=== PATIENT | female | born 1950 | race Caucasian/White ===

== ENCOUNTER 2017-11-08 08:17 | Outpatient (RCR) | payer MEDICAID, SELFPAY ==
[2017-10-15 01:39] VITALS: BP 139/76; PULSE 73; RESP 20; TEMP 36.4; BMI 42.5
[2017-11-08 09:02] VITALS: BP 114/71; PULSE 71; RESP 20; TEMP 37; BMI 42.5
[2017-11-08 12:27] LABS: Erythrocyte Sedimentation Rate 63 mm/hr (0-30)
[2017-11-08 12:30] LABS: Absolute Neutrophil Count 3.7 X10^3/uL (2.0-7.7); Basophil# 0.04 X10^3/uL; Basophil% 0.6 % (0-1); Eosinophils% 1.6 % (0-5); Hematocrit 40.9 % (37-47); Lymphocyte % 31.9 % (19-41); Mean Corp Hgb Conc 31.8 g/gl (32-36); Mean Corpuscular Hgb 28.8 pg (27.0-32.0); Mean Corpuscular Volume 90.5 fL (81-99); Mean Platelet Vol. 9.3 fl (6.2-12.0); Monocyte# 0.42 X10^3/uL; Monocyte% 6.7 % (0-10); Neutrophil # 3.67 X10^3/uL (2.7-7.7); Neutrophil % 58.7 % (47-70); POSITIVE COUNT NO; POSITIVE DIFFERENTIAL NO; POSITIVE MORPHOLOGY NO; Platelet Count 306 K/mm3 (150-450); RBC Distribution Width CV 13.2 % (11.6-14.6); RBC Distribution Width SD 43.1 fl (35.1-43.9); Red Blood Count 4.52 M/mm3 (4.2-5.4); White Blood Count 6.3 K/mm3 (4.4-11.0)
[2017-11-08 13:01] LABS: ALB/GLOB Ratio 0.7 RATIO (0.9-2.4); AST(SGOT) 24 U/L (15-37); Alanine Aminotransfer ALT/SGPT 27 U/L (12-78); Albumin, Serum 3.5 g/dL (3.4-5.0); Alkaline Phosphatase 122 U/L (45-117); Anion Gap 6 (5-15); BUN 18 mg/dL (7-18); BUN/Creat Ratio 19.4 RATIO (10-20); Calcium,Total 9.6 mg/dL (8.5-10.1); Chloride 102 mmol/L (98-107); Creatinine, Serum 0.93 mg/dL (0.55-1.02); EST Glomerular Filtration Rate 64 mL/min (>60); Est Glom Filt Rate - Afr Amer 78 mL/min (>60); Estimated Creatinine Clearance 52.77 ml/min; Globulin 4.7 g/dL (2.2-4.2); Glucose 164 mg/dL (70-110); Potassium 4.6 mmol/L (3.5-5.1); Prealbumin 23.5 mg/dL (20.0-40.0); Protein, Total 8.2 g/dL (6.4-8.2); Sodium Level 139 mmol/L (136-145)
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
== END 2017-11-14 23:59 ==
LOC: WC 08:17
PROVIDERS: Visit Provider Internal Medicine
DX: E11.621 Type 2 diabetes mellitus with foot ulcer (principal); E11.622 Type 2 diabetes mellitus with other skin ulcer; L97.522 Non-pressure chronic ulcer of other part of left foot with fat layer exposed; L97.822 Non-pressure chronic ulcer of other part of left lower leg with fat layer exposed; L03.116 Cellulitis of left lower limb; E03.9 Hypothyroidism, unspecified; Z91.81 History of falling; Z79.899 Other long term (current) drug therapy; Z79.4 Long term (current) use of insulin; Z87.891 Personal history of nicotine dependence
CPT/HCPCS: 36415; 80053; 84134; 85025; 85652; 87070; 87075; 87077; 87186; 87205; 97597; 99213; G0463

== ENCOUNTER 2017-11-22 10:00 | Outpatient (RCR) | payer MEDICAID, SELFPAY ==
[2017-11-08 09:02] VITALS: BP 114/71
[2017-11-15 00:55] VITALS: PULSE 71; RESP 20; TEMP 37
--- NOTE | 2017-11-16 12:03 | VDLE_ITS ---
Reason For Study: Non-healing wounds RIGHT LEFT GSV is normal. GSV is normal. CFV is compressible, spontaneous, phasic, CFV is compressible, spontaneous, phasic, competent and demonstrates normal competent, and demonstrates normal augmentation. augmentation. FV is compressible, spontaneous, phasic, FV is compressible, spontaneous, phasic, competent and demonstrates normal competent and demonstrates normal augmentation. augmentation. POP V is compressible, spontaneous, phasic, POP V is compressible, spontaneous, phasic, competent and demonstrates normal competent and demonstrates normal augmentation. augmentation. T/P Trunk is compressible. T/P Trunk is compressible. PTV is compressible. PTV is compressible. RT PerV is compressible. LT PerV is compressible. SFJ is INCOMPETENT SFJ is INCOMPETENT GSV is competent above knee GSV is competent GSV is INCOMPETENT below knee with reflux SSV is INCOMPETENT with reflux greater greater than .5 sec and diameter of .28 than .5 sec and diameter of.33 x .33 cm. x .29 cm SSV is competent. Procedure Exam performed in department. A preliminary report was called and/or faxed to [facility]. Interpretation Summary Deep veins of the lower extremities are bilaterally patent and compressible segmentally. There is no evidence of deep vein thrombosis on either side. Valvular competence appears intact within the proximal deep venous systems bilaterally. The greater saphenous veins appear bilaterally patent and compressible segmentally. Sapheno-femoral junctions are bilaterally incompetent . The right greater saphenous vein appears competent above the knee. The right greater saphenous vein appears incompetent below the knee. The left greater saphenous vein appears segmentally competent. The right small saphenous vein is patent and competent. The left small saphenous vein is patent and incompetent. Ordering Physician: Luis Sebastian Referring Physician: Luis Sebastian Performed By: Elvia Martinez RVT
[2017-11-22 10:16] VITALS: BP 97/59; PULSE 86; RESP 16; TEMP 36.2; BMI 42.5
--- NOTE | 2017-11-22 13:26 | LEAS ---
Arterial Study - Arterial Study Arterial Study: This is a 66-year-old female with a history of diabetes mellitus. The patient presents with chronic nonhealing wounds to the lower extremities. Suspecting the presence of atherosclerotic peripheral arterial occlusive disease, the patient was brought to the noninvasive vascular laboratory at this time for the purpose of bilateral noninvasive lower extremity arterial assessment. Doppler signal assessment was used to evaluate the pulses at ankle level bilaterally. The posterior tibial and dorsalis pedis pulses were triphasic bilaterally. Segmental limb pressures were obtained bilaterally. The right ankle pressure, as determined by posterior tibial pulse, was measured at 127 mmHg. The right ankle pressure, as determined by dorsalis pedis pulse, was measured at 117 mmHg. The right digital pressure was measured at 82 mmHg. The left ankle pressure, as determined by posterior tibial pulse, was measured at 137 mmHg. The left ankle pressure, as determined by dorsalis pedis pulse, was measured at 120 mmHg. The left digital pressure was measured at 93 mmHg Pulse-volume recordings were obtained bilaterally and segmentally. Waveform amplitudes appeared to be satisfactory at all levels bilaterally, including low thigh, calf, ankle, and digital levels. Resting ankle-brachial indices were calculated bilaterally. The resting right ankle-brachial index was calculated to be 1.15. The resting left ankle-brachial index was calculated to be 1.25. Digital-brachial indices were calculated bilaterally. The right digital-brachial index was calculated to be 0.75. The left digital-brachial index was calculated to be 0.85. Impression: Based upon the findings of this resting noninvasive lower extremity arterial study, there is no evidence of significant atherosclerotic peripheral arterial occlusive disease in the lower extremities bilaterally. Triphasic waveforms are noted at ankle level bilaterally. Resting ankle-brachial indices were bilaterally normal. Digital-brachial indices were also normal bilaterally. In summary, this represents a normal resting noninvasive lower extremity arterial study bilaterally.
--- NOTE | 2017-11-22 13:31 | LEAS_ITS ---
Arterial Study - Arterial Study Arterial Study: This is a 66-year-old female with a history of diabetes mellitus. The patient presents with chronic nonhealing wounds to the lower extremities. Suspecting the presence of atherosclerotic peripheral arterial occlusive disease, the patient was brought to the noninvasive vascular laboratory at this time for the purpose of bilateral noninvasive lower extremity arterial assessment. Doppler signal assessment was used to evaluate the pulses at ankle level bilaterally. The posterior tibial and dorsalis pedis pulses were triphasic bilaterally. Segmental limb pressures were obtained bilaterally. The right ankle pressure, as determined by posterior tibial pulse, was measured at 127 mmHg. The right ankle pressure, as determined by dorsalis pedis pulse, was measured at 117 mmHg. The right digital pressure was measured at 82 mmHg. The left ankle pressure, as determined by posterior tibial pulse, was measured at 137 mmHg. The left ankle pressure, as determined by dorsalis pedis pulse, was measured at 120 mmHg. The left digital pressure was measured at 93 mmHg Pulse-volume recordings were obtained bilaterally and segmentally. Waveform amplitudes appeared to be satisfactory at all levels bilaterally, including low thigh, calf, ankle, and digital levels. Resting ankle-brachial indices were calculated bilaterally. The resting right ankle-brachial index was calculated to be 1.15. The resting left ankle- brachial index was calculated to be 1.25. Digital-brachial indices were calculated bilaterally. The right digital- brachial index was calculated to be 0.75. The left digital-brachial index was calculated to be 0.85. Impression: Based upon the findings of this resting noninvasive lower extremity arterial study, there is no evidence of significant atherosclerotic peripheral arterial occlusive disease in the lower extremities bilaterally. Triphasic waveforms are noted at ankle level bilaterally. Resting ankle-brachial indices were bilaterally normal. Digital-brachial indices were also normal bilaterally. In summary, this represents a normal resting noninvasive lower extremity arterial study bilaterally.
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
[2017-12-13 10:35] VITALS: BP 119/62; PULSE 79; RESP 18; TEMP 36.6; BMI 42.5
== END 2017-12-12 23:59 ==
LOC: WC 10:00
PROVIDERS: Visit Provider Internal Medicine
DX: E11.621 Type 2 diabetes mellitus with foot ulcer (principal); L97.522 Non-pressure chronic ulcer of other part of left foot with fat layer exposed; Z91.81 History of falling; M79.89 Other specified soft tissue disorders
CPT/HCPCS: 11042; 93923; 93970

== ENCOUNTER 2017-12-26 10:00 | Outpatient (RCR) | payer MEDICAID, SELFPAY ==
[2017-12-13 00:43] VITALS: BP 97/59; PULSE 86; RESP 16; TEMP 36.2; BMI 42.5
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
[2017-12-26 11:20] VITALS: BP 109/63; PULSE 73; RESP 18; TEMP 36.4; BMI 42.5
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
== END 2018-01-12 23:59 ==
LOC: WC 10:00
PROVIDERS: Visit Provider Internal Medicine
DX: E11.621 Type 2 diabetes mellitus with foot ulcer (principal); M79.89 Other specified soft tissue disorders; E03.9 Hypothyroidism, unspecified; Z79.899 Other long term (current) drug therapy; Z79.4 Long term (current) use of insulin; Z87.891 Personal history of nicotine dependence; L97.811 Non-pressure chronic ulcer of other part of right lower leg limited to breakdown of skin
CPT/HCPCS: 11042; 99213; G0463

== ENCOUNTER → 2018-01-15 14:49 | Outpatient (CLI) | payer MEDICAID, SELFPAY ==
--- NOTE | 2018-01-15 14:55 | MRI_ITS ---
STUDY: MRI LEFT SHOULDER REASON FOR EXAM: Female, 67 years old. Left shoulder pain. Decreased range of motion. TECHNIQUE: Standardized fat and water weighted pulse sequences were obtained in all 3 orthogonal planes. COMPARISON: X-ray September 27, 2017 FINDINGS: There is supraspinatus tendinosis with tendon thickening, but without a demonstrated tendon tear. Normal infraspinatus tendon. There is subscapularis tendinosis with tendon thickening, but without a demonstrated tendon tear. Normal teres minor tendon. Normal supraspinatus muscle. Normal infraspinatus muscle. Normal subscapularis muscle. Normal teres minor muscle. There is severe osteoarthritis of the glenohumeral articulation. There is a small volume joint effusion of the glenohumeral joint. There is spurring with edema of the humeral head and visualized proximal humerus. Cystic regions of the glenoid. Normal biceps labral complex. Normal intracapsular long biceps tendon. Blunting with tearing of the labrum. Normal capsulo- ligamentous complex. Normal rotator interval. There is moderate osteoarthritis of the acromioclavicular articulations. There is a Type II morphology (curved) acromion, with an anterior downsloping orientation. There is no subacromial-subdeltoid bursal fluid. Normal visualized coracohumeral and coracoacromial ligaments. Normal quadrilateral space. Normal axillary space. Normal deltoid muscle. Normal trapezius muscle. MRI/Upper Ext Joint Only(Routine) IMPRESSION: Tendinosis of the supraspinatus and subscapularis. No full-thickness rotator cuff tear. Severe glenohumeral arthrosis. Electronically Signed: Caden Marie MD at 23:43 EDT , Service support ,
== END ==
DX: M25.519 Pain in unspecified shoulder (principal)
CPT/HCPCS: 73221

== ENCOUNTER 2018-02-07 10:00 | Outpatient (RCR) | payer MEDICAID, SELFPAY ==
[2018-01-13 00:38] VITALS: BP 97/59; PULSE 73; RESP 18; TEMP 36.4; BMI 42.5
[2018-01-16 10:29] VITALS: BP 125/68; PULSE 76; RESP 18; TEMP 36.9; BMI 42.5
--- NOTE | 2018-01-16 23:03 | PCM.WC.HP ---
(1) Open wound of left lower extremity Status: Acute Current Visit: Yes Code(s): S81.802A - Unspecified open wound, left lower leg, initial encounter (2) Diabetic ulcer of right foot Status: Acute Current Visit: Yes Code(s): E11.621 - Type 2 diabetes mellitus with foot ulcer; L97.519 - Non-pressure chronic ulcer of other part of right foot with unspecified severity (3) Diabetic leg ulcer Status: Acute Current Visit: Yes Code(s): E11.622 - Type 2 diabetes mellitus with other skin ulcer; L97.909 - Non-pressure chronic ulcer of unspecified part of unspecified lower leg with unspecified severity (4) Diabetes mellitus Status: Chronic Current Visit: Yes Code(s): E11.9 - Type 2 diabetes mellitus without complications History of Present Illness Date of Service: 01/16/18 Chief Complaint: Right lower extremity/Foot Blisters/Ulcers. Left Lower extremity/Leg woud secondary to Dog Scratch. History of Wound: Ms. Molina who is well known to me presents to the wound center today with two new wounds. She has a left lower extremity wound which she states she sustained as a result fro a scratch by her dog. Sh also has blisters to her right toes with the most significant being if the right great toe however, patient is unsure of how she sustained these blister. She reports pain in her left lower extremity but denies any significant pain in her toes. She reports chills, but denies fever, nausea, vomitting or any change in her biwel habit. Past Medical History Past Medical History: Chronic Problems Hypothyroidism (Chronic) Diabetes mellitus (Chronic) Diabetic foot ulcer (Chronic) Allergies/Adverse Reactions: Allergies ciprofloxacin [From Cipro] Allergy (Verified 09/27/17 10:34) Rash codeine Adverse Reaction (Verified 09/27/17 10:34) Rash Home Medications: Ambulatory Orders Medication Instructions Recorded Duloxetine Hcl [Cymbalta] 60 mg PO DAILY 09/27/17 Gabapentin [Neurontin] 400 mg PO 09/27/17 Hydrocodone/Acetaminophen [[place] 09/27/17 5-325 Tablet] Insulin NPH/Reg 70/30 [Novolin 100 09/27/17 70/30] Levothyroxine Sodium [Synthroid] 100 mcg PO 09/27/17 Lisinopril 20 mg PO 09/27/17 Lovastatin [Mevacor] 40 mg PO DAILY 09/27/17 Miconazole Nitrate [Miconazole 3] 200 mg VG 09/27/17 Naproxen Sodium [Naprelan] 1,000 mg PO DAILY 09/27/17 Potassium Chloride [Klor-Con 10] 10 meq PO 09/27/17 Sumatriptan [Imitrex] 6 mg SC .X1 PRN 09/27/17 Trazodone ER [Oleptro Er] 100 mg 09/27/17 Furosemide 60 mg PO DAILY 11/08/17 Insulin Glargine,Hum.rec.anlog 40 unit SQ BID 11/22/17 [Kim Gottlieb] Smoking Status: Former smoker Review of Systems Constitutional: Reports: Chills. Denies: Anorexia, Fever, Malaise, Weakness Eyes: Denies: Blurred vision, Drainage HEENT: Denies: Difficulty Swallowing, Hearing Changes Cardiovascular: Denies: Chest Pain, Chest Tightness, Heaviness Respiratory: Denies: Hemoptysis, Shortness of breath at rest Gastrointestinal: Denies: Abdominal Pain, Hematemesis, Vomiting Skin: Denies: Jaundice Neurological: Denies: Blurred vision, Tremor, Seizures - Physical Exam Vital Signs Temp Pulse Resp BP 98.4 F 76 18 125/68 H 01/16/18 10:29 01/16/18 10:29 01/16/18 10:29 01/16/18 10:29 General: Alert, Oriented x3, Cooperative, No apparent distress HEENT: Atraumatic, Normocephalic Oral: Moist Mucosa Neck: Supple Lungs: Normal air movement Cardiovascular: Regular rate Abdomen: Non Tender, Obese Extremities: No cyanosis, Edema Skin: Ulcer/ Wound Wound Measurements and Assessment WC - Nurse 1 - General Ulcer Measurement Start: 01/16/18 10:29 Freq: Status: Active Protocol: Activity Type Activity Date Activity User E-Sign Co-Sign Detail Recorded Client Recorded Date Recorded By Document 01/16/18 10:29 [facility] [id number] 01/16/18 10:46 [facility] 01/16/18 10:29 Wound Center Nurse 1 [Ulcer Assessment] #4- LT RODGERS CLUSTER -Combined with other wound No -Current Size (cm) - Length 10.9 -Current Size (cm) - Width 5.1 -Current Size (cm) - Depth 0.1 -Total Square Cm 55.59 -Date of Last Picture (Recall this 01/16/18 field) -Photo Taken Yes -Epithelialization None Present -Tunneling No -Undermining/Tunneling No -Circular Undermining No -Exudate Amt Small (1-33%) -Exudate Type Serosanguineous -Wound Margin Distinct, Outline Attached -Granulation Amt Large (67-100%) -Granulation Quality Red -Slough/Fibrin No -Necrosis Amt None Present (0 %) -Structure Exposed None/Limited to Skin Breakdown -Texture (Mel-wound Skin Appearance) Scarring -Moisture (Mel-wound Skin Appearance Maceration ) Dry/Scaly -Color (Mel-wound Skin Appearance) Erythema Hemosiderin Staining -Temperature (Mel-wound Skin No Abnormality Appearance) (Pt Warm) -Tenderness on Palpation (Mel-wound Yes Skin Appearance) -Ulcer Cleansing Wound Cleanser -Foul Odor after Cleansing No -Anesthetic Used 4% Lidocaine Solution #3 Right Rodgers -Combined with other wound No -Current Size (cm) - Length 0 -Current Size (cm) - Width 0 -Current Size (cm) - Depth 0 -Total Square Cm 0 -Date of Last Picture (Recall this 01/16/18 field) -Photo Taken Yes -Epithelialization Large 67-100% [Edema Assessment] -Lower Limb Edema Present Yes -Right Calf (cm) 38.5 -Right Ankle (cm) 22.6 -Left Calf (cm) 42 -Left Ankle (cm) 24.4 WC - Nurse 2 - General Ulcer CM Notes Start: 01/16/18 10:29 Freq: Status: Active Protocol: Activity Type Activity Date Activity User E-Sign Co-Sign Detail Recorded Client Recorded Date Recorded By Document 01/16/18 11:28 DV [id number] 01/16/18 11:37 DV 01/16/18 11:28 Wound Center Nurse 2 [Procedure/Treatment] #5 Right Webspace Met Head Grt Toe -Time 11:34 -Correct Patient Yes -Correct Side, Site, Position Yes -Correct Procedure Yes -Procedure Performed Yes -Type of Procedure Debridement -Clinical Debridement Subcutaneous -Post Debridement Size (cm) - Length 2.1 -Post Debridement Size (cm) - Width 1.4 -Post Debridement Size (cm) - Depth 0.1 -Total Square Cm 2.94 -Wound/Ulcer Outcome Not Healed -Ulcer Cleansing Rinsed/ Irrigated with Saline -Foul Odor after Cleansing No -Bioengineered Tissue No -Bleeding Controlled with Pressure -Treatment Response Procedure Tolerated Well #4- LT RODGERS CLUSTER -Time 11:31 -Correct Patient Yes -Correct Side, Site, Position Yes -Correct Procedure Yes -Procedure Performed Yes -Type of Procedure Debridement -Clinical Debridement Subcutaneous -Post Debridement Size (cm) - Length 11.0 -Post Debridement Size (cm) - Width 6.0 -Post Debridement Size (cm) - Depth 0.1 -Total Square Cm 66.00 -Wound/Ulcer Outcome Not Healed -Ulcer Cleansing Rinsed/ Irrigated with Saline -Foul Odor after Cleansing No -Bioengineered Tissue No -Bleeding Controlled with Pressure -Treatment Response Procedure Tolerated Well #3 Right Rodgers -Time 11:32 -Correct Patient Yes -Procedure Performed No -Post Debridement Size (cm) - Length 0 -Post Debridement Size (cm) - Width 0 -Post Debridement Size (cm) - Depth 0 -Total Square Cm 0 -Wound/Ulcer Outcome Healed- Epithelialized [See Physician Procedure note for Specifics] Pain Scale: 0-10 Numeric [Pain] -Is Patient Pain Free? Yes Musculoskeletal: No Muscle Wasting Neurological: Cranial nerves II-XII grossly intact Psych/Mental Status: Normal Affect Debridement Note Post-Debridement Measurements/Treatment WC - Nurse 2 - General Ulcer CM Notes Start: 01/16/18 10:29 Freq: Status: Active Protocol: Activity Type Activity Date Activity User E-Sign Co-Sign Detail Recorded Client Recorded Date Recorded By Document 01/16/18 11:28 DV [id number] 01/16/18 11:37 DV 01/16/18 11:28 Wound Center Nurse 2 #5 Right Webspace Met Head Grt Toe -Time 11:34 -Correct Patient Yes -Correct Side, Site, Position Yes -Correct Procedure Yes -Procedure Performed Yes -Type of Procedure Debridement -Clinical Debridement Subcutaneous -Post Debridement Size (cm) - Length 2.1 -Post Debridement Size (cm) - Width 1.4 -Post Debridement Size (cm) - Depth 0.1 -Total Square Cm 2.94 -Wound/Ulcer Outcome Not Healed -Ulcer Cleansing Rinsed/ Irrigated with Saline -Foul Odor after Cleansing No -Bioengineered Tissue No -Bleeding Controlled with Pressure -Treatment Response Procedure Tolerated Well #4- LT RODGERS CLUSTER -Time 11:31 -Correct Patient Yes -Correct Side, Site, Position Yes -Correct Procedure Yes -Procedure Performed Yes -Type of Procedure Debridement -Clinical Debridement Subcutaneous -Post Debridement Size (cm) - Length 11.0 -Post Debridement Size (cm) - Width 6.0 -Post Debridement Size (cm) - Depth 0.1 -Total Square Cm 66.00 -Wound/Ulcer Outcome Not Healed -Ulcer Cleansing Rinsed/ Irrigated with Saline -Foul Odor after Cleansing No -Bioengineered Tissue No -Bleeding Controlled with Pressure -Treatment Response Procedure Tolerated Well #3 Right Rodgers -Time 11:32 -Correct Patient Yes -Procedure Performed No -Post Debridement Size (cm) - Length 0 -Post Debridement Size (cm) - Width 0 -Post Debridement Size (cm) - Depth 0 -Total Square Cm 0 -Wound/Ulcer Outcome Healed- Epithelialized Pain Scale: 0-10 Numeric Is Patient Pain Free? Yes Wound debrided: Left Lower Extremity Cluster Ulcer Wound Grade/Stage: V[place] I Type of Debridement: Excisional debridement Anesthesia Used: 4% Lidocaine Solution Depth: Down to and including healthy tissue, in the subcutaneous layer Percentage of wound debrided: 100 Instrument Used: 5mm curette Tissue Removed: Slough and Devitalized tissue Severity: Fat Layer Exposed Amount of bleeding with debridement: Mild Bleeding Controlled with: Pressure Patient tolerated procedure well - Additional Wound Wound debrided: Right Great Toe medial ulcer/web space Wound Grade/Stage: Vieira I Type of Debridement: Excisional debridement Anesthesia Used: 4% Lidocaine Solution Depth: Down to and including healthy tissue, in the subcutaneous layer Percentage of wound debrided: 100 Instrument Used: 5mm curette, Forceps, - - Scissors Tissue Removed: Devitalized tissue, slough Severity: Fat Layer Exposed Amount of bleeding with debridement: Mild Bleeding Controlled with: Pressure Patient tolerated procedure: Patient tolerated procedure well Assessment/Plan Active Problems Open wound of left lower extremity (Acute) Diabetic ulcer of right foot (Acute) Diabetic leg ulcer (Acute) Diabetes mellitus (Chronic) Assessment: Left Lower Extremity cluster wounds secondary to dog scratch. Leg lower extremity/ leg Cellulitis. Right Diabetic Foot Ulcer. Diabetes mellitus type 2. Plan: Ms. Molina presents again with new bilateral lower extremity ulcers. With the significant blistering of her right toes and left lower extremity pain and swelling secondary to dog scratch. Wound debridement done as documented above. Procedure was well tolerated. Apply Aquacel with adaptic to both ulcers daily. Due to nature of left lower extremity wound ( Dog Scratch ) and significant tenderness/Erythema noted, will cover for Pasturella Multocida infection with augmentin 875 -125mg BID x 7 days. Elevate lower extremity when sitted and in bed. Avoid idle standing. High protein diet/supplement. Continue Double layer Tubi automotive glass installer for edema management. Optimal Blood sugar control. Follow up with PCP. Follow up in 2 weeks. This note was generated with [employer]gar dictation software. It may contain incorrect words, spelling, and punctuation that were not noted in checking the note before signing.
--- NOTE | 2018-01-16 23:13 | HP.PCM_ITS ---
(1) Open wound of left lower extremity Status: Acute Current Visit: Yes Code(s): S81.802A - Unspecified open wound , left lower leg, initial encounter (2) Diabetic ulcer of right foot Status: Acute Current Visit: Yes Code(s): E11.621 - Type 2 diabetes mellitus with foot ulcer; L97.519 - Non-pressure chronic ulcer of other part of right foot with unspecified severity (3) Diabetic leg ulcer Status: Acute Current Visit: Yes Code(s): E11.622 - Type 2 diabetes mellitus with other skin ulcer; L97.909 - Non-pressure chronic ulcer of unspecified part of unspecified lower leg with unspecified severity (4) Diabetes mellitus Status: Chronic Current Visit: Yes Code(s): E11.9 - Type 2 diabetes mellitus without complications History of Present Illness Date of Service: 01/16/18 Chief Complaint: Right lower extremity/Foot Blisters/Ulcers. Left Lower extremity/Leg woud secondary to Dog Scratch. History of Wound: Ms. Molina who is well known to me presents to the wound center today with two new wounds. She has a left lower extremity wound which she states she sustained as a result fro a scratch by her dog. Sh also has blisters to her right toes with the most significant being if the right great toe however, patient is unsure of how she sustained these blister. She reports pain in her left lower extremity but denies any significant pain in her toes. She reports chills, but denies fever, nausea, vomitting or any change in her biwel habit. Past Medical History Past Medical History: Chronic Problems Hypothyroidism (Chronic) Diabetes mellitus (Chronic) Diabetic foot ulcer (Chronic) Allergies/Adverse Reactions: Allergies ciprofloxacin [From Cipro] Allergy (Verified 09/27/17 10:34) Rash codeine Adverse Reaction (Verified 09/27/17 10:34) Rash Home Medications: Ambulatory Orders Medication Instructions Recorded Duloxetine Hcl [Cymbalta] 60 mg PO DAILY 09/27/17 Gabapentin [Neurontin] 400 mg PO 09/27/17 Hydrocodone/Acetaminophen [[place] 09/27/17 5-325 Tablet] Insulin NPH/Reg 70/30 [Novolin 100 09/27/17 70/30] Levothyroxine Sodium [Synthroid] 100 mcg PO 09/27/17 Lisinopril 20 mg PO 09/27/17 Lovastatin [Mevacor] 40 mg PO DAILY 09/27/17 Miconazole Nitrate [Miconazole 3] 200 mg VG 09/27/17 Naproxen Sodium [Naprelan] 1,000 mg PO DAILY 09/27/17 Potassium Chloride [Klor-Con 10] 10 meq PO 09/27/17 Sumatriptan [Imitrex] 6 mg SC .X1 PRN 09/27/17 Trazodone ER [Oleptro Er] 100 mg 09/27/17 Furosemide 60 mg PO DAILY 11/08/17 Insulin Glargine,Hum.rec.anlog 40 unit SQ BID 11/22/17 [Kim Gottlieb] Smoking Status: Former smoker Review of Systems Constitutional: Reports: Chills. Denies: Anorexia, Fever, Malaise, Weakness Eyes: Denies: Blurred vision, Drainage HEENT: Denies: Difficulty Swallowing, Hearing Changes Cardiovascular: Denies: Chest Pain, Chest Tightness, Heaviness Respiratory: Denies: Hemoptysis, Shortness of breath at rest Gastrointestinal: Denies: Abdominal Pain, Hematemesis, Vomiting Skin: Denies: Jaundice Neurological: Denies: Blurred vision, Tremor, Seizures - Physical Exam Vital Signs Temp Pulse Resp BP 98.4 F 76 18 125/68 H 01/16/18 10:29 01/16/18 10:29 01/16/18 10:29 01/16/18 10:29 General: Alert, Oriented x3, Cooperative, No apparent distress HEENT: Atraumatic, Normocephalic Oral: Moist Mucosa Neck: Supple Lungs: Normal air movement Cardiovascular: Regular rate Abdomen: Non Tender, Obese Extremities: No cyanosis, Edema Skin: Ulcer/ Wound Wound Measurements and Assessment WC - Nurse 1 - General Ulcer Measurement Start: 01/16/18 10:29 Freq: Status: Active Protocol: Activity Type Activity Date Activity User E-Sign Co-Sign Detail Recorded Client Recorded Date Recorded By Document 01/16/18 10:29 [facility] [id number] 01/16/18 10:46 [facility] 01/16/18 10:29 Wound Center Nurse 1 [Ulcer Assessment] #4- LT RODGERS CLUSTER -Combined with other wound No -Current Size (cm) - Length 10.9 -Current Size (cm) - Width 5.1 -Current Size (cm) - Depth 0.1 -Total Square Cm 55.59 -Date of Last Picture (Recall this 01/16/18 field) -Photo Taken Yes -Epithelialization None Present -Tunneling No -Undermining/Tunneling No -Circular Undermining No -Exudate Amt Small (1-33%) -Exudate Type Serosanguineous -Wound Margin Distinct, Outline Attached -Granulation Amt Large (67-100%) -Granulation Quality Red -Slough/Fibrin No -Necrosis Amt None Present (0 %) -Structure Exposed None/Limited to Skin Breakdown -Texture (Mel-wound Skin Appearance) Scarring -Moisture (Mel-wound Skin Appearance Maceration ) Dry/Scaly -Color (Mel-wound Skin Appearance) Erythema Hemosiderin Staining -Temperature (Mel-wound Skin No Abnormality Appearance) (Pt Warm) -Tenderness on Palpation (Mel-wound Yes Skin Appearance) -Ulcer Cleansing Wound Cleanser -Foul Odor after Cleansing No -Anesthetic Used 4% Lidocaine Solution #3 Right Rodgers -Combined with other wound No -Current Size (cm) - Length 0 -Current Size (cm) - Width 0 -Current Size (cm) - Depth 0 -Total Square Cm 0 -Date of Last Picture (Recall this 01/16/18 field) -Photo Taken Yes -Epithelialization Large 67-100% [Edema Assessment] -Lower Limb Edema Present Yes -Right Calf (cm) 38.5 -Right Ankle (cm) 22.6 -Left Calf (cm) 42 -Left Ankle (cm) 24.4 WC - Nurse 2 - General Ulcer CM Notes Start: 01/16/18 10:29 Freq: Status: Active Protocol: Activity Type Activity Date Activity User E-Sign Co-Sign Detail Recorded Client Recorded Date Recorded By Document 01/16/18 11:28 DV [id number] 01/16/18 11:37 DV 01/16/18 11:28 Wound Center Nurse 2 [Procedure/Treatment] #5 Right Webspace Met Head Grt Toe -Time 11:34 -Correct Patient Yes -Correct Side, Site, Position Yes -Correct Procedure Yes -Procedure Performed Yes -Type of Procedure Debridement -Clinical Debridement Subcutaneous -Post Debridement Size (cm) - Length 2.1 -Post Debridement Size (cm) - Width 1.4 -Post Debridement Size (cm) - Depth 0.1 -Total Square Cm 2.94 -Wound/Ulcer Outcome Not Healed -Ulcer Cleansing Rinsed/ Irrigated with Saline -Foul Odor after Cleansing No -Bioengineered Tissue No -Bleeding Controlled with Pressure -Treatment Response Procedure Tolerated Well #4- LT RODGERS CLUSTER -Time 11:31 -Correct Patient Yes -Correct Side, Site, Position Yes -Correct Procedure Yes -Procedure Performed Yes -Type of Procedure Debridement -Clinical Debridement Subcutaneous -Post Debridement Size (cm) - Length 11.0 -Post Debridement Size (cm) - Width 6.0 -Post Debridement Size (cm) - Depth 0.1 -Total Square Cm 66.00 -Wound/Ulcer Outcome Not Healed -Ulcer Cleansing Rinsed/ Irrigated with Saline -Foul Odor after Cleansing No -Bioengineered Tissue No -Bleeding Controlled with Pressure -Treatment Response Procedure Tolerated Well #3 Right Rodgers -Time 11:32 -Correct Patient Yes -Procedure Performed No -Post Debridement Size (cm) - Length 0 -Post Debridement Size (cm) - Width 0 -Post Debridement Size (cm) - Depth 0 -Total Square Cm 0 -Wound/Ulcer Outcome Healed- Epithelialized [See Physician Procedure note for Specifics] Pain Scale: 0-10 Numeric [Pain] -Is Patient Pain Free? Yes Musculoskeletal: No Muscle Wasting Neurological: Cranial nerves II-XII grossly intact Psych/Mental Status: Normal Affect Debridement Note Post-Debridement Measurements/Treatment WC - Nurse 2 - General Ulcer CM Notes Start: 01/16/18 10:29 Freq: Status: Active Protocol: Activity Type Activity Date Activity User E-Sign Co-Sign Detail Recorded Client Recorded Date Recorded By Document 01/16/18 11:28 DV [id number] 01/16/18 11:37 DV 01/16/18 11:28 Wound Center Nurse 2 #5 Right Webspace Met Head Grt Toe -Time 11:34 -Correct Patient Yes -Correct Side, Site, Position Yes -Correct Procedure Yes -Procedure Performed Yes -Type of Procedure Debridement -Clinical Debridement Subcutaneous -Post Debridement Size (cm) - Length 2.1 -Post Debridement Size (cm) - Width 1.4 -Post Debridement Size (cm) - Depth 0.1 -Total Square Cm 2.94 -Wound/Ulcer Outcome Not Healed -Ulcer Cleansing Rinsed/ Irrigated with Saline -Foul Odor after Cleansing No -Bioengineered Tissue No -Bleeding Controlled with Pressure -Treatment Response Procedure Tolerated Well #4- LT RODGERS CLUSTER -Time 11:31 -Correct Patient Yes -Correct Side, Site, Position Yes -Correct Procedure Yes -Procedure Performed Yes -Type of Procedure Debridement -Clinical Debridement Subcutaneous -Post Debridement Size (cm) - Length 11.0 -Post Debridement Size (cm) - Width 6.0 -Post Debridement Size (cm) - Depth 0.1 -Total Square Cm 66.00 -Wound/Ulcer Outcome Not Healed -Ulcer Cleansing Rinsed/ Irrigated with Saline -Foul Odor after Cleansing No -Bioengineered Tissue No -Bleeding Controlled with Pressure -Treatment Response Procedure Tolerated Well #3 Right Rodgers -Time 11:32 -Correct Patient Yes -Procedure Performed No -Post Debridement Size (cm) - Length 0 -Post Debridement Size (cm) - Width 0 -Post Debridement Size (cm) - Depth 0 -Total Square Cm 0 -Wound/Ulcer Outcome Healed- Epithelialized Pain Scale: 0-10 Numeric Is Patient Pain Free? Yes Wound debrided: Left Lower Extremity Cluster Ulcer Wound Grade/Stage: V[place] I Type of Debridement: Excisional debridement Anesthesia Used: 4% Lidocaine Solution Depth: Down to and including healthy tissue, in the subcutaneous layer Percentage of wound debrided: 100 Instrument Used: 5mm curette Tissue Removed: Slough and Devitalized tissue Severity: Fat Layer Exposed Amount of bleeding with debridement: Mild Bleeding Controlled with: Pressure Patient tolerated procedure well - Additional Wound Wound debrided: Right Great Toe medial ulcer/web space Wound Grade/Stage: Vieira I Type of Debridement: Excisional debridement Anesthesia Used: 4% Lidocaine Solution Depth: Down to and including healthy tissue, in the subcutaneous layer Percentage of wound debrided: 100 Instrument Used: 5mm curette, Forceps, - - Scissors Tissue Removed: Devitalized tissue, slough Severity: Fat Layer Exposed Amount of bleeding with debridement: Mild Bleeding Controlled with: Pressure Patient tolerated procedure: Patient tolerated procedure well Assessment/Plan Active Problems Open wound of left lower extremity (Acute) Diabetic ulcer of right foot (Acute) Diabetic leg ulcer (Acute) Diabetes mellitus (Chronic) Assessment: Left Lower Extremity cluster wounds secondary to dog scratch. Leg lower extremity/ leg Cellulitis. Right Diabetic Foot Ulcer. Diabetes mellitus type 2. Plan: Ms. Molina presents again with new bilateral lower extremity ulcers. With the significant blistering of her right toes and left lower extremity pain and swelling secondary to dog scratch. Wound debridement done as documented above. Procedure was well tolerated. Apply Aquacel with adaptic to both ulcers daily. Due to nature of left lower extremity wound ( Dog Scratch ) and significant tenderness/Erythema noted, will cover for Pasturella Multocida infection with augmentin 875 -125mg BID x 7 days. Elevate lower extremity when sitted and in bed. Avoid idle standing. High protein diet/supplement. Continue Double layer Tubi iron handler for edema management. Optimal Blood sugar control. Follow up with PCP. Follow up in 2 weeks. This note was generated with [employer] dictation software. It may contain incorrect words, spelling, and punctuation that were not noted in checking the note before signing.
[2018-02-07 09:53] VITALS: BP 114/70; PULSE 67; RESP 16; TEMP 35.7; BMI 42.5
--- NOTE | 2018-02-07 10:58 | PCM.WC.PN ---
(1) Open wound of left lower extremity Status: Acute Current Visit: Yes Code(s): S81.802A - Unspecified open wound, left lower leg, initial encounter (2) Diabetic ulcer of right foot Status: Acute Current Visit: Yes Qualifiers: Diabetic foot ulcer location: toe Code(s): E11.621 - Type 2 diabetes mellitus with foot ulcer; L97.519 - Non-pressure chronic ulcer of other part of right foot with unspecified severity (3) Diabetic leg ulcer Status: Acute Current Visit: Yes Code(s): E11.622 - Type 2 diabetes mellitus with other skin ulcer; L97.909 - Non-pressure chronic ulcer of unspecified part of unspecified lower leg with unspecified severity (4) Diabetes mellitus Status: Chronic Current Visit: Yes Code(s): E11.9 - Type 2 diabetes mellitus without complications Type of Wound Date of Service: 02/07/18 Chief Complaint: Right lower extremity/Foot Blisters/Ulcers. Left Lower extremity/Leg woud secondary to Dog Scratch. History of Wound: Ms. Molina who is well known to me presents to the wound center today with two new wounds. She has a left lower extremity wound which she states she sustained as a result fro a scratch by her dog. Sh also has blisters to her right toes with the most significant being if the right great toe however, patient is unsure of how she sustained these blister. She reports pain in her left lower extremity but denies any significant pain in her toes. She reports chills, but denies fever, nausea, vomitting or any change in her biwel habit. Progress of Wound: She presents with a new right foot ulcer on the lateral aspect of her fifth toe. she denies any know precipitating fatocr but states that it initially presente as a blister. she reports significnat pain but denies any discharge. - Physical Exam Vital Signs Temp Pulse Resp BP 96.2 F L 67 16 114/70 02/07/18 09:53 02/07/18 09:53 02/07/18 09:53 02/07/18 09:53 General: Alert, Oriented x3, Cooperative, No apparent distress HEENT: Atraumatic, Normocephalic Oral: Moist Mucosa Neck: Supple Lungs: Normal air movement Cardiovascular: Regular rate Extremities: No cyanosis, Edema Skin: Ulcer/ Wound Wound Measurements and Assessment WC - Nurse 1 - General Ulcer Measurement Start: 01/16/18 10:29 Freq: Status: Active Protocol: Activity Type Activity Date Activity User E-Sign Co-Sign Detail Recorded Client Recorded Date Recorded By Document 02/07/18 09:53 TN [id number] 02/07/18 10:11 TN 02/07/18 09:53 Wound Center Nurse 1 [Ulcer Assessment] #7 L-GREAT TOE DORSUM -Combined with other wound No -Current Size (cm) - Length 1.0 -Current Size (cm) - Width 0.1 -Current Size (cm) - Depth 0.1 -Total Square Cm 0.10 -Date of Last Picture (Recall this 02/07/18 field) -Photo Taken Yes -Epithelialization None Present -Tunneling No -Undermining/Tunneling No -Circular Undermining No -Exudate Amt None Present (0 %) -Wound Margin Indistinct, Non -Visible -Granulation Amt None Present (0 %) -Granulation Quality N/A -Slough/Fibrin Yes -Necrosis Amt None Present (0 %) -Necrotic Tissue Type Adherent Slough -Structure Exposed N/A -Texture (Mel-wound Skin Appearance) No Abnormality -Moisture (Mel-wound Skin Appearance No Abnormality ) -Color (Mel-wound Skin Appearance) No Abnormality -Temperature (Mel-wound Skin No Abnormality Appearance) (Pt Warm) -Tenderness on Palpation (Mel-wound No Skin Appearance) -Ulcer Cleansing Rinsed/ Irrigated with Saline -Foul Odor after Cleansing No -Anesthetic Used 4% Lidocaine Solution #6 R-5TH TOE MPJ -Combined with other wound No -Current Size (cm) - Length 2.4 -Current Size (cm) - Width 2.4 -Current Size (cm) - Depth 0.2 -Total Square Cm 5.76 -Date of Last Picture (Recall this 02/07/18 field) -Photo Taken Yes -Epithelialization None Present -Tunneling No -Undermining/Tunneling No -Circular Undermining No -Classification - Thickness Full Thickness without Exposed Support Structure -Classification - Vieira Grading ( Grade 1 Diabetic Ulcer) -Exudate Amt None Present (0 %) -Wound Margin Distinct, Outline Attached -Granulation Amt None Present (0 %) -Granulation Quality N/A -Slough/Fibrin Yes -Necrosis Amt Small (1-33%) -Structure Exposed None/Limited to Skin Breakdown -Texture (Mel-wound Skin Appearance) Assessed -Moisture (Mel-wound Skin Appearance Maceration ) -Color (Mel-wound Skin Appearance) Erythema -Temperature (Mel-wound Skin No Abnormality Appearance) (Pt Warm) -Tenderness on Palpation (Mel-wound No Skin Appearance) -Ulcer Cleansing Rinsed/ Irrigated with Saline -Foul Odor after Cleansing No -Anesthetic Used 4% Lidocaine Solution #5 Right Met Head Grt Toe -Combined with other wound No -Current Size (cm) - Length 1.6 -Current Size (cm) - Width 0.9 -Current Size (cm) - Depth 0.1 -Total Square Cm 1.44 -Date of Last Picture (Recall this 02/07/18 field) -Photo Taken Yes -Epithelialization None Present -Tunneling No -Undermining/Tunneling No -Circular Undermining No -Classification - Thickness Full Thickness without Exposed Support Structure -Change in Wound Grade/Stage No Query Text:If change please identify the Stage/Grade in the comment (ie. S2 G3) -Exudate Amt Small (1-33%) -Exudate Type Serosanguineous -Wound Margin Distinct, Outline Attached -Granulation Amt None Present (0 %) -Slough/Fibrin Yes -Necrosis Amt Medium (34-66%) -Necrotic Tissue Type Adherent Slough -Structure Exposed None/Limited to Skin Breakdown -Texture (Mel-wound Skin Appearance) Assessed Callus -Moisture (Mel-wound Skin Appearance Assessed ) Dry/Scaly -Color (Mel-wound Skin Appearance) Assessed Erythema -Temperature (Mel-wound Skin No Abnormality Appearance) (Pt Warm) -Tenderness on Palpation (Mel-wound No Skin Appearance) -Ulcer Cleansing Wound Cleanser -Foul Odor after Cleansing No -Anesthetic Used 5% Lidocaine Gel #4- LT RODGERS CLUSTER -Combined with other wound No -Current Size (cm) - Length 0.1 -Current Size (cm) - Width 0.1 -Current Size (cm) - Depth 0.1 -Total Square Cm 0.01 -Date of Last Picture (Recall this 02/07/18 field) -Photo Taken Yes -Epithelialization None Present -Tunneling No -Undermining/Tunneling No -Circular Undermining No -Change in Wound Grade/Stage No Query Text:If change please identify the Stage/Grade in the comment (ie. S2 G3) -Exudate Amt None Present (0 %) -Wound Margin Flat & Intact -Granulation Amt None Present (0 %) -Slough/Fibrin No -Necrosis Amt None Present (0 %) -Structure Exposed None/Limited to Skin Breakdown -Texture (Mel-wound Skin Appearance) No Abnormality Assessed -Moisture (Mel-wound Skin Appearance No Abnormality ) Assessed -Color (Mel-wound Skin Appearance) No Abnormality Assessed -Temperature (Mel-wound Skin No Abnormality Appearance) (Pt Warm) -Tenderness on Palpation (Mel-wound No Skin Appearance) -Ulcer Cleansing Wound Cleanser -Foul Odor after Cleansing No -Anesthetic Used 5% Lidocaine Gel [Edema Assessment] -Lower Limb Edema Present No WC - Nurse 2 - General Ulcer CM Notes Start: 01/16/18 10:29 Freq: Status: Active Protocol: Activity Type Activity Date Activity User E-Sign Co-Sign Detail Recorded Client Recorded Date Recorded By Document 02/07/18 10:45 DV [id number] 02/07/18 10:56 DV 02/07/18 10:45 Wound Center Nurse 2 [Procedure/Treatment] #7 L-GREAT TOE DORSUM -Time 10:55 -Correct Patient Yes -Procedure Performed No -Post Debridement Size (cm) - Length 0 -Post Debridement Size (cm) - Width 0 -Post Debridement Size (cm) - Depth 0 -Total Square Cm 0 -Wound/Ulcer Outcome Healed- Epithelialized -Ulcer Cleansing Rinsed/ Irrigated with Saline #6 R-5TH TOE MPJ -Time 10:51 -Correct Patient Yes -Correct Side, Site, Position Yes -Correct Procedure Yes -Procedure Performed Yes -Type of Procedure Debridement -Clinical Debridement Subcutaneous -Post Debridement Size (cm) - Length 2.4 -Post Debridement Size (cm) - Width 2.2 -Post Debridement Size (cm) - Depth 0.2 -Total Square Cm 5.28 -Wound/Ulcer Outcome Not Healed -Ulcer Cleansing Rinsed/ Irrigated with Saline -Foul Odor after Cleansing No -Bioengineered Tissue No -Bleeding Controlled with Pressure -Treatment Response Procedure Tolerated Well #5 Right Met Head Grt Toe -Time 10:50 -Correct Patient Yes -Correct Side, Site, Position Yes -Correct Procedure Yes -Procedure Performed Yes -Type of Procedure Debridement -Clinical Debridement Subcutaneous -Post Debridement Size (cm) - Length 1.5 -Post Debridement Size (cm) - Width 0.7 -Post Debridement Size (cm) - Depth 0.1 -Total Square Cm 1.05 -Wound/Ulcer Outcome Not Healed -Ulcer Cleansing Rinsed/ Irrigated with Saline -Foul Odor after Cleansing No -Bioengineered Tissue No -Bleeding Controlled with Pressure -Treatment Response Procedure Tolerated Well #4- LT RODGERS CLUSTER -Time 10:46 -Procedure Performed No -Post Debridement Size (cm) - Length 0 -Post Debridement Size (cm) - Width 0 -Post Debridement Size (cm) - Depth 0 -Total Square Cm 0 -Wound/Ulcer Outcome Healed- Epithelialized [See Physician Procedure note for Specifics] Musculoskeletal: No Muscle Wasting Neurological: Cranial nerves II-XII grossly intact Psych/Mental Status: Normal Affect Debridement Note Post-Debridement Measurements/Treatment WC - Nurse 2 - General Ulcer CM Notes Start: 01/16/18 10:29 Freq: Status: Active Protocol: Activity Type Activity Date Activity User E-Sign Co-Sign Detail Recorded Client Recorded Date Recorded By Document 01/16/18 11:28 DV [id number] 01/16/18 11:37 DV Document 02/07/18 10:45 DV [id number] 02/07/18 10:56 DV 01/16/18 02/07/18 11:28 10:45 Wound Center Nurse 2 #7 L-GREAT TOE DORSUM -Time 10:55 -Correct Patient Yes -Procedure Performed No -Post Debridement Size (cm) - Length 0 -Post Debridement Size (cm) - Width 0 -Post Debridement Size (cm) - Depth 0 -Total Square Cm 0 -Wound/Ulcer Outcome Healed- Epithelialized -Ulcer Cleansing Rinsed/ Irrigated with Saline #6 R-5TH TOE MPJ -Time 10:51 -Correct Patient Yes -Correct Side, Site, Position Yes -Correct Procedure Yes -Procedure Performed Yes -Type of Procedure Debridement -Clinical Debridement Subcutaneous -Post Debridement Size (cm) - Length 2.4 -Post Debridement Size (cm) - Width 2.2 -Post Debridement Size (cm) - Depth 0.2 -Total Square Cm 5.28 -Wound/Ulcer Outcome Not Healed -Ulcer Cleansing Rinsed/ Irrigated with Saline -Foul Odor after Cleansing No -Bioengineered Tissue No -Bleeding Controlled with Pressure -Treatment Response Procedure Tolerated Well #5 Right Met Head Grt Toe -Time 11:34 10:50 -Correct Patient Yes Yes -Correct Side, Site, Position Yes Yes -Correct Procedure Yes Yes -Procedure Performed Yes Yes -Type of Procedure Debridement Debridement -Clinical Debridement Subcutaneous Subcutaneous -Post Debridement Size (cm) - Length 2.1 1.5 -Post Debridement Size (cm) - Width 1.4 0.7 -Post Debridement Size (cm) - Depth 0.1 0.1 -Total Square Cm 2.94 1.05 -Wound/Ulcer Outcome Not Healed Not Healed -Ulcer Cleansing Rinsed/ Rinsed/ Irrigated with Irrigated with Saline Saline -Foul Odor after Cleansing No No -Bioengineered Tissue No No -Bleeding Controlled with Pressure Pressure -Treatment Response Procedure Procedure Tolerated Well Tolerated Well #4- LT RODGERS CLUSTER -Time 11:31 10:46 -Correct Patient Yes -Correct Side, Site, Position Yes -Correct Procedure Yes -Procedure Performed Yes No -Type of Procedure Debridement -Clinical Debridement Subcutaneous -Post Debridement Size (cm) - Length 11.0 0 -Post Debridement Size (cm) - Width 6.0 0 -Post Debridement Size (cm) - Depth 0.1 0 -Total Square Cm 66.00 0 -Wound/Ulcer Outcome Not Healed Healed- Epithelialized -Ulcer Cleansing Rinsed/ Irrigated with Saline -Foul Odor after Cleansing No -Bioengineered Tissue No -Bleeding Controlled with Pressure -Treatment Response Procedure Tolerated Well #3 Right Rodgers -Time 11:32 -Correct Patient Yes -Procedure Performed No -Post Debridement Size (cm) - Length 0 -Post Debridement Size (cm) - Width 0 -Post Debridement Size (cm) - Depth 0 -Total Square Cm 0 -Wound/Ulcer Outcome Healed- Epithelialized Pain Scale: 0-10 Numeric Is Patient Pain Free? Yes Wound debrided: Right great toe ( web space ) Wound Grade/Stage: Vieira II Type of Debridement: Excisional debridement Anesthesia Used: 4% Lidocaine Solution Depth: Down to and including healthy tissue, in the subcutaneous layer Percentage of wound debrided: 100 Instrument Used: 5mm curette Tissue Removed: Slough and devitalized tisue Severity: Fat Layer Exposed Amount of bleeding with debridement: Mild Bleeding Controlled with: Pressure Patient tolerated procedure well - Additional Wound Wound debrided: Right 5th Toe ( lateral ) Wound Grade/Stage: vieira II Type of Debridement: Excisional debridement Anesthesia Used: 4% Lidocaine Solution Depth: Down to and including healthy tissue, in the subcutaneous layer Percentage of wound debrided: 100 Instrument Used: 5mm curette Tissue Removed: Slough and devitalized tissue Severity: Fat Layer Exposed Amount of bleeding with debridement: Mild Bleeding Controlled with: Pressure Patient tolerated procedure: Patient tolerated procedure well Assessment/Plan Active Problems Open wound of left lower extremity (Acute) Diabetic ulcer of right foot (Acute) Diabetic leg ulcer (Acute) Diabetes mellitus (Chronic) Assessment: Left Lower Extremity cluster wounds secondary to dog scratch. Leg lower extremity/ leg Cellulitis. Right Diabetic Foot Ulcers ( Great toe web space and 5th toe lateral ). Diabetes mellitus type 2. Plan: Ms. Molina missed her last appointment and preents now with a new right 5th toe ( lateral ) ulcer. Siad to be significantly tender but denies any discharge or drainage. No known precipitating factor. Left Rodgers ulcers have now healed. Wound debridement done as documented above. Procedure was well tolerated. Apply Anaid to both ulcers with adaptic over top. Elevate lower extremity when sitted and in bed. Avoid idle standing. High protein diet/supplement. 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 Optimal Blood sugar control. Follow up with PCP. Follow up in 1 week. This note was generated with [employer] dictation software. It may contain incorrect words, spelling, and punctuation that were not noted in checking the note before signing.
--- NOTE | 2018-02-07 11:08 | PN.PCM_ITS ---
(1) Open wound of left lower extremity Status: Acute Current Visit: Yes Code(s): S81.802A - Unspecified open wound , left lower leg, initial encounter (2) Diabetic ulcer of right foot Status: Acute Current Visit: Yes Qualifiers: Diabetic foot ulcer location: toe Code(s): E11.621 - Type 2 diabetes mellitus with foot ulcer; L97.519 - Non- pressure chronic ulcer of other part of right foot with unspecified severity (3) Diabetic leg ulcer Status: Acute Current Visit: Yes Code(s): E11.622 - Type 2 diabetes mellitus with other skin ulcer; L97.909 - Non-pressure chronic ulcer of unspecified part of unspecified lower leg with unspecified severity (4) Diabetes mellitus Status: Chronic Current Visit: Yes Code(s): E11.9 - Type 2 diabetes mellitus without complications Type of Wound Date of Service: 02/07/18 Chief Complaint: Right lower extremity/Foot Blisters/Ulcers. Left Lower extremity/Leg woud secondary to Dog Scratch. History of Wound: Ms. Molina who is well known to me presents to the wound center today with two new wounds. She has a left lower extremity wound which she states she sustained as a result fro a scratch by her dog. Sh also has blisters to her right toes with the most significant being if the right great toe however, patient is unsure of how she sustained these blister. She reports pain in her left lower extremity but denies any significant pain in her toes. She reports chills, but denies fever, nausea, vomitting or any change in her biwel habit. Progress of Wound: She presents with a new right foot ulcer on the lateral aspect of her fifth toe. she denies any know precipitating fatocr but states that it initially presente as a blister. she reports significnat pain but denies any discharge. - Physical Exam Vital Signs Temp Pulse Resp BP 96.2 F L 67 16 114/70 02/07/18 09:53 02/07/18 09:53 02/07/18 09:53 02/07/18 09:53 General: Alert, Oriented x3, Cooperative, No apparent distress HEENT: Atraumatic, Normocephalic Oral: Moist Mucosa Neck: Supple Lungs: Normal air movement Cardiovascular: Regular rate Extremities: No cyanosis, Edema Skin: Ulcer/ Wound Wound Measurements and Assessment WC - Nurse 1 - General Ulcer Measurement Start: 01/16/18 10:29 Freq: Status: Active Protocol: Activity Type Activity Date Activity User E-Sign Co-Sign Detail Recorded Client Recorded Date Recorded By Document 02/07/18 09:53 TN [id number] 02/07/18 10:11 TN 02/07/18 09:53 Wound Center Nurse 1 [Ulcer Assessment] #7 L-GREAT TOE DORSUM -Combined with other wound No -Current Size (cm) - Length 1.0 -Current Size (cm) - Width 0.1 -Current Size (cm) - Depth 0.1 -Total Square Cm 0.10 -Date of Last Picture (Recall this 02/07/18 field) -Photo Taken Yes -Epithelialization None Present -Tunneling No -Undermining/Tunneling No -Circular Undermining No -Exudate Amt None Present (0 %) -Wound Margin Indistinct, Non -Visible -Granulation Amt None Present (0 %) -Granulation Quality N/A -Slough/Fibrin Yes -Necrosis Amt None Present (0 %) -Necrotic Tissue Type Adherent Slough -Structure Exposed N/A -Texture (Mel-wound Skin Appearance) No Abnormality -Moisture (Mel-wound Skin Appearance No Abnormality ) -Color (Mel-wound Skin Appearance) No Abnormality -Temperature (Mel-wound Skin No Abnormality Appearance) (Pt Warm) -Tenderness on Palpation (Mel-wound No Skin Appearance) -Ulcer Cleansing Rinsed/ Irrigated with Saline -Foul Odor after Cleansing No -Anesthetic Used 4% Lidocaine Solution #6 R-5TH TOE MPJ -Combined with other wound No -Current Size (cm) - Length 2.4 -Current Size (cm) - Width 2.4 -Current Size (cm) - Depth 0.2 -Total Square Cm 5.76 -Date of Last Picture (Recall this 02/07/18 field) -Photo Taken Yes -Epithelialization None Present -Tunneling No -Undermining/Tunneling No -Circular Undermining No -Classification - Thickness Full Thickness without Exposed Support Structure -Classification - Vieira Grading ( Grade 1 Diabetic Ulcer) -Exudate Amt None Present (0 %) -Wound Margin Distinct, Outline Attached -Granulation Amt None Present (0 %) -Granulation Quality N/A -Slough/Fibrin Yes -Necrosis Amt Small (1-33%) -Structure Exposed None/Limited to Skin Breakdown -Texture (Mel-wound Skin Appearance) Assessed -Moisture (Mel-wound Skin Appearance Maceration ) -Color (Mel-wound Skin Appearance) Erythema -Temperature (Mel-wound Skin No Abnormality Appearance) (Pt Warm) -Tenderness on Palpation (Mel-wound No Skin Appearance) -Ulcer Cleansing Rinsed/ Irrigated with Saline -Foul Odor after Cleansing No -Anesthetic Used 4% Lidocaine Solution #5 Right Met Head Grt Toe -Combined with other wound No -Current Size (cm) - Length 1.6 -Current Size (cm) - Width 0.9 -Current Size (cm) - Depth 0.1 -Total Square Cm 1.44 -Date of Last Picture (Recall this 02/07/18 field) -Photo Taken Yes -Epithelialization None Present -Tunneling No -Undermining/Tunneling No -Circular Undermining No -Classification - Thickness Full Thickness without Exposed Support Structure -Change in Wound Grade/Stage No Query Text:If change please identify the Stage/Grade in the comment (ie. S2 G3) -Exudate Amt Small (1-33%) -Exudate Type Serosanguineous -Wound Margin Distinct, Outline Attached -Granulation Amt None Present (0 %) -Slough/Fibrin Yes -Necrosis Amt Medium (34-66%) -Necrotic Tissue Type Adherent Slough -Structure Exposed None/Limited to Skin Breakdown -Texture (Mel-wound Skin Appearance) Assessed Callus -Moisture (Mel-wound Skin Appearance Assessed ) Dry/Scaly -Color (Mel-wound Skin Appearance) Assessed Erythema -Temperature (Mel-wound Skin No Abnormality Appearance) (Pt Warm) -Tenderness on Palpation (Mel-wound No Skin Appearance) -Ulcer Cleansing Wound Cleanser -Foul Odor after Cleansing No -Anesthetic Used 5% Lidocaine Gel #4- LT RODGERS CLUSTER -Combined with other wound No -Current Size (cm) - Length 0.1 -Current Size (cm) - Width 0.1 -Current Size (cm) - Depth 0.1 -Total Square Cm 0.01 -Date of Last Picture (Recall this 02/07/18 field) -Photo Taken Yes -Epithelialization None Present -Tunneling No -Undermining/Tunneling No -Circular Undermining No -Change in Wound Grade/Stage No Query Text:If change please identify the Stage/Grade in the comment (ie. S2 G3) -Exudate Amt None Present (0 %) -Wound Margin Flat & Intact -Granulation Amt None Present (0 %) -Slough/Fibrin No -Necrosis Amt None Present (0 %) -Structure Exposed None/Limited to Skin Breakdown -Texture (Mel-wound Skin Appearance) No Abnormality Assessed -Moisture (Mel-wound Skin Appearance No Abnormality ) Assessed -Color (Mel-wound Skin Appearance) No Abnormality Assessed -Temperature (Mel-wound Skin No Abnormality Appearance) (Pt Warm) -Tenderness on Palpation (Mel-wound No Skin Appearance) -Ulcer Cleansing Wound Cleanser -Foul Odor after Cleansing No -Anesthetic Used 5% Lidocaine Gel [Edema Assessment] -Lower Limb Edema Present No WC - Nurse 2 - General Ulcer CM Notes Start: 01/16/18 10:29 Freq: Status: Active Protocol: Activity Type Activity Date Activity User E-Sign Co-Sign Detail Recorded Client Recorded Date Recorded By Document 02/07/18 10:45 DV [id number] 02/07/18 10:56 DV 02/07/18 10:45 Wound Center Nurse 2 [Procedure/Treatment] #7 L-GREAT TOE DORSUM -Time 10:55 -Correct Patient Yes -Procedure Performed No -Post Debridement Size (cm) - Length 0 -Post Debridement Size (cm) - Width 0 -Post Debridement Size (cm) - Depth 0 -Total Square Cm 0 -Wound/Ulcer Outcome Healed- Epithelialized -Ulcer Cleansing Rinsed/ Irrigated with Saline #6 R-5TH TOE MPJ -Time 10:51 -Correct Patient Yes -Correct Side, Site, Position Yes -Correct Procedure Yes -Procedure Performed Yes -Type of Procedure Debridement -Clinical Debridement Subcutaneous -Post Debridement Size (cm) - Length 2.4 -Post Debridement Size (cm) - Width 2.2 -Post Debridement Size (cm) - Depth 0.2 -Total Square Cm 5.28 -Wound/Ulcer Outcome Not Healed -Ulcer Cleansing Rinsed/ Irrigated with Saline -Foul Odor after Cleansing No -Bioengineered Tissue No -Bleeding Controlled with Pressure -Treatment Response Procedure Tolerated Well #5 Right Met Head Grt Toe -Time 10:50 -Correct Patient Yes -Correct Side, Site, Position Yes -Correct Procedure Yes -Procedure Performed Yes -Type of Procedure Debridement -Clinical Debridement Subcutaneous -Post Debridement Size (cm) - Length 1.5 -Post Debridement Size (cm) - Width 0.7 -Post Debridement Size (cm) - Depth 0.1 -Total Square Cm 1.05 -Wound/Ulcer Outcome Not Healed -Ulcer Cleansing Rinsed/ Irrigated with Saline -Foul Odor after Cleansing No -Bioengineered Tissue No -Bleeding Controlled with Pressure -Treatment Response Procedure Tolerated Well #4- LT RODGERS CLUSTER -Time 10:46 -Procedure Performed No -Post Debridement Size (cm) - Length 0 -Post Debridement Size (cm) - Width 0 -Post Debridement Size (cm) - Depth 0 -Total Square Cm 0 -Wound/Ulcer Outcome Healed- Epithelialized [See Physician Procedure note for Specifics] Musculoskeletal: No Muscle Wasting Neurological: Cranial nerves II-XII grossly intact Psych/Mental Status: Normal Affect Debridement Note Post-Debridement Measurements/Treatment WC - Nurse 2 - General Ulcer CM Notes Start: 01/16/18 10:29 Freq: Status: Active Protocol: Activity Type Activity Date Activity User E-Sign Co-Sign Detail Recorded Client Recorded Date Recorded By Document 01/16/18 11:28 DV [id number] 01/16/18 11:37 DV Document 02/07/18 10:45 DV [id number] 02/07/18 10:56 DV 01/16/18 02/07/18 11:28 10:45 Wound Center Nurse 2 #7 L-GREAT TOE DORSUM -Time 10:55 -Correct Patient Yes -Procedure Performed No -Post Debridement Size (cm) - Length 0 -Post Debridement Size (cm) - Width 0 -Post Debridement Size (cm) - Depth 0 -Total Square Cm 0 -Wound/Ulcer Outcome Healed- Epithelialized -Ulcer Cleansing Rinsed/ Irrigated with Saline #6 R-5TH TOE MPJ -Time 10:51 -Correct Patient Yes -Correct Side, Site, Position Yes -Correct Procedure Yes -Procedure Performed Yes -Type of Procedure Debridement -Clinical Debridement Subcutaneous -Post Debridement Size (cm) - Length 2.4 -Post Debridement Size (cm) - Width 2.2 -Post Debridement Size (cm) - Depth 0.2 -Total Square Cm 5.28 -Wound/Ulcer Outcome Not Healed -Ulcer Cleansing Rinsed/ Irrigated with Saline -Foul Odor after Cleansing No -Bioengineered Tissue No -Bleeding Controlled with Pressure -Treatment Response Procedure Tolerated Well #5 Right Met Head Grt Toe -Time 11:34 10:50 -Correct Patient Yes Yes -Correct Side, Site, Position Yes Yes -Correct Procedure Yes Yes -Procedure Performed Yes Yes -Type of Procedure Debridement Debridement -Clinical Debridement Subcutaneous Subcutaneous -Post Debridement Size (cm) - Length 2.1 1.5 -Post Debridement Size (cm) - Width 1.4 0.7 -Post Debridement Size (cm) - Depth 0.1 0.1 -Total Square Cm 2.94 1.05 -Wound/Ulcer Outcome Not Healed Not Healed -Ulcer Cleansing Rinsed/ Rinsed/ Irrigated with Irrigated with Saline Saline -Foul Odor after Cleansing No No -Bioengineered Tissue No No -Bleeding Controlled with Pressure Pressure -Treatment Response Procedure Procedure Tolerated Well Tolerated Well #4- LT RODGERS CLUSTER -Time 11:31 10:46 -Correct Patient Yes -Correct Side, Site, Position Yes -Correct Procedure Yes -Procedure Performed Yes No -Type of Procedure Debridement -Clinical Debridement Subcutaneous -Post Debridement Size (cm) - Length 11.0 0 -Post Debridement Size (cm) - Width 6.0 0 -Post Debridement Size (cm) - Depth 0.1 0 -Total Square Cm 66.00 0 -Wound/Ulcer Outcome Not Healed Healed- Epithelialized -Ulcer Cleansing Rinsed/ Irrigated with Saline -Foul Odor after Cleansing No -Bioengineered Tissue No -Bleeding Controlled with Pressure -Treatment Response Procedure Tolerated Well #3 Right Rodgers -Time 11:32 -Correct Patient Yes -Procedure Performed No -Post Debridement Size (cm) - Length 0 -Post Debridement Size (cm) - Width 0 -Post Debridement Size (cm) - Depth 0 -Total Square Cm 0 -Wound/Ulcer Outcome Healed- Epithelialized Pain Scale: 0-10 Numeric Is Patient Pain Free? Yes Wound debrided: Right great toe ( web space ) Wound Grade/Stage: Vieira II Type of Debridement: Excisional debridement Anesthesia Used: 4% Lidocaine Solution Depth: Down to and including healthy tissue, in the subcutaneous layer Percentage of wound debrided: 100 Instrument Used: 5mm curette Tissue Removed: Slough and devitalized tisue Severity: Fat Layer Exposed Amount of bleeding with debridement: Mild Bleeding Controlled with: Pressure Patient tolerated procedure well - Additional Wound Wound debrided: Right 5th Toe ( lateral ) Wound Grade/Stage: vieira II Type of Debridement: Excisional debridement Anesthesia Used: 4% Lidocaine Solution Depth: Down to and including healthy tissue, in the subcutaneous layer Percentage of wound debrided: 100 Instrument Used: 5mm curette Tissue Removed: Slough and devitalized tissue Severity: Fat Layer Exposed Amount of bleeding with debridement: Mild Bleeding Controlled with: Pressure Patient tolerated procedure: Patient tolerated procedure well Assessment/Plan Active Problems Open wound of left lower extremity (Acute) Diabetic ulcer of right foot (Acute) Diabetic leg ulcer (Acute) Diabetes mellitus (Chronic) Assessment: Left Lower Extremity cluster wounds secondary to dog scratch. Leg lower extremity/ leg Cellulitis. Right Diabetic Foot Ulcers ( Great toe web space and 5th toe lateral ). Diabetes mellitus type 2. Plan: Ms. Molina missed her last appointment and preents now with a new right 5th toe ( lateral ) ulcer. Siad to be significantly tender but denies any discharge or drainage. No known precipitating factor. Left Rodgers ulcers have now healed. Wound debridement done as documented above. Procedure was well tolerated. Apply Anaid to both ulcers with adaptic over top. Elevate lower extremity when sitted and in bed. Avoid idle standing. High protein diet/ supplement. 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 Optimal Blood sugar control. Follow up with PCP. Follow up in 1 week. This note was generated with [employer] dictation software. It may contain incorrect words, spelling, and punctuation that were not noted in checking the note before signing.
== END 2018-02-11 23:59 ==
LOC: WC 10:00
PROVIDERS: Visit Provider Internal Medicine
DX: E11.621 Type 2 diabetes mellitus with foot ulcer (principal); E03.9 Hypothyroidism, unspecified; Z79.4 Long term (current) use of insulin; Z79.899 Other long term (current) drug therapy; Z87.891 Personal history of nicotine dependence; E11.622 Type 2 diabetes mellitus with other skin ulcer; L97.512 Non-pressure chronic ulcer of other part of right foot with fat layer exposed; L97.822 Non-pressure chronic ulcer of other part of left lower leg with fat layer exposed
CPT/HCPCS: 11042; 11045; 87070; 87075; 87077; 87186; 87205

== ENCOUNTER 2018-03-07 10:45 | Outpatient (RCR) | payer MEDICAID, SELFPAY ==
[2018-02-12 00:34] VITALS: BP 97/59; PULSE 67; RESP 16; TEMP 35.7; BMI 42.5
[2018-02-14 09:51] VITALS: BP 130/69; PULSE 76; RESP 18; TEMP 36.6; BMI 42.5
--- NOTE | 2018-02-14 18:27 | PCM.WC.PN ---
(1) Diabetic ulcer of right foot Status: Acute Current Visit: Yes Code(s): E11.621 - Type 2 diabetes mellitus with foot ulcer; L97.519 - Non-pressure chronic ulcer of other part of right foot with unspecified severity (2) Open wound of left lower extremity Status: Acute Current Visit: Yes Code(s): S81.802A - Unspecified open wound, left lower leg, initial encounter (3) Diabetic foot ulcer Status: Chronic Current Visit: Yes Code(s): E11.621 - Type 2 diabetes mellitus with foot ulcer; L97.509 - Non-pressure chronic ulcer of other part of unspecified foot with unspecified severity Type of Wound Date of Service: 02/14/18 Chief Complaint: Right lower extremity/Foot Blisters/Ulcers. Left Lower extremity/Leg woud secondary to Dog Scratch. History of Wound: Ms. Molina who is well known to me presents to the wound center today with two new wounds. She has a left lower extremity wound which she states she sustained as a result fro a scratch by her dog. Sh also has blisters to her right toes with the most significant being if the right great toe however, patient is unsure of how she sustained these blister. She reports pain in her left lower extremity but denies any significant pain in her toes. She reports chills, but denies fever, nausea, vomitting or any change in her biwel habit. Progress of Wound: Ms. Molina presents again with a left lower extremity ulcer from a dog scratch. She denies any significant tenderness at discharge. - Physical Exam Vital Signs Temp Pulse Resp BP 97.8 F 76 18 130/69 H 02/14/18 09:51 02/14/18 09:51 02/14/18 09:51 02/14/18 09:51 General: Alert, Oriented x3, Cooperative, No apparent distress HEENT: Atraumatic, Normocephalic Oral: Moist Mucosa Neck: Supple Lungs: Normal air movement Cardiovascular: Regular rate Abdomen: Non Tender, Obese Skin: Ulcer/ Wound Wound Measurements and Assessment WC - Nurse 1 - General Ulcer Measurement Start: 02/14/18 09:50 Freq: Status: Active Protocol: Activity Type Activity Date Activity User E-Sign Co-Sign Detail Recorded Client Recorded Date Recorded By Document 02/14/18 09:51 RB [id number] 02/14/18 10:15 RB 02/14/18 09:51 Wound Center Nurse 1 [Ulcer Assessment] #6 R-5TH TOE MPJ -Combined with other wound No -Current Size (cm) - Length 2.5 -Current Size (cm) - Width 2.3 -Current Size (cm) - Depth 0.1 -Total Square Cm 5.75 -Photo Taken No -Tunneling No -Undermining/Tunneling No -Circular Undermining No -Classification - Thickness Unclassifiable (Eschar Covered ) -Exudate Amt None Present (0 %) -Wound Margin Distinct, Outline Attached -Granulation Amt None Present (0 %) -Necrosis Amt Large (67-100%) -Necrotic Tissue Type Eschar -Structure Exposed N/A -Texture (Mel-wound Skin Appearance) Assessed -Moisture (Mel-wound Skin Appearance Maceration ) -Color (Mel-wound Skin Appearance) Erythema -Temperature (Mel-wound Skin No Abnormality Appearance) (Pt Warm) -Tenderness on Palpation (Mel-wound No Skin Appearance) -Ulcer Cleansing Wound Cleanser -Foul Odor after Cleansing No -Anesthetic Used 5% Lidocaine Gel #5 Right Met Head Grt Toe -Combined with other wound No -Current Size (cm) - Length 1.4 -Current Size (cm) - Width 0.5 -Current Size (cm) - Depth 0.1 -Total Square Cm 0.70 -Tunneling No -Undermining/Tunneling No -Circular Undermining No -Classification - Thickness Full Thickness without Exposed Support Structure -Exudate Amt Small (1-33%) -Exudate Type Serosanguineous -Wound Margin Distinct, Outline Attached -Granulation Amt Medium (34-66%) -Granulation Quality [place] -Necrosis Amt Medium (34-66%) -Necrotic Tissue Type Adherent Slough -Structure Exposed N/A -Texture (Mel-wound Skin Appearance) Assessed -Moisture (Mel-wound Skin Appearance Maceration ) Dry/Scaly -Color (Mel-wound Skin Appearance) Assessed -Temperature (Mel-wound Skin No Abnormality Appearance) (Pt Warm) -Tenderness on Palpation (Mel-wound No Skin Appearance) -Ulcer Cleansing Wound Cleanser -Foul Odor after Cleansing No -Anesthetic Used 5% Lidocaine Gel #4- LT RODGERS CLUSTER -Combined with other wound No -Current Size (cm) - Length 2.3 -Current Size (cm) - Width 2 -Current Size (cm) - Depth 0.1 -Total Square Cm 4.6 -Photo Taken No -Tunneling No -Undermining/Tunneling No -Circular Undermining No -Classification - Thickness Full Thickness without Exposed Support Structure -Exudate Amt Small (1-33%) -Exudate Type Serosanguineous -Wound Margin Distinct, Outline Attached -Granulation Amt Large (67-100%) -Granulation Quality [place] Red -Slough/Fibrin Yes -Necrosis Amt Small (1-33%) -Necrotic Tissue Type Adherent Slough -Structure Exposed N/A -Texture (Mel-wound Skin Appearance) Friable -Moisture (Mel-wound Skin Appearance Assessed ) -Color (Mel-wound Skin Appearance) Hemosiderin Staining -Temperature (Mel-wound Skin No Abnormality Appearance) (Pt Warm) -Tenderness on Palpation (Mel-wound No Skin Appearance) -Ulcer Cleansing Wound Cleanser -Foul Odor after Cleansing No -Anesthetic Used 5% Lidocaine Gel [Edema Assessment] -Lower Limb Edema Present Yes -Right Calf (cm) 40.5 -Right Ankle (cm) 24.2 -Left Calf (cm) 44 -Left Ankle (cm) 24.5 WC - Nurse 2 - General Ulcer CM Notes Start: 02/14/18 09:50 Freq: Status: Active Protocol: Activity Type Activity Date Activity User E-Sign Co-Sign Detail Recorded Client Recorded Date Recorded By Document 02/14/18 11:14 DV [id number] 02/14/18 11:24 DV 02/14/18 11:14 Wound Center Nurse 2 [Procedure/Treatment] #6 R-5TH TOE MPJ -Time 11:15 -Post Debridement Size (cm) - Length 2.0 -Post Debridement Size (cm) - Width 2.5 -Post Debridement Size (cm) - Depth 0.3 -Total Square Cm 5.00 -Wound/Ulcer Outcome Not Healed -Ulcer Cleansing Rinsed/ Irrigated with Saline -Foul Odor after Cleansing No -Bioengineered Tissue No -Bleeding Controlled with Pressure -Treatment Response Procedure Tolerated Well #5 Right Met Head Grt Toe -Time 11:21 -Correct Patient Yes -Correct Side, Site, Position Yes -Correct Procedure Yes -Procedure Performed Yes -Type of Procedure Debridement -Clinical Debridement Subcutaneous -Post Debridement Size (cm) - Length 1.1 -Post Debridement Size (cm) - Width 0.7 -Post Debridement Size (cm) - Depth 0.1 -Total Square Cm 0.77 -Wound/Ulcer Outcome Not Healed -Ulcer Cleansing Rinsed/ Irrigated with Saline -Foul Odor after Cleansing No -Bioengineered Tissue No -Bleeding Controlled with Pressure -Treatment Response Procedure Tolerated Well #4- LT RODGERS CLUSTER -Time 11:16 -Correct Patient Yes -Correct Side, Site, Position Yes -Correct Procedure Yes -Procedure Performed Yes -Type of Procedure Debridement -Clinical Debridement Subcutaneous -Post Debridement Size (cm) - Length 1.1 -Post Debridement Size (cm) - Width 2.1 -Post Debridement Size (cm) - Depth 0.1 -Total Square Cm 2.31 -Wound/Ulcer Outcome Not Healed -Ulcer Cleansing Rinsed/ Irrigated with Saline -Foul Odor after Cleansing No -Bioengineered Tissue No -Bleeding Controlled with Pressure -Treatment Response Procedure Tolerated Well [See Physician Procedure note for Specifics] Pain Scale: 0-10 Numeric [Pain] -Is Patient Pain Free? Yes Musculoskeletal: No Muscle Wasting Neurological: Cranial nerves II-XII grossly intact Psych/Mental Status: Normal Affect Debridement Note Post-Debridement Measurements/Treatment WC - Nurse 2 - General Ulcer CM Notes Start: 02/14/18 09:50 Freq: Status: Active Protocol: Activity Type Activity Date Activity User E-Sign Co-Sign Detail Recorded Client Recorded Date Recorded By Document 02/14/18 11:14 DV [id number] 02/14/18 11:24 DV 02/14/18 11:14 Wound Center Nurse 2 #6 R-5TH TOE MPJ -Time 11:15 -Post Debridement Size (cm) - Length 2.0 -Post Debridement Size (cm) - Width 2.5 -Post Debridement Size (cm) - Depth 0.3 -Total Square Cm 5.00 -Wound/Ulcer Outcome Not Healed -Ulcer Cleansing Rinsed/ Irrigated with Saline -Foul Odor after Cleansing No -Bioengineered Tissue No -Bleeding Controlled with Pressure -Treatment Response Procedure Tolerated Well #5 Right Met Head Grt Toe -Time 11:21 -Correct Patient Yes -Correct Side, Site, Position Yes -Correct Procedure Yes -Procedure Performed Yes -Type of Procedure Debridement -Clinical Debridement Subcutaneous -Post Debridement Size (cm) - Length 1.1 -Post Debridement Size (cm) - Width 0.7 -Post Debridement Size (cm) - Depth 0.1 -Total Square Cm 0.77 -Wound/Ulcer Outcome Not Healed -Ulcer Cleansing Rinsed/ Irrigated with Saline -Foul Odor after Cleansing No -Bioengineered Tissue No -Bleeding Controlled with Pressure -Treatment Response Procedure Tolerated Well #4- LT RODGERS CLUSTER -Time 11:16 -Correct Patient Yes -Correct Side, Site, Position Yes -Correct Procedure Yes -Procedure Performed Yes -Type of Procedure Debridement -Clinical Debridement Subcutaneous -Post Debridement Size (cm) - Length 1.1 -Post Debridement Size (cm) - Width 2.1 -Post Debridement Size (cm) - Depth 0.1 -Total Square Cm 2.31 -Wound/Ulcer Outcome Not Healed -Ulcer Cleansing Rinsed/ Irrigated with Saline -Foul Odor after Cleansing No -Bioengineered Tissue No -Bleeding Controlled with Pressure -Treatment Response Procedure Tolerated Well Pain Scale: 0-10 Numeric Is Patient Pain Free? Yes Wound debrided: Right 5th toe ( Lateral ) Wound Grade/Stage: Vieira II Type of Debridement: Excisional debridement Anesthesia Used: 4% Lidocaine Solution Depth: Down to and including healthy tissue, in the subcutaneous layer Percentage of wound debrided: 100 Instrument Used: 5mm curette Tissue Removed: Slough and devitalized tissue Severity: Fat Layer Exposed Amount of bleeding with debridement: Mild Bleeding Controlled with: Pressure Patient tolerated procedure well - Additional Wound Wound debrided: Right great toe ( web space ) Wound Grade/Stage: Vieira I Type of Debridement: Excisional debridement Anesthesia Used: 4% Lidocaine Solution Depth: Down to and including healthy tissue, in the subcutaneous layer Percentage of wound debrided: 100 Instrument Used: 5mm curette Tissue Removed: Slough and devitalized tissue Severity: Fat Layer Exposed Amount of bleeding with debridement: Mild Bleeding Controlled with: Pressure Patient tolerated procedure: Patient tolerated procedure well - Additional Wound Wound debrided: Left Rodgers Wound Grade/Stage: Vieira I Type of Debridement: Excisional debridement Anesthesia Used: 4% Lidocaine Solution Depth: Down to and including healthy tissue Percentage of wound debrided: 100 Instrument Used: 5mm curette Tissue Removed: Devitalized tissue Severity: Limited To Skin Breakdown Amount of bleeding with debridement: Mild Bleeding Controlled with: Pressure Patient tolerated procedure: Patient tolerated procedure well Assessment/Plan Active Problems Open wound of left lower extremity (Acute) Diabetic ulcer of right foot (Acute) Diabetic foot ulcer (Chronic) Assessment: Left Lower superficial ulcer. Right Diabetic Foot Ulcers ( Great toe web space and 5th toe lateral ). Diabetes mellitus type 2. Plan: Left rodgers ulcer said to be from a dog scratch/contact. Patient does have stasis dermatitis and does not wear appropriate compression. Wound debridement done as documented above. Procedure was well tolerated. Apply Anaid to rodgers and right great toe ulcers with adaptic over top. Santyl to right fifth toe lateral ulcer with gauze over top. Elevate lower extremity when sitted and in bed. Avoid idle standing. High protein diet/supplement. Continue Double layer Tubi software licensing analyst for edema management. Optimal Blood sugar control. Follow up with PCP. Follow up in 1 week. This note was generated with [employer] dictation software. It may contain incorrect words, spelling, and punctuation that were not noted in checking the note before signing.
--- NOTE | 2018-02-14 18:34 | PN.PCM_ITS ---
(1) Diabetic ulcer of right foot Status: Acute Current Visit: Yes Code(s): E11.621 - Type 2 diabetes mellitus with foot ulcer; L97.519 - Non-pressure chronic ulcer of other part of right foot with unspecified severity (2) Open wound of left lower extremity Status: Acute Current Visit: Yes Code(s): S81.802A - Unspecified open wound , left lower leg, initial encounter (3) Diabetic foot ulcer Status: Chronic Current Visit: Yes Code(s): E11.621 - Type 2 diabetes mellitus with foot ulcer; L97.509 - Non-pressure chronic ulcer of other part of unspecified foot with unspecified severity Type of Wound Date of Service: 02/14/18 Chief Complaint: Right lower extremity/Foot Blisters/Ulcers. Left Lower extremity/Leg woud secondary to Dog Scratch. History of Wound: Ms. Molina who is well known to me presents to the wound center today with two new wounds. She has a left lower extremity wound which she states she sustained as a result fro a scratch by her dog. Sh also has blisters to her right toes with the most significant being if the right great toe however, patient is unsure of how she sustained these blister. She reports pain in her left lower extremity but denies any significant pain in her toes. She reports chills, but denies fever, nausea, vomitting or any change in her biwel habit. Progress of Wound: Ms. Molina presents again with a left lower extremity ulcer from a dog scratch. She denies any significant tenderness at discharge. - Physical Exam Vital Signs Temp Pulse Resp BP 97.8 F 76 18 130/69 H 02/14/18 09:51 02/14/18 09:51 02/14/18 09:51 02/14/18 09:51 General: Alert, Oriented x3, Cooperative, No apparent distress HEENT: Atraumatic, Normocephalic Oral: Moist Mucosa Neck: Supple Lungs: Normal air movement Cardiovascular: Regular rate Abdomen: Non Tender, Obese Skin: Ulcer/ Wound Wound Measurements and Assessment WC - Nurse 1 - General Ulcer Measurement Start: 02/14/18 09:50 Freq: Status: Active Protocol: Activity Type Activity Date Activity User E-Sign Co-Sign Detail Recorded Client Recorded Date Recorded By Document 02/14/18 09:51 RB [id number] 02/14/18 10:15 RB 02/14/18 09:51 Wound Center Nurse 1 [Ulcer Assessment] #6 R-5TH TOE MPJ -Combined with other wound No -Current Size (cm) - Length 2.5 -Current Size (cm) - Width 2.3 -Current Size (cm) - Depth 0.1 -Total Square Cm 5.75 -Photo Taken No -Tunneling No -Undermining/Tunneling No -Circular Undermining No -Classification - Thickness Unclassifiable (Eschar Covered ) -Exudate Amt None Present (0 %) -Wound Margin Distinct, Outline Attached -Granulation Amt None Present (0 %) -Necrosis Amt Large (67-100%) -Necrotic Tissue Type Eschar -Structure Exposed N/A -Texture (Mel-wound Skin Appearance) Assessed -Moisture (Mel-wound Skin Appearance Maceration ) -Color (Mel-wound Skin Appearance) Erythema -Temperature (Mel-wound Skin No Abnormality Appearance) (Pt Warm) -Tenderness on Palpation (Mel-wound No Skin Appearance) -Ulcer Cleansing Wound Cleanser -Foul Odor after Cleansing No -Anesthetic Used 5% Lidocaine Gel #5 Right Met Head Grt Toe -Combined with other wound No -Current Size (cm) - Length 1.4 -Current Size (cm) - Width 0.5 -Current Size (cm) - Depth 0.1 -Total Square Cm 0.70 -Tunneling No -Undermining/Tunneling No -Circular Undermining No -Classification - Thickness Full Thickness without Exposed Support Structure -Exudate Amt Small (1-33%) -Exudate Type Serosanguineous -Wound Margin Distinct, Outline Attached -Granulation Amt Medium (34-66%) -Granulation Quality [place] -Necrosis Amt Medium (34-66%) -Necrotic Tissue Type Adherent Slough -Structure Exposed N/A -Texture (Mel-wound Skin Appearance) Assessed -Moisture (Mel-wound Skin Appearance Maceration ) Dry/Scaly -Color (Mel-wound Skin Appearance) Assessed -Temperature (Mel-wound Skin No Abnormality Appearance) (Pt Warm) -Tenderness on Palpation (Mel-wound No Skin Appearance) -Ulcer Cleansing Wound Cleanser -Foul Odor after Cleansing No -Anesthetic Used 5% Lidocaine Gel #4- LT RODGERS CLUSTER -Combined with other wound No -Current Size (cm) - Length 2.3 -Current Size (cm) - Width 2 -Current Size (cm) - Depth 0.1 -Total Square Cm 4.6 -Photo Taken No -Tunneling No -Undermining/Tunneling No -Circular Undermining No -Classification - Thickness Full Thickness without Exposed Support Structure -Exudate Amt Small (1-33%) -Exudate Type Serosanguineous -Wound Margin Distinct, Outline Attached -Granulation Amt Large (67-100%) -Granulation Quality [place] Red -Slough/Fibrin Yes -Necrosis Amt Small (1-33%) -Necrotic Tissue Type Adherent Slough -Structure Exposed N/A -Texture (Mel-wound Skin Appearance) Friable -Moisture (Mel-wound Skin Appearance Assessed ) -Color (Mel-wound Skin Appearance) Hemosiderin Staining -Temperature (Mel-wound Skin No Abnormality Appearance) (Pt Warm) -Tenderness on Palpation (Mel-wound No Skin Appearance) -Ulcer Cleansing Wound Cleanser -Foul Odor after Cleansing No -Anesthetic Used 5% Lidocaine Gel [Edema Assessment] -Lower Limb Edema Present Yes -Right Calf (cm) 40.5 -Right Ankle (cm) 24.2 -Left Calf (cm) 44 -Left Ankle (cm) 24.5 WC - Nurse 2 - General Ulcer CM Notes Start: 02/14/18 09:50 Freq: Status: Active Protocol: Activity Type Activity Date Activity User E-Sign Co-Sign Detail Recorded Client Recorded Date Recorded By Document 02/14/18 11:14 DV [id number] 02/14/18 11:24 DV 02/14/18 11:14 Wound Center Nurse 2 [Procedure/Treatment] #6 R-5TH TOE MPJ -Time 11:15 -Post Debridement Size (cm) - Length 2.0 -Post Debridement Size (cm) - Width 2.5 -Post Debridement Size (cm) - Depth 0.3 -Total Square Cm 5.00 -Wound/Ulcer Outcome Not Healed -Ulcer Cleansing Rinsed/ Irrigated with Saline -Foul Odor after Cleansing No -Bioengineered Tissue No -Bleeding Controlled with Pressure -Treatment Response Procedure Tolerated Well #5 Right Met Head Grt Toe -Time 11:21 -Correct Patient Yes -Correct Side, Site, Position Yes -Correct Procedure Yes -Procedure Performed Yes -Type of Procedure Debridement -Clinical Debridement Subcutaneous -Post Debridement Size (cm) - Length 1.1 -Post Debridement Size (cm) - Width 0.7 -Post Debridement Size (cm) - Depth 0.1 -Total Square Cm 0.77 -Wound/Ulcer Outcome Not Healed -Ulcer Cleansing Rinsed/ Irrigated with Saline -Foul Odor after Cleansing No -Bioengineered Tissue No -Bleeding Controlled with Pressure -Treatment Response Procedure Tolerated Well #4- LT RODGERS CLUSTER -Time 11:16 -Correct Patient Yes -Correct Side, Site, Position Yes -Correct Procedure Yes -Procedure Performed Yes -Type of Procedure Debridement -Clinical Debridement Subcutaneous -Post Debridement Size (cm) - Length 1.1 -Post Debridement Size (cm) - Width 2.1 -Post Debridement Size (cm) - Depth 0.1 -Total Square Cm 2.31 -Wound/Ulcer Outcome Not Healed -Ulcer Cleansing Rinsed/ Irrigated with Saline -Foul Odor after Cleansing No -Bioengineered Tissue No -Bleeding Controlled with Pressure -Treatment Response Procedure Tolerated Well [See Physician Procedure note for Specifics] Pain Scale: 0-10 Numeric [Pain] -Is Patient Pain Free? Yes Musculoskeletal: No Muscle Wasting Neurological: Cranial nerves II-XII grossly intact Psych/Mental Status: Normal Affect Debridement Note Post-Debridement Measurements/Treatment WC - Nurse 2 - General Ulcer CM Notes Start: 02/14/18 09:50 Freq: Status: Active Protocol: Activity Type Activity Date Activity User E-Sign Co-Sign Detail Recorded Client Recorded Date Recorded By Document 02/14/18 11:14 DV [id number] 02/14/18 11:24 DV 02/14/18 11:14 Wound Center Nurse 2 #6 R-5TH TOE MPJ -Time 11:15 -Post Debridement Size (cm) - Length 2.0 -Post Debridement Size (cm) - Width 2.5 -Post Debridement Size (cm) - Depth 0.3 -Total Square Cm 5.00 -Wound/Ulcer Outcome Not Healed -Ulcer Cleansing Rinsed/ Irrigated with Saline -Foul Odor after Cleansing No -Bioengineered Tissue No -Bleeding Controlled with Pressure -Treatment Response Procedure Tolerated Well #5 Right Met Head Grt Toe -Time 11:21 -Correct Patient Yes -Correct Side, Site, Position Yes -Correct Procedure Yes -Procedure Performed Yes -Type of Procedure Debridement -Clinical Debridement Subcutaneous -Post Debridement Size (cm) - Length 1.1 -Post Debridement Size (cm) - Width 0.7 -Post Debridement Size (cm) - Depth 0.1 -Total Square Cm 0.77 -Wound/Ulcer Outcome Not Healed -Ulcer Cleansing Rinsed/ Irrigated with Saline -Foul Odor after Cleansing No -Bioengineered Tissue No -Bleeding Controlled with Pressure -Treatment Response Procedure Tolerated Well #4- LT RODGERS CLUSTER -Time 11:16 -Correct Patient Yes -Correct Side, Site, Position Yes -Correct Procedure Yes -Procedure Performed Yes -Type of Procedure Debridement -Clinical Debridement Subcutaneous -Post Debridement Size (cm) - Length 1.1 -Post Debridement Size (cm) - Width 2.1 -Post Debridement Size (cm) - Depth 0.1 -Total Square Cm 2.31 -Wound/Ulcer Outcome Not Healed -Ulcer Cleansing Rinsed/ Irrigated with Saline -Foul Odor after Cleansing No -Bioengineered Tissue No -Bleeding Controlled with Pressure -Treatment Response Procedure Tolerated Well Pain Scale: 0-10 Numeric Is Patient Pain Free? Yes Wound debrided: Right 5th toe ( Lateral ) Wound Grade/Stage: Vieira II Type of Debridement: Excisional debridement Anesthesia Used: 4% Lidocaine Solution Depth: Down to and including healthy tissue, in the subcutaneous layer Percentage of wound debrided: 100 Instrument Used: 5mm curette Tissue Removed: Slough and devitalized tissue Severity: Fat Layer Exposed Amount of bleeding with debridement: Mild Bleeding Controlled with: Pressure Patient tolerated procedure well - Additional Wound Wound debrided: Right great toe ( web space ) Wound Grade/Stage: Vieira I Type of Debridement: Excisional debridement Anesthesia Used: 4% Lidocaine Solution Depth: Down to and including healthy tissue, in the subcutaneous layer Percentage of wound debrided: 100 Instrument Used: 5mm curette Tissue Removed: Slough and devitalized tissue Severity: Fat Layer Exposed Amount of bleeding with debridement: Mild Bleeding Controlled with: Pressure Patient tolerated procedure: Patient tolerated procedure well - Additional Wound Wound debrided: Left Rodgers Wound Grade/Stage: Vieira I Type of Debridement: Excisional debridement Anesthesia Used: 4% Lidocaine Solution Depth: Down to and including healthy tissue Percentage of wound debrided: 100 Instrument Used: 5mm curette Tissue Removed: Devitalized tissue Severity: Limited To Skin Breakdown Amount of bleeding with debridement: Mild Bleeding Controlled with: Pressure Patient tolerated procedure: Patient tolerated procedure well Assessment/Plan Active Problems Open wound of left lower extremity (Acute) Diabetic ulcer of right foot (Acute) Diabetic foot ulcer (Chronic) Assessment: Left Lower superficial ulcer. Right Diabetic Foot Ulcers ( Great toe web space and 5th toe lateral ). Diabetes mellitus type 2. Plan: Left rodgers ulcer said to be from a dog scratch/contact. Patient does have stasis dermatitis and does not wear appropriate compression. Wound debridement done as documented above. Procedure was well tolerated. Apply Anaid to rodgers and right great toe ulcers with adaptic over top. Santyl to right fifth toe lateral ulcer with gauze over top. Elevate lower extremity when sitted and in bed. Avoid idle standing. High protein diet/supplement. Continue Double layer Tubi tableau developer for edema management. Optimal Blood sugar control. Follow up with PCP. Follow up in 1 week. This note was generated with [employer] dictation software. It may contain incorrect words, spelling, and punctuation that were not noted in checking the note before signing.
[2018-02-28 12:02] VITALS: BP 122/57; PULSE 69; RESP 18; TEMP 36.3; BMI 42.5
--- NOTE | 2018-02-28 14:34 | PCM.WC.PN ---
(1) Diabetic ulcer of right foot Status: Acute Current Visit: Yes Code(s): E11.621 - Type 2 diabetes mellitus with foot ulcer; L97.519 - Non-pressure chronic ulcer of other part of right foot with unspecified severity (2) Open wound of left lower extremity Status: Acute Current Visit: Yes Code(s): S81.802A - Unspecified open wound, left lower leg, initial encounter (3) Diabetic foot ulcer Status: Chronic Current Visit: Yes Code(s): E11.621 - Type 2 diabetes mellitus with foot ulcer; L97.509 - Non-pressure chronic ulcer of other part of unspecified foot with unspecified severity Type of Wound Date of Service: 02/28/18 Chief Complaint: Right lower extremity/Foot Blisters/Ulcers. Left Lower extremity/Leg woud secondary to Dog Scratch. History of Wound: Ms. Molina who is well known to me presents to the wound center today with two new wounds. She has a left lower extremity wound which she states she sustained as a result fro a scratch by her dog. Sh also has blisters to her right toes with the most significant being if the right great toe however, patient is unsure of how she sustained these blister. She reports pain in her left lower extremity but denies any significant pain in her toes. She reports chills, but denies fever, nausea, vomitting or any change in her biwel habit. Progress of Wound: No new complaints at this time. Missed her last visit and she also admits to poor dressing changes. Only has HH 3x weekly. - Physical Exam Vital Signs Temp Pulse Resp BP 97.3 F L 69 18 122/57 H 02/28/18 12:02 02/28/18 12:02 02/28/18 12:02 02/28/18 12:02 General: Alert, Oriented x3, Cooperative, No apparent distress HEENT: Atraumatic, Normocephalic Oral: Moist Mucosa Neck: Supple Lungs: Normal air movement Abdomen: Soft, Non Tender, Obese Extremities: No cyanosis, Edema Skin: Ulcer/ Wound Wound Measurements and Assessment WC - Nurse 1 - General Ulcer Measurement Start: 02/14/18 09:50 Freq: Status: Active Protocol: Activity Type Activity Date Activity User E-Sign Co-Sign Detail Recorded Client Recorded Date Recorded By Document 02/28/18 12:02 RB [id number] 02/28/18 12:18 RB 02/28/18 12:02 Wound Center Nurse 1 [Ulcer Assessment] #6 RIGHT LATERAL FOOT -Combined with other wound No -Current Size (cm) - Length 2.1 -Current Size (cm) - Width 2 -Current Size (cm) - Depth 0.3 -Total Square Cm 4.2 -Tunneling No -Undermining/Tunneling No -Circular Undermining No -Classification - Pressure Ulcer Unstageable -Exudate Amt Small (1-33%) -Exudate Type Serosanguineous -Wound Margin Distinct, Outline Attached -Granulation Amt Small (1-33%) -Granulation Quality [place] -Necrosis Amt Large (67-100%) -Necrotic Tissue Type Eschar -Structure Exposed N/A -Texture (Mel-wound Skin Appearance) Assessed -Moisture (Mel-wound Skin Appearance Maceration ) -Color (Mel-wound Skin Appearance) Assessed -Temperature (Mel-wound Skin No Abnormality Appearance) (Pt Warm) -Tenderness on Palpation (Mel-wound No Skin Appearance) -Ulcer Cleansing Wound Cleanser -Foul Odor after Cleansing No -Anesthetic Used 5% Lidocaine Gel #5 Right Met Head Grt Toe -Combined with other wound No -Current Size (cm) - Length 0.1 -Current Size (cm) - Width 0.1 -Current Size (cm) - Depth 0.1 -Total Square Cm 0.01 -Epithelialization Medium 34-66% -Tunneling No -Undermining/Tunneling No -Circular Undermining No -Classification - Thickness Full Thickness without Exposed Support Structure -Exudate Amt None Present (0 %) -Wound Margin Distinct, Outline Attached -Granulation Amt Large (67-100%) -Granulation Quality [place] -Slough/Fibrin Yes -Necrosis Amt Small (1-33%) -Necrotic Tissue Type Adherent Slough -Structure Exposed N/A -Texture (Mel-wound Skin Appearance) Assessed -Moisture (Mel-wound Skin Appearance Assessed ) -Color (Mel-wound Skin Appearance) Assessed -Temperature (Mel-wound Skin No Abnormality Appearance) (Pt Warm) -Tenderness on Palpation (Mel-wound No Skin Appearance) -Ulcer Cleansing Wound Cleanser -Foul Odor after Cleansing No -Anesthetic Used 5% Lidocaine Gel #4- LT WARNER CLUSTER -Combined with other wound No -Current Size (cm) - Length 0.1 -Current Size (cm) - Width 0.1 -Current Size (cm) - Depth 0.1 -Total Square Cm 0.01 -Epithelialization Large 67-100% -Tunneling No -Undermining/Tunneling No -Circular Undermining No -Classification - Thickness Full Thickness without Exposed Support Structure -Exudate Amt None Present (0 %) -Wound Margin Distinct, Outline Attached -Granulation Amt Large (67-100%) -Granulation Quality [place] -Slough/Fibrin Yes -Necrosis Amt Small (1-33%) -Necrotic Tissue Type Adherent Slough -Structure Exposed N/A -Texture (Mel-wound Skin Appearance) Assessed -Moisture (Mel-wound Skin Appearance Assessed ) Dry/Scaly -Color (Mel-wound Skin Appearance) Assessed -Temperature (Mel-wound Skin No Abnormality Appearance) (Pt Warm) -Tenderness on Palpation (Mel-wound No Skin Appearance) -Ulcer Cleansing Rinsed/ Irrigated with Saline -Foul Odor after Cleansing No -Anesthetic Used 5% Lidocaine Gel [Edema Assessment] -Lower Limb Edema Present Yes -Right Calf (cm) 38.5 -Right Ankle (cm) 22.3 -Left Calf (cm) 40.3 -Left Ankle (cm) 21.5 WC - Nurse 2 - General Ulcer CM Notes Start: 02/14/18 09:50 Freq: Status: Active Protocol: Activity Type Activity Date Activity User E-Sign Co-Sign Detail Recorded Client Recorded Date Recorded By Document 02/28/18 12:31 DV [id number] 02/28/18 12:34 DV 02/28/18 12:31 Wound Center Nurse 2 [Procedure/Treatment] #6 RIGHT LATERAL FOOT -Time 12:32 -Correct Patient Yes -Correct Side, Site, Position Yes -Correct Procedure Yes -Procedure Performed Yes -Type of Procedure Debridement -Clinical Debridement Subcutaneous -Post Debridement Size (cm) - Length 1.7 -Post Debridement Size (cm) - Width 2.0 -Post Debridement Size (cm) - Depth 0.3 -Total Square Cm 3.40 -Wound/Ulcer Outcome Not Healed -Ulcer Cleansing Rinsed/ Irrigated with Saline -Foul Odor after Cleansing No -Bioengineered Tissue No -Bleeding Controlled with NA -Treatment Response Procedure Tolerated Well #5 Right Met Head Grt Toe -Time 12:33 -Correct Patient Yes -Procedure Performed No -Post Debridement Size (cm) - Length 0.1 -Post Debridement Size (cm) - Width 0.1 -Post Debridement Size (cm) - Depth 0.1 -Total Square Cm 0.01 -Wound/Ulcer Outcome Healed- Epithelialized -Bleeding Controlled with NA #4- LT WARNER CLUSTER -Time 12:33 -Correct Patient Yes -Procedure Performed No -Post Debridement Size (cm) - Length 0 -Post Debridement Size (cm) - Width 0 -Post Debridement Size (cm) - Depth 0 -Total Square Cm 0 -Wound/Ulcer Outcome Healed- Epithelialized [See Physician Procedure note for Specifics] Pain Scale: 0-10 Numeric [Pain] -Is Patient Pain Free? Yes Musculoskeletal: No Muscle Wasting Neurological: Cranial nerves II-XII grossly intact Psych/Mental Status: Normal Affect Debridement Note Post-Debridement Measurements/Treatment WC - Nurse 2 - General Ulcer CM Notes Start: 02/14/18 09:50 Freq: Status: Active Protocol: Activity Type Activity Date Activity User E-Sign Co-Sign Detail Recorded Client Recorded Date Recorded By Document 02/14/18 11:14 DV [id number] 02/14/18 11:24 DV Document 02/28/18 12:31 DV [id number] 02/28/18 12:34 DV 02/14/18 02/28/18 11:14 12:31 Wound Center Nurse 2 #6 RIGHT LATERAL FOOT -Time 11:15 12:32 -Correct Patient Yes -Correct Side, Site, Position Yes -Correct Procedure Yes -Procedure Performed Yes -Type of Procedure Debridement -Clinical Debridement Subcutaneous -Post Debridement Size (cm) - Length 2.0 1.7 -Post Debridement Size (cm) - Width 2.5 2.0 -Post Debridement Size (cm) - Depth 0.3 0.3 -Total Square Cm 5.00 3.40 -Wound/Ulcer Outcome Not Healed Not Healed -Ulcer Cleansing Rinsed/ Rinsed/ Irrigated with Irrigated with Saline Saline -Foul Odor after Cleansing No No -Bioengineered Tissue No No -Bleeding Controlled with Pressure NA -Treatment Response Procedure Procedure Tolerated Well Tolerated Well #5 Right Met Head Grt Toe -Time 11:21 12:33 -Correct Patient Yes Yes -Correct Side, Site, Position Yes -Correct Procedure Yes -Procedure Performed Yes No -Type of Procedure Debridement -Clinical Debridement Subcutaneous -Post Debridement Size (cm) - Length 1.1 0.1 -Post Debridement Size (cm) - Width 0.7 0.1 -Post Debridement Size (cm) - Depth 0.1 0.1 -Total Square Cm 0.77 0.01 -Wound/Ulcer Outcome Not Healed Healed- Epithelialized -Ulcer Cleansing Rinsed/ Irrigated with Saline -Foul Odor after Cleansing No -Bioengineered Tissue No -Bleeding Controlled with Pressure NA -Treatment Response Procedure Tolerated Well #4- LT WARNER CLUSTER -Time 11:16 12:33 -Correct Patient Yes Yes -Correct Side, Site, Position Yes -Correct Procedure Yes -Procedure Performed Yes No -Type of Procedure Debridement -Clinical Debridement Subcutaneous -Post Debridement Size (cm) - Length 1.1 0 -Post Debridement Size (cm) - Width 2.1 0 -Post Debridement Size (cm) - Depth 0.1 0 -Total Square Cm 2.31 0 -Wound/Ulcer Outcome Not Healed Healed- Epithelialized -Ulcer Cleansing Rinsed/ Irrigated with Saline -Foul Odor after Cleansing No -Bioengineered Tissue No -Bleeding Controlled with Pressure -Treatment Response Procedure Tolerated Well Pain Scale: 0-10 Numeric Is Patient Pain Free? Yes Yes Wound debrided: Right 5th digit ( Lateral ) Wound Grade/Stage: Vieira II Type of Debridement: Excisional debridement Anesthesia Used: 4% Lidocaine Solution Depth: Down to and including healthy tissue, in the subcutaneous layer Percentage of wound debrided: 100 Instrument Used: 3mm curette, #15 blade, Forceps Tissue Removed: Eschar, Slough and devitalized tissue Severity: Fat Layer Exposed Amount of bleeding with debridement: Mild Bleeding Controlled with: Pressure Patient tolerated procedure well Assessment/Plan Active Problems Open wound of left lower extremity (Acute) Diabetic ulcer of right foot (Acute) Diabetic foot ulcer (Chronic) Assessment: Left Lower superficial ulcer. Right Diabetic Foot Ulcers ( Great toe web space and 5th toe lateral ). Diabetes mellitus type 2. Plan: Left warner and right great toe ulcers have healed. Minimal scabbing. Right lateral fifth toe ulcer with significant slough burden however, circumference appears to be improving. Patient does admit to not dressing the wound is recommended due to limited help. She has completed her course of antibiotics. Debridement done as documented above. Procedure was well-tolerated. Continue Santyl to right fifth toe lateral ulcer with gauze over top. Elevate lower extremity when sitted and in bed. Avoid idle standing. High protein diet/supplement. Continue Double layer [employer] medical lead for edema management. Optimal Blood sugar control. Follow up with PCP. Follow up in 1 week. This note was generated with [employer] dictation software. It may contain incorrect words, spelling, and punctuation that were not noted in checking the note before signing.
--- NOTE | 2018-02-28 14:40 | PN.PCM_ITS ---
(1) Diabetic ulcer of right foot Status: Acute Current Visit: Yes Code(s): E11.621 - Type 2 diabetes mellitus with foot ulcer; L97.519 - Non-pressure chronic ulcer of other part of right foot with unspecified severity (2) Open wound of left lower extremity Status: Acute Current Visit: Yes Code(s): S81.802A - Unspecified open wound , left lower leg, initial encounter (3) Diabetic foot ulcer Status: Chronic Current Visit: Yes Code(s): E11.621 - Type 2 diabetes mellitus with foot ulcer; L97.509 - Non-pressure chronic ulcer of other part of unspecified foot with unspecified severity Type of Wound Date of Service: 02/28/18 Chief Complaint: Right lower extremity/Foot Blisters/Ulcers. Left Lower extremity/Leg woud secondary to Dog Scratch. History of Wound: Ms. Molina who is well known to me presents to the wound center today with two new wounds. She has a left lower extremity wound which she states she sustained as a result fro a scratch by her dog. Sh also has blisters to her right toes with the most significant being if the right great toe however, patient is unsure of how she sustained these blister. She reports pain in her left lower extremity but denies any significant pain in her toes. She reports chills, but denies fever, nausea, vomitting or any change in her biwel habit. Progress of Wound: No new complaints at this time. Missed her last visit and she also admits to poor dressing changes. Only has HH 3x weekly. - Physical Exam Vital Signs Temp Pulse Resp BP 97.3 F L 69 18 122/57 H 02/28/18 12:02 02/28/18 12:02 02/28/18 12:02 02/28/18 12:02 General: Alert, Oriented x3, Cooperative, No apparent distress HEENT: Atraumatic, Normocephalic Oral: Moist Mucosa Neck: Supple Lungs: Normal air movement Abdomen: Soft, Non Tender, Obese Extremities: No cyanosis, Edema Skin: Ulcer/ Wound Wound Measurements and Assessment WC - Nurse 1 - General Ulcer Measurement Start: 02/14/18 09:50 Freq: Status: Active Protocol: Activity Type Activity Date Activity User E-Sign Co-Sign Detail Recorded Client Recorded Date Recorded By Document 02/28/18 12:02 RB [id number] 02/28/18 12:18 RB 02/28/18 12:02 Wound Center Nurse 1 [Ulcer Assessment] #6 RIGHT LATERAL FOOT -Combined with other wound No -Current Size (cm) - Length 2.1 -Current Size (cm) - Width 2 -Current Size (cm) - Depth 0.3 -Total Square Cm 4.2 -Tunneling No -Undermining/Tunneling No -Circular Undermining No -Classification - Pressure Ulcer Unstageable -Exudate Amt Small (1-33%) -Exudate Type Serosanguineous -Wound Margin Distinct, Outline Attached -Granulation Amt Small (1-33%) -Granulation Quality [place] -Necrosis Amt Large (67-100%) -Necrotic Tissue Type Eschar -Structure Exposed N/A -Texture (Mel-wound Skin Appearance) Assessed -Moisture (Mel-wound Skin Appearance Maceration ) -Color (Mel-wound Skin Appearance) Assessed -Temperature (Mel-wound Skin No Abnormality Appearance) (Pt Warm) -Tenderness on Palpation (Mel-wound No Skin Appearance) -Ulcer Cleansing Wound Cleanser -Foul Odor after Cleansing No -Anesthetic Used 5% Lidocaine Gel #5 Right Met Head Grt Toe -Combined with other wound No -Current Size (cm) - Length 0.1 -Current Size (cm) - Width 0.1 -Current Size (cm) - Depth 0.1 -Total Square Cm 0.01 -Epithelialization Medium 34-66% -Tunneling No -Undermining/Tunneling No -Circular Undermining No -Classification - Thickness Full Thickness without Exposed Support Structure -Exudate Amt None Present (0 %) -Wound Margin Distinct, Outline Attached -Granulation Amt Large (67-100%) -Granulation Quality [place] -Slough/Fibrin Yes -Necrosis Amt Small (1-33%) -Necrotic Tissue Type Adherent Slough -Structure Exposed N/A -Texture (Mel-wound Skin Appearance) Assessed -Moisture (Mel-wound Skin Appearance Assessed ) -Color (Mel-wound Skin Appearance) Assessed -Temperature (Mel-wound Skin No Abnormality Appearance) (Pt Warm) -Tenderness on Palpation (Mel-wound No Skin Appearance) -Ulcer Cleansing Wound Cleanser -Foul Odor after Cleansing No -Anesthetic Used 5% Lidocaine Gel #4- LT WARNER CLUSTER -Combined with other wound No -Current Size (cm) - Length 0.1 -Current Size (cm) - Width 0.1 -Current Size (cm) - Depth 0.1 -Total Square Cm 0.01 -Epithelialization Large 67-100% -Tunneling No -Undermining/Tunneling No -Circular Undermining No -Classification - Thickness Full Thickness without Exposed Support Structure -Exudate Amt None Present (0 %) -Wound Margin Distinct, Outline Attached -Granulation Amt Large (67-100%) -Granulation Quality [place] -Slough/Fibrin Yes -Necrosis Amt Small (1-33%) -Necrotic Tissue Type Adherent Slough -Structure Exposed N/A -Texture (Mel-wound Skin Appearance) Assessed -Moisture (Mel-wound Skin Appearance Assessed ) Dry/Scaly -Color (Mel-wound Skin Appearance) Assessed -Temperature (Mel-wound Skin No Abnormality Appearance) (Pt Warm) -Tenderness on Palpation (Mel-wound No Skin Appearance) -Ulcer Cleansing Rinsed/ Irrigated with Saline -Foul Odor after Cleansing No -Anesthetic Used 5% Lidocaine Gel [Edema Assessment] -Lower Limb Edema Present Yes -Right Calf (cm) 38.5 -Right Ankle (cm) 22.3 -Left Calf (cm) 40.3 -Left Ankle (cm) 21.5 WC - Nurse 2 - General Ulcer CM Notes Start: 02/14/18 09:50 Freq: Status: Active Protocol: Activity Type Activity Date Activity User E-Sign Co-Sign Detail Recorded Client Recorded Date Recorded By Document 02/28/18 12:31 DV [id number] 02/28/18 12:34 DV 02/28/18 12:31 Wound Center Nurse 2 [Procedure/Treatment] #6 RIGHT LATERAL FOOT -Time 12:32 -Correct Patient Yes -Correct Side, Site, Position Yes -Correct Procedure Yes -Procedure Performed Yes -Type of Procedure Debridement -Clinical Debridement Subcutaneous -Post Debridement Size (cm) - Length 1.7 -Post Debridement Size (cm) - Width 2.0 -Post Debridement Size (cm) - Depth 0.3 -Total Square Cm 3.40 -Wound/Ulcer Outcome Not Healed -Ulcer Cleansing Rinsed/ Irrigated with Saline -Foul Odor after Cleansing No -Bioengineered Tissue No -Bleeding Controlled with NA -Treatment Response Procedure Tolerated Well #5 Right Met Head Grt Toe -Time 12:33 -Correct Patient Yes -Procedure Performed No -Post Debridement Size (cm) - Length 0.1 -Post Debridement Size (cm) - Width 0.1 -Post Debridement Size (cm) - Depth 0.1 -Total Square Cm 0.01 -Wound/Ulcer Outcome Healed- Epithelialized -Bleeding Controlled with NA #4- LT WARNER CLUSTER -Time 12:33 -Correct Patient Yes -Procedure Performed No -Post Debridement Size (cm) - Length 0 -Post Debridement Size (cm) - Width 0 -Post Debridement Size (cm) - Depth 0 -Total Square Cm 0 -Wound/Ulcer Outcome Healed- Epithelialized [See Physician Procedure note for Specifics] Pain Scale: 0-10 Numeric [Pain] -Is Patient Pain Free? Yes Musculoskeletal: No Muscle Wasting Neurological: Cranial nerves II-XII grossly intact Psych/Mental Status: Normal Affect Debridement Note Post-Debridement Measurements/Treatment WC - Nurse 2 - General Ulcer CM Notes Start: 02/14/18 09:50 Freq: Status: Active Protocol: Activity Type Activity Date Activity User E-Sign Co-Sign Detail Recorded Client Recorded Date Recorded By Document 02/14/18 11:14 DV [id number] 02/14/18 11:24 DV Document 02/28/18 12:31 DV [id number] 02/28/18 12:34 DV 02/14/18 02/28/18 11:14 12:31 Wound Center Nurse 2 #6 RIGHT LATERAL FOOT -Time 11:15 12:32 -Correct Patient Yes -Correct Side, Site, Position Yes -Correct Procedure Yes -Procedure Performed Yes -Type of Procedure Debridement -Clinical Debridement Subcutaneous -Post Debridement Size (cm) - Length 2.0 1.7 -Post Debridement Size (cm) - Width 2.5 2.0 -Post Debridement Size (cm) - Depth 0.3 0.3 -Total Square Cm 5.00 3.40 -Wound/Ulcer Outcome Not Healed Not Healed -Ulcer Cleansing Rinsed/ Rinsed/ Irrigated with Irrigated with Saline Saline -Foul Odor after Cleansing No No -Bioengineered Tissue No No -Bleeding Controlled with Pressure NA -Treatment Response Procedure Procedure Tolerated Well Tolerated Well #5 Right Met Head Grt Toe -Time 11:21 12:33 -Correct Patient Yes Yes -Correct Side, Site, Position Yes -Correct Procedure Yes -Procedure Performed Yes No -Type of Procedure Debridement -Clinical Debridement Subcutaneous -Post Debridement Size (cm) - Length 1.1 0.1 -Post Debridement Size (cm) - Width 0.7 0.1 -Post Debridement Size (cm) - Depth 0.1 0.1 -Total Square Cm 0.77 0.01 -Wound/Ulcer Outcome Not Healed Healed- Epithelialized -Ulcer Cleansing Rinsed/ Irrigated with Saline -Foul Odor after Cleansing No -Bioengineered Tissue No -Bleeding Controlled with Pressure NA -Treatment Response Procedure Tolerated Well #4- LT WARNER CLUSTER -Time 11:16 12:33 -Correct Patient Yes Yes -Correct Side, Site, Position Yes -Correct Procedure Yes -Procedure Performed Yes No -Type of Procedure Debridement -Clinical Debridement Subcutaneous -Post Debridement Size (cm) - Length 1.1 0 -Post Debridement Size (cm) - Width 2.1 0 -Post Debridement Size (cm) - Depth 0.1 0 -Total Square Cm 2.31 0 -Wound/Ulcer Outcome Not Healed Healed- Epithelialized -Ulcer Cleansing Rinsed/ Irrigated with Saline -Foul Odor after Cleansing No -Bioengineered Tissue No -Bleeding Controlled with Pressure -Treatment Response Procedure Tolerated Well Pain Scale: 0-10 Numeric Is Patient Pain Free? Yes Yes Wound debrided: Right 5th digit ( Lateral ) Wound Grade/Stage: Vieira II Type of Debridement: Excisional debridement Anesthesia Used: 4% Lidocaine Solution Depth: Down to and including healthy tissue, in the subcutaneous layer Percentage of wound debrided: 100 Instrument Used: 3mm curette, #15 blade, Forceps Tissue Removed: Eschar, Slough and devitalized tissue Severity: Fat Layer Exposed Amount of bleeding with debridement: Mild Bleeding Controlled with: Pressure Patient tolerated procedure well Assessment/Plan Active Problems Open wound of left lower extremity (Acute) Diabetic ulcer of right foot (Acute) Diabetic foot ulcer (Chronic) Assessment: Left Lower superficial ulcer. Right Diabetic Foot Ulcers ( Great toe web space and 5th toe lateral ). Diabetes mellitus type 2. Plan: Left warner and right great toe ulcers have healed. Minimal scabbing. Right lateral fifth toe ulcer with significant slough burden however, circumference appears to be improving. Patient does admit to not dressing the wound is recommended due to limited help. She has completed her course of antibiotics. Debridement done as documented above. Procedure was well- tolerated. Continue Santyl to right fifth toe lateral ulcer with gauze over top. Elevate lower extremity when sitted and in bed. Avoid idle standing. High protein diet/supplement. 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 Optimal Blood sugar control. Follow up with PCP. Follow up in 1 week. This note was generated with [employer] dictation software. It may contain incorrect words, spelling, and punctuation that were not noted in checking the note before signing.
[2018-03-07 11:34] VITALS: BP 148/84; PULSE 69; RESP 18; TEMP 36.1; BMI 42.5
--- NOTE | 2018-03-07 17:07 | PCM.WC.PN ---
(1) Diabetic ulcer of right foot Status: Acute Current Visit: Yes Code(s): E11.621 - Type 2 diabetes mellitus with foot ulcer; L97.519 - Non-pressure chronic ulcer of other part of right foot with unspecified severity (2) Open wound of left lower extremity Status: Acute Current Visit: Yes Code(s): S81.802A - Unspecified open wound, left lower leg, initial encounter (3) Diabetic foot ulcer Status: Chronic Current Visit: Yes Code(s): E11.621 - Type 2 diabetes mellitus with foot ulcer; L97.509 - Non-pressure chronic ulcer of other part of unspecified foot with unspecified severity Type of Wound Date of Service: 03/07/18 Chief Complaint: Right lower extremity/Foot Blisters/Ulcers. Left Lower extremity/Leg woud secondary to Dog Scratch. History of Wound: Ms. Molina who is well known to me presents to the wound center today with two new wounds. She has a left lower extremity wound which she states she sustained as a result fro a scratch by her dog. Sh also has blisters to her right toes with the most significant being if the right great toe however, patient is unsure of how she sustained these blister. She reports pain in her left lower extremity but denies any significant pain in her toes. She reports chills, but denies fever, nausea, vomitting or any change in her biwel habit. Progress of Wound: Stable. - Physical Exam Vital Signs Temp Pulse Resp BP 97 F L 69 18 148/84 H 03/07/18 11:34 03/07/18 11:34 03/07/18 11:34 03/07/18 11:34 General: Alert, Oriented x3, Cooperative, No apparent distress HEENT: Atraumatic, Normocephalic Oral: Moist Mucosa Neck: Supple Lungs: Normal air movement Cardiovascular: Regular rate Abdomen: Non Tender, Obese Extremities: No cyanosis, Edema Skin: Ulcer/ Wound Wound Measurements and Assessment WC - Nurse 1 - General Ulcer Measurement Start: 02/14/18 09:50 Freq: Status: Active Protocol: Activity Type Activity Date Activity User E-Sign Co-Sign Detail Recorded Client Recorded Date Recorded By Document 03/07/18 11:34 RB [id number] 03/07/18 11:46 RB 03/07/18 11:34 Wound Center Nurse 1 [Ulcer Assessment] #6 RIGHT LATERAL FOOT -Combined with other wound No -Current Size (cm) - Length 1.9 -Current Size (cm) - Width 2 -Current Size (cm) - Depth 0.3 -Total Square Cm 3.8 -Photo Taken No -Tunneling No -Undermining/Tunneling No -Circular Undermining No -Classification - Pressure Ulcer Unstageable -Exudate Amt Medium (34-66%) -Exudate Type Serosanguineous -Wound Margin Thickened & Rolled Under -Granulation Amt Small (1-33%) -Granulation Quality [place] -Slough/Fibrin Yes -Necrosis Amt Large (67-100%) -Necrotic Tissue Type Adherent Slough -Texture (Mel-wound Skin Appearance) Callus -Moisture (Mel-wound Skin Appearance Assessed ) -Color (Mel-wound Skin Appearance) Assessed -Temperature (Mel-wound Skin No Abnormality Appearance) (Pt Warm) -Tenderness on Palpation (Mel-wound No Skin Appearance) -Ulcer Cleansing Wound Cleanser -Foul Odor after Cleansing No -Anesthetic Used 5% Lidocaine Gel [Edema Assessment] -Lower Limb Edema Present Yes -Right Calf (cm) 41.2 -Right Ankle (cm) 23 Musculoskeletal: No Muscle Wasting Neurological: Cranial nerves II-XII grossly intact Psych/Mental Status: Normal Affect Debridement Note Post-Debridement Measurements/Treatment WC - Nurse 2 - General Ulcer CM Notes Start: 02/14/18 09:50 Freq: Status: Active Protocol: Activity Type Activity Date Activity User E-Sign Co-Sign Detail Recorded Client Recorded Date Recorded By Document 02/14/18 11:14 DV [id number] 02/14/18 11:24 DV Document 02/28/18 12:31 DV [id number] 02/28/18 12:34 DV 02/14/18 02/28/18 11:14 12:31 Wound Center Nurse 2 #6 RIGHT LATERAL FOOT -Time 11:15 12:32 -Correct Patient Yes -Correct Side, Site, Position Yes -Correct Procedure Yes -Procedure Performed Yes -Type of Procedure Debridement -Clinical Debridement Subcutaneous -Post Debridement Size (cm) - Length 2.0 1.7 -Post Debridement Size (cm) - Width 2.5 2.0 -Post Debridement Size (cm) - Depth 0.3 0.3 -Total Square Cm 5.00 3.40 -Wound/Ulcer Outcome Not Healed Not Healed -Ulcer Cleansing Rinsed/ Rinsed/ Irrigated with Irrigated with Saline Saline -Foul Odor after Cleansing No No -Bioengineered Tissue No No -Bleeding Controlled with Pressure NA -Treatment Response Procedure Procedure Tolerated Well Tolerated Well #5 Right Met Head Grt Toe -Time 11:21 12:33 -Correct Patient Yes Yes -Correct Side, Site, Position Yes -Correct Procedure Yes -Procedure Performed Yes No -Type of Procedure Debridement -Clinical Debridement Subcutaneous -Post Debridement Size (cm) - Length 1.1 0.1 -Post Debridement Size (cm) - Width 0.7 0.1 -Post Debridement Size (cm) - Depth 0.1 0.1 -Total Square Cm 0.77 0.01 -Wound/Ulcer Outcome Not Healed Healed- Epithelialized -Ulcer Cleansing Rinsed/ Irrigated with Saline -Foul Odor after Cleansing No -Bioengineered Tissue No -Bleeding Controlled with Pressure NA -Treatment Response Procedure Tolerated Well #4- LT MANZANO CLUSTER -Time 11:16 12:33 -Correct Patient Yes Yes -Correct Side, Site, Position Yes -Correct Procedure Yes -Procedure Performed Yes No -Type of Procedure Debridement -Clinical Debridement Subcutaneous -Post Debridement Size (cm) - Length 1.1 0 -Post Debridement Size (cm) - Width 2.1 0 -Post Debridement Size (cm) - Depth 0.1 0 -Total Square Cm 2.31 0 -Wound/Ulcer Outcome Not Healed Healed- Epithelialized -Ulcer Cleansing Rinsed/ Irrigated with Saline -Foul Odor after Cleansing No -Bioengineered Tissue No -Bleeding Controlled with Pressure -Treatment Response Procedure Tolerated Well Pain Scale: 0-10 Numeric Is Patient Pain Free? Yes Yes Wound debrided: Right fifth digit ( lateral ) Wound Grade/Stage: Vieira II Type of Debridement: Excisional debridement Anesthesia Used: 4% Lidocaine Solution Depth: Down to and including healthy tissue, in the subcutaneous layer Percentage of wound debrided: 100 Instrument Used: 5mm curette Tissue Removed: Slough and devitalized tissue Severity: Fat Layer Exposed Amount of bleeding with debridement: Mild Bleeding Controlled with: Pressure Patient tolerated procedure well Assessment/Plan Active Problems Open wound of left lower extremity (Acute) Diabetic ulcer of right foot (Acute) Diabetic foot ulcer (Chronic) Assessment: Left Lower superficial ulcer. Right Diabetic Foot Ulcers ( Great toe web space and 5th toe lateral ). Diabetes mellitus type 2. Plan: Better granulation tissue on the left fifth digit (lateral) ulcer. However still substantial slough burden. Debridement done as documented above. Procedure was well-tolerated. Continue Santyl to right fifth toe lateral ulcer with gauze over top. Patient will however benefit from a skin substitute. Elevate lower extremity when sitted and in bed. Avoid idle standing. High protein diet/supplement. Continue Double layer Tubi small boat engineer for edema management. Optimal Blood sugar control. Follow up with PCP. Follow up in 1 week. This note was generated with [employer] dictation software. It may contain incorrect words, spelling, and punctuation that were not noted in checking the note before signing.
--- NOTE | 2018-03-07 17:11 | PN.PCM_ITS ---
(1) Diabetic ulcer of right foot Status: Acute Current Visit: Yes Code(s): E11.621 - Type 2 diabetes mellitus with foot ulcer; L97.519 - Non-pressure chronic ulcer of other part of right foot with unspecified severity (2) Open wound of left lower extremity Status: Acute Current Visit: Yes Code(s): S81.802A - Unspecified open wound , left lower leg, initial encounter (3) Diabetic foot ulcer Status: Chronic Current Visit: Yes Code(s): E11.621 - Type 2 diabetes mellitus with foot ulcer; L97.509 - Non-pressure chronic ulcer of other part of unspecified foot with unspecified severity Type of Wound Date of Service: 03/07/18 Chief Complaint: Right lower extremity/Foot Blisters/Ulcers. Left Lower extremity/Leg woud secondary to Dog Scratch. History of Wound: Ms. Molina who is well known to me presents to the wound center today with two new wounds. She has a left lower extremity wound which she states she sustained as a result fro a scratch by her dog. Sh also has blisters to her right toes with the most significant being if the right great toe however, patient is unsure of how she sustained these blister. She reports pain in her left lower extremity but denies any significant pain in her toes. She reports chills, but denies fever, nausea, vomitting or any change in her biwel habit. Progress of Wound: Stable. - Physical Exam Vital Signs Temp Pulse Resp BP 97 F L 69 18 148/84 H 03/07/18 11:34 03/07/18 11:34 03/07/18 11:34 03/07/18 11:34 General: Alert, Oriented x3, Cooperative, No apparent distress HEENT: Atraumatic, Normocephalic Oral: Moist Mucosa Neck: Supple Lungs: Normal air movement Cardiovascular: Regular rate Abdomen: Non Tender, Obese Extremities: No cyanosis, Edema Skin: Ulcer/ Wound Wound Measurements and Assessment WC - Nurse 1 - General Ulcer Measurement Start: 02/14/18 09:50 Freq: Status: Active Protocol: Activity Type Activity Date Activity User E-Sign Co-Sign Detail Recorded Client Recorded Date Recorded By Document 03/07/18 11:34 RB [id number] 03/07/18 11:46 RB 03/07/18 11:34 Wound Center Nurse 1 [Ulcer Assessment] #6 RIGHT LATERAL FOOT -Combined with other wound No -Current Size (cm) - Length 1.9 -Current Size (cm) - Width 2 -Current Size (cm) - Depth 0.3 -Total Square Cm 3.8 -Photo Taken No -Tunneling No -Undermining/Tunneling No -Circular Undermining No -Classification - Pressure Ulcer Unstageable -Exudate Amt Medium (34-66%) -Exudate Type Serosanguineous -Wound Margin Thickened & Rolled Under -Granulation Amt Small (1-33%) -Granulation Quality [place] -Slough/Fibrin Yes -Necrosis Amt Large (67-100%) -Necrotic Tissue Type Adherent Slough -Texture (Mel-wound Skin Appearance) Callus -Moisture (Mel-wound Skin Appearance Assessed ) -Color (Mel-wound Skin Appearance) Assessed -Temperature (Mel-wound Skin No Abnormality Appearance) (Pt Warm) -Tenderness on Palpation (Mel-wound No Skin Appearance) -Ulcer Cleansing Wound Cleanser -Foul Odor after Cleansing No -Anesthetic Used 5% Lidocaine Gel [Edema Assessment] -Lower Limb Edema Present Yes -Right Calf (cm) 41.2 -Right Ankle (cm) 23 Musculoskeletal: No Muscle Wasting Neurological: Cranial nerves II-XII grossly intact Psych/Mental Status: Normal Affect Debridement Note Post-Debridement Measurements/Treatment WC - Nurse 2 - General Ulcer CM Notes Start: 02/14/18 09:50 Freq: Status: Active Protocol: Activity Type Activity Date Activity User E-Sign Co-Sign Detail Recorded Client Recorded Date Recorded By Document 02/14/18 11:14 DV [id number] 02/14/18 11:24 DV Document 02/28/18 12:31 DV [id number] 02/28/18 12:34 DV 02/14/18 02/28/18 11:14 12:31 Wound Center Nurse 2 #6 RIGHT LATERAL FOOT -Time 11:15 12:32 -Correct Patient Yes -Correct Side, Site, Position Yes -Correct Procedure Yes -Procedure Performed Yes -Type of Procedure Debridement -Clinical Debridement Subcutaneous -Post Debridement Size (cm) - Length 2.0 1.7 -Post Debridement Size (cm) - Width 2.5 2.0 -Post Debridement Size (cm) - Depth 0.3 0.3 -Total Square Cm 5.00 3.40 -Wound/Ulcer Outcome Not Healed Not Healed -Ulcer Cleansing Rinsed/ Rinsed/ Irrigated with Irrigated with Saline Saline -Foul Odor after Cleansing No No -Bioengineered Tissue No No -Bleeding Controlled with Pressure NA -Treatment Response Procedure Procedure Tolerated Well Tolerated Well #5 Right Met Head Grt Toe -Time 11:21 12:33 -Correct Patient Yes Yes -Correct Side, Site, Position Yes -Correct Procedure Yes -Procedure Performed Yes No -Type of Procedure Debridement -Clinical Debridement Subcutaneous -Post Debridement Size (cm) - Length 1.1 0.1 -Post Debridement Size (cm) - Width 0.7 0.1 -Post Debridement Size (cm) - Depth 0.1 0.1 -Total Square Cm 0.77 0.01 -Wound/Ulcer Outcome Not Healed Healed- Epithelialized -Ulcer Cleansing Rinsed/ Irrigated with Saline -Foul Odor after Cleansing No -Bioengineered Tissue No -Bleeding Controlled with Pressure NA -Treatment Response Procedure Tolerated Well #4- LT MANZANO CLUSTER -Time 11:16 12:33 -Correct Patient Yes Yes -Correct Side, Site, Position Yes -Correct Procedure Yes -Procedure Performed Yes No -Type of Procedure Debridement -Clinical Debridement Subcutaneous -Post Debridement Size (cm) - Length 1.1 0 -Post Debridement Size (cm) - Width 2.1 0 -Post Debridement Size (cm) - Depth 0.1 0 -Total Square Cm 2.31 0 -Wound/Ulcer Outcome Not Healed Healed- Epithelialized -Ulcer Cleansing Rinsed/ Irrigated with Saline -Foul Odor after Cleansing No -Bioengineered Tissue No -Bleeding Controlled with Pressure -Treatment Response Procedure Tolerated Well Pain Scale: 0-10 Numeric Is Patient Pain Free? Yes Yes Wound debrided: Right fifth digit ( lateral ) Wound Grade/Stage: Vieira II Type of Debridement: Excisional debridement Anesthesia Used: 4% Lidocaine Solution Depth: Down to and including healthy tissue, in the subcutaneous layer Percentage of wound debrided: 100 Instrument Used: 5mm curette Tissue Removed: Slough and devitalized tissue Severity: Fat Layer Exposed Amount of bleeding with debridement: Mild Bleeding Controlled with: Pressure Patient tolerated procedure well Assessment/Plan Active Problems Open wound of left lower extremity (Acute) Diabetic ulcer of right foot (Acute) Diabetic foot ulcer (Chronic) Assessment: Left Lower superficial ulcer. Right Diabetic Foot Ulcers ( Great toe web space and 5th toe lateral ). Diabetes mellitus type 2. Plan: Better granulation tissue on the left fifth digit (lateral) ulcer. However still substantial slough burden. Debridement done as documented above. Procedure was well-tolerated. Continue Santyl to right fifth toe lateral ulcer with gauze over top. Patient will however benefit from a skin substitute. Elevate lower extremity when sitted and in bed. Avoid idle standing. High protein diet/supplement. Continue Double layer Tubi whitewasher for edema management. Optimal Blood sugar control. Follow up with PCP. Follow up in 1 week. This note was generated with [employer] dictation software. It may contain incorrect words, spelling, and punctuation that were not noted in checking the note before signing.
== END 2018-03-14 23:59 ==
LOC: WC 10:45
PROVIDERS: Visit Provider Internal Medicine
DX: E11.621 Type 2 diabetes mellitus with foot ulcer (principal); L97.512 Non-pressure chronic ulcer of other part of right foot with fat layer exposed; S80.812A Abrasion, left lower leg, initial encounter; W45.8XXA Other foreign body or object entering through skin, initial encounter
CPT/HCPCS: 11042

== ENCOUNTER 2018-04-11 09:00 | Outpatient (RCR) | payer MEDICAID, SELFPAY ==
[2018-03-15 00:33] VITALS: BP 148/84; PULSE 69; RESP 18; TEMP 36.1; BMI 42.5
[2018-03-28 11:20] VITALS: BP 125/71; PULSE 86; RESP 16; TEMP 36.1; BMI 42.5
--- NOTE | 2018-03-28 12:22 | PCM.WC.PN ---
(1) Diabetic ulcer of right foot Status: Acute Current Visit: No Code(s): E11.621 - Type 2 diabetes mellitus with foot ulcer; L97.519 - Non-pressure chronic ulcer of other part of right foot with unspecified severity (2) Open wound of right lower extremity Status: Acute Current Visit: No Code(s): S81.801A - Unspecified open wound, right lower leg, initial encounter (3) Diabetes mellitus Status: Chronic Current Visit: No Code(s): E11.9 - Type 2 diabetes mellitus without complications (4) Diabetic foot ulcer Status: Chronic Current Visit: No Code(s): E11.621 - Type 2 diabetes mellitus with foot ulcer; L97.509 - Non-pressure chronic ulcer of other part of unspecified foot with unspecified severity Type of Wound Date of Service: 03/28/18 Chief Complaint: Right lower extremity/Foot Blisters/Ulcers. Left Lower extremity/Leg woud secondary to Dog Scratch. History of Wound: Ms. Molina who is well known to me presents to the wound center today with two new wounds. She has a left lower extremity wound which she states she sustained as a result fro a scratch by her dog. Sh also has blisters to her right toes with the most significant being if the right great toe however, patient is unsure of how she sustained these blister. She reports pain in her left lower extremity but denies any significant pain in her toes. She reports chills, but denies fever, nausea, vomitting or any change in her biwel habit. Progress of Wound: Stable. No new complaints at this time. Not here in the past week. - Physical Exam Vital Signs Temp Pulse Resp BP 96.9 F L 86 16 125/71 H 03/28/18 11:20 03/28/18 11:20 03/28/18 11:20 03/28/18 11:20 General: Alert, Oriented x3, Cooperative, No apparent distress HEENT: Atraumatic Oral: Moist Mucosa Neck: Supple Lungs: Normal air movement Cardiovascular: Regular rate Abdomen: Non Tender, Obese Extremities: No cyanosis Skin: Ulcer/ Wound Wound Measurements and Assessment WC - Nurse 1 - General Ulcer Measurement Start: 03/28/18 11:18 Freq: Status: Active Protocol: Activity Type Activity Date Activity User E-Sign Co-Sign Detail Recorded Client Recorded Date Recorded By Document 03/28/18 11:20 DL [id number] 03/28/18 11:28 DL 03/28/18 11:20 Wound Center Nurse 1 [Ulcer Assessment] #6 RIGHT LATERAL FOOT -Current Size (cm) - Length 1.7 -Current Size (cm) - Width 1.1 -Current Size (cm) - Depth 0.1 -Total Square Cm 1.87 -Photo Taken No -Exudate Amt Small (1-33%) -Exudate Type Serosanguineous -Wound Margin Thickened -Granulation Amt Medium (34-66%) -Granulation Quality Red -Necrosis Amt Medium (34-66%) -Necrotic Tissue Type Adherent Slough -Structure Exposed N/A -Texture (Mel-wound Skin Appearance) No Abnormality -Moisture (Mel-wound Skin Appearance Maceration ) -Color (Mel-wound Skin Appearance) No Abnormality -Temperature (Mel-wound Skin No Abnormality Appearance) (Pt Warm) -Tenderness on Palpation (Mel-wound No Skin Appearance) -Ulcer Cleansing Wound Cleanser -Foul Odor after Cleansing No -Anesthetic Used 4% Lidocaine Solution [Edema Assessment] -Right Calf (cm) 39.6 -Right Ankle (cm) 25.1 -Left Calf (cm) 40.5 -Left Ankle (cm) 22.8 WC - Nurse 2 - General Ulcer CM Notes Start: 03/28/18 11:18 Freq: Status: Active Protocol: Activity Type Activity Date Activity User E-Sign Co-Sign Detail Recorded Client Recorded Date Recorded By Document 03/28/18 12:16 DV [id number] 03/28/18 12:21 DV 03/28/18 12:16 Wound Center Nurse 2 [Procedure/Treatment] #6 RIGHT LATERAL FOOT -Time 12:17 -Correct Patient Yes -Correct Side, Site, Position Yes -Correct Procedure Yes -Procedure Performed Yes -Type of Procedure Debridement -Clinical Debridement Subcutaneous -Post Debridement Size (cm) - Length 1.9 -Post Debridement Size (cm) - Width 1.9 -Post Debridement Size (cm) - Depth 0.3 -Total Square Cm 3.61 -Wound/Ulcer Outcome Not Healed -Ulcer Cleansing Rinsed/ Irrigated with Saline -Foul Odor after Cleansing No -Bioengineered Tissue No -Bleeding Controlled with Pressure -Treatment Response Procedure Tolerated Well [See Physician Procedure note for Specifics] Pain Scale: 0-10 Numeric [Pain] -Is Patient Pain Free? Yes Musculoskeletal: No Muscle Wasting Neurological: Cranial nerves II-XII grossly intact Psych/Mental Status: Normal Affect Debridement Note Post-Debridement Measurements/Treatment WC - Nurse 2 - General Ulcer CM Notes Start: 03/28/18 11:18 Freq: Status: Active Protocol: Activity Type Activity Date Activity User E-Sign Co-Sign Detail Recorded Client Recorded Date Recorded By Document 03/28/18 12:16 DV [id number] 03/28/18 12:21 DV 03/28/18 12:16 Wound Center Nurse 2 #6 RIGHT LATERAL FOOT -Time 12:17 -Correct Patient Yes -Correct Side, Site, Position Yes -Correct Procedure Yes -Procedure Performed Yes -Type of Procedure Debridement -Clinical Debridement Subcutaneous -Post Debridement Size (cm) - Length 1.9 -Post Debridement Size (cm) - Width 1.9 -Post Debridement Size (cm) - Depth 0.3 -Total Square Cm 3.61 -Wound/Ulcer Outcome Not Healed -Ulcer Cleansing Rinsed/ Irrigated with Saline -Foul Odor after Cleansing No -Bioengineered Tissue No -Bleeding Controlled with Pressure -Treatment Response Procedure Tolerated Well Pain Scale: 0-10 Numeric Is Patient Pain Free? Yes Wound debrided: Right foot (5th digit Lateral ) Wound Grade/Stage: Vieira II Type of Debridement: Excisional debridement Anesthesia Used: 4% Lidocaine Solution Depth: Down to and including healthy tissue, in the subcutaneous layer Percentage of wound debrided: 100 Instrument Used: 5mm curette Tissue Removed: Slough and devitalized tissue Severity: Fat Layer Exposed Amount of bleeding with debridement: Mild Bleeding Controlled with: Pressure Patient tolerated procedure well Assessment/Plan Assessment: Left Lower superficial ulcer. Right Diabetic Foot Ulcers ( Great toe web space and 5th toe lateral ). Diabetes mellitus type 2. Plan: Significant improvement in granulation tissue formation. Debridement done as documented above. Procedure was well-tolerated. Switch to Pomogran/Anaid. Apply daily. Elevate lower extremity when sitted and in bed. Avoid idle standing. High protein diet/supplement. Continue Double layer Tubi technical data analyst for edema management. Optimal Blood sugar control. Follow up with PCP. Follow up in 1 week. This note was generated with [employer] software. It may contain incorrect words, spelling, and punctuation that were not noted in checking the note before signing.
--- NOTE | 2018-03-28 12:26 | PN.PCM_ITS ---
(1) Diabetic ulcer of right foot Status: Acute Current Visit: No Code(s): E11.621 - Type 2 diabetes mellitus with foot ulcer; L97.519 - Non-pressure chronic ulcer of other part of right foot with unspecified severity (2) Open wound of right lower extremity Status: Acute Current Visit: No Code(s): S81.801A - Unspecified open wound, right lower leg, initial encounter (3) Diabetes mellitus Status: Chronic Current Visit: No Code(s): E11.9 - Type 2 diabetes mellitus without complications (4) Diabetic foot ulcer Status: Chronic Current Visit: No Code(s): E11.621 - Type 2 diabetes mellitus with foot ulcer; L97.509 - Non-pressure chronic ulcer of other part of unspecified foot with unspecified severity Type of Wound Date of Service: 03/28/18 Chief Complaint: Right lower extremity/Foot Blisters/Ulcers. Left Lower extremity/Leg woud secondary to Dog Scratch. History of Wound: Ms. Molina who is well known to me presents to the wound center today with two new wounds. She has a left lower extremity wound which she states she sustained as a result fro a scratch by her dog. Sh also has blisters to her right toes with the most significant being if the right great toe however, patient is unsure of how she sustained these blister. She reports pain in her left lower extremity but denies any significant pain in her toes. She reports chills, but denies fever, nausea, vomitting or any change in her biwel habit. Progress of Wound: Stable. No new complaints at this time. Not here in the past week. - Physical Exam Vital Signs Temp Pulse Resp BP 96.9 F L 86 16 125/71 H 03/28/18 11:20 03/28/18 11:20 03/28/18 11:20 03/28/18 11:20 General: Alert, Oriented x3, Cooperative, No apparent distress HEENT: Atraumatic Oral: Moist Mucosa Neck: Supple Lungs: Normal air movement Cardiovascular: Regular rate Abdomen: Non Tender, Obese Extremities: No cyanosis Skin: Ulcer/ Wound Wound Measurements and Assessment WC - Nurse 1 - General Ulcer Measurement Start: 03/28/18 11:18 Freq: Status: Active Protocol: Activity Type Activity Date Activity User E-Sign Co-Sign Detail Recorded Client Recorded Date Recorded By Document 03/28/18 11:20 DL [id number] 03/28/18 11:28 DL 03/28/18 11:20 Wound Center Nurse 1 [Ulcer Assessment] #6 RIGHT LATERAL FOOT -Current Size (cm) - Length 1.7 -Current Size (cm) - Width 1.1 -Current Size (cm) - Depth 0.1 -Total Square Cm 1.87 -Photo Taken No -Exudate Amt Small (1-33%) -Exudate Type Serosanguineous -Wound Margin Thickened -Granulation Amt Medium (34-66%) -Granulation Quality Red -Necrosis Amt Medium (34-66%) -Necrotic Tissue Type Adherent Slough -Structure Exposed N/A -Texture (Mel-wound Skin Appearance) No Abnormality -Moisture (Mel-wound Skin Appearance Maceration ) -Color (Mel-wound Skin Appearance) No Abnormality -Temperature (Mel-wound Skin No Abnormality Appearance) (Pt Warm) -Tenderness on Palpation (Mel-wound No Skin Appearance) -Ulcer Cleansing Wound Cleanser -Foul Odor after Cleansing No -Anesthetic Used 4% Lidocaine Solution [Edema Assessment] -Right Calf (cm) 39.6 -Right Ankle (cm) 25.1 -Left Calf (cm) 40.5 -Left Ankle (cm) 22.8 WC - Nurse 2 - General Ulcer CM Notes Start: 03/28/18 11:18 Freq: Status: Active Protocol: Activity Type Activity Date Activity User E-Sign Co-Sign Detail Recorded Client Recorded Date Recorded By Document 03/28/18 12:16 DV [id number] 03/28/18 12:21 DV 03/28/18 12:16 Wound Center Nurse 2 [Procedure/Treatment] #6 RIGHT LATERAL FOOT -Time 12:17 -Correct Patient Yes -Correct Side, Site, Position Yes -Correct Procedure Yes -Procedure Performed Yes -Type of Procedure Debridement -Clinical Debridement Subcutaneous -Post Debridement Size (cm) - Length 1.9 -Post Debridement Size (cm) - Width 1.9 -Post Debridement Size (cm) - Depth 0.3 -Total Square Cm 3.61 -Wound/Ulcer Outcome Not Healed -Ulcer Cleansing Rinsed/ Irrigated with Saline -Foul Odor after Cleansing No -Bioengineered Tissue No -Bleeding Controlled with Pressure -Treatment Response Procedure Tolerated Well [See Physician Procedure note for Specifics] Pain Scale: 0-10 Numeric [Pain] -Is Patient Pain Free? Yes Musculoskeletal: No Muscle Wasting Neurological: Cranial nerves II-XII grossly intact Psych/Mental Status: Normal Affect Debridement Note Post-Debridement Measurements/Treatment WC - Nurse 2 - General Ulcer CM Notes Start: 03/28/18 11:18 Freq: Status: Active Protocol: Activity Type Activity Date Activity User E-Sign Co-Sign Detail Recorded Client Recorded Date Recorded By Document 03/28/18 12:16 DV [id number] 03/28/18 12:21 DV 03/28/18 12:16 Wound Center Nurse 2 #6 RIGHT LATERAL FOOT -Time 12:17 -Correct Patient Yes -Correct Side, Site, Position Yes -Correct Procedure Yes -Procedure Performed Yes -Type of Procedure Debridement -Clinical Debridement Subcutaneous -Post Debridement Size (cm) - Length 1.9 -Post Debridement Size (cm) - Width 1.9 -Post Debridement Size (cm) - Depth 0.3 -Total Square Cm 3.61 -Wound/Ulcer Outcome Not Healed -Ulcer Cleansing Rinsed/ Irrigated with Saline -Foul Odor after Cleansing No -Bioengineered Tissue No -Bleeding Controlled with Pressure -Treatment Response Procedure Tolerated Well Pain Scale: 0-10 Numeric Is Patient Pain Free? Yes Wound debrided: Right foot (5th digit Lateral ) Wound Grade/Stage: [place] II Type of Debridement: Excisional debridement Anesthesia Used: 4% Lidocaine Solution Depth: Down to and including healthy tissue, in the subcutaneous layer Percentage of wound debrided: 100 Instrument Used: 5mm curette Tissue Removed: Slough and devitalized tissue Severity: Fat Layer Exposed Amount of bleeding with debridement: Mild Bleeding Controlled with: Pressure Patient tolerated procedure well Assessment/Plan Assessment: Left Lower superficial ulcer. Right Diabetic Foot Ulcers ( Great toe web space and 5th toe lateral ). Diabetes mellitus type 2. Plan: Significant improvement in granulation tissue formation. Debridement done as documented above. Procedure was well-tolerated. Switch to Pomogran/ Anaid. Apply daily. Elevate lower extremity when sitted and in bed. Avoid idle standing. High protein diet/supplement. Continue Double layer Tubi power marketer for edema management. Optimal Blood sugar control. Follow up with PCP. Follow up in 1 week. This note was generated with [employer] software. It may contain incorrect words, spelling, and punctuation that were not noted in checking the note before signing.
[2018-04-11 08:27] VITALS: BP 111/74; PULSE 79; RESP 20; TEMP 36.5; BMI 42.5
--- NOTE | 2018-04-11 09:31 | PCM.WC.PN ---
(1) Open wound of right lower extremity Status: Acute Current Visit: No Code(s): S81.801A - Unspecified open wound, right lower leg, initial encounter (2) Diabetic ulcer of right foot Status: Acute Current Visit: No Code(s): E11.621 - Type 2 diabetes mellitus with foot ulcer; L97.519 - Non-pressure chronic ulcer of other part of right foot with unspecified severity (3) Diabetes mellitus Status: Chronic Current Visit: No Code(s): E11.9 - Type 2 diabetes mellitus without complications Type of Wound Date of Service: 04/11/18 Chief Complaint: Right lower extremity/Foot Blisters/Ulcers. Left Lower extremity/Leg woud secondary to Dog Scratch. History of Wound: Ms. Molina who is well known to me presents to the wound center today with two new wounds. She has a left lower extremity wound which she states she sustained as a result fro a scratch by her dog. Sh also has blisters to her right toes with the most significant being if the right great toe however, patient is unsure of how she sustained these blister. She reports pain in her left lower extremity but denies any significant pain in her toes. She reports chills, but denies fever, nausea, vomitting or any change in her biwel habit. Progress of Wound: Patient seen as courtesy visit for Dr. Sebastian. Stable. No new complaints at this time. - Physical Exam Vital Signs Temp Pulse Resp BP 97.7 F L 79 20 H 111/74 04/11/18 08:27 04/11/18 08:27 04/11/18 08:27 04/11/18 08:27 General: Alert, Oriented x3, Cooperative, No apparent distress Extremities: Capillary Refill Less than 3 Seconds, No Calf Tenderness - Negative Gregor and Braga sign, Diminished Peripheral Pulses, Edema - Lower extremity Skin: Ulcer/ Wound Wound Measurements and Assessment WC - Nurse 1 - General Ulcer Measurement Start: 03/28/18 11:18 Freq: Status: Active Protocol: Activity Type Activity Date Activity User E-Sign Co-Sign Detail Recorded Client Recorded Date Recorded By Document 04/11/18 08:27 DL [id number] 04/11/18 08:31 DL 04/11/18 08:27 Wound Center Nurse 1 [Ulcer Assessment] #6 RIGHT LATERAL FOOT -Current Size (cm) - Length 1.4 -Current Size (cm) - Width 0.8 -Current Size (cm) - Depth 0.2 -Total Square Cm 1.12 -Photo Taken No -Exudate Amt Small (1-33%) -Exudate Type Serosanguineous -Wound Margin Thickened -Granulation Amt Medium (34-66%) -Granulation Quality Red -Necrosis Amt Medium (34-66%) -Necrotic Tissue Type Adherent Slough -Structure Exposed N/A -Texture (Mel-wound Skin Appearance) Callus -Moisture (Mel-wound Skin Appearance Maceration ) -Color (Mel-wound Skin Appearance) Hemosiderin Staining -Temperature (Mel-wound Skin No Abnormality Appearance) (Pt Warm) -Ulcer Cleansing Rinsed/ Irrigated with Saline -Foul Odor after Cleansing No -Anesthetic Used 4% Lidocaine Solution [Edema Assessment] -Right Calf (cm) 38.4 -Right Ankle (cm) 21.8 WC - Nurse 2 - General Ulcer CM Notes Start: 03/28/18 11:18 Freq: Status: Active Protocol: Activity Type Activity Date Activity User E-Sign Co-Sign Detail Recorded Client Recorded Date Recorded By Document 04/11/18 08:58 [id number] 04/11/18 09:04 04/11/18 08:58 Wound Center Nurse 2 [Procedure/Treatment] #6 RIGHT LATERAL FOOT -Time 08:58 -Correct Patient Yes -Correct Side, Site, Position Yes -Correct Procedure Yes -Procedure Performed Yes -Type of Procedure Debridement -Clinical Debridement Subcutaneous -Post Debridement Size (cm) - Length 1.6 -Post Debridement Size (cm) - Width 1.5 -Post Debridement Size (cm) - Depth 0.3 -Total Square Cm 2.40 -Wound/Ulcer Outcome Not Healed -Ulcer Cleansing Not Cleansed -Foul Odor after Cleansing No -Bioengineered Tissue No -Bleeding Controlled with Pressure -Treatment Response Procedure Tolerated Well [See Physician Procedure note for Specifics] Pain Scale: 0-10 Numeric [Pain] -Is Patient Pain Free? Yes Musculoskeletal: No Muscle Wasting Neurological: Cranial nerves II-XII grossly intact Psych/Mental Status: Normal Affect, Appropriate Debridement Note Post-Debridement Measurements/Treatment WC - Nurse 2 - General Ulcer CM Notes Start: 03/28/18 11:18 Freq: Status: Active Protocol: Activity Type Activity Date Activity User E-Sign Co-Sign Detail Recorded Client Recorded Date Recorded By Document 03/28/18 12:16 DV [id number] 03/28/18 12:21 DV Document 04/11/18 08:58 [id number] 04/11/18 09:04 03/28/18 04/11/18 12:16 08:58 Wound Center Nurse 2 #6 RIGHT LATERAL FOOT -Time 12:17 08:58 -Correct Patient Yes Yes -Correct Side, Site, Position Yes Yes -Correct Procedure Yes Yes -Procedure Performed Yes Yes -Type of Procedure Debridement Debridement -Clinical Debridement Subcutaneous Subcutaneous -Post Debridement Size (cm) - Length 1.9 1.6 -Post Debridement Size (cm) - Width 1.9 1.5 -Post Debridement Size (cm) - Depth 0.3 0.3 -Total Square Cm 3.61 2.40 -Wound/Ulcer Outcome Not Healed Not Healed -Ulcer Cleansing Rinsed/ Not Cleansed Irrigated with Saline -Foul Odor after Cleansing No No -Bioengineered Tissue No No -Bleeding Controlled with Pressure Pressure -Treatment Response Procedure Procedure Tolerated Well Tolerated Well Pain Scale: 0-10 Numeric Is Patient Pain Free? Yes Yes Wound debrided: Right foot (fifth digit lateral) Laterality: Right Wound Grade/Stage: [place] II Type of Debridement: Excisional debridement Anesthesia Used: 4% Lidocaine Solution Depth: in the subcutaneous layer Percentage of wound debrided: 100 Instrument Used: #15 blade Tissue Removed: Adherent slough, hyperkeratotic tissue, fibrin Severity: Fat Layer Exposed Amount of bleeding with debridement: Mild Bleeding Controlled with: Pressure Patient tolerated procedure well Assessment/Plan Assessment: Left Lower superficial ulcer. Right Diabetic Foot Ulcers ( Great toe web space and 5th toe lateral ). Diabetes mellitus type 2. Plan: Patient was seen today as courtesy visit for Dr. Sebasitan. Improvement of ulcer site appreciated today. Debridement done as documented above. Procedure was well-tolerated. Will continue with Pomogran/Anaid. Apply daily with help of home health. Elevate lower extremity when sitted and in bed. Avoid idle standing. High protein diet/supplement. Continue Double layer Tubi research laboratory specialist for edema management. Optimal Blood sugar control. Follow up with PCP. Follow up in 1 week. This note was generated with [employer] software. It may contain incorrect words, spelling, and punctuation that were not noted in checking the note before signing.
--- NOTE | 2018-04-11 09:37 | PN.PCM_ITS ---
(1) Open wound of right lower extremity Status: Acute Current Visit: No Code(s): S81.801A - Unspecified open wound, right lower leg, initial encounter (2) Diabetic ulcer of right foot Status: Acute Current Visit: No Code(s): E11.621 - Type 2 diabetes mellitus with foot ulcer; L97.519 - Non-pressure chronic ulcer of other part of right foot with unspecified severity (3) Diabetes mellitus Status: Chronic Current Visit: No Code(s): E11.9 - Type 2 diabetes mellitus without complications Type of Wound Date of Service: 04/11/18 Chief Complaint: Right lower extremity/Foot Blisters/Ulcers. Left Lower extremity/Leg woud secondary to Dog Scratch. History of Wound: Ms. Molina who is well known to me presents to the wound center today with two new wounds. She has a left lower extremity wound which she states she sustained as a result fro a scratch by her dog. Sh also has blisters to her right toes with the most significant being if the right great toe however, patient is unsure of how she sustained these blister. She reports pain in her left lower extremity but denies any significant pain in her toes. She reports chills, but denies fever, nausea, vomitting or any change in her biwel habit. Progress of Wound: Patient seen as courtesy visit for Dr. Sebastian. Stable. No new complaints at this time. - Physical Exam Vital Signs Temp Pulse Resp BP 97.7 F L 79 20 H 111/74 04/11/18 08:27 04/11/18 08:27 04/11/18 08:27 04/11/18 08:27 General: Alert, Oriented x3, Cooperative, No apparent distress Extremities: Capillary Refill Less than 3 Seconds, No Calf Tenderness - Negative Gregor and Braga sign, Diminished Peripheral Pulses, Edema - Lower extremity Skin: Ulcer/ Wound Wound Measurements and Assessment WC - Nurse 1 - General Ulcer Measurement Start: 03/28/18 11:18 Freq: Status: Active Protocol: Activity Type Activity Date Activity User E-Sign Co-Sign Detail Recorded Client Recorded Date Recorded By Document 04/11/18 08:27 DL [id number] 04/11/18 08:31 DL 04/11/18 08:27 Wound Center Nurse 1 [Ulcer Assessment] #6 RIGHT LATERAL FOOT -Current Size (cm) - Length 1.4 -Current Size (cm) - Width 0.8 -Current Size (cm) - Depth 0.2 -Total Square Cm 1.12 -Photo Taken No -Exudate Amt Small (1-33%) -Exudate Type Serosanguineous -Wound Margin Thickened -Granulation Amt Medium (34-66%) -Granulation Quality Red -Necrosis Amt Medium (34-66%) -Necrotic Tissue Type Adherent Slough -Structure Exposed N/A -Texture (Mel-wound Skin Appearance) Callus -Moisture (Mel-wound Skin Appearance Maceration ) -Color (Mel-wound Skin Appearance) Hemosiderin Staining -Temperature (Mel-wound Skin No Abnormality Appearance) (Pt Warm) -Ulcer Cleansing Rinsed/ Irrigated with Saline -Foul Odor after Cleansing No -Anesthetic Used 4% Lidocaine Solution [Edema Assessment] -Right Calf (cm) 38.4 -Right Ankle (cm) 21.8 WC - Nurse 2 - General Ulcer CM Notes Start: 03/28/18 11:18 Freq: Status: Active Protocol: Activity Type Activity Date Activity User E-Sign Co-Sign Detail Recorded Client Recorded Date Recorded By Document 04/11/18 08:58 [id number] 04/11/18 09:04 04/11/18 08:58 Wound Center Nurse 2 [Procedure/Treatment] #6 RIGHT LATERAL FOOT -Time 08:58 -Correct Patient Yes -Correct Side, Site, Position Yes -Correct Procedure Yes -Procedure Performed Yes -Type of Procedure Debridement -Clinical Debridement Subcutaneous -Post Debridement Size (cm) - Length 1.6 -Post Debridement Size (cm) - Width 1.5 -Post Debridement Size (cm) - Depth 0.3 -Total Square Cm 2.40 -Wound/Ulcer Outcome Not Healed -Ulcer Cleansing Not Cleansed -Foul Odor after Cleansing No -Bioengineered Tissue No -Bleeding Controlled with Pressure -Treatment Response Procedure Tolerated Well [See Physician Procedure note for Specifics] Pain Scale: 0-10 Numeric [Pain] -Is Patient Pain Free? Yes Musculoskeletal: No Muscle Wasting Neurological: Cranial nerves II-XII grossly intact Psych/Mental Status: Normal Affect, Appropriate Debridement Note Post-Debridement Measurements/Treatment WC - Nurse 2 - General Ulcer CM Notes Start: 03/28/18 11:18 Freq: Status: Active Protocol: Activity Type Activity Date Activity User E-Sign Co-Sign Detail Recorded Client Recorded Date Recorded By Document 03/28/18 12:16 DV [id number] 03/28/18 12:21 DV Document 04/11/18 08:58 [id number] 04/11/18 09:04 03/28/18 04/11/18 12:16 08:58 Wound Center Nurse 2 #6 RIGHT LATERAL FOOT -Time 12:17 08:58 -Correct Patient Yes Yes -Correct Side, Site, Position Yes Yes -Correct Procedure Yes Yes -Procedure Performed Yes Yes -Type of Procedure Debridement Debridement -Clinical Debridement Subcutaneous Subcutaneous -Post Debridement Size (cm) - Length 1.9 1.6 -Post Debridement Size (cm) - Width 1.9 1.5 -Post Debridement Size (cm) - Depth 0.3 0.3 -Total Square Cm 3.61 2.40 -Wound/Ulcer Outcome Not Healed Not Healed -Ulcer Cleansing Rinsed/ Not Cleansed Irrigated with Saline -Foul Odor after Cleansing No No -Bioengineered Tissue No No -Bleeding Controlled with Pressure Pressure -Treatment Response Procedure Procedure Tolerated Well Tolerated Well Pain Scale: 0-10 Numeric Is Patient Pain Free? Yes Yes Wound debrided: Right foot (fifth digit lateral) Laterality: Right Wound Grade/Stage: [place] II Type of Debridement: Excisional debridement Anesthesia Used: 4% Lidocaine Solution Depth: in the subcutaneous layer Percentage of wound debrided: 100 Instrument Used: #15 blade Tissue Removed: Adherent slough, hyperkeratotic tissue, fibrin Severity: Fat Layer Exposed Amount of bleeding with debridement: Mild Bleeding Controlled with: Pressure Patient tolerated procedure well Assessment/Plan Assessment: Left Lower superficial ulcer. Right Diabetic Foot Ulcers ( Great toe web space and 5th toe lateral ). Diabetes mellitus type 2. Plan: Patient was seen today as courtesy visit for Dr. Sebastian. Improvement of ulcer site appreciated today. Debridement done as documented above. Procedure was well-tolerated. Will continue with Pomogran/Anaid. Apply daily with help of home health. Elevate lower extremity when sitted and in bed. Avoid idle standing. High protein diet/supplement. Continue Double layer Tubi supervisor offset plate preparation for edema management. Optimal Blood sugar control. Follow up with PCP. Follow up in 1 week. This note was generated with [employer] software. It may contain incorrect words, spelling, and punctuation that were not noted in checking the note before signing.
== END 2018-04-13 23:59 ==
LOC: WC 09:00
PROVIDERS: Visit Provider Internal Medicine
DX: E11.621 Type 2 diabetes mellitus with foot ulcer (principal); L97.412 Non-pressure chronic ulcer of right heel and midfoot with fat layer exposed
CPT/HCPCS: 11042

== ENCOUNTER 2018-05-02 10:45 | Outpatient (RCR) | payer MEDICAID, SELFPAY ==
[2018-04-14 00:33] VITALS: BP 111/74; PULSE 79; RESP 20; TEMP 36.5; BMI 42.5
[2018-04-25 11:14] VITALS: BP 120/79; PULSE 73; RESP 22; TEMP 37; BMI 42.5
--- NOTE | 2018-04-25 12:30 | PCM.WC.PN ---
(1) Diabetic ulcer of right foot Status: Acute Current Visit: Yes Code(s): E11.621 - Type 2 diabetes mellitus with foot ulcer; L97.519 - Non-pressure chronic ulcer of other part of right foot with unspecified severity (2) Open wound of right lower extremity Status: Acute Current Visit: Yes Code(s): S81.801A - Unspecified open wound, right lower leg, initial encounter (3) Diabetes mellitus Status: Chronic Current Visit: Yes Code(s): E11.9 - Type 2 diabetes mellitus without complications Type of Wound Date of Service: 04/25/18 Chief Complaint: Right lower extremity/Foot Blisters/Ulcers. Left Lower extremity/Leg woud secondary to Dog Scratch. History of Wound: Ms. Molina who is well known to me presents to the wound center today with two new wounds. She has a left lower extremity wound which she states she sustained as a result fro a scratch by her dog. Sh also has blisters to her right toes with the most significant being if the right great toe however, patient is unsure of how she sustained these blister. She reports pain in her left lower extremity but denies any significant pain in her toes. She reports chills, but denies fever, nausea, vomitting or any change in her biwel habit. Progress of Wound: Stable. No new complaints at this time. - Physical Exam Vital Signs Temp Pulse Resp BP 98.6 F 73 22 H 120/79 04/25/18 11:14 04/25/18 11:14 04/25/18 11:14 04/25/18 11:14 General: Alert, Oriented x3, Cooperative, No apparent distress HEENT: Atraumatic Oral: Moist Mucosa Neck: Supple Lungs: Normal air movement Abdomen: Non Tender, Obese Extremities: No cyanosis Skin: Ulcer/ Wound Wound Measurements and Assessment WC - Nurse 1 - General Ulcer Measurement Start: 04/25/18 11:04 Freq: Status: Active Protocol: Activity Type Activity Date Activity User E-Sign Co-Sign Detail Recorded Client Recorded Date Recorded By Document 04/25/18 11:14 DL [id number] 04/25/18 11:22 DL 04/25/18 11:14 Wound Center Nurse 1 [Ulcer Assessment] #6 RIGHT LATERAL FOOT -Current Size (cm) - Length 1 -Current Size (cm) - Width 0.6 -Current Size (cm) - Depth 0.2 -Total Square Cm 0.6 -Photo Taken No -Exudate Amt Small (1-33%) -Exudate Type Serosanguineous -Wound Margin Thickened -Granulation Amt Small (1-33%) -Granulation Quality [place] -Necrosis Amt Medium (34-66%) -Necrotic Tissue Type Adherent Slough -Structure Exposed N/A -Texture (Mel-wound Skin Appearance) Scarring -Moisture (Mel-wound Skin Appearance Maceration ) -Color (Mel-wound Skin Appearance) Erythema -Temperature (Mel-wound Skin No Abnormality Appearance) (Pt Warm) -Ulcer Cleansing Wound Cleanser -Foul Odor after Cleansing No -Anesthetic Used 4% Lidocaine Solution [Edema Assessment] -Right Calf (cm) 40 -Right Ankle (cm) 21.5 WC - Nurse 2 - General Ulcer CM Notes Start: 04/25/18 11:04 Freq: Status: Active Protocol: Activity Type Activity Date Activity User E-Sign Co-Sign Detail Recorded Client Recorded Date Recorded By Document 04/25/18 12:24 [id number] 04/25/18 12:27 04/25/18 12:24 Wound Center Nurse 2 [Procedure/Treatment] #6 RIGHT LATERAL FOOT -Time 12:24 -Correct Patient Yes -Correct Side, Site, Position Yes -Correct Procedure Yes -Procedure Performed Yes -Type of Procedure Debridement -Clinical Debridement Subcutaneous -Post Debridement Size (cm) - Length 0.8 -Post Debridement Size (cm) - Width 1.2 -Post Debridement Size (cm) - Depth 0.2 -Total Square Cm 0.96 -Wound/Ulcer Outcome Not Healed -Ulcer Cleansing Rinsed/ Irrigated with Saline -Foul Odor after Cleansing No -Bioengineered Tissue No -Topical Lidocaine (%) 4 -Lidocaine (ml) 5 -Bleeding Controlled with SURGIFOAM -Treatment Response Procedure Tolerated Well [See Physician Procedure note for Specifics] Pain Scale: 0-10 Numeric [Pain] -Is Patient Pain Free? Yes Neurological: Cranial nerves II-XII grossly intact Psych/Mental Status: Normal Affect Debridement Note Post-Debridement Measurements/Treatment WC - Nurse 2 - General Ulcer CM Notes Start: 04/25/18 11:04 Freq: Status: Active Protocol: Activity Type Activity Date Activity User E-Sign Co-Sign Detail Recorded Client Recorded Date Recorded By Document 04/25/18 12:24 [email or web address] [id number] 04/25/18 12:27 ISAIAH 04/25/18 12:24 Wound Center Nurse 2 #6 RIGHT LATERAL FOOT -Time 12:24 -Correct Patient Yes -Correct Side, Site, Position Yes -Correct Procedure Yes -Procedure Performed Yes -Type of Procedure Debridement -Clinical Debridement Subcutaneous -Post Debridement Size (cm) - Length 0.8 -Post Debridement Size (cm) - Width 1.2 -Post Debridement Size (cm) - Depth 0.2 -Total Square Cm 0.96 -Wound/Ulcer Outcome Not Healed -Ulcer Cleansing Rinsed/ Irrigated with Saline -Foul Odor after Cleansing No -Bioengineered Tissue No -Topical Lidocaine (%) 4 -Lidocaine (ml) 5 -Bleeding Controlled with SURGIFOAM -Treatment Response Procedure Tolerated Well Pain Scale: 0-10 Numeric Is Patient Pain Free? Yes Wound debrided: Right foot Lateral Wound Grade/Stage: pacheco II Type of Debridement: Excisional debridement Anesthesia Used: 4% Lidocaine Solution Depth: Down to and including healthy tissue, in the subcutaneous layer Percentage of wound debrided: 100 Instrument Used: 5mm curette Tissue Removed: Slough and devitalized tissue Severity: Fat Layer Exposed Amount of bleeding with debridement: Mild Bleeding Controlled with: Pressure, Gel Foam Patient tolerated procedure well Assessment/Plan Active Problems Open wound of right lower extremity (Acute) Diabetic ulcer of right foot (Acute) Diabetes mellitus (Chronic) Assessment: Left Lower superficial ulcer. Right Diabetic Foot Ulcers ( Great toe web space and 5th toe lateral ). Diabetes mellitus type 2. Plan: Wound with some improvement in the past week. Debridement done as documented above. Procedure was well-tolerated. Continue with moistened Prisa with adaptic over top. Elevate lower extremity when sitted and in bed. Avoid idle standing. High protein diet/supplement. Continue Tubi art therapy specialist for edema management. Optimal Blood sugar control. Follow up with PCP. Follow up in 1 week. This note was generated with [employer] software. It may contain incorrect words, spelling, and punctuation that were not noted in checking the note before signing.
--- NOTE | 2018-04-25 12:33 | PN.PCM_ITS ---
(1) Diabetic ulcer of right foot Status: Acute Current Visit: Yes Code(s): E11.621 - Type 2 diabetes mellitus with foot ulcer; L97.519 - Non-pressure chronic ulcer of other part of right foot with unspecified severity (2) Open wound of right lower extremity Status: Acute Current Visit: Yes Code(s): S81.801A - Unspecified open wound , right lower leg, initial encounter (3) Diabetes mellitus Status: Chronic Current Visit: Yes Code(s): E11.9 - Type 2 diabetes mellitus without complications Type of Wound Date of Service: 04/25/18 Chief Complaint: Right lower extremity/Foot Blisters/Ulcers. Left Lower extremity/Leg woud secondary to Dog Scratch. History of Wound: Ms. Molina who is well known to me presents to the wound center today with two new wounds. She has a left lower extremity wound which she states she sustained as a result fro a scratch by her dog. Sh also has blisters to her right toes with the most significant being if the right great toe however, patient is unsure of how she sustained these blister. She reports pain in her left lower extremity but denies any significant pain in her toes. She reports chills, but denies fever, nausea, vomitting or any change in her biwel habit. Progress of Wound: Stable. No new complaints at this time. - Physical Exam Vital Signs Temp Pulse Resp BP 98.6 F 73 22 H 120/79 04/25/18 11:14 04/25/18 11:14 04/25/18 11:14 04/25/18 11:14 General: Alert, Oriented x3, Cooperative, No apparent distress HEENT: Atraumatic Oral: Moist Mucosa Neck: Supple Lungs: Normal air movement Abdomen: Non Tender, Obese Extremities: No cyanosis Skin: Ulcer/ Wound Wound Measurements and Assessment WC - Nurse 1 - General Ulcer Measurement Start: 04/25/18 11:04 Freq: Status: Active Protocol: Activity Type Activity Date Activity User E-Sign Co-Sign Detail Recorded Client Recorded Date Recorded By Document 04/25/18 11:14 DL [id number] 04/25/18 11:22 DL 04/25/18 11:14 Wound Center Nurse 1 [Ulcer Assessment] #6 RIGHT LATERAL FOOT -Current Size (cm) - Length 1 -Current Size (cm) - Width 0.6 -Current Size (cm) - Depth 0.2 -Total Square Cm 0.6 -Photo Taken No -Exudate Amt Small (1-33%) -Exudate Type Serosanguineous -Wound Margin Thickened -Granulation Amt Small (1-33%) -Granulation Quality [place] -Necrosis Amt Medium (34-66%) -Necrotic Tissue Type Adherent Slough -Structure Exposed N/A -Texture (Mel-wound Skin Appearance) Scarring -Moisture (Mel-wound Skin Appearance Maceration ) -Color (Mel-wound Skin Appearance) Erythema -Temperature (Mel-wound Skin No Abnormality Appearance) (Pt Warm) -Ulcer Cleansing Wound Cleanser -Foul Odor after Cleansing No -Anesthetic Used 4% Lidocaine Solution [Edema Assessment] -Right Calf (cm) 40 -Right Ankle (cm) 21.5 WC - Nurse 2 - General Ulcer CM Notes Start: 04/25/18 11:04 Freq: Status: Active Protocol: Activity Type Activity Date Activity User E-Sign Co-Sign Detail Recorded Client Recorded Date Recorded By Document 04/25/18 12:24 [id number] 04/25/18 12:27 04/25/18 12:24 Wound Center Nurse 2 [Procedure/Treatment] #6 RIGHT LATERAL FOOT -Time 12:24 -Correct Patient Yes -Correct Side, Site, Position Yes -Correct Procedure Yes -Procedure Performed Yes -Type of Procedure Debridement -Clinical Debridement Subcutaneous -Post Debridement Size (cm) - Length 0.8 -Post Debridement Size (cm) - Width 1.2 -Post Debridement Size (cm) - Depth 0.2 -Total Square Cm 0.96 -Wound/Ulcer Outcome Not Healed -Ulcer Cleansing Rinsed/ Irrigated with Saline -Foul Odor after Cleansing No -Bioengineered Tissue No -Topical Lidocaine (%) 4 -Lidocaine (ml) 5 -Bleeding Controlled with SURGIFOAM -Treatment Response Procedure Tolerated Well [See Physician Procedure note for Specifics] Pain Scale: 0-10 Numeric [Pain] -Is Patient Pain Free? Yes Neurological: Cranial nerves II-XII grossly intact Psych/Mental Status: Normal Affect Debridement Note Post-Debridement Measurements/Treatment WC - Nurse 2 - General Ulcer CM Notes Start: 04/25/18 11:04 Freq: Status: Active Protocol: Activity Type Activity Date Activity User E-Sign Co-Sign Detail Recorded Client Recorded Date Recorded By Document 04/25/18 12:24 [email or web address] [id number] 04/25/18 12:27 ISAIAH 04/25/18 12:24 Wound Center Nurse 2 #6 RIGHT LATERAL FOOT -Time 12:24 -Correct Patient Yes -Correct Side, Site, Position Yes -Correct Procedure Yes -Procedure Performed Yes -Type of Procedure Debridement -Clinical Debridement Subcutaneous -Post Debridement Size (cm) - Length 0.8 -Post Debridement Size (cm) - Width 1.2 -Post Debridement Size (cm) - Depth 0.2 -Total Square Cm 0.96 -Wound/Ulcer Outcome Not Healed -Ulcer Cleansing Rinsed/ Irrigated with Saline -Foul Odor after Cleansing No -Bioengineered Tissue No -Topical Lidocaine (%) 4 -Lidocaine (ml) 5 -Bleeding Controlled with SURGIFOAM -Treatment Response Procedure Tolerated Well Pain Scale: 0-10 Numeric Is Patient Pain Free? Yes Wound debrided: Right foot Lateral Wound Grade/Stage: pacheco II Type of Debridement: Excisional debridement Anesthesia Used: 4% Lidocaine Solution Depth: Down to and including healthy tissue, in the subcutaneous layer Percentage of wound debrided: 100 Instrument Used: 5mm curette Tissue Removed: Slough and devitalized tissue Severity: Fat Layer Exposed Amount of bleeding with debridement: Mild Bleeding Controlled with: Pressure, Gel Foam Patient tolerated procedure well Assessment/Plan Active Problems Open wound of right lower extremity (Acute) Diabetic ulcer of right foot (Acute) Diabetes mellitus (Chronic) Assessment: Left Lower superficial ulcer. Right Diabetic Foot Ulcers ( Great toe web space and 5th toe lateral ). Diabetes mellitus type 2. Plan: Wound with some improvement in the past week. Debridement done as documented above. Procedure was well-tolerated. Continue with moistened Prisa with adaptic over top. Elevate lower extremity when sitted and in bed. Avoid idle standing. High protein diet/supplement. Continue Tubi 911 emergency dispatcher for edema management. Optimal Blood sugar control. Follow up with PCP. Follow up in 1 week. This note was generated with [employer] software. It may contain incorrect words, spelling, and punctuation that were not noted in checking the note before signing.
[2018-05-02 12:02] VITALS: BP 138/61; PULSE 90; RESP 16; TEMP 36.4; BMI 42.5
--- NOTE | 2018-05-02 12:19 | PCM.WC.PN ---
(1) Diabetic ulcer of right foot Status: Acute Current Visit: Yes Code(s): E11.621 - Type 2 diabetes mellitus with foot ulcer; L97.519 - Non-pressure chronic ulcer of other part of right foot with unspecified severity (2) Open wound of right lower extremity Status: Acute Current Visit: Yes Code(s): S81.801A - Unspecified open wound, right lower leg, initial encounter (3) Diabetes mellitus Status: Chronic Current Visit: Yes Code(s): E11.9 - Type 2 diabetes mellitus without complications Type of Wound Date of Service: 05/02/18 Chief Complaint: Right lower extremity/Foot Blisters/Ulcers. Left Lower extremity/Leg woud secondary to Dog Scratch. History of Wound: Ms. Molina who is well known to me presents to the wound center today with two new wounds. She has a left lower extremity wound which she states she sustained as a result fro a scratch by her dog. Sh also has blisters to her right toes with the most significant being if the right great toe however, patient is unsure of how she sustained these blister. She reports pain in her left lower extremity but denies any significant pain in her toes. She reports chills, but denies fever, nausea, vomitting or any change in her biwel habit. Progress of Wound: Improving. - Physical Exam Vital Signs Temp Pulse Resp BP 97.5 F L 90 16 138/61 H 05/02/18 12:02 05/02/18 12:02 05/02/18 12:02 05/02/18 12:02 General: Alert, Oriented x3, Cooperative, No apparent distress HEENT: Atraumatic Oral: Moist Mucosa Neck: Supple Lungs: Normal air movement Abdomen: Soft, Non Tender, Obese Extremities: No cyanosis, Edema Skin: Ulcer/ Wound Wound Measurements and Assessment WC - Nurse 1 - General Ulcer Measurement Start: 04/25/18 11:04 Freq: Status: Active Protocol: Activity Type Activity Date Activity User E-Sign Co-Sign Detail Recorded Client Recorded Date Recorded By Document 05/02/18 12:02 [facility] [id number] 05/02/18 12:09 [facility] 05/02/18 12:02 Wound Center Nurse 1 [Ulcer Assessment] #6 RIGHT LATERAL FOOT -Combined with other wound No -Current Size (cm) - Length 0.8 -Current Size (cm) - Width 0.5 -Current Size (cm) - Depth 0.2 -Total Square Cm 0.40 -Photo Taken No -Epithelialization Medium 34-66% -Tunneling No -Undermining/Tunneling No -Circular Undermining No -Exudate Amt Small (1-33%) -Exudate Type Serosanguineous -Wound Margin Distinct, Outline Attached -Granulation Amt Large (67-100%) -Granulation Quality Pale [place] -Slough/Fibrin Yes -Necrosis Amt Small (1-33%) -Necrotic Tissue Type Adherent Slough -Structure Exposed None/Limited to Skin Breakdown -Texture (Mel-wound Skin Appearance) Callus Scarring -Moisture (Mel-wound Skin Appearance Dry/Scaly ) -Color (Mel-wound Skin Appearance) Assessed Erythema -Temperature (Mel-wound Skin No Abnormality Appearance) (Pt Warm) -Tenderness on Palpation (Mel-wound Yes Skin Appearance) -Ulcer Cleansing Rinsed/ Irrigated with Saline -Foul Odor after Cleansing No -Anesthetic Used 5% Lidocaine Gel [Edema Assessment] -Lower Limb Edema Present Yes -Right Calf (cm) 40.7 -Right Ankle (cm) 22.2 Musculoskeletal: No Muscle Wasting Neurological: Cranial nerves II-XII grossly intact Psych/Mental Status: Normal Affect Debridement Note Post-Debridement Measurements/Treatment WC - Nurse 2 - General Ulcer CM Notes Start: 04/25/18 11:04 Freq: Status: Active Protocol: Activity Type Activity Date Activity User E-Sign Co-Sign Detail Recorded Client Recorded Date Recorded By Document 04/25/18 12:24 [email or web address] [id number] 04/25/18 12:27 ISAIAH 04/25/18 12:24 Wound Center Nurse 2 #6 RIGHT LATERAL FOOT -Time 12:24 -Correct Patient Yes -Correct Side, Site, Position Yes -Correct Procedure Yes -Procedure Performed Yes -Type of Procedure Debridement -Clinical Debridement Subcutaneous -Post Debridement Size (cm) - Length 0.8 -Post Debridement Size (cm) - Width 1.2 -Post Debridement Size (cm) - Depth 0.2 -Total Square Cm 0.96 -Wound/Ulcer Outcome Not Healed -Ulcer Cleansing Rinsed/ Irrigated with Saline -Foul Odor after Cleansing No -Bioengineered Tissue No -Topical Lidocaine (%) 4 -Lidocaine (ml) 5 -Bleeding Controlled with SURGIFOAM -Treatment Response Procedure Tolerated Well Pain Scale: 0-10 Numeric Is Patient Pain Free? Yes Wound debrided: Right foot lateral Wound Grade/Stage: Grade II Type of Debridement: Excisional debridement Anesthesia Used: 5% Lidocaine Gel Depth: Down to and including healthy tissue, in the subcutaneous layer Percentage of wound debrided: 100 Instrument Used: 3mm curette Tissue Removed: Slough and devitalized tissue Severity: Fat Layer Exposed Amount of bleeding with debridement: Mild Bleeding Controlled with: Pressure Patient tolerated procedure well Assessment/Plan Active Problems Open wound of right lower extremity (Acute) Diabetic ulcer of right foot (Acute) Diabetes mellitus (Chronic) Assessment: Left Lower superficial ulcer. Right Diabetic Foot Ulcers ( Great toe web space and 5th toe lateral ). Diabetes mellitus type 2. Plan: Wound continues to show good improvement. Debridement done as documented above. Procedure was well-tolerated. Continue with moistened Prisa with adaptic over top. Elevate lower extremity when sitted and in bed. Avoid idle standing. High protein diet/supplement. Continue Tubi groundman for edema management. Optimal Blood sugar control. Follow up with PCP. Follow up in 1 week. This note was generated with [employer] software. It may contain incorrect words, spelling, and punctuation that were not noted in checking the note before signing.
== END 2018-05-14 23:59 ==
LOC: WC 10:45
PROVIDERS: Visit Provider Internal Medicine
DX: E11.621 Type 2 diabetes mellitus with foot ulcer (principal); L97.512 Non-pressure chronic ulcer of other part of right foot with fat layer exposed
CPT/HCPCS: 11042

== ENCOUNTER → 2018-05-16 13:35 | Outpatient (CLI) | payer MEDICAID, SELFPAY ==
[2018-05-16 15:57] LABS: Anion Gap 8 (5-15); BUN 17 mg/dL (7-18); BUN/Creat Ratio 17.2 RATIO (10-20); Calcium,Total 8.7 mg/dL (8.5-10.1); Chloride 101 mmol/L (98-107); Creatinine, Serum 0.99 mg/dL (0.55-1.02); EST Glomerular Filtration Rate 60 mL/min (>60); Est Glom Filt Rate - Afr Amer 72 mL/min (>60); Glucose 251 mg/dL (74-106); Potassium 4.8 mmol/L (3.5-5.1); Sodium Level 138 mmol/L (136-145); Thyroid Stim Hormone (TSH) 2.98 uIU/mL (0.358-3.74)
== END ==
DX: I10 Essential (primary) hypertension (principal); E11.42 Type 2 diabetes mellitus with diabetic polyneuropathy; Z79.4 Long term (current) use of insulin; E11.621 Type 2 diabetes mellitus with foot ulcer; L97.522 Non-pressure chronic ulcer of other part of left foot with fat layer exposed; E03.9 Hypothyroidism, unspecified; Z79.899 Other long term (current) drug therapy; T25.032A Burn of unspecified degree of left toe(s) (nail), initial encounter; T25.031A Burn of unspecified degree of right toe(s) (nail), initial encounter; X08.8XXA Exposure to other specified smoke, fire and flames, initial encounter; Z87.891 Personal history of nicotine dependence
CPT/HCPCS: 11042; 11045; 36415; 80048; 83036; 84443

== ENCOUNTER 2018-05-23 12:00 | Outpatient (RCR) | payer MEDICAID, SELFPAY ==
[2018-05-15 00:36] VITALS: BP 138/61; PULSE 90; RESP 16; TEMP 36.4; BMI 42.5
[2018-05-16 11:59] VITALS: BP 118/61; PULSE 75; RESP 22; TEMP 36.6; BMI 42.5
--- NOTE | 2018-05-16 16:10 | PCM.WC.PN ---
(1) Diabetic foot ulcer Status: Chronic Code(s): E11.621 - Type 2 diabetes mellitus with foot ulcer; L97.509 - Non-pressure chronic ulcer of other part of unspecified foot with unspecified severity (2) Open wound of left lower extremity Status: Acute Code(s): S81.802A - Unspecified open wound, left lower leg, initial encounter (3) Open wound of right lower extremity Status: Acute Code(s): S81.801A - Unspecified open wound, right lower leg, initial encounter (4) Diabetes mellitus Status: Chronic Code(s): E11.9 - Type 2 diabetes mellitus without complications Type of Wound Date of Service: 05/16/18 Chief Complaint: Right lower extremity/Foot Blisters/Ulcers. Left Lower extremity/Leg woud secondary to Dog Scratch. History of Wound: Ms. Molina who is well known to me presents to the wound center today with two new wounds. She has a left lower extremity wound which she states she sustained as a result fro a scratch by her dog. Sh also has blisters to her right toes with the most significant being if the right great toe however, patient is unsure of how she sustained these blister. She reports pain in her left lower extremity but denies any significant pain in her toes. She reports chills, but denies fever, nausea, vomitting or any change in her biwel habit. Progress of Wound: Old wound significantly crusted and patient presents with new bilateral lower extremity wounds which she states she sustained from scratching her lower extremities. - Physical Exam Vital Signs Temp Pulse Resp BP 97.9 F 75 22 H 118/61 05/16/18 11:59 05/16/18 11:59 05/16/18 11:59 05/16/18 11:59 General: Alert, Oriented x3, Cooperative, No apparent distress HEENT: Atraumatic Oral: Moist Mucosa Neck: Supple Lungs: Normal air movement Abdomen: Non Tender, Obese Extremities: No cyanosis, Edema Skin: Ulcer/ Wound Wound Measurements and Assessment WC - Nurse 1 - General Ulcer Measurement Start: 05/16/18 11:58 Freq: Status: Active Protocol: Activity Type Activity Date Activity User E-Sign Co-Sign Detail Recorded Client Recorded Date Recorded By Document 05/16/18 11:59 DL [id number] 05/16/18 12:10 DL 05/16/18 11:59 Wound Center Nurse 1 [Ulcer Assessment] #9 R Rodgers -Current Size (cm) - Length 2.3 -Current Size (cm) - Width 2 -Current Size (cm) - Depth 0.1 -Total Square Cm 4.6 -Photo Taken Yes -Exudate Amt Small (1-33%) -Exudate Type Serosanguineous -Wound Margin Distinct, Outline Attached -Granulation Amt Large (67-100%) -Granulation Quality Red -Necrosis Amt None Present (0 %) -Structure Exposed N/A -Texture (Mel-wound Skin Appearance) Localized Edema -Moisture (Mel-wound Skin Appearance No Abnormality ) -Color (Mel-wound Skin Appearance) Erythema Hemosiderin Staining -Temperature (Mel-wound Skin No Abnormality Appearance) (Pt Warm) -Tenderness on Palpation (Mel-wound No Skin Appearance) -Ulcer Cleansing Wound Cleanser -Foul Odor after Cleansing No -Anesthetic Used 4% Lidocaine Solution #8 L Rodgers -Current Size (cm) - Length 7.5 -Current Size (cm) - Width 2.8 -Current Size (cm) - Depth 0.1 -Total Square Cm 21.00 -Photo Taken Yes -Classification - Thickness Full Thickness without Exposed Support Structure -Exudate Amt Medium (34-66%) -Exudate Type Serosanguineous -Wound Margin Distinct, Outline Attached -Granulation Amt Large (67-100%) -Granulation Quality [place] Red -Necrosis Amt Small (1-33%) -Necrotic Tissue Type Adherent Slough -Structure Exposed N/A -Texture (Mel-wound Skin Appearance) Localized Edema -Moisture (Mel-wound Skin Appearance Maceration ) -Color (Mel-wound Skin Appearance) Hemosiderin Staining Rubor -Temperature (Mel-wound Skin No Abnormality Appearance) (Pt Warm) -Ulcer Cleansing Wound Cleanser -Foul Odor after Cleansing No -Anesthetic Used 4% Lidocaine Solution #6 RIGHT LATERAL FOOT -Current Size (cm) - Length 1.3 -Current Size (cm) - Width 0.8 -Current Size (cm) - Depth 0.1 -Total Square Cm 1.04 -Photo Taken No -Exudate Amt None Present (0 %) -Wound Margin Distinct, Outline Attached -Granulation Amt None Present (0 %) -Necrosis Amt Large (67-100%) -Necrotic Tissue Type Eschar -Structure Exposed N/A -Texture (Mel-wound Skin Appearance) Localized Edema -Moisture (Mel-wound Skin Appearance Dry/Scaly ) -Color (Mel-wound Skin Appearance) Erythema Rubor -Temperature (Mel-wound Skin No Abnormality Appearance) (Pt Warm) -Tenderness on Palpation (Mel-wound Yes Skin Appearance) -Ulcer Cleansing Wound Cleanser -Foul Odor after Cleansing Yes -Anesthetic Used 4% Lidocaine Solution [Edema Assessment] -Right Calf (cm) 38.2 -Right Ankle (cm) 21.5 -Left Calf (cm) 37.5 -Left Ankle (cm) 22 WC - Nurse 2 - General Ulcer CM Notes Start: 05/16/18 11:58 Freq: Status: Active Protocol: Activity Type Activity Date Activity User E-Sign Co-Sign Detail Recorded Client Recorded Date Recorded By Document 05/16/18 12:56 MW [id number] 05/16/18 13:03 MW 05/16/18 12:56 Wound Center Nurse 2 [Procedure/Treatment] #9 R Rodgers -Time 12:56 -Correct Patient Yes -Correct Side, Site, Position Yes -Correct Procedure Yes -Procedure Performed Yes -Type of Procedure Debridement -Clinical Debridement Subcutaneous -Post Debridement Size (cm) - Length 3.0 -Post Debridement Size (cm) - Width 2.0 -Post Debridement Size (cm) - Depth 0.1 -Total Square Cm 6.00 -Wound/Ulcer Outcome Not Healed -Ulcer Cleansing Rinsed/ Irrigated with Saline -Foul Odor after Cleansing No -Bioengineered Tissue No -Bleeding Controlled with Pressure -Treatment Response Procedure Tolerated Well #8 L Rodgers -Time 12:56 -Correct Patient Yes -Correct Side, Site, Position Yes -Correct Procedure Yes -Procedure Performed Yes -Type of Procedure Debridement -Clinical Debridement Subcutaneous -Post Debridement Size (cm) - Length 8.0 -Post Debridement Size (cm) - Width 4.0 -Post Debridement Size (cm) - Depth 0.1 -Total Square Cm 32.00 -Wound/Ulcer Outcome Not Healed -Ulcer Cleansing Rinsed/ Irrigated with Saline -Foul Odor after Cleansing No -Bioengineered Tissue No -Bleeding Controlled with Pressure -Treatment Response Procedure Tolerated Well #6 RIGHT LATERAL FOOT -Time 12:56 -Correct Patient Yes -Correct Side, Site, Position Yes -Correct Procedure Yes -Procedure Performed Yes -Type of Procedure Debridement -Clinical Debridement Subcutaneous -Post Debridement Size (cm) - Length 1.0 -Post Debridement Size (cm) - Width 0.8 -Post Debridement Size (cm) - Depth 0.1 -Total Square Cm 0.80 -Wound/Ulcer Outcome Not Healed -Ulcer Cleansing Rinsed/ Irrigated with Saline -Foul Odor after Cleansing No -Bioengineered Tissue No -Bleeding Controlled with Pressure -Treatment Response Procedure Tolerated Well [See Physician Procedure note for Specifics] Pain Scale: 0-10 Numeric [Pain] -Is Patient Pain Free? Yes Musculoskeletal: No Muscle Wasting Neurological: Cranial nerves II-XII grossly intact Psych/Mental Status: Normal Affect Debridement Note Post-Debridement Measurements/Treatment WC - Nurse 2 - General Ulcer CM Notes Start: 05/16/18 11:58 Freq: Status: Active Protocol: Activity Type Activity Date Activity User E-Sign Co-Sign Detail Recorded Client Recorded Date Recorded By Document 05/16/18 12:56 MW [id number] 05/16/18 13:03 MW 05/16/18 12:56 Wound Center Nurse 2 #9 R Rodgers -Time 12:56 -Correct Patient Yes -Correct Side, Site, Position Yes -Correct Procedure Yes -Procedure Performed Yes -Type of Procedure Debridement -Clinical Debridement Subcutaneous -Post Debridement Size (cm) - Length 3.0 -Post Debridement Size (cm) - Width 2.0 -Post Debridement Size (cm) - Depth 0.1 -Total Square Cm 6.00 -Wound/Ulcer Outcome Not Healed -Ulcer Cleansing Rinsed/ Irrigated with Saline -Foul Odor after Cleansing No -Bioengineered Tissue No -Bleeding Controlled with Pressure -Treatment Response Procedure Tolerated Well #8 L Rodgers -Time 12:56 -Correct Patient Yes -Correct Side, Site, Position Yes -Correct Procedure Yes -Procedure Performed Yes -Type of Procedure Debridement -Clinical Debridement Subcutaneous -Post Debridement Size (cm) - Length 8.0 -Post Debridement Size (cm) - Width 4.0 -Post Debridement Size (cm) - Depth 0.1 -Total Square Cm 32.00 -Wound/Ulcer Outcome Not Healed -Ulcer Cleansing Rinsed/ Irrigated with Saline -Foul Odor after Cleansing No -Bioengineered Tissue No -Bleeding Controlled with Pressure -Treatment Response Procedure Tolerated Well #6 RIGHT LATERAL FOOT -Time 12:56 -Correct Patient Yes -Correct Side, Site, Position Yes -Correct Procedure Yes -Procedure Performed Yes -Type of Procedure Debridement -Clinical Debridement Subcutaneous -Post Debridement Size (cm) - Length 1.0 -Post Debridement Size (cm) - Width 0.8 -Post Debridement Size (cm) - Depth 0.1 -Total Square Cm 0.80 -Wound/Ulcer Outcome Not Healed -Ulcer Cleansing Rinsed/ Irrigated with Saline -Foul Odor after Cleansing No -Bioengineered Tissue No -Bleeding Controlled with Pressure -Treatment Response Procedure Tolerated Well Pain Scale: 0-10 Numeric Is Patient Pain Free? Yes Wound debrided: Right lateral foot Wound Grade/Stage: Vieira II Type of Debridement: Excisional debridement Anesthesia Used: 4% Lidocaine Solution Depth: Down to and including healthy tissue, in the subcutaneous layer Percentage of wound debrided: 100 Instrument Used: 5mm curette Tissue Removed: Slough and devitalized tissue Severity: Fat Layer Exposed Amount of bleeding with debridement: Mild Bleeding Controlled with: Pressure Patient tolerated procedure well - Additional Wound Wound debrided: Right lower extremity Wound Grade/Stage: Stage II Type of Debridement: Excisional debridement Anesthesia Used: 4% Lidocaine Solution Depth: Down to and including healthy tissue, in the subcutaneous layer Percentage of wound debrided: 100 Instrument Used: 5mm curette Tissue Removed: Slough and devitalized tissue Severity: Fat Layer Exposed Amount of bleeding with debridement: Mild Bleeding Controlled with: Pressure Patient tolerated procedure: Patient tolerated procedure well - Additional Wound Wound debrided: Left lower extremity Wound Grade/Stage: Stage II Type of Debridement: Excisional debridement Anesthesia Used: 4% Lidocaine Solution Depth: Down to and including healthy tissue, in the subcutaneous layer Percentage of wound debrided: 100 Instrument Used: 5mm curette Tissue Removed: Slough and devitalized tissue Severity: Fat Layer Exposed Amount of bleeding with debridement: Mild Bleeding Controlled with: Pressure Patient tolerated procedure: Patient tolerated procedure well Assessment/Plan Assessment: Left Lower superficial ulcer. Right Diabetic Foot Ulcers ( Great toe web space and 5th toe lateral ). Diabetes mellitus type 2. Plan: Debridement done as documented above. Procedure was well-tolerated. Continue with moistened Anaid with adaptic over top to right foot ulcer and Fibrochol with adpatic over top to bilateal lower extremity ulcers. Elevate lower extremity when sitted and in bed. Avoid idle standing. High protein diet/supplement. 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 Optimal Blood sugar control. Follow up with PCP. Follow up in 1 week. This note was generated with [employer] dictation software. It may contain incorrect words, spelling, and punctuation that were not noted in checking the note before signing.
--- NOTE | 2018-05-16 16:14 | PN.PCM_ITS ---
(1) Diabetic foot ulcer Status: Chronic Code(s): E11.621 - Type 2 diabetes mellitus with foot ulcer; L97.509 - Non-pressure chronic ulcer of other part of unspecified foot with unspecified severity (2) Open wound of left lower extremity Status: Acute Code(s): S81.802A - Unspecified open wound, left lower leg, initial encounter (3) Open wound of right lower extremity Status: Acute Code(s): S81.801A - Unspecified open wound, right lower leg, initial encounter (4) Diabetes mellitus Status: Chronic Code(s): E11.9 - Type 2 diabetes mellitus without complications Type of Wound Date of Service: 05/16/18 Chief Complaint: Right lower extremity/Foot Blisters/Ulcers. Left Lower extremity/Leg woud secondary to Dog Scratch. History of Wound: Ms. Molina who is well known to me presents to the wound center today with two new wounds. She has a left lower extremity wound which she states she sustained as a result fro a scratch by her dog. Sh also has blisters to her right toes with the most significant being if the right great toe however, patient is unsure of how she sustained these blister. She reports pain in her left lower extremity but denies any significant pain in her toes. She reports chills, but denies fever, nausea, vomitting or any change in her biwel habit. Progress of Wound: Old wound significantly crusted and patient presents with new bilateral lower extremity wounds which she states she sustained from scratching her lower extremities. - Physical Exam Vital Signs Temp Pulse Resp BP 97.9 F 75 22 H 118/61 05/16/18 11:59 05/16/18 11:59 05/16/18 11:59 05/16/18 11:59 General: Alert, Oriented x3, Cooperative, No apparent distress HEENT: Atraumatic Oral: Moist Mucosa Neck: Supple Lungs: Normal air movement Abdomen: Non Tender, Obese Extremities: No cyanosis, Edema Skin: Ulcer/ Wound Wound Measurements and Assessment WC - Nurse 1 - General Ulcer Measurement Start: 05/16/18 11:58 Freq: Status: Active Protocol: Activity Type Activity Date Activity User E-Sign Co-Sign Detail Recorded Client Recorded Date Recorded By Document 05/16/18 11:59 DL [id number] 05/16/18 12:10 DL 05/16/18 11:59 Wound Center Nurse 1 [Ulcer Assessment] #9 R Rodgers -Current Size (cm) - Length 2.3 -Current Size (cm) - Width 2 -Current Size (cm) - Depth 0.1 -Total Square Cm 4.6 -Photo Taken Yes -Exudate Amt Small (1-33%) -Exudate Type Serosanguineous -Wound Margin Distinct, Outline Attached -Granulation Amt Large (67-100%) -Granulation Quality Red -Necrosis Amt None Present (0 %) -Structure Exposed N/A -Texture (Mel-wound Skin Appearance) Localized Edema -Moisture (Mel-wound Skin Appearance No Abnormality ) -Color (Mel-wound Skin Appearance) Erythema Hemosiderin Staining -Temperature (Mel-wound Skin No Abnormality Appearance) (Pt Warm) -Tenderness on Palpation (Mel-wound No Skin Appearance) -Ulcer Cleansing Wound Cleanser -Foul Odor after Cleansing No -Anesthetic Used 4% Lidocaine Solution #8 L Rodgers -Current Size (cm) - Length 7.5 -Current Size (cm) - Width 2.8 -Current Size (cm) - Depth 0.1 -Total Square Cm 21.00 -Photo Taken Yes -Classification - Thickness Full Thickness without Exposed Support Structure -Exudate Amt Medium (34-66%) -Exudate Type Serosanguineous -Wound Margin Distinct, Outline Attached -Granulation Amt Large (67-100%) -Granulation Quality [place] Red -Necrosis Amt Small (1-33%) -Necrotic Tissue Type Adherent Slough -Structure Exposed N/A -Texture (Mel-wound Skin Appearance) Localized Edema -Moisture (Mel-wound Skin Appearance Maceration ) -Color (Mel-wound Skin Appearance) Hemosiderin Staining Rubor -Temperature (Mel-wound Skin No Abnormality Appearance) (Pt Warm) -Ulcer Cleansing Wound Cleanser -Foul Odor after Cleansing No -Anesthetic Used 4% Lidocaine Solution #6 RIGHT LATERAL FOOT -Current Size (cm) - Length 1.3 -Current Size (cm) - Width 0.8 -Current Size (cm) - Depth 0.1 -Total Square Cm 1.04 -Photo Taken No -Exudate Amt None Present (0 %) -Wound Margin Distinct, Outline Attached -Granulation Amt None Present (0 %) -Necrosis Amt Large (67-100%) -Necrotic Tissue Type Eschar -Structure Exposed N/A -Texture (Mel-wound Skin Appearance) Localized Edema -Moisture (Mel-wound Skin Appearance Dry/Scaly ) -Color (Mel-wound Skin Appearance) Erythema Rubor -Temperature (Mel-wound Skin No Abnormality Appearance) (Pt Warm) -Tenderness on Palpation (Mel-wound Yes Skin Appearance) -Ulcer Cleansing Wound Cleanser -Foul Odor after Cleansing Yes -Anesthetic Used 4% Lidocaine Solution [Edema Assessment] -Right Calf (cm) 38.2 -Right Ankle (cm) 21.5 -Left Calf (cm) 37.5 -Left Ankle (cm) 22 WC - Nurse 2 - General Ulcer CM Notes Start: 05/16/18 11:58 Freq: Status: Active Protocol: Activity Type Activity Date Activity User E-Sign Co-Sign Detail Recorded Client Recorded Date Recorded By Document 05/16/18 12:56 MW [id number] 05/16/18 13:03 MW 05/16/18 12:56 Wound Center Nurse 2 [Procedure/Treatment] #9 R Rodgers -Time 12:56 -Correct Patient Yes -Correct Side, Site, Position Yes -Correct Procedure Yes -Procedure Performed Yes -Type of Procedure Debridement -Clinical Debridement Subcutaneous -Post Debridement Size (cm) - Length 3.0 -Post Debridement Size (cm) - Width 2.0 -Post Debridement Size (cm) - Depth 0.1 -Total Square Cm 6.00 -Wound/Ulcer Outcome Not Healed -Ulcer Cleansing Rinsed/ Irrigated with Saline -Foul Odor after Cleansing No -Bioengineered Tissue No -Bleeding Controlled with Pressure -Treatment Response Procedure Tolerated Well #8 L Rodgers -Time 12:56 -Correct Patient Yes -Correct Side, Site, Position Yes -Correct Procedure Yes -Procedure Performed Yes -Type of Procedure Debridement -Clinical Debridement Subcutaneous -Post Debridement Size (cm) - Length 8.0 -Post Debridement Size (cm) - Width 4.0 -Post Debridement Size (cm) - Depth 0.1 -Total Square Cm 32.00 -Wound/Ulcer Outcome Not Healed -Ulcer Cleansing Rinsed/ Irrigated with Saline -Foul Odor after Cleansing No -Bioengineered Tissue No -Bleeding Controlled with Pressure -Treatment Response Procedure Tolerated Well #6 RIGHT LATERAL FOOT -Time 12:56 -Correct Patient Yes -Correct Side, Site, Position Yes -Correct Procedure Yes -Procedure Performed Yes -Type of Procedure Debridement -Clinical Debridement Subcutaneous -Post Debridement Size (cm) - Length 1.0 -Post Debridement Size (cm) - Width 0.8 -Post Debridement Size (cm) - Depth 0.1 -Total Square Cm 0.80 -Wound/Ulcer Outcome Not Healed -Ulcer Cleansing Rinsed/ Irrigated with Saline -Foul Odor after Cleansing No -Bioengineered Tissue No -Bleeding Controlled with Pressure -Treatment Response Procedure Tolerated Well [See Physician Procedure note for Specifics] Pain Scale: 0-10 Numeric [Pain] -Is Patient Pain Free? Yes Musculoskeletal: No Muscle Wasting Neurological: Cranial nerves II-XII grossly intact Psych/Mental Status: Normal Affect Debridement Note Post-Debridement Measurements/Treatment WC - Nurse 2 - General Ulcer CM Notes Start: 05/16/18 11:58 Freq: Status: Active Protocol: Activity Type Activity Date Activity User E-Sign Co-Sign Detail Recorded Client Recorded Date Recorded By Document 05/16/18 12:56 MW [id number] 05/16/18 13:03 MW 05/16/18 12:56 Wound Center Nurse 2 #9 R Rodgers -Time 12:56 -Correct Patient Yes -Correct Side, Site, Position Yes -Correct Procedure Yes -Procedure Performed Yes -Type of Procedure Debridement -Clinical Debridement Subcutaneous -Post Debridement Size (cm) - Length 3.0 -Post Debridement Size (cm) - Width 2.0 -Post Debridement Size (cm) - Depth 0.1 -Total Square Cm 6.00 -Wound/Ulcer Outcome Not Healed -Ulcer Cleansing Rinsed/ Irrigated with Saline -Foul Odor after Cleansing No -Bioengineered Tissue No -Bleeding Controlled with Pressure -Treatment Response Procedure Tolerated Well #8 L Rodgers -Time 12:56 -Correct Patient Yes -Correct Side, Site, Position Yes -Correct Procedure Yes -Procedure Performed Yes -Type of Procedure Debridement -Clinical Debridement Subcutaneous -Post Debridement Size (cm) - Length 8.0 -Post Debridement Size (cm) - Width 4.0 -Post Debridement Size (cm) - Depth 0.1 -Total Square Cm 32.00 -Wound/Ulcer Outcome Not Healed -Ulcer Cleansing Rinsed/ Irrigated with Saline -Foul Odor after Cleansing No -Bioengineered Tissue No -Bleeding Controlled with Pressure -Treatment Response Procedure Tolerated Well #6 RIGHT LATERAL FOOT -Time 12:56 -Correct Patient Yes -Correct Side, Site, Position Yes -Correct Procedure Yes -Procedure Performed Yes -Type of Procedure Debridement -Clinical Debridement Subcutaneous -Post Debridement Size (cm) - Length 1.0 -Post Debridement Size (cm) - Width 0.8 -Post Debridement Size (cm) - Depth 0.1 -Total Square Cm 0.80 -Wound/Ulcer Outcome Not Healed -Ulcer Cleansing Rinsed/ Irrigated with Saline -Foul Odor after Cleansing No -Bioengineered Tissue No -Bleeding Controlled with Pressure -Treatment Response Procedure Tolerated Well Pain Scale: 0-10 Numeric Is Patient Pain Free? Yes Wound debrided: Right lateral foot Wound Grade/Stage: Vieira II Type of Debridement: Excisional debridement Anesthesia Used: 4% Lidocaine Solution Depth: Down to and including healthy tissue, in the subcutaneous layer Percentage of wound debrided: 100 Instrument Used: 5mm curette Tissue Removed: Slough and devitalized tissue Severity: Fat Layer Exposed Amount of bleeding with debridement: Mild Bleeding Controlled with: Pressure Patient tolerated procedure well - Additional Wound Wound debrided: Right lower extremity Wound Grade/Stage: Stage II Type of Debridement: Excisional debridement Anesthesia Used: 4% Lidocaine Solution Depth: Down to and including healthy tissue, in the subcutaneous layer Percentage of wound debrided: 100 Instrument Used: 5mm curette Tissue Removed: Slough and devitalized tissue Severity: Fat Layer Exposed Amount of bleeding with debridement: Mild Bleeding Controlled with: Pressure Patient tolerated procedure: Patient tolerated procedure well - Additional Wound Wound debrided: Left lower extremity Wound Grade/Stage: Stage II Type of Debridement: Excisional debridement Anesthesia Used: 4% Lidocaine Solution Depth: Down to and including healthy tissue, in the subcutaneous layer Percentage of wound debrided: 100 Instrument Used: 5mm curette Tissue Removed: Slough and devitalized tissue Severity: Fat Layer Exposed Amount of bleeding with debridement: Mild Bleeding Controlled with: Pressure Patient tolerated procedure: Patient tolerated procedure well Assessment/Plan Assessment: Left Lower superficial ulcer. Right Diabetic Foot Ulcers ( Great toe web space and 5th toe lateral ). Diabetes mellitus type 2. Plan: Debridement done as documented above. Procedure was well-tolerated. Continue with moistened Anaid with adaptic over top to right foot ulcer and Fibrochol with adpatic over top to bilateal lower extremity ulcers. Elevate lower extremity when sitted and in bed. Avoid idle standing. High protein diet /supplement. 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 Optimal Blood sugar control. Follow up with PCP. Follow up in 1 week. This note was generated with [employer] dictation software. It may contain incorrect words, spelling, and punctuation that were not noted in checking the note before signing.
[2018-05-23 12:00] VITALS: BP 124/63; PULSE 86; RESP 18; TEMP 36.7; BMI 42.5
--- NOTE | 2018-05-23 12:59 | PCM.WC.PN ---
(1) Diabetic foot ulcer Status: Chronic Current Visit: Yes Code(s): E11.621 - Type 2 diabetes mellitus with foot ulcer; L97.509 - Non-pressure chronic ulcer of other part of unspecified foot with unspecified severity (2) Open wound of left lower extremity Status: Acute Current Visit: Yes Code(s): S81.802A - Unspecified open wound, left lower leg, initial encounter (3) Open wound of right lower extremity Status: Acute Current Visit: Yes Code(s): S81.801A - Unspecified open wound, right lower leg, initial encounter (4) Diabetes mellitus Status: Chronic Current Visit: Yes Code(s): E11.9 - Type 2 diabetes mellitus without complications Type of Wound Date of Service: 05/23/18 Chief Complaint: Right lower extremity/Foot Blisters/Ulcers. Left Lower extremity/Leg woud secondary to Dog Scratch. History of Wound: Ms. Molina who is well known to me presents to the wound center today with two new wounds. She has a left lower extremity wound which she states she sustained as a result fro a scratch by her dog. Sh also has blisters to her right toes with the most significant being if the right great toe however, patient is unsure of how she sustained these blister. She reports pain in her left lower extremity but denies any significant pain in her toes. She reports chills, but denies fever, nausea, vomitting or any change in her biwel habit. Progress of Wound: Improving. - Physical Exam Vital Signs Temp Pulse Resp BP 98.1 F 86 18 124/63 H 05/23/18 12:00 05/23/18 12:00 05/23/18 12:00 05/23/18 12:00 General: Alert, Oriented x3, Cooperative, No apparent distress HEENT: Atraumatic Oral: Moist Mucosa Neck: Supple Lungs: Normal air movement Abdomen: Non Tender Extremities: No cyanosis, Edema Skin: Ulcer/ Wound Wound Measurements and Assessment WC - Nurse 1 - General Ulcer Measurement Start: 05/16/18 11:58 Freq: Status: Active Protocol: Activity Type Activity Date Activity User E-Sign Co-Sign Detail Recorded Client Recorded Date Recorded By Document 05/23/18 12:00 DL [id number] 05/23/18 12:10 DL 05/23/18 12:00 Wound Center Nurse 1 [Ulcer Assessment] #9 R Warner -Current Size (cm) - Length 1.4 -Current Size (cm) - Width 1.8 -Current Size (cm) - Depth 0.1 -Total Square Cm 2.52 -Photo Taken No -Exudate Amt Small (1-33%) -Exudate Type Serosanguineous -Wound Margin Indistinct, Non -Visible -Granulation Amt Large (67-100%) -Granulation Quality [place] -Necrosis Amt Small (1-33%) -Necrotic Tissue Type Adherent Slough -Structure Exposed N/A -Texture (Mel-wound Skin Appearance) Scarring -Moisture (Mel-wound Skin Appearance No Abnormality ) -Color (Mel-wound Skin Appearance) Hemosiderin Staining -Temperature (Mel-wound Skin No Abnormality Appearance) (Pt Warm) -Ulcer Cleansing Wound Cleanser -Foul Odor after Cleansing No -Anesthetic Used 4% Lidocaine Solution #8 L Warner -Current Size (cm) - Length 0.4 -Current Size (cm) - Width 0.2 -Current Size (cm) - Depth 0.1 -Total Square Cm 0.08 -Photo Taken No -Exudate Amt None Present (0 %) -Wound Margin Flat & Intact -Granulation Amt Large (67-100%) -Granulation Quality [place] -Necrosis Amt None Present (0 %) -Structure Exposed N/A -Texture (Mel-wound Skin Appearance) Scarring -Moisture (Mel-wound Skin Appearance No Abnormality ) -Color (Mel-wound Skin Appearance) Hemosiderin Staining -Temperature (Mel-wound Skin No Abnormality Appearance) (Pt Warm) -Tenderness on Palpation (Mel-wound No Skin Appearance) -Ulcer Cleansing Wound Cleanser -Foul Odor after Cleansing No -Anesthetic Used 4% Lidocaine Solution #6 RIGHT LATERAL FOOT -Current Size (cm) - Length 0.1 -Current Size (cm) - Width 0.1 -Current Size (cm) - Depth 0.1 -Total Square Cm 0.01 -Photo Taken No -Exudate Amt Small (1-33%) -Exudate Type Serosanguineous -Wound Margin Thickened -Granulation Amt None Present (0 %) -Necrosis Amt Large (67-100%) -Necrotic Tissue Type Adherent Slough -Structure Exposed N/A -Texture (Mel-wound Skin Appearance) No Abnormality -Moisture (Mel-wound Skin Appearance Dry/Scaly ) -Color (Mel-wound Skin Appearance) Hemosiderin Staining -Temperature (Mel-wound Skin No Abnormality Appearance) (Pt Warm) -Ulcer Cleansing Wound Cleanser -Foul Odor after Cleansing No -Anesthetic Used 4% Lidocaine Solution [Edema Assessment] -Right Calf (cm) 37.3 -Right Ankle (cm) 22 -Left Calf (cm) 37.3 -Point of measurement (cm from the 21.3 medial instep) WC - Nurse 2 - General Ulcer CM Notes Start: 05/16/18 11:58 Freq: Status: Active Protocol: Activity Type Activity Date Activity User E-Sign Co-Sign Detail Recorded Client Recorded Date Recorded By Document 05/23/18 12:50 ISAIAH [id number] 05/23/18 12:55 ISAIAH 05/23/18 12:50 Wound Center Nurse 2 [Procedure/Treatment] #9 R Warner -Time 12:50 -Correct Patient Yes -Correct Side, Site, Position Yes -Correct Procedure Yes -Procedure Performed Yes -Type of Procedure Debridement -Clinical Debridement Subcutaneous -Post Debridement Size (cm) - Length 1.5 -Post Debridement Size (cm) - Width 2.0 -Post Debridement Size (cm) - Depth 0.1 -Total Square Cm 3.00 -Wound/Ulcer Outcome Not Healed -Ulcer Cleansing Rinsed/ Irrigated with Saline -Foul Odor after Cleansing No -Bioengineered Tissue No -Topical Lidocaine (%) 4 -Bleeding Controlled with NA -Treatment Response Procedure Tolerated Well #8 L Warner -Time 12:51 -Correct Patient Yes -Correct Side, Site, Position Yes -Correct Procedure Yes -Procedure Performed Yes -Type of Procedure Debridement -Clinical Debridement Subcutaneous -Post Debridement Size (cm) - Length 3.8 -Post Debridement Size (cm) - Width 9.0 -Post Debridement Size (cm) - Depth 0.1 -Total Square Cm 34.20 -Wound/Ulcer Outcome Not Healed -Ulcer Cleansing Rinsed/ Irrigated with Saline -Foul Odor after Cleansing No -Bioengineered Tissue No -Topical Lidocaine (%) 4 -Bleeding Controlled with NA -Treatment Response Procedure Tolerated Well #6 RIGHT LATERAL FOOT -Time 12:51 -Correct Patient Yes -Correct Side, Site, Position Yes -Correct Procedure Yes -Procedure Performed Yes -Type of Procedure Debridement -Clinical Debridement Subcutaneous -Post Debridement Size (cm) - Length 0.1 -Post Debridement Size (cm) - Width 0.1 -Post Debridement Size (cm) - Depth 0.1 -Total Square Cm 0.01 -Wound/Ulcer Outcome Not Healed -Ulcer Cleansing Rinsed/ Irrigated with Saline -Foul Odor after Cleansing No -Bioengineered Tissue No -Topical Lidocaine (%) 4 -Bleeding Controlled with NA -Treatment Response Procedure Tolerated Well [See Physician Procedure note for Specifics] Pain Scale: 0-10 Numeric [Pain] -Is Patient Pain Free? Yes Musculoskeletal: No Muscle Wasting Neurological: Cranial nerves II-XII grossly intact Psych/Mental Status: Normal Affect Debridement Note Post-Debridement Measurements/Treatment WC - Nurse 2 - General Ulcer CM Notes Start: 05/16/18 11:58 Freq: Status: Active Protocol: Activity Type Activity Date Activity User E-Sign Co-Sign Detail Recorded Client Recorded Date Recorded By Document 05/16/18 12:56 MW [id number] 05/16/18 13:03 MW Document 05/23/18 12:50 JS [id number] 05/23/18 12:55 JS 05/16/18 05/23/18 12:56 12:50 Wound Center Nurse 2 #9 R Warner -Time 12:56 12:50 -Correct Patient Yes Yes -Correct Side, Site, Position Yes Yes -Correct Procedure Yes Yes -Procedure Performed Yes Yes -Type of Procedure Debridement Debridement -Clinical Debridement Subcutaneous Subcutaneous -Post Debridement Size (cm) - Length 3.0 1.5 -Post Debridement Size (cm) - Width 2.0 2.0 -Post Debridement Size (cm) - Depth 0.1 0.1 -Total Square Cm 6.00 3.00 -Wound/Ulcer Outcome Not Healed Not Healed -Ulcer Cleansing Rinsed/ Rinsed/ Irrigated with Irrigated with Saline Saline -Foul Odor after Cleansing No No -Bioengineered Tissue No No -Topical Lidocaine (%) 4 -Bleeding Controlled with Pressure NA -Treatment Response Procedure Procedure Tolerated Well Tolerated Well #8 L Warner -Time 12:56 12:51 -Correct Patient Yes Yes -Correct Side, Site, Position Yes Yes -Correct Procedure Yes Yes -Procedure Performed Yes Yes -Type of Procedure Debridement Debridement -Clinical Debridement Subcutaneous Subcutaneous -Post Debridement Size (cm) - Length 8.0 3.8 -Post Debridement Size (cm) - Width 4.0 9.0 -Post Debridement Size (cm) - Depth 0.1 0.1 -Total Square Cm 32.00 34.20 -Wound/Ulcer Outcome Not Healed Not Healed -Ulcer Cleansing Rinsed/ Rinsed/ Irrigated with Irrigated with Saline Saline -Foul Odor after Cleansing No No -Bioengineered Tissue No No -Topical Lidocaine (%) 4 -Bleeding Controlled with Pressure NA -Treatment Response Procedure Procedure Tolerated Well Tolerated Well #6 RIGHT LATERAL FOOT -Time 12:56 12:51 -Correct Patient Yes Yes -Correct Side, Site, Position Yes Yes -Correct Procedure Yes Yes -Procedure Performed Yes Yes -Type of Procedure Debridement Debridement -Clinical Debridement Subcutaneous Subcutaneous -Post Debridement Size (cm) - Length 1.0 0.1 -Post Debridement Size (cm) - Width 0.8 0.1 -Post Debridement Size (cm) - Depth 0.1 0.1 -Total Square Cm 0.80 0.01 -Wound/Ulcer Outcome Not Healed Not Healed -Ulcer Cleansing Rinsed/ Rinsed/ Irrigated with Irrigated with Saline Saline -Foul Odor after Cleansing No No -Bioengineered Tissue No No -Topical Lidocaine (%) 4 -Bleeding Controlled with Pressure NA -Treatment Response Procedure Procedure Tolerated Well Tolerated Well Pain Scale: 0-10 Numeric Is Patient Pain Free? Yes Yes Wound debrided: Right Foot ( lateral ) Wound Grade/Stage: Vieira II Type of Debridement: Excisional debridement Anesthesia Used: 4% Lidocaine Solution Depth: Down to and including healthy tissue, in the subcutaneous layer Percentage of wound debrided: 100 Instrument Used: 5mm curette, #15 blade, Forceps Tissue Removed: Devitalized tissue Severity: Fat Layer Exposed Amount of bleeding with debridement: Mild Bleeding Controlled with: Pressure Patient tolerated procedure well - Additional Wound Wound debrided: Right warner Wound Grade/Stage: Stage II Type of Debridement: Excisional debridement Anesthesia Used: 4% Lidocaine Solution Depth: Down to and including healthy tissue, in the subcutaneous layer Percentage of wound debrided: 100 Instrument Used: 5mm curette Tissue Removed: Slough and devitalized tissue Severity: Fat Layer Exposed Amount of bleeding with debridement: Mild Bleeding Controlled with: Pressure Patient tolerated procedure: Patient tolerated procedure well - Additional Wound Wound debrided: Left warner Wound Grade/Stage: Stage II Type of Debridement: Excisional debridement Anesthesia Used: 4% Lidocaine Solution Depth: Down to and including healthy tissue, in the subcutaneous layer Percentage of wound debrided: 100 Instrument Used: 5mm curette Tissue Removed: Slough and devitalized tissue Severity: Fat Layer Exposed Amount of bleeding with debridement: Mild Bleeding Controlled with: Pressure Patient tolerated procedure: Patient tolerated procedure well Assessment/Plan Active Problems Open wound of right lower extremity (Acute) Open wound of left lower extremity (Acute) Diabetes mellitus (Chronic) Diabetic foot ulcer (Chronic) Assessment: Left Lower superficial ulcer. Right Diabetic Foot Ulcers ( Great toe web space and 5th toe lateral ). Diabetes mellitus type 2. Plan: Improving ulcers. Debridement done as documented above. Procedure was well-tolerated. Continue with moistened Anaid with adaptic over top to right foot ulcer and Fibrocol with adaptic over top to bilateral lower extremity ulcers. Elevate lower extremity when seated and in bed. Avoid idle standing. High protein diet/supplement. 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 Optimal Blood sugar control. Follow up with PCP. Follow up in 1 week. This note was generated with [employer] dictation software. It may contain incorrect words, spelling, and punctuation that were not noted in checking the note before signing.
--- NOTE | 2018-05-23 13:04 | PN.PCM_ITS ---
(1) Diabetic foot ulcer Status: Chronic Current Visit: Yes Code(s): E11.621 - Type 2 diabetes mellitus with foot ulcer; L97.509 - Non-pressure chronic ulcer of other part of unspecified foot with unspecified severity (2) Open wound of left lower extremity Status: Acute Current Visit: Yes Code(s): S81.802A - Unspecified open wound , left lower leg, initial encounter (3) Open wound of right lower extremity Status: Acute Current Visit: Yes Code(s): S81.801A - Unspecified open wound , right lower leg, initial encounter (4) Diabetes mellitus Status: Chronic Current Visit: Yes Code(s): E11.9 - Type 2 diabetes mellitus without complications Type of Wound Date of Service: 05/23/18 Chief Complaint: Right lower extremity/Foot Blisters/Ulcers. Left Lower extremity/Leg woud secondary to Dog Scratch. History of Wound: Ms. Molina who is well known to me presents to the wound center today with two new wounds. She has a left lower extremity wound which she states she sustained as a result fro a scratch by her dog. Sh also has blisters to her right toes with the most significant being if the right great toe however, patient is unsure of how she sustained these blister. She reports pain in her left lower extremity but denies any significant pain in her toes. She reports chills, but denies fever, nausea, vomitting or any change in her biwel habit. Progress of Wound: Improving. - Physical Exam Vital Signs Temp Pulse Resp BP 98.1 F 86 18 124/63 H 05/23/18 12:00 05/23/18 12:00 05/23/18 12:00 05/23/18 12:00 General: Alert, Oriented x3, Cooperative, No apparent distress HEENT: Atraumatic Oral: Moist Mucosa Neck: Supple Lungs: Normal air movement Abdomen: Non Tender Extremities: No cyanosis, Edema Skin: Ulcer/ Wound Wound Measurements and Assessment WC - Nurse 1 - General Ulcer Measurement Start: 05/16/18 11:58 Freq: Status: Active Protocol: Activity Type Activity Date Activity User E-Sign Co-Sign Detail Recorded Client Recorded Date Recorded By Document 05/23/18 12:00 DL [id number] 05/23/18 12:10 DL 05/23/18 12:00 Wound Center Nurse 1 [Ulcer Assessment] #9 R Warner -Current Size (cm) - Length 1.4 -Current Size (cm) - Width 1.8 -Current Size (cm) - Depth 0.1 -Total Square Cm 2.52 -Photo Taken No -Exudate Amt Small (1-33%) -Exudate Type Serosanguineous -Wound Margin Indistinct, Non -Visible -Granulation Amt Large (67-100%) -Granulation Quality [place] -Necrosis Amt Small (1-33%) -Necrotic Tissue Type Adherent Slough -Structure Exposed N/A -Texture (Mel-wound Skin Appearance) Scarring -Moisture (Mel-wound Skin Appearance No Abnormality ) -Color (Mel-wound Skin Appearance) Hemosiderin Staining -Temperature (Mel-wound Skin No Abnormality Appearance) (Pt Warm) -Ulcer Cleansing Wound Cleanser -Foul Odor after Cleansing No -Anesthetic Used 4% Lidocaine Solution #8 L Warner -Current Size (cm) - Length 0.4 -Current Size (cm) - Width 0.2 -Current Size (cm) - Depth 0.1 -Total Square Cm 0.08 -Photo Taken No -Exudate Amt None Present (0 %) -Wound Margin Flat & Intact -Granulation Amt Large (67-100%) -Granulation Quality [place] -Necrosis Amt None Present (0 %) -Structure Exposed N/A -Texture (Mel-wound Skin Appearance) Scarring -Moisture (Mel-wound Skin Appearance No Abnormality ) -Color (Mel-wound Skin Appearance) Hemosiderin Staining -Temperature (Mel-wound Skin No Abnormality Appearance) (Pt Warm) -Tenderness on Palpation (Mel-wound No Skin Appearance) -Ulcer Cleansing Wound Cleanser -Foul Odor after Cleansing No -Anesthetic Used 4% Lidocaine Solution #6 RIGHT LATERAL FOOT -Current Size (cm) - Length 0.1 -Current Size (cm) - Width 0.1 -Current Size (cm) - Depth 0.1 -Total Square Cm 0.01 -Photo Taken No -Exudate Amt Small (1-33%) -Exudate Type Serosanguineous -Wound Margin Thickened -Granulation Amt None Present (0 %) -Necrosis Amt Large (67-100%) -Necrotic Tissue Type Adherent Slough -Structure Exposed N/A -Texture (Mel-wound Skin Appearance) No Abnormality -Moisture (Mel-wound Skin Appearance Dry/Scaly ) -Color (Mel-wound Skin Appearance) Hemosiderin Staining -Temperature (Mel-wound Skin No Abnormality Appearance) (Pt Warm) -Ulcer Cleansing Wound Cleanser -Foul Odor after Cleansing No -Anesthetic Used 4% Lidocaine Solution [Edema Assessment] -Right Calf (cm) 37.3 -Right Ankle (cm) 22 -Left Calf (cm) 37.3 -Point of measurement (cm from the 21.3 medial instep) WC - Nurse 2 - General Ulcer CM Notes Start: 05/16/18 11:58 Freq: Status: Active Protocol: Activity Type Activity Date Activity User E-Sign Co-Sign Detail Recorded Client Recorded Date Recorded By Document 05/23/18 12:50 [email or web address] [id number] 05/23/18 12:55 ISAIAH 05/23/18 12:50 Wound Center Nurse 2 [Procedure/Treatment] #9 R Warner -Time 12:50 -Correct Patient Yes -Correct Side, Site, Position Yes -Correct Procedure Yes -Procedure Performed Yes -Type of Procedure Debridement -Clinical Debridement Subcutaneous -Post Debridement Size (cm) - Length 1.5 -Post Debridement Size (cm) - Width 2.0 -Post Debridement Size (cm) - Depth 0.1 -Total Square Cm 3.00 -Wound/Ulcer Outcome Not Healed -Ulcer Cleansing Rinsed/ Irrigated with Saline -Foul Odor after Cleansing No -Bioengineered Tissue No -Topical Lidocaine (%) 4 -Bleeding Controlled with NA -Treatment Response Procedure Tolerated Well #8 L Warner -Time 12:51 -Correct Patient Yes -Correct Side, Site, Position Yes -Correct Procedure Yes -Procedure Performed Yes -Type of Procedure Debridement -Clinical Debridement Subcutaneous -Post Debridement Size (cm) - Length 3.8 -Post Debridement Size (cm) - Width 9.0 -Post Debridement Size (cm) - Depth 0.1 -Total Square Cm 34.20 -Wound/Ulcer Outcome Not Healed -Ulcer Cleansing Rinsed/ Irrigated with Saline -Foul Odor after Cleansing No -Bioengineered Tissue No -Topical Lidocaine (%) 4 -Bleeding Controlled with NA -Treatment Response Procedure Tolerated Well #6 RIGHT LATERAL FOOT -Time 12:51 -Correct Patient Yes -Correct Side, Site, Position Yes -Correct Procedure Yes -Procedure Performed Yes -Type of Procedure Debridement -Clinical Debridement Subcutaneous -Post Debridement Size (cm) - Length 0.1 -Post Debridement Size (cm) - Width 0.1 -Post Debridement Size (cm) - Depth 0.1 -Total Square Cm 0.01 -Wound/Ulcer Outcome Not Healed -Ulcer Cleansing Rinsed/ Irrigated with Saline -Foul Odor after Cleansing No -Bioengineered Tissue No -Topical Lidocaine (%) 4 -Bleeding Controlled with NA -Treatment Response Procedure Tolerated Well [See Physician Procedure note for Specifics] Pain Scale: 0-10 Numeric [Pain] -Is Patient Pain Free? Yes Musculoskeletal: No Muscle Wasting Neurological: Cranial nerves II-XII grossly intact Psych/Mental Status: Normal Affect Debridement Note Post-Debridement Measurements/Treatment WC - Nurse 2 - General Ulcer CM Notes Start: 05/16/18 11:58 Freq: Status: Active Protocol: Activity Type Activity Date Activity User E-Sign Co-Sign Detail Recorded Client Recorded Date Recorded By Document 05/16/18 12:56 MW [id number] 05/16/18 13:03 MW Document 05/23/18 12:50 JS [id number] 05/23/18 12:55 JS 05/16/18 05/23/18 12:56 12:50 Wound Center Nurse 2 #9 R Warner -Time 12:56 12:50 -Correct Patient Yes Yes -Correct Side, Site, Position Yes Yes -Correct Procedure Yes Yes -Procedure Performed Yes Yes -Type of Procedure Debridement Debridement -Clinical Debridement Subcutaneous Subcutaneous -Post Debridement Size (cm) - Length 3.0 1.5 -Post Debridement Size (cm) - Width 2.0 2.0 -Post Debridement Size (cm) - Depth 0.1 0.1 -Total Square Cm 6.00 3.00 -Wound/Ulcer Outcome Not Healed Not Healed -Ulcer Cleansing Rinsed/ Rinsed/ Irrigated with Irrigated with Saline Saline -Foul Odor after Cleansing No No -Bioengineered Tissue No No -Topical Lidocaine (%) 4 -Bleeding Controlled with Pressure NA -Treatment Response Procedure Procedure Tolerated Well Tolerated Well #8 L Warner -Time 12:56 12:51 -Correct Patient Yes Yes -Correct Side, Site, Position Yes Yes -Correct Procedure Yes Yes -Procedure Performed Yes Yes -Type of Procedure Debridement Debridement -Clinical Debridement Subcutaneous Subcutaneous -Post Debridement Size (cm) - Length 8.0 3.8 -Post Debridement Size (cm) - Width 4.0 9.0 -Post Debridement Size (cm) - Depth 0.1 0.1 -Total Square Cm 32.00 34.20 -Wound/Ulcer Outcome Not Healed Not Healed -Ulcer Cleansing Rinsed/ Rinsed/ Irrigated with Irrigated with Saline Saline -Foul Odor after Cleansing No No -Bioengineered Tissue No No -Topical Lidocaine (%) 4 -Bleeding Controlled with Pressure NA -Treatment Response Procedure Procedure Tolerated Well Tolerated Well #6 RIGHT LATERAL FOOT -Time 12:56 12:51 -Correct Patient Yes Yes -Correct Side, Site, Position Yes Yes -Correct Procedure Yes Yes -Procedure Performed Yes Yes -Type of Procedure Debridement Debridement -Clinical Debridement Subcutaneous Subcutaneous -Post Debridement Size (cm) - Length 1.0 0.1 -Post Debridement Size (cm) - Width 0.8 0.1 -Post Debridement Size (cm) - Depth 0.1 0.1 -Total Square Cm 0.80 0.01 -Wound/Ulcer Outcome Not Healed Not Healed -Ulcer Cleansing Rinsed/ Rinsed/ Irrigated with Irrigated with Saline Saline -Foul Odor after Cleansing No No -Bioengineered Tissue No No -Topical Lidocaine (%) 4 -Bleeding Controlled with Pressure NA -Treatment Response Procedure Procedure Tolerated Well Tolerated Well Pain Scale: 0-10 Numeric Is Patient Pain Free? Yes Yes Wound debrided: Right Foot ( lateral ) Wound Grade/Stage: Vieira II Type of Debridement: Excisional debridement Anesthesia Used: 4% Lidocaine Solution Depth: Down to and including healthy tissue, in the subcutaneous layer Percentage of wound debrided: 100 Instrument Used: 5mm curette, #15 blade, Forceps Tissue Removed: Devitalized tissue Severity: Fat Layer Exposed Amount of bleeding with debridement: Mild Bleeding Controlled with: Pressure Patient tolerated procedure well - Additional Wound Wound debrided: Right warner Wound Grade/Stage: Stage II Type of Debridement: Excisional debridement Anesthesia Used: 4% Lidocaine Solution Depth: Down to and including healthy tissue, in the subcutaneous layer Percentage of wound debrided: 100 Instrument Used: 5mm curette Tissue Removed: Slough and devitalized tissue Severity: Fat Layer Exposed Amount of bleeding with debridement: Mild Bleeding Controlled with: Pressure Patient tolerated procedure: Patient tolerated procedure well - Additional Wound Wound debrided: Left warner Wound Grade/Stage: Stage II Type of Debridement: Excisional debridement Anesthesia Used: 4% Lidocaine Solution Depth: Down to and including healthy tissue, in the subcutaneous layer Percentage of wound debrided: 100 Instrument Used: 5mm curette Tissue Removed: Slough and devitalized tissue Severity: Fat Layer Exposed Amount of bleeding with debridement: Mild Bleeding Controlled with: Pressure Patient tolerated procedure: Patient tolerated procedure well Assessment/Plan Active Problems Open wound of right lower extremity (Acute) Open wound of left lower extremity (Acute) Diabetes mellitus (Chronic) Diabetic foot ulcer (Chronic) Assessment: Left Lower superficial ulcer. Right Diabetic Foot Ulcers ( Great toe web space and 5th toe lateral ). Diabetes mellitus type 2. Plan: Improving ulcers. Debridement done as documented above. Procedure was well-tolerated. Continue with moistened Anaid with adaptic over top to right foot ulcer and Fibrocol with adaptic over top to bilateral lower extremity ulcers. Elevate lower extremity when seated and in bed. Avoid idle standing. High protein diet/supplement. 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 Optimal Blood sugar control. Follow up with PCP. Follow up in 1 week. This note was generated with [employer] dictation software. It may contain incorrect words, spelling, and punctuation that were not noted in checking the note before signing.
== END 2018-06-14 23:59 ==
LOC: WC 12:00
PROVIDERS: Visit Provider Internal Medicine
DX: E11.621 Type 2 diabetes mellitus with foot ulcer (principal); L97.522 Non-pressure chronic ulcer of other part of left foot with fat layer exposed; L97.512 Non-pressure chronic ulcer of other part of right foot with fat layer exposed
CPT/HCPCS: 11042; 11045

== ENCOUNTER 2018-08-31 23:54 | Observation (INO) | payer MEDICAID, SELFPAY ==
[2018-08-31 23:56] VITALS: BP 135/97; PULSE 115; RESP 20; TEMP 36.9; O2SAT 94; BMI 40.5
[2018-09-01] VITALS (28 sets, daily range): BP systolic 118–158; BP diastolic 60–117; PULSE 70–102; RESP 8–24; TEMP 36.3–37.1; O2SAT 94–100; BMI 40.1
--- NOTE | 2018-09-01 00:10 | EKG12_ITS ---
Test Reason : Blood Pressure : / mmHG Vent. Rate : 093 BPM Atrial Rate : 093 BPM P-R Int : 148 ms QRS Dur : 082 ms QT Int : 362 ms P-R-T Axes : 048 005 032 degrees QTc Int : 450 ms Normal sinus rhythm Normal ECG Confirmed by LUIS AMADO MD ([id number]), food editor AAMIR MAURICIO ([id number] on 09/04/2018 12:52:55 PM Referred By: DAGOBERTO Confirmed By:LUIS AMADO MD
--- NOTE | 2018-09-01 00:11 | CT_ITS ---
HISTORY: SUICIDAL IDEATION,ELEVATED BP,PT INJECTED HERSELF WITH HIGH DOSE OF NOVALOGHX:DIABETES,HTN TECHNIQUE: Multiple axial images were obtained of the brain without intravenous contrast. A radiation dose optimization technique was used for this scan. IV Contrast dosage and agent: None. COMPARISON: None FINDINGS: Normal ventricles. Age appropriate cerebral cortical atrophy. Normal valdez-white matter differentiation. No intracranial mass, hemorrhage, or acute disease. Posterior fossa structures show no abnormality. No suspicious extra-axial fluid collection. Carotid and vertebrobasilar atherosclerotic calcifications. Small retention cyst at the posterior wall of the right maxillary sinus. CT/Brain/Head without Contrast IMPRESSION: 1. Negative CT brain without contrast. No hemorrhage or acute disease. 2. Small retention cyst, right maxillary sinus. Individualized dose optimization techniques were used for this CT. at 0106 Reported and signed by: Nito Reardon MD Electronically Signed: Nito Reardon, at 1:03 EST Tel , Service support ,
--- NOTE | 2018-09-01 00:15 | ED.DCSUM_ITS ---
- ER Visit Summary Date of Service: 09/01/18 Chief Complaint: Suicidal ideation History of Present Illness: The patient is a [address] Irizarry. She reports that she attempted suicide tonight by injecting an unknown amount of her extra NovoLog by FlexPen. She did this approximately 11 PM. She states that she has attempted suicide previously. Review of systems: General: No fever, chills, cold sweats. Cardiovascular: No chest pain, palpitations. Respiratory: No cough, shortness of breath, dyspnea on exertion. Gastrointestinal: No abdominal pain, nausea, vomiting, diarrhea, melena, or hematochezia. Genitourinary: No dysuria, frequency, hematuria. Skin: No rash. Neuro: A little bit of headache. Generalized weakness. Physical Examination: Vitals: 98.4, 135/97, 115, 20, 94% on room air which is not hypoxic. General: Well-nourished and well-developed. Head: Normocephalic atraumatic. Neck: Supple, no lymphadenopathy. No JVD. Nontender. Cardiovascular: Regular rate and rhythm. No murmurs. Respiratory: No respiratory distress. Clear to auscultation bilaterally. Abdominal: Soft, nontender, nondistended, normal bowel sounds. No guarding, rebound, or peritoneal signs. Back: Nontender. Extremities: Nontender, no edema. Skin: Chronic venous stasis changes to her lower extremities bilaterally. There is excoriation present. There is no erythema or warmth to suggest infection.. Neurologic: Alert and oriented ?3. Cranial nerves II through XII are intact. Normal strength and sensation. Mental status exam: Patient appears their stated age. Good posture and grooming. Good eye contact. Normal rate, volume, and latency of speech. No homicidal ideation. No auditory or visual hallucinations. Flow of thought is logical. Insight and judgment is fair. Test Results: EKG is sinus at [address] changes and artifact. There is no old EKG for comparison. CBC is more for an H&H of 15.4 and 47.8. Chem-7 is more for BUN of 20 and creatinine 1.15. LFTs marked total protein 8.[address] brain shows no acute disease. Emergency Department Course and Treatment: Patient's blood sugar on arrival was 103. 30 minutes later was 77. This is despite drinking edmond randee. 30 minutes later it is 54. This is despite a second edmond randee and cookies. She was given an amp of D50 IV and started on D10 IV at 40 cc/h. 30 minutes later repeat blood sugar is 147. D10 was decreased to 20 cc/h. 30 minutes later repeat blood sugar was 99. D10 was turned back up to 40 cc/h. Treatment Plan: Patient was discussed with Dr. Metz. She will be admitted for further evaluation and treatment. She will be seen by the [facility] as an inpatient. Disposition: Admitted in serious condition. Impression: 1. Suicidal ideation. 2. Insulin overdose. 3. Hypoglycemia. 4. Critical care time 30 minutes. This note was generated with [employer] dictation software. It may contain incorrect words, spelling, and punctuation that were not noted in review of the chart prior to signing ED Disposition - Plan for ED Patient: Chief Complaint: Suicidal Referrals: [facility] Doctor,Out of [Primary Care Provider] -
[2018-09-01 00:26] LABS: Absolute Lymphocyte Count 2.55 X10^3/ul (0.83-4.51); Absolute Neutrophil Count 5.7 X10^3/uL (2.0-7.7); Basophil# 0.02 X10^3/uL; Basophil% 0.2 % (0-1); Eosinophil# 0.07 X10^3/uL; Eosinophils% 0.8 % (0-5); Hematocrit 47.8 % (37-47); Hemoglobin 15.4 g/dl (12.0-15.0); Lymphocyte # 2.55 X10^3/ul (4.0); Lymphocyte % 29.6 % (19-41); Mean Corp Hgb Conc 32.2 g/gl (32-36); Mean Corpuscular Hgb 29.1 pg (27.0-32.0); Mean Corpuscular Volume 90.2 fL (81-99); Mean Platelet Vol. 8.9 fl (6.2-12.0); Monocyte# 0.25 X10^3/uL; Monocyte% 2.9 % (0-10); Neutrophil # 5.71 X10^3/uL (2.7-7.7); Neutrophil % 66.3 % (47-70); POSITIVE COUNT NO; POSITIVE DIFFERENTIAL NO; POSITIVE MORPHOLOGY NO; Platelet Count 313 K/mm3 (150-450); RBC Distribution Width CV 13.4 % (11.6-14.6); RBC Distribution Width SD 44.6 fl (35.1-43.9); White Blood Count 8.6 K/mm3 (4.4-11.0)
[2018-09-01 00:55] LABS: ALB/GLOB Ratio 0.8 RATIO (0.9-2.4); AST(SGOT) 32 U/L (15-37); Alanine Aminotransfer ALT/SGPT 25 U/L (13-56); Albumin, Serum 3.7 g/dL (3.2-5.0); Alkaline Phosphatase 115 U/L (45-117); Anion Gap 6 (5-15); BUN 20 mg/dL (7-18); BUN/Creat Ratio 17.4 RATIO (10-20); Calcium,Total 9.1 mg/dL (8.5-10.1); Chloride 106 mmol/L (98-107); Creatinine, Serum 1.15 mg/dL (0.55-1.02); EST Glomerular Filtration Rate 50 mL/min (>60); Est Glom Filt Rate - Afr Amer 61 mL/min (>60); Estimated Creatinine Clearance 42.12 ml/min; Globulin 4.8 g/dL (2.2-4.2); Glucose 81 mg/dL (74-106); Potassium 4.6 mmol/L (3.5-5.1); Protein, Total 8.5 g/dL (6.4-8.2); Sodium Level 140 mmol/L (136-145)
[2018-09-01] MEDS: Dextrose 50%-Water 25 GM/50 ML DISP.SYRIN IV ×2 (01:05→02:41)
[2018-09-01] MEDS: Dextrose 10%-Water 250 ML 40 ML IV (01:11)
[2018-09-01] MEDS: 0.9% Normal Saline 1,000 ML 150 ML IV (01:16)
[2018-09-01 01:22] LABS: Acetaminophen (Tylenol) Level < 10.0 ug/mL (10.0-30.0); Alcohol, Blood (Medical)-Serum < 3.0 mg/dL; Salicylate < 1.7 mg/dL (2.8-20.0)
--- NOTE | 2018-09-01 01:40 | ED.RN ---
PER DR GARCIA, PT DEXTROSE DECREASED TO 20 ML/HR DUE TO BLOOD SUGAR BEING 149.
[2018-09-01 02:06] LABS: Bedside Glucose 149 mg/dL (70-110)
[2018-09-01 02:06] LABS: Bedside Glucose 77 mg/dL (70-110)
[2018-09-01 02:06] LABS: Bedside Glucose 54 mg/dL (70-110)
[2018-09-01 02:06] LABS: Bedside Glucose 103 mg/dL (70-110)
--- NOTE | 2018-09-01 02:19 | HP.PCM_ITS ---
Problem List (1) Suicide attempt by drug ingestion Status: Acute (2) Diabetes mellitus Status: Chronic (3) HTN (hypertension) Status: Chronic (4) Hypothyroidism Status: Chronic History of Present Illness Date of Admission: 09/01/18 Chief Complaint: suicidal attempted The patient is a 67 year old F with a significant history of hypothyroidism, depression, hypertension, diabetes, previous attempts I will presented with an attempted suicide by overdosing on insulin. Patient reported that she takes NovoLog per correction scale; and Toujeo 56 units twice daily. He reported that he self injected herself with NovoLog pain in the dark without looking at how many does she injected herself. After that she sent a [employer] message to her daughter and her friend. Also she sent a message to her that she will be . Her daughter notified authorities who came to her house and brought her to the emergency department. ED doc reported that patient's has been cheating and this prompted patient to commit suicide. Patient reported that in the past she has had some attempts at community's suicide by using pills. At the emergency department patient was worried about her dog that she has at home and she did not want to be admitted. At emergency department patient was placed on dextrose infusion but because her blood glucose kept falling she received intermittent D50 IV push injections. A decision was made to admit the patient to intensive care unit for more frequent blood glucose and for a one to one sitter. Past Medical History Past Medical History (Chronic Problems): Chronic Problems HTN (hypertension) (Chronic) Hypothyroidism (Chronic) Diabetes mellitus (Chronic) Diabetic foot ulcer (Chronic) Allergies ciprofloxacin [From Cipro] Allergy (Verified 09/01/18 00:05) Rash codeine Adverse Reaction (Verified 09/01/18 00:05) Rash Home Medications: Ambulatory Orders Medication Instructions Recorded Duloxetine Hcl [Cymbalta] 60 mg PO DAILY 09/27/17 Gabapentin [Neurontin] 400 mg PO 09/27/17 Hydrocodone/Acetaminophen [[place] 09/27/17 5-325 Tablet] Insulin NPH/Reg 70/30 [Novolin 100 09/27/17 70/30] Levothyroxine Sodium [Synthroid] 100 mcg PO 09/27/17 Lisinopril 20 mg PO 09/27/17 Lovastatin [Mevacor] 40 mg PO DAILY 09/27/17 Miconazole Nitrate [Miconazole 3] 200 mg VG 09/27/17 Naproxen Sodium [Naprelan] 1,000 mg PO DAILY 09/27/17 Potassium Chloride [Klor-Con 10] 10 meq PO 09/27/17 Sumatriptan [Imitrex] 6 mg SC .X1 PRN 09/27/17 Trazodone ER [Oleptro Er] 100 mg 09/27/17 Furosemide 60 mg PO DAILY 11/08/17 Insulin Glargine,Hum.rec.anlog 40 unit SQ BID 11/22/17 [Kim Gottlieb] Surgical History: - - Plastic surgery of the right forearm and right arm when patient was a child. Smoking Status: Former smoker Alcohol: Occasional - *Family History Maternal History Items: Heart Disease - two brothers and mother, - - Depression - Mother Review of Systems Constitutional: Denies: Chills, Fever, Weight Change HEENT: Denies: Head Aches, Sinus Congestion, Sinus Drainage Cardiovascular: Denies: Chest Pain, Palpitations Respiratory: Denies: Cough, Shortness of breath at rest, Sputum production Gastrointestinal: Denies: Abdominal Pain, Nausea, Vomiting Genitourinary: Denies: Dysuria Musculoskeletal: Denies: Joint Pain, Joint Tenderness Skin: Denies: Rash, Wounds Neurological: Denies: Numbness, Tingling, Focal weakness Psychiatric: Denies: Anxiety, Depression, Homicidal Ideations, Suicidal Ideations Hematologic/ Lymphatic: Denies: Easy Bruising, Easy Bleeding VTE Information - Inpt Only VTE Present on Admission: No VTE Mechan Device Prophylaxis: None VTE Pharm Prophylaxis ordered?: Yes Patient Problems: Active and Suspected Problems Suicide attempt by drug ingestion (Acute) - Physical Exam General: Alert, Oriented x3, Cooperative HEENT: Atraumatic, PERRLA, EOMI, Normocephalic Neck: Supple, No JVD, Negative Carotid Bruits Lungs: Clear to auscultation, Normal air movement Cardiovascular: Regular rate, No murmurs Abdomen: Bowel Sounds Present, Soft, Non Tender Extremities: No edema, Capillary Refill Less than 3 Seconds Skin: - - Bilateral legs erythema and dry scales. Musculoskeletal: No Tenderness to Palpation of Joints or Extremities Neurological: Neuro grossly intact Psych/Mental Status: Suicidal, - - Axillary during most part of the conversation. Vital Signs Temp Pulse Resp BP Pulse Ox 98.4 F 84 16 126/69 H 97 08/31/18 23:56 09/01/18 02:09 09/01/18 02:09 09/01/18 02:09 09/01/18 02:09 Oxygen Delivery Method Room Air Weight: 107.1 kg Body Mass Index (BMI) 40.5 Finger Stick Blood Glucose 99 Laboratory Tests Past 24 Hrs 09/01/18 09/01/18 09/01/18 00:17 00:17 00:17 WBC 8.6 RBC 5.30 Hgb 15.4 H Hct 47.8 H MCV 90.2 MCH 29.1 MCHC 32.2 RDW 13.4 RDW Differential 44.6 H Plt Count 313 MPV 8.9 Immature Gran % (Auto) 0.200 Neut % (Auto) 66.3 Lymph % (Auto) 29.6 [place] % (Auto) 2.9 Eos % (Auto) 0.8 Baso % (Auto) 0.2 Absolute Neuts (auto) 5.7 Absolute Lymphs (auto) 2.55 Total Counted Not Reportable Sodium 140 Potassium 4.6 Chloride 106 Carbon Dioxide 28.0 Anion Gap 6 BUN 20 H Creatinine 1.15 H Estim Creat Clear Calc 42.12 Est GFR (MDRD) Af Amer 61 Est GFR (MDRD) Non-Af 50 L BUN/Creatinine Ratio 17.4 Glucose 81 Calcium 9.1 Total Bilirubin 0.40 AST 32 ALT 25 Alkaline Phosphatase 115 Total Protein 8.5 H Albumin 3.7 Globulin 4.8 H Albumin/Globulin Ratio 0.8 L Salicylates < 1.7 L Acetaminophen < 10.0 L Ethyl Alcohol < 3.0 POC Glucose 09/01/18 09/01/18 09/01/18 01:35 00:59 00:28 POC Glucose 149 H 54 L 77 08/31/18 23:58 POC Glucose 103 Assessment/Plan All Active Problems Open wound of right lower extremity (Acute) Open wound of left lower extremity (Acute) Diabetic ulcer of right foot (Acute) Suicide attempt by drug ingestion (Acute) Diabetic leg ulcer (Acute) Cellulitis of left leg (Acute) The patient is a 67 year old F with a significant history of hypothyroidism, depression, hypertension, diabetes, previous attempts who presented with an attempted suicide by overdosing on insulin. Hypoglycemia Dextrose 10% infusion was started at the ED with rate adjustments. Also patient had edmond randee and cookies while in emergency department. Rate of D10 increase d to a 60 mL's per hour with every 30 minutes blood glucose check. Current blood glucose checks to be changed if patient has 4 consistent blood glucose of more than 120. No insulin at this time. Liberalize diet at this time. Hypoglycemia protocol with glucagon. Placed at the intensive care unit. Fire Alarm Technician consult. Major depression Cymbalta continued. Suicidal ideation Salicylate level acetaminophen level and ethanol level unremarkable. Counselled ED doctor called crisis center who will see patient One-to-one sitter. Hypertension Her blood pressure at admission was fairly stable. Home medications does not be reconsult at this time. Hydralazine as needed ordered. Hypothyroidism Continue thyroid medication Bilateral leg Dermatitis Eucerin cream ordered DVT prophylaxis Subcutaneous Lovenox. Code Visit OBSV E&M: 32026 Initial observation care L3
[2018-09-01 02:41] LABS: Bedside Glucose 99 mg/dL (70-110)
[2018-09-01 02:45] LABS: Bedside Glucose 79 mg/dL (70-110)
[2018-09-01 03:05] LABS: Bedside Glucose 169 mg/dL (70-110)
[2018-09-01] MEDS: Dextrose 10%-Water 250 ML 60 ML IV ×2 (03:49→06:34)
[2018-09-01 05:11] LABS: Bedside Glucose 88 mg/dL (70-110)
[2018-09-01 05:11] LABS: Bedside Glucose 110 mg/dL (70-110)
[2018-09-01 05:11] LABS: Bedside Glucose 118 mg/dL (70-110)
[2018-09-01] MEDS: Levothyroxine 100 MCG Tablet PO (05:57)
--- NOTE | 2018-09-01 06:02 | NURSING ---
Pt has clothing in the locked closet and also a photo album at the bedside.
[2018-09-01 07:06] LABS: Bedside Glucose 123 mg/dL (70-110)
[2018-09-01 07:06] LABS: Bedside Glucose 113 mg/dL (70-110)
[2018-09-01 07:06] LABS: Bedside Glucose 136 mg/dL (70-110)
--- NOTE | 2018-09-01 07:43 | PCM.CON.CC ---
Problem List (1) Suicide attempt by drug ingestion Status: Acute Qualifiers: Encounter type: initial encounter Qualified Code(s): T50.902A - Poisoning by unspecified drugs, medicaments and biological substances, intentional self-harm, initial encounter (2) HTN (hypertension) Status: Chronic Qualifiers: Hypertension type: essential hypertension Qualified Code(s): I10 - Essential (primary) hypertension (3) Diabetic leg ulcer Status: Acute (4) Hypothyroidism Status: Chronic (5) Diabetes mellitus Status: Chronic (6) Diabetic foot ulcer Status: Chronic Reason for Consult Date of Consultation: 09/01/18 Reason for Consultation: Overdose History of Present Illness: The patient is a 67 year old F, with past medical history listed below, who presented to [facility] on 09/01/2018 after intentionally taking insulin in a suicide attempt at approximately 11 PM. Patient had reportedly told people that she had taken extra NovoLog by FlexPen in the dark. However, in discussing with me, patient does have Toujeo at home and she states there was not much left, but I emptied it. Patient is not able to report how much insulin she took and states that it was in the dark. Patient reportedly had called her daughter to say goodbye and the daughter called EMS. Patient with significant hypoglycemia reported by EMS. Patient was given amps of D50 and blood sugar on arrival was 103. Patient continued to have dropping of insulin to as low as 54. Patient has been on D10 W IV at varying doses overnight. No seizures, syncope, nausea or vomiting has been reported during patient's ICU stay. Patient does have a follow-up home from her wedding that she refuses to part with. No other attempts to help hurt herself overnight. Patient denies taking any other medications. Patient continues to be tearful and remorseful of the event, but states that she has been depressed for over a month. Patient reports her marital issues as her #1 stressor. Patient denies any previous attempts at suicide and has not had issues with depression per her report. Patient denies any other signs of acute infection such as fever, chills, nausea, vomiting, diarrhea, lower extremity edema or increased shortness of breath. Patient has had difficulty with complications of diabetes in the past and reports she is been on insulin for quite some time. Review of systems otherwise negative x10 systems. Past Medical History Past Medical History (Chronic Problems): Chronic Problems HTN (hypertension) (Chronic) Hypothyroidism (Chronic) Diabetes mellitus (Chronic) Diabetic foot ulcer (Chronic) Allergies ciprofloxacin [From Cipro] Allergy (Verified 09/01/18 00:05) Rash codeine Adverse Reaction (Verified 09/01/18 00:05) Rash Home Medications: Ambulatory Orders Medication Instructions Recorded Duloxetine Hcl [Cymbalta] 60 mg PO DAILY 09/27/17 Gabapentin [Neurontin] 400 mg PO 09/27/17 Hydrocodone/Acetaminophen [[place] 09/27/17 5-325 Tablet] Insulin NPH/Reg 70/30 [Novolin 100 09/27/17 70/30] Levothyroxine Sodium [Synthroid] 100 mcg PO 09/27/17 Lisinopril 20 mg PO 09/27/17 Lovastatin [Mevacor] 40 mg PO DAILY 09/27/17 Miconazole Nitrate [Miconazole 3] 200 mg VG 09/27/17 Naproxen Sodium [Naprelan] 1,000 mg PO DAILY 09/27/17 Potassium Chloride [Klor-Con 10] 10 meq PO 09/27/17 Sumatriptan [Imitrex] 6 mg SC .X1 PRN 09/27/17 Trazodone ER [Oleptro Er] 100 mg 09/27/17 Furosemide 60 mg PO DAILY 11/08/17 Insulin Glargine,Hum.rec.anlog 40 unit SQ BID 11/22/17 [Kim Gottlieb] Surgical History: - - Plastic surgery of the right forearm and right arm when patient was a child. Smoking Status: Former smoker Tobacco Use: Cigarettes Alcohol: Occasional - *Family History Maternal History Items: Heart Disease - two brothers and mother, - - Depression - Mother Review of Systems Comment: See HPI, otherwise negative x10 systems Patient Problems: Active and Suspected Problems Suicide attempt by drug ingestion (Acute) Objective: CT of the head was unremarkable. - Physical Exam General: Alert, Oriented x3, Cooperative, No apparent distress, - - Morbidly obese. Speaking in full sentences. Tearful. HEENT: Atraumatic, PERRLA, EOMI, Normocephalic, - - No scleral icterus or injection noted. Oral: Moist Mucosa, No Gingival or Mucosal Lesions/ Ulcerations Neck: Supple, No JVD, No Nodes, Trachea Midline Lungs: Clear to auscultation, Normal air movement, No rhonchi, No wheeze, No rales, - - Symmetric expansion. No dullness to percussion. Cardiovascular: Regular rate, Regular Rhythm, Normal S1, Normal S2, No murmurs, No rub noted, No Gallop Abdomen: Bowel Sounds Present, Soft, Non Tender, Non-Distended, Obese Extremities: No clubbing, No cyanosis, Edema - Trace Skin: - - Chronic venous stasis of the lower extremities. Some excoriations present. No signs or symptoms of infection appreciated. Musculoskeletal: No Tenderness to Palpation of Joints or Extremities Lymphatic: No Cervical, Supraclavicular, or Inguinal Adenopathy Neurological: Cranial nerves II-XII grossly intact, Neuro grossly intact, Motor Exam 5/5 strength throughout Psych/Mental Status: Anxious, Impulsive, Restless Vital Signs Temp Pulse Resp BP Pulse Ox 36.3 C L 83 10 L 138/63 H 99 09/01/18 06:00 09/01/18 07:00 09/01/18 07:00 09/01/18 07:00 09/01/18 07:00 Oxygen Delivery Method Room Air Weight: 106 kg Body Mass Index (BMI) 40.1 Finger Stick Blood Glucose 169 Intake and Output for Last 24 Hours 08/30/18 08/31/18 09/01/18 23:59 23:59 23:59 Intake Total 694 / 694 Balance 694 / 694 Laboratory Tests Past 24 Hrs 09/01/18 09/01/18 09/01/18 00:17 00:17 00:17 WBC 8.6 RBC 5.30 Hgb 15.4 H Hct 47.8 H MCV 90.2 MCH 29.1 MCHC 32.2 RDW 13.4 RDW Differential 44.6 H Plt Count 313 MPV 8.9 Immature Gran % (Auto) 0.200 Neut % (Auto) 66.3 Lymph % (Auto) 29.6 [place] % (Auto) 2.9 Eos % (Auto) 0.8 Baso % (Auto) 0.2 Absolute Neuts (auto) 5.7 Absolute Lymphs (auto) 2.55 Total Counted Not Reportable Sodium 140 Potassium 4.6 Chloride 106 Carbon Dioxide 28.0 Anion Gap 6 BUN 20 H Creatinine 1.15 H Estim Creat Clear Calc 42.12 Est GFR (MDRD) Af Amer 61 Est GFR (MDRD) Non-Af 50 L BUN/Creatinine Ratio 17.4 Glucose 81 Calcium 9.1 Total Bilirubin 0.40 AST 32 ALT 25 Alkaline Phosphatase 115 Total Protein 8.5 H Albumin 3.7 Globulin 4.8 H Albumin/Globulin Ratio 0.8 L Salicylates < 1.7 L Acetaminophen < 10.0 L Ethyl Alcohol < 3.0 POC Glucose 09/01/18 09/01/18 09/01/18 06:23 05:46 05:07 POC Glucose 136 H 123 H 113 H 09/01/18 09/01/18 09/01/18 04:21 03:53 03:20 POC Glucose 110 88 118 H 09/01/18 09/01/18 09/01/18 03:02 02:39 02:07 POC Glucose 169 H 79 99 09/01/18 09/01/18 09/01/18 01:35 00:59 00:28 POC Glucose 149 H 54 L 77 08/31/18 23:58 POC Glucose 103 Clinical Impression(s) from Imaging Studies Brain CT 09/01/18 00:11 IMPRESSION: 1. Negative CT brain without contrast. No hemorrhage or acute disease. 2. Small retention cyst, right maxillary sinus. Individualized dose optimization techniques were used for this CT. at 0106 Reported and signed by: Nito Reardon MD Electronically Signed: Nito Reardon, at 1:03 EST Tel , Service support , Assessment/Plan Active and Suspected Problems Suicide attempt by drug ingestion (Acute) RECOMMENDATIONS: 1. Obtain fingerstick blood sugars q. one hour 2. BMP every 4 hours to monitor sodium and chloride 3. Continue suicide precautions 4. Okay to have p.o. diet from my perspective 5. Wean D10 as tolerated IMPRESSIONS: 1. Suicide attempt using insulin therapy She was significant hypoglycemia multiple times throughout hospitalization. Patient had originally reported using only short-acting insulin, but has admitted to me for long-acting insulin. This can last for over 24 hours. Continue to monitor, but patient may need to be made a full admit. We will continue with D10 for now, but obtain chemistries to be sure patient does not develop significant hyponatremia. Wean D10 drip as tolerated. May need to be changed to D10 normal saline pending lab results. Anticipate patient will not be able to be evaluated by crisis until tomorrow. 2. Diabetes mellitus Patient with history of diabetic complications in the past. Patient overdosed on various insulins prior to presentation. We will continue with blood sugar checks, but decrease dextrose infusion to control blood sugars. 3. Major depression/suicidal ideation Patient reporting to me that she does not have a history of depression, but is on Cymbalta at baseline. Patient also reported she did not have a history of suicidal ideation, but patient reportedly has attempted overdoses in the past. Patient will need crisis evaluation. 4. Morbid obesity/hypertension/hypothyroidism/chronic venous stasis Complicates care, management, recovery and prognosis. Likely okay to continue with baseline medications. Code Visit Inpatient E&M: 08634 Init Hosp L3
--- NOTE | 2018-09-01 07:48 | CON.PCM_ITS ---
Problem List (1) Suicide attempt by drug ingestion Status: Acute Qualifiers: Encounter type: initial encounter Qualified Code(s): T50.902A - Poisoning by unspecified drugs, medicaments and biological substances, intentional self- harm, initial encounter (2) HTN (hypertension) Status: Chronic Qualifiers: Hypertension type: essential hypertension Qualified Code(s): I10 - Ess ential (primary) hypertension (3) Diabetic leg ulcer Status: Acute (4) Hypothyroidism Status: Chronic (5) Diabetes mellitus Status: Chronic (6) Diabetic foot ulcer Status: Chronic Reason for Consult Date of Consultation: 09/01/18 Reason for Consultation: Overdose History of Present Illness: The patient is a 67 year old F, with past medical history listed below, who presented to on 09/01/2018 after intentionally taking insulin in a suicide attempt at approximately 11 PM. Patient had reportedly t old people that she had taken extra NovoLog by FlexPen in the dark. However, in discussing with me, patient does have Toujeo at home and she states there was not much left, but I emptied it. Patient is not able to report how much insulin she took and states that it was in the dark. Patient reportedly had called her daughter to say goodbye and the daughter called EMS. Patient with significant hypoglycemia reported by EMS. Patient was given amps of D50 and blood sugar on arrival was 103. Patient continued to have dropping of insulin to as low as 54. Patient has been on D10 W IV at varying doses overnight. No seizures, syncope, nausea or vomiting has been reported during patient's ICU stay. Patient does have a follow-up home from her wedding that she refuses to part with. No other attempts to help hurt herself overnight. Patient denies taking any other medications. Patient continues to be tearful and remorseful of the event, but states that she has been depressed for over a month. Patient reports her marital issues as her #1 stressor. Patient denies any previous attempts at suicide and has not had issues with depression per her report. Patient denies any other signs of acute infection such as fever, chills, nausea, vomiting, diarrhea, lower extremity edema or increased shortness of breath. Patient has had difficulty with complications of diabetes in the past and reports she is been on insulin for quite some time. Review of systems otherwise negative x10 systems. Past Medical History Past Medical History (Chronic Problems): Chronic Problems HTN (hypertension) (Chronic) Hypothyroidism (Chronic) Diabetes mellitus (Chronic) Diabetic foot ulcer (Chronic) Allergies ciprofloxacin [From Cipro] Allergy (Verified 09/01/18 00:05) Rash codeine Adverse Reaction (Verified 09/01/18 00:05) Rash Home Medications: Ambulatory Orders Medication Instructions Recorded Duloxetine Hcl [Cymbalta] 60 mg PO DAILY 09/27/17 Gabapentin [Neurontin] 400 mg PO 09/27/17 Hydrocodone/Acetaminophen [Osgood 09/27/17 5-325 Tablet] Insulin NPH/Reg 70/30 [Novolin 100 09/27/17 70/30] Levothyroxine Sodium [Synthroid] 100 mcg PO 09/27/17 Lisinopril 20 mg PO 09/27/17 Lovastatin [Mevacor] 40 mg PO DAILY 09/27/17 Miconazole Nitrate [Miconazole 3] 200 mg VG 09/27/17 Naproxen Sodium [Naprelan] 1,000 mg PO DAILY 09/27/17 Potassium Chloride [Klor-Con 10] 10 meq PO 09/27/17 Sumatriptan [Imitrex] 6 mg SC .X1 PRN 09/27/17 Trazodone ER [Oleptro Er] 100 mg 09/27/17 Furosemide 60 mg PO DAILY 11/08/17 Insulin Glargine,Hum.rec.anlog 40 unit SQ BID 11/22/17 [Kim Gottlieb] Surgical History: - - Plastic surgery of the right forearm and right arm when patient was a child. Smoking Status: Former smoker Tobacco Use: Cigarettes Alcohol: Occasional - *Family History Maternal History Items: Heart Disease - two brothers and mother, - - Depression - Mother Review of Systems Comment: See HPI, otherwise negative x10 systems Patient Problems: Active and Suspected Problems Suicide attempt by drug ingestion (Acute) Objective: CT of the head was unremarkable. - Physical Exam General: Alert, Oriented x3, Cooperative, No apparent distress, - - Morbidly obese. Speaking in full sentences. Tearful. HEENT: Atraumatic, PERRLA, EOMI, Normocephalic, - - No scleral icterus or injection noted. Oral: Moist Mucosa, No Gingival or Mucosal Lesions/ Ulcerations Neck: Supple, No JVD, No Nodes, Trachea Midline Lungs: Clear to auscultation, Normal air movement, No rhonchi, No wheeze, No rales, - - Symmetric expansion. No dullness to percussion. Cardiovascular: Regular rate, Regular Rhythm, Normal S1, Normal S2, No murmurs, No rub noted, No Gallop Abdomen: Bowel Sounds Present, Soft, Non Tender, Non-Distended, Obese Extremities: No clubbing, No cyanosis, Edema - Trace Skin: - - Chronic venous stasis of the lower extremities. Some excoriations present. No signs or symptoms of infection appreciated. Musculoskeletal: No Tenderness to Palpation of Joints or Extremities Lymphatic: No Cervical, Supraclavicular, or Inguinal Adenopathy Neurological: Cranial nerves II-XII grossly intact, Neuro grossly intact, Motor Exam 5/5 strength throughout Psych/Mental Status: Anxious, Impulsive, Restless Vital Signs Temp Pulse Resp BP Pulse Ox 36.3 C L 83 10 L 138/63 H 99 09/01/18 06:00 09/01/18 07:00 09/01/18 07:00 09/01/18 07:00 09/01/18 07:00 Oxygen Delivery Method Room Air Weight: 106 kg Body Mass Index (BMI) 40.1 Finger Stick Blood Glucose 169 Intake and Output for Last 24 Hours 08/30/18 08/31/18 09/01/18 23:59 23:59 23:59 Intake Total 694 / 694 Balance 694 / 694 Laboratory Tests Past 24 Hrs 09/01/18 09/01/18 09/01/18 00:17 00:17 00:17 WBC 8.6 RBC 5.30 Hgb 15.4 H Hct 47.8 H MCV 90.2 MCH 29.1 MCHC 32.2 RDW 13.4 RDW Differential 44.6 H Plt Count 313 MPV 8.9 Immature Gran % (Auto) 0.200 Neut % (Auto) 66.3 Lymph % (Auto) 29.6 [place] % (Auto) 2.9 Eos % (Auto) 0.8 Baso % (Auto) 0.2 Absolute Neuts (auto) 5.7 Absolute Lymphs (auto) 2.55 Total Counted Not Reportable Sodium 140 Potassium 4.6 Chloride 106 Carbon Dioxide 28.0 Anion Gap 6 BUN 20 H Creatinine 1.15 H Estim Creat Clear Calc 42.12 Est GFR (MDRD) Af Amer 61 Est GFR (MDRD) Non-Af 50 L BUN/Creatinine Ratio 17.4 Glucose 81 Calcium 9.1 Total Bilirubin 0.40 AST 32 ALT 25 Alkaline Phosphatase 115 Total Protein 8.5 H Albumin 3.7 Globulin 4.8 H Albumin/Globulin Ratio 0.8 L Salicylates < 1.7 L Acetaminophen < 10.0 L Ethyl Alcohol < 3.0 POC Glucose 09/01/18 09/01/18 09/01/18 06:23 05:46 05:07 POC Glucose 136 H 123 H 113 H 09/01/18 09/01/18 09/01/18 04:21 03:53 03:20 POC Glucose 110 88 118 H 09/01/18 09/01/18 09/01/18 03:02 02:39 02:07 POC Glucose 169 H 79 99 09/01/18 09/01/18 09/01/18 01:35 00:59 00:28 POC Glucose 149 H 54 L 77 08/31/18 23:58 POC Glucose 103 Clinical Impression(s) from Imaging Studies Brain CT 09/01/18 00:11 IMPRESSION: 1. Negative CT brain without contrast. No hemorrhage or acute disease. 2. Small retention cyst, right maxillary sinus. Individualized dose optimization techniques were used for this CT. at 0106 Reported and signed by: Nito Reardon MD Electronically Signed: Nito Reardon, at 1:03 EST Tel , Service support , Assessment/Plan Active and Suspected Problems Suicide attempt by drug ingestion (Acute) RECOMMENDATIONS: 1. Obtain fingerstick blood sugars q. one hour 2. BMP every 4 hours to monitor sodium and chloride 3. Continue suicide precautions 4. Okay to have p.o. diet from my perspective 5. Wean D10 as tolerated IMPRESSIONS: 1. Suicide attempt using insulin therapy She was significant hypoglycemia multiple times throughout hospitalization. Patient had originally reported using only short-acting insulin, but has admitted to me for long-acting insulin. This can last for over 24 hours. Continue to monitor, but patient may need to be made a full admit. We will continue with D10 for now, but obtain chemistries to be sure patient does not develop significant hyponatremia. Wean D10 drip as tolerated. May need to be changed to D10 normal saline pending lab results. Anticipate patient will not be able to be evaluated by crisis until tomorrow. 2. Diabetes mellitus Patient with history of diabetic complications in the past. Patient overdosed on various insulins prior to presentation. We will continue with blood sugar checks, but decrease dextrose infusion to control blood sugars. 3. Major depression/suicidal ideation Patient reporting to me that she does not have a history of depression, but is on Cymbalta at baseline. Patient also reported she did not have a history of suicidal ideation, but patient reportedly has attempted overdoses in the past. Patient will need crisis evaluation. 4. Morbid obesity/hypertension/hypothyroidism/chronic venous stasis Complicates care, management, recovery and prognosis. Likely okay to continue with baseline medications. Code Visit Inpatient E&M: 46916 Init Hosp L3
--- NOTE | 2018-09-01 08:40 | PCM.PN.HOSP ---
Patient Problems: Active and Suspected Problems Suicide attempt by drug ingestion (Acute) Subjective: States that she has to leave today so that she can take care of her got dogs. When asked if she did not let anyone know that she had ingested all this and: What would happen, patient stated that she would . When asked further who take care of her dogs, patient said her would. Vitals/I&O's: Vital Signs Temp Pulse Resp BP Pulse Ox 36.3 C L 83 10 L 138/63 H 99 09/01/18 06:00 09/01/18 07:00 09/01/18 07:00 09/01/18 07:00 09/01/18 07:00 Oxygen Delivery Method Room Air Weight: 106 kg Body Mass Index (BMI) 40.1 Finger Stick Blood Glucose 169 Intake and Output for Last 24 Hours 08/30/18 08/31/18 09/01/18 23:59 23:59 23:59 Intake Total 694 / 694 Balance 694 / 694 General: Alert, - - Uncooperative. Refused physical exam. HEENT: Atraumatic, Normocephalic Psych/Mental Status: Agitated, Flat Affect Laboratory Results 08/31/18 23:58: POC Glucose 103 09/01/18 00:17: WBC 8.6, RBC 5.30, Hgb 15.4 H, Hct 47.8 H, MCV 90.2, MCH 29.1, MCHC 32.2, RDW 13.4, RDW Differential 44.6 H, Plt Count 313, MPV 8.9, Immature Gran % (Auto) 0.200, Neut % (Auto) 66.3, Lymph % (Auto) 29.6, [place] % (Auto) 2.9, Eos % (Auto) 0.8, Baso % (Auto) 0.2, Absolute Neuts (auto) 5.7, Absolute Lymphs (auto) 2.55, Total Counted Not Reportable 09/01/18 00:17: Sodium 140, Potassium 4.6, Chloride 106, Carbon Dioxide 28.0, Anion Gap 6, BUN 20 H, Creatinine 1.15 H, Estim Creat Clear Calc 42.12, Est GFR (MDRD) Af Amer 61, Est GFR (MDRD) Non-Af 50 L, BUN/Creatinine Ratio 17.4, Glucose 81, Calcium 9.1, Total Bilirubin 0.40, AST 32, ALT 25, Alkaline Phosphatase 115, Total Protein 8.5 H, Albumin 3.7, Globulin 4.8 H, Albumin/Globulin Ratio 0.8 L 09/01/18 00:17: Salicylates < 1.7 L, Acetaminophen < 10.0 L, Ethyl Alcohol < 3.0 09/01/18 00:28: POC Glucose 77 09/01/18 00:59: POC Glucose 54 L 09/01/18 01:35: POC Glucose 149 H 09/01/18 02:07: POC Glucose 99 09/01/18 02:39: POC Glucose 79 09/01/18 03:02: POC Glucose 169 H 09/01/18 03:20: POC Glucose 118 H 09/01/18 03:53: POC Glucose 88 09/01/18 04:21: POC Glucose 110 09/01/18 05:07: POC Glucose 113 H 09/01/18 05:46: POC Glucose 123 H 09/01/18 06:23: POC Glucose 136 H Current Medications Dextrose (D50w Syringe) 0 gm IV X1 PRN; Protocol PRN Reason: Hypoglycemia Duloxetine HCl (Cymbalta) 60 mg PO DAILY [facility] Enoxaparin Sodium (Lovenox) 40 mg SC DAILY@1000 [facility] Glucagon () 1 mg IM .X1 PRN PRN Reason: Hypoglycemia Hydralazine HCl (Apresoline Iv) 5 mg IV Q4H PRN PRN PRN Reason: SBP > 160 Dextrose (Dextrose 10%-Water) 250 mls @ 60 mls/hr IV .Q4H10M [facility] Last Admin: 09/01/18 06:34 Dose: 60 mls/hr Levothyroxine Sodium (Synthroid) 100 mcg PO DAILY@0600 [facility] Last Admin: 09/01/18 05:57 Dose: 100 mcg Magnesium Hydroxide (Milk Of Magnesia) 30 ml PO DAILY PRN PRN PRN Reason: Constipation Multi-Ingredient Cream (Eucerin) 1 applic TOPICAL BID [facility]; Protocol Medical Necessity - Tobacco Use Smoking Status: Former smoker Tobacco Use: Cigarettes Assessment/Plan All Active Problems Suicide attempt by drug ingestion (Acute) 1. Suicide attempt With Tuojeo and Novolog injection with intent to commit suicide. On DW10 Currently blood sugars are stable wean D10W as able follow up electrolytes, pt may refuse lab draws, but currently, patient is not competent justify a refusal Crisis to evaluate for inpatient facility once medically stable, which may not be until 09/02 2. DM2 insulins on hold due to suicide attempt reintroduce at later point when concern for hypoglycemia is over 3. DVT proph: LMWH Code Visit Procedures: Other Procedure - See Report - Non billable rounding.
--- NOTE | 2018-09-01 08:48 | PN_ITS ---
Patient Problems: Active and Suspected Problems Suicide attempt by drug ingestion (Acute) Subjective: States that she has to leave today so that she can take care of her got dogs. When asked if she did not let anyone know that she had ingested all this and: What would happen, patient stated that she would . When asked further who take care of her dogs, patient said her would. Vitals/I&O's: Vital Signs Temp Pulse Resp BP Pulse Ox 36.3 C L 83 10 L 138/63 H 99 09/01/18 06:00 09/01/18 07:00 09/01/18 07:00 09/01/18 07:00 09/01/18 07:00 Oxygen Delivery Method Room Air Weight: 106 kg Body Mass Index (BMI) 40.1 Finger Stick Blood Glucose 169 Intake and Output for Last 24 Hours 08/30/18 08/31/18 09/01/18 23:59 23:59 23:59 Intake Total 694 / 694 Balance 694 / 694 General: Alert, - - Uncooperative. Refused physical exam. HEENT: Atraumatic, Normocephalic Psych/Mental Status: Agitated, Flat Affect Laboratory Results 08/31/18 23:58: POC Glucose 103 09/01/18 00:17: WBC 8.6, RBC 5.30, Hgb 15.4 H, Hct 47.8 H, MCV 90.2, MCH 29.1, MCHC 32.2, RDW 13.4, RDW Differential 44.6 H, Plt Count 313, MPV 8.9, Immature Gran % (Auto) 0.200, Neut % (Auto) 66.3, Lymph % (Auto) 29.6, [place] % (Auto) 2.9, Eos % (Auto) 0.8, Baso % (Auto) 0.2, Absolute Neuts (auto) 5.7, Absolute Lymphs (auto) 2.55, Total Counted Not Reportable 09/01/18 00:17: Sodium 140, Potassium 4.6, Chloride 106, Carbon Dioxide 28.0, Anion Gap 6, BUN 20 H, Creatinine 1.15 H, Estim Creat Clear Calc 42.12, Est GFR (MDRD) Af Amer 61, Est GFR (MDRD) Non-Af 50 L, BUN/Creatinine Ratio 17.4, Glucose 81, Calcium 9.1, Total Bilirubin 0.40, AST 32, ALT 25, Alkaline Phosphatase 115, Total Protein 8.5 H, Albumin 3.7, Globulin 4.8 H, Albumin/Globulin Ratio 0.8 L 09/01/18 00:17: Salicylates < 1.7 L, Acetaminophen < 10.0 L, Ethyl Alcohol < 3.0 09/01/18 00:28: POC Glucose 77 09/01/18 00:59: POC Glucose 54 L 09/01/18 01:35: POC Glucose 149 H 09/01/18 02:07: POC Glucose 99 09/01/18 02:39: POC Glucose 79 09/01/18 03:02: POC Glucose 169 H 09/01/18 03:20: POC Glucose 118 H 09/01/18 03:53: POC Glucose 88 09/01/18 04:21: POC Glucose 110 09/01/18 05:07: POC Glucose 113 H 09/01/18 05:46: POC Glucose 123 H 09/01/18 06:23: POC Glucose 136 H Current Medications Dextrose (D50w Syringe) 0 gm IV X1 PRN; Protocol PRN Reason: Hypoglycemia Duloxetine HCl (Cymbalta) 60 mg PO DAILY [facility] Enoxaparin Sodium (Lovenox) 40 mg SC DAILY@1000 [facility] Glucagon () 1 mg IM .X1 PRN PRN Reason: Hypoglycemia Hydralazine HCl (Apresoline Iv) 5 mg IV Q4H PRN PRN PRN Reason: SBP > 160 Dextrose (Dextrose 10%-Water) 250 mls @ 60 mls/hr IV .Q4H10M [facility] Last Admin: 09/01/18 06:34 Dose: 60 mls/hr Levothyroxine Sodium (Synthroid) 100 mcg PO DAILY@0600 [facility] Last Admin: 09/01/18 05:57 Dose: 100 mcg Magnesium Hydroxide (Milk Of Magnesia) 30 ml PO DAILY PRN PRN PRN Reason: Constipation Multi-Ingredient Cream (Eucerin) 1 applic TOPICAL BID [facility]; Protocol Medical Necessity - Tobacco Use Smoking Status: Former smoker Tobacco Use: Cigarettes Assessment/Plan All Active Problems Suicide attempt by drug ingestion (Acute) 1. Suicide attempt * With Tuojeo and Novolog injection with intent to commit suicide. * On DW10 * Currently blood sugars are stable * wean D10W as able * follow up electrolytes, pt may refuse lab draws, but currently, patient is not competent justify a refusal * Crisis to evaluate for inpatient facility once medically stable, which may not be until 09/02 2. DM2 * insulins on hold due to suicide attempt * reintroduce at later point when concern for hypoglycemia is over 3. DVT proph: LMWH Code Visit Procedures: Other Procedure - See Report - Non billable rounding.
[2018-09-01 09:13] LABS: Anion Gap 7 (5-15); BUN 16 mg/dL (7-18); BUN/Creat Ratio 15.7 RATIO (10-20); Calcium,Total 8.7 mg/dL (8.5-10.1); Chloride 102 mmol/L (98-107); Creatinine, Serum 1.02 mg/dL (0.55-1.02); EST Glomerular Filtration Rate 58 mL/min (>60); Est Glom Filt Rate - Afr Amer 70 mL/min (>60); Estimated Creatinine Clearance 47.48 ml/min; Glucose 160 mg/dL (74-106); Magnesium 1.3 mg/dL (1.6-2.6); Phosphorus 2.7 mg/dL (2.5-4.9); Potassium 4.2 mmol/L (3.5-5.1); Sodium Level 137 mmol/L (136-145)
[2018-09-01 09:36] LABS: Bedside Glucose 159 mg/dL (70-110)
[2018-09-01 09:36] LABS: Bedside Glucose 161 mg/dL (70-110)
[2018-09-01] MEDS: Enoxaparin 40 MG/0.4 ML Syringe SC (10:18)
[2018-09-01] MEDS: DULoxetine Hcl 60 MG Capsule PO (10:22)
[2018-09-01] MEDS: Dextrose 10%-Water 250 ML 50 ML IV (11:40)
[2018-09-01 12:30] LABS: Bedside Glucose 255 mg/dL (70-110)
[2018-09-01 12:30] LABS: Bedside Glucose 241 mg/dL (70-110)
[2018-09-01 12:30] LABS: Bedside Glucose 207 mg/dL (70-110)
[2018-09-01 14:31] LABS: Bedside Glucose 287 mg/dL (70-110)
[2018-09-01 14:31] LABS: Bedside Glucose 250 mg/dL (70-110)
[2018-09-01 14:31] LABS: Bedside Glucose 255 mg/dL (70-110)
[2018-09-01 15:54] LABS: Amphetamine Urine VISTA NEGATIVE (<1000 ng/mL); Barbiturate Urine VISTA NEGATIVE (< 200 ng/mL); Benzodiazepine Urine VISTA NEGATIVE (< 200 ng/mL); Cocaine Urine VISTA NEGATIVE (< 300 ng/mL); Ecstacy Urine VISTA NEGATIVE (< 500 ng/mL); Methadone Urine VISTA NEGATIVE (< 300 ng/mL); PCP Urine VISTA NEGATIVE (< 25 ng/mL); THC Urine VISTA NEGATIVE (< 50 ng/mL); Vista UDS pH Range 6
[2018-09-01] MEDS: Insulin Lispro 100 UNIT/ML INSULN.PEN SC ×2 (17:57→21:58)
[2018-09-01 18:20] LABS: Bedside Glucose 270 mg/dL (70-110)
[2018-09-01 18:20] LABS: Bedside Glucose 250 mg/dL (70-110)
[2018-09-01 22:05] LABS: Bedside Glucose 291 mg/dL (70-110)
[2018-09-01] MEDS: MELATONIN 10 MG TABLET 5 MG PO (23:29)
[2018-09-02] VITALS (14 sets, daily range): BP systolic 95–133; BP diastolic 56–74; PULSE 66–80; RESP 8–16; TEMP 36.2–36.6; O2SAT 94–99
[2018-09-02 04:22] LABS: Absolute Lymphocyte Count 1.93 X10^3/ul (0.83-4.51); Absolute Neutrophil Count 3.9 X10^3/uL (2.0-7.7); Basophil# 0.02 X10^3/uL; Basophil% 0.3 % (0-1); Eosinophil# 0.03 X10^3/uL; Eosinophils% 0.5 % (0-5); Hematocrit 43.2 % (37-47); Hemoglobin 13.7 g/dl (12.0-15.0); Lymphocyte # 1.93 X10^3/ul (4.0); Lymphocyte % 30.1 % (19-41); Mean Corp Hgb Conc 31.7 g/gl (32-36); Mean Corpuscular Hgb 28.8 pg (27.0-32.0); Mean Corpuscular Volume 90.9 fL (81-99); Mean Platelet Vol. 9.3 fl (6.2-12.0); Monocyte# 0.51 X10^3/uL; Monocyte% 7.9 % (0-10); Neutrophil # 3.92 X10^3/uL (2.7-7.7); Platelet Count 218 K/mm3 (150-450); RBC Distribution Width CV 13.3 % (11.6-14.6); RBC Distribution Width SD 44.1 fl (35.1-43.9); Red Blood Count 4.75 M/mm3 (4.2-5.4); White Blood Count 6.4 K/mm3 (4.4-11.0)
[2018-09-02 04:31] LABS: POSITIVE COUNT NO; POSITIVE DIFFERENTIAL NO; POSITIVE MORPHOLOGY NO
[2018-09-02 05:34] LABS: Anion Gap 8 (5-15); BUN 16 mg/dL (7-18); Calcium,Total 8.3 mg/dL (8.5-10.1); Chloride 103 mmol/L (98-107); Creatinine, Serum 1.07 mg/dL (0.55-1.02); EST Glomerular Filtration Rate 55 mL/min (>60); Est Glom Filt Rate - Afr Amer 66 mL/min (>60); Estimated Creatinine Clearance 45.26 ml/min; Glucose 282 mg/dL (74-106); Magnesium 4.1 mg/dL (1.6-2.6); Phosphorus 2.9 mg/dL (2.5-4.9); Potassium 4.7 mmol/L (3.5-5.1); Sodium Level 137 mmol/L (136-145)
[2018-09-02] MEDS: Levothyroxine 100 MCG Tablet PO (05:40)
[2018-09-02 06:46] LABS: Bedside Glucose 281 mg/dL (70-110)
--- NOTE | 2018-09-02 06:59 | PN_ITS ---
Subjective: The patient was seen and examined at the bedside this morning. Events from the last 24 hours have been reviewed. The patient is currently afebrile, hemodynamically stable and maintaining appropriate oxygen saturations on room air. The patient's dextrose drip was discontinued yesterday at approximately 1430 hrs. The patient is now a bit hyperglycemic with blood sugars in the mid to upper 200s. Objective: The patient's most recent lab work, culture data and imaging studies have all been personally reviewed. General: Alert, Cooperative, No apparent distress HEENT: Atraumatic, PERRLA, Normocephalic Oral: No Gingival or Mucosal Lesions/ Ulcerations Neck: Supple, No Nodes, Trachea Midline Lungs: Normal air movement, No rhonchi, No wheeze, No rales Cardiovascular: Regular rate, Regular Rhythm, Normal S1, Normal S2, No murmurs Abdomen: Bowel Sounds Present, Soft, Non Tender, Obese Extremities: No clubbing, No cyanosis, No edema Skin: - - Chronic venous stasis dermatitis Musculoskeletal: No Tenderness to Palpation of Joints or Extremities Lymphatic: No Cervical, Supraclavicular, or Inguinal Adenopathy Neurological: Neuro grossly intact Psych/Mental Status: Normal Affect, Appropriate, Depressed Vital Signs Temp Pulse Resp BP Pulse Ox 36.6 C 66 16 95/56 L 94 09/02/18 04:00 09/02/18 06:00 09/02/18 06:00 09/02/18 06:00 09/02/18 06:00 Oxygen Delivery Method Room Air Weight: 234 lb 5.622 oz Body Mass Index (BMI) 40.1 Finger Stick Blood Glucose 270 Intake and Output for Last 24 Hours 08/31/18 09/01/18 09/02/18 23:59 23:59 23:59 Intake Total 1413 / 1413 175 / 175 Output Total 450 / 450 1200 / 1200 Balance 963 / 963 -1025 / -1025 Labs (Last 48 Hours) 08/31/18 09/01/18 09/01/18 23:58 00:17 00:17 WBC 8.6 RBC 5.30 Hgb 15.4 H Hct 47.8 H MCV 90.2 MCH 29.1 MCHC 32.2 RDW 13.4 RDW Differential 44.6 H Plt Count 313 MPV 8.9 Immature Gran % (Auto) 0.200 Neut % (Auto) 66.3 Lymph % (Auto) 29.6 [place] % (Auto) 2.9 Eos % (Auto) 0.8 Baso % (Auto) 0.2 Absolute Neuts (auto) 5.7 Absolute Lymphs (auto) 2.55 Total Counted Not Reportable Sodium 140 Potassium 4.6 Chloride 106 Carbon Dioxide 28.0 Anion Gap 6 BUN 20 H Creatinine 1.15 H Estim Creat Clear Calc 42.12 Est GFR (MDRD) Af Amer 61 Est GFR (MDRD) Non-Af 50 L BUN/Creatinine Ratio 17.4 Glucose 81 Calcium 9.1 Phosphorus Magnesium Total Bilirubin 0.40 AST 32 ALT 25 Alkaline Phosphatase 115 Total Protein 8.5 H Albumin 3.7 Globulin 4.8 H Albumin/Globulin Ratio 0.8 L Salicylates Urine Opiates Screen Urine Methadone Screen Acetaminophen Ur Barbiturates Screen Ur Phencyclidine Scrn Ur Amphetamines Screen U Methamphetamin-MDMA U Benzodiazepines Scrn Urine Cocaine Screen U Cannabinoids Screen Ur Drug Screen Comment Ethyl Alcohol POC Glucose 103 09/01/18 09/01/18 09/01/18 00:17 00:28 00:59 WBC RBC Hgb Hct MCV MCH MCHC RDW RDW Differential Plt Count MPV Immature Gran % (Auto) Neut % (Auto) Lymph % (Auto) [place] % (Auto) Eos % (Auto) Baso % (Auto) Absolute Neuts (auto) Absolute Lymphs (auto) Total Counted Sodium Potassium Chloride Carbon Dioxide Anion Gap BUN Creatinine Estim Creat Clear Calc Est GFR (MDRD) Af Amer Est GFR (MDRD) Non-Af BUN/Creatinine Ratio Glucose Calcium Phosphorus Magnesium Total Bilirubin AST ALT Alkaline Phosphatase Total Protein Albumin Globulin Albumin/Globulin Ratio Salicylates < 1.7 L Urine Opiates Screen Urine Methadone Screen Acetaminophen < 10.0 L Ur Barbiturates Screen Ur Phencyclidine Scrn Ur Amphetamines Screen U Methamphetamin-MDMA U Benzodiazepines Scrn Urine Cocaine Screen U Cannabinoids Screen Ur Drug Screen Comment Ethyl Alcohol < 3.0 POC Glucose 77 54 L 09/01/18 09/01/18 09/01/18 01:35 02:07 02:39 WBC RBC Hgb Hct MCV MCH MCHC RDW RDW Differential Plt Count MPV Immature Gran % (Auto) Neut % (Auto) Lymph % (Auto) [place] % (Auto) Eos % (Auto) Baso % (Auto) Absolute Neuts (auto) Absolute Lymphs (auto) Total Counted Sodium Potassium Chloride Carbon Dioxide Anion Gap BUN Creatinine Estim Creat Clear Calc Est GFR (MDRD) Af Amer Est GFR (MDRD) Non-Af BUN/Creatinine Ratio Glucose Calcium Phosphorus Magnesium Total Bilirubin AST ALT Alkaline Phosphatase Total Protein Albumin Globulin Albumin/Globulin Ratio Salicylates Urine Opiates Screen Urine Methadone Screen Acetaminophen Ur Barbiturates Screen Ur Phencyclidine Scrn Ur Amphetamines Screen U Methamphetamin-MDMA U Benzodiazepines Scrn Urine Cocaine Screen U Cannabinoids Screen Ur Drug Screen Comment Ethyl Alcohol POC Glucose 149 H 99 79 09/01/18 09/01/18 09/01/18 03:02 03:20 03:53 WBC RBC Hgb Hct MCV MCH MCHC RDW RDW Differential Plt Count MPV Immature Gran % (Auto) Neut % (Auto) Lymph % (Auto) [place] % (Auto) Eos % (Auto) Baso % (Auto) Absolute Neuts (auto) Absolute Lymphs (auto) Total Counted Sodium Potassium Chloride Carbon Dioxide Anion Gap BUN Creatinine Estim Creat Clear Calc Est GFR (MDRD) Af Amer Est GFR (MDRD) Non-Af BUN/Creatinine Ratio Glucose Calcium Phosphorus Magnesium Total Bilirubin AST ALT Alkaline Phosphatase Total Protein Albumin Globulin Albumin/Globulin Ratio Salicylates Urine Opiates Screen Urine Methadone Screen Acetaminophen Ur Barbiturates Screen Ur Phencyclidine Scrn Ur Amphetamines Screen U Methamphetamin-MDMA U Benzodiazepines Scrn Urine Cocaine Screen U Cannabinoids Screen Ur Drug Screen Comment Ethyl Alcohol POC Glucose 169 H 118 H 88 09/01/18 09/01/18 09/01/18 04:21 05:07 05:46 WBC RBC Hgb Hct MCV MCH MCHC RDW RDW Differential Plt Count MPV Immature Gran % (Auto) Neut % (Auto) Lymph % (Auto) [place] % (Auto) Eos % (Auto) Baso % (Auto) Absolute Neuts (auto) Absolute Lymphs (auto) Total Counted Sodium Potassium Chloride Carbon Dioxide Anion Gap BUN Creatinine Estim Creat Clear Calc Est GFR (MDRD) Af Amer Est GFR (MDRD) Non-Af BUN/Creatinine Ratio Glucose Calcium Phosphorus Magnesium Total Bilirubin AST ALT Alkaline Phosphatase Total Protein Albumin Globulin Albumin/Globulin Ratio Salicylates Urine Opiates Screen Urine Methadone Screen Acetaminophen Ur Barbiturates Screen Ur Phencyclidine Scrn Ur Amphetamines Screen U Methamphetamin-MDMA U Benzodiazepines Scrn Urine Cocaine Screen U Cannabinoids Screen Ur Drug Screen Comment Ethyl Alcohol POC Glucose 110 113 H 123 H 09/01/18 09/01/18 09/01/18 06:23 07:37 08:31 WBC RBC Hgb Hct MCV MCH MCHC RDW RDW Differential Plt Count MPV Immature Gran % (Auto) Neut % (Auto) Lymph % (Auto) [place] % (Auto) Eos % (Auto) Baso % (Auto) Absolute Neuts (auto) Absolute Lymphs (auto) Total Counted Sodium Potassium Chloride Carbon Dioxide Anion Gap BUN Creatinine Estim Creat Clear Calc Est GFR (MDRD) Af Amer Est GFR (MDRD) Non-Af BUN/Creatinine Ratio Glucose Calcium Phosphorus Magnesium Total Bilirubin AST ALT Alkaline Phosphatase Total Protein Albumin Globulin Albumin/Globulin Ratio Salicylates Urine Opiates Screen Urine Methadone Screen Acetaminophen Ur Barbiturates Screen Ur Phencyclidine Scrn Ur Amphetamines Screen U Methamphetamin-MDMA U Benzodiazepines Scrn Urine Cocaine Screen U Cannabinoids Screen Ur Drug Screen Comment Ethyl Alcohol POC Glucose 136 H 161 H 159 H 09/01/18 09/01/18 09/01/18 08:50 09:34 10:25 WBC RBC Hgb Hct MCV MCH MCHC RDW RDW Differential Plt Count MPV Immature Gran % (Auto) Neut % (Auto) Lymph % (Auto) [place] % (Auto) Eos % (Auto) Baso % (Auto) Absolute Neuts (auto) Absolute Lymphs (auto) Total Counted Sodium 137 Potassium 4.2 Chloride 102 Carbon Dioxide 28.0 Anion Gap 7 BUN 16 Creatinine 1.02 Estim Creat Clear Calc 47.48 Est GFR (MDRD) Af Amer 70 Est GFR (MDRD) Non-Af 58 L BUN/Creatinine Ratio 15.7 Glucose 160 H Calcium 8.7 Phosphorus 2.7 Magnesium 1.3 L Total Bilirubin AST ALT Alkaline Phosphatase Total Protein Albumin Globulin Albumin/Globulin Ratio Salicylates Urine Opiates Screen Urine Methadone Screen Acetaminophen Ur Barbiturates Screen Ur Phencyclidine Scrn Ur Amphetamines Screen U Methamphetamin-MDMA U Benzodiazepines Scrn Urine Cocaine Screen U Cannabinoids Screen Ur Drug Screen Comment Ethyl Alcohol POC Glucose 207 H 255 H 09/01/18 09/01/18 09/01/18 11:27 12:27 13:35 WBC RBC Hgb Hct MCV MCH MCHC RDW RDW Differential Plt Count MPV Immature Gran % (Auto) Neut % (Auto) Lymph % (Auto) [place] % (Auto) Eos % (Auto) Baso % (Auto) Absolute Neuts (auto) Absolute Lymphs (auto) Total Counted Sodium Potassium Chloride Carbon Dioxide Anion Gap BUN Creatinine Estim Creat Clear Calc Est GFR (MDRD) Af Amer Est GFR (MDRD) Non-Af BUN/Creatinine Ratio Glucose Calcium Phosphorus Magnesium Total Bilirubin AST ALT Alkaline Phosphatase Total Protein Albumin Globulin Albumin/Globulin Ratio Salicylates Urine Opiates Screen Urine Methadone Screen Acetaminophen Ur Barbiturates Screen Ur Phencyclidine Scrn Ur Amphetamines Screen U Methamphetamin-MDMA U Benzodiazepines Scrn Urine Cocaine Screen U Cannabinoids Screen Ur Drug Screen Comment Ethyl Alcohol POC Glucose 241 H 250 H 287 H 09/01/18 09/01/18 09/01/18 14:27 15:30 15:43 WBC RBC Hgb Hct MCV MCH MCHC RDW RDW Differential Plt Count MPV Immature Gran % (Auto) Neut % (Auto) Lymph % (Auto) [place] % (Auto) Eos % (Auto) Baso % (Auto) Absolute Neuts (auto) Absolute Lymphs (auto) Total Counted Sodium Potassium Chloride Carbon Dioxide Anion Gap BUN Creatinine Estim Creat Clear Calc Est GFR (MDRD) Af Amer Est GFR (MDRD) Non-Af BUN/Creatinine Ratio Glucose Calcium Phosphorus Magnesium Total Bilirubin AST ALT Alkaline Phosphatase Total Protein Albumin Globulin Albumin/Globulin Ratio Salicylates Urine Opiates Screen NEGATIVE Urine Methadone Screen NEGATIVE Acetaminophen Ur Barbiturates Screen NEGATIVE Ur Phencyclidine Scrn NEGATIVE Ur Amphetamines Screen NEGATIVE U Methamphetamin-MDMA NEGATIVE U Benzodiazepines Scrn NEGATIVE Urine Cocaine Screen NEGATIVE U Cannabinoids Screen NEGATIVE Ur Drug Screen Comment Ethyl Alcohol POC Glucose 255 H 250 H 09/01/18 09/01/18 09/02/18 17:31 21:55 04:15 WBC RBC Hgb Hct MCV MCH MCHC RDW RDW Differential Plt Count MPV Immature Gran % (Auto) Neut % (Auto) Lymph % (Auto) [place] % (Auto) Eos % (Auto) Baso % (Auto) Absolute Neuts (auto) Absolute Lymphs (auto) Total Counted Sodium 137 Potassium 4.7 Chloride 103 Carbon Dioxide 26.0 Anion Gap 8 BUN 16 Creatinine 1.07 H Estim Creat Clear Calc 45.26 Est GFR (MDRD) Af Amer 66 Est GFR (MDRD) Non-Af 55 L BUN/Creatinine Ratio 15.0 Glucose 282 H Calcium 8.3 L Phosphorus 2.9 Magnesium 4.1 H Total Bilirubin AST ALT Alkaline Phosphatase Total Protein Albumin Globulin Albumin/Globulin Ratio Salicylates Urine Opiates Screen Urine Methadone Screen Acetaminophen Ur Barbiturates Screen Ur Phencyclidine Scrn Ur Amphetamines Screen U Methamphetamin-MDMA U Benzodiazepines Scrn Urine Cocaine Screen U Cannabinoids Screen Ur Drug Screen Comment Ethyl Alcohol POC Glucose 270 H 291 H 09/02/18 09/02/18 04:15 06:43 WBC 6.4 RBC 4.75 Hgb 13.7 Hct 43.2 MCV 90.9 MCH 28.8 MCHC 31.7 L RDW 13.3 RDW Differential 44.1 H Plt Count 218 MPV 9.3 Immature Gran % (Auto) 0.200 Neut % (Auto) 61.0 Lymph % (Auto) 30.1 [place] % (Auto) 7.9 Eos % (Auto) 0.5 Baso % (Auto) 0.3 Absolute Neuts (auto) 3.9 Absolute Lymphs (auto) 1.93 Total Counted Not Reportable Sodium Potassium Chloride Carbon Dioxide Anion Gap BUN Creatinine Estim Creat Clear Calc Est GFR (MDRD) Af Amer Est GFR (MDRD) Non-Af BUN/Creatinine Ratio Glucose Calcium Phosphorus Magnesium Total Bilirubin AST ALT Alkaline Phosphatase Total Protein Albumin Globulin Albumin/Globulin Ratio Salicylates Urine Opiates Screen Urine Methadone Screen Acetaminophen Ur Barbiturates Screen Ur Phencyclidine Scrn Ur Amphetamines Screen U Methamphetamin-MDMA U Benzodiazepines Scrn Urine Cocaine Screen U Cannabinoids Screen Ur Drug Screen Comment Ethyl Alcohol POC Glucose 281 H Clinical Impression(s) from Imaging Studies Brain CT 09/01/18 00:11 IMPRESSION: 1. Negative CT brain without contrast. No hemorrhage or acute disease. 2. Small retention cyst, right maxillary sinus. Individualized dose optimization techniques were used for this CT. at 0106 Reported and signed by: Nito Reardon MD Electronically Signed: Nito Reardon, at 1:03 EST Tel , Service support , Medical Necessity - Tobacco Use Smoking Status: Former smoker Tobacco Use: Cigarettes Assessment/Plan All Active Problems Suicide attempt by drug ingestion (Acute) RECOMMENDATIONS: 1. The patient is medically clear for evaluation by crisis. 2. Continue sliding scale insulin coverage and Accu-Cheks before meals and at bedtime. IMPRESSIONS: 1. Suicide attempt by intentional insulin overdose The patients continuous dextrose infusion was discontinued. She has remained euglycemic. Recommend transitioning to sliding scale coverage and Accu-Cheks before meals and at bedtime. From my perspective, the patient is medically clear for evaluation by the crisis team. 2. History of diabetes mellitus Continue current supportive measures and Accu-Cheks as scheduled. 3. Major depression/suicidal ideations The patient has a history of major depression and previous overdose attempts in the past. She will require crisis evaluation. 4. Morbid obesity/hypertension/hypothyroidism/chronic venous stasis Complicates care, management, recovery and prognosis. Likely okay to continue home medications. This note was generated with [employer] dictation software. It may contain incorrect words, spelling, and punctuation that were not noted in checking the note before signing. DISPOSITION: The patient is medically stable for transfer out of the intensive care unit. Given her lack of further ICU/pulmonary needs, will sign off. Please call with any additional questions. Code Visit Inpatient E&M: 62245 [facility] L3
[2018-09-02] MEDS: Insulin Lispro 100 UNIT/ML INSULN.PEN SC (10:02)
[2018-09-02] MEDS: DULoxetine Hcl 60 MG Capsule PO (10:03)
[2018-09-02] MEDS: Enoxaparin 40 MG/0.4 ML Syringe SC (10:04)
[2018-09-02 10:21] LABS: Bedside Glucose 272 mg/dL (70-110)
--- NOTE | 2018-09-02 10:24 | CASEMGMT ---
SW spoke with patient letting her know the lan administrator will be in to see her today. She had asked for a lan administrator yesterday, but he was not able to come in. Dorie MIRAMONTES MSW
--- NOTE | 2018-09-02 12:42 | PCM.DC ---
- Discharge Diagnoses Current Active Problems: Current Active and Chronic Problems Suicide attempt by drug ingestion (Acute) HTN (hypertension) (Chronic) You will use the following diet at home:: Cardiac Your liquids should be the consistency of: Regular/Thin Weight Bearing Status: Weight bearing as tolerated Allergies/Adverse Reactions: Allergies ciprofloxacin [From Cipro] Allergy (Verified 09/01/18 00:05) Rash codeine Adverse Reaction (Verified 09/01/18 00:05) Rash Medications to take at Discharge Duloxetine Hcl [Cymbalta] 60 mg PO DAILY 09/27/17 Gabapentin [Neurontin] 400 mg PO 09/27/17 Hydrocodone/Acetaminophen [[place] 5-325 Tablet] 09/27/17 Insulin NPH/Reg 70/30 [Novolin 70/30] 100 09/27/17 Levothyroxine Sodium [Synthroid] 100 mcg PO 09/27/17 Lisinopril 20 mg PO 09/27/17 Lovastatin [Mevacor] 40 mg PO DAILY 09/27/17 Miconazole Nitrate [Miconazole 3] 200 mg VG 09/27/17 Naproxen Sodium [Naprelan] 1,000 mg PO DAILY 09/27/17 Potassium Chloride [Klor-Con 10] 10 meq PO 09/27/17 Sumatriptan [Imitrex] 6 mg SC .X1 PRN 09/27/17 Trazodone ER [Oleptro Er] 100 mg 09/27/17 Furosemide 60 mg PO DAILY 11/08/17 Insulin Glargine,Hum.rec.anlog [Kim Gottlieb] 40 unit SQ BID 11/22/17 Primary Care Physician: Olivia Green,Out of [Primary Care Provider] - Please follow up with your Primary Care Physician in: 1-2 weeks Test Results: Test results from this visit will be discussed in further detail at your follow-up appointment, if applicable. Proposed Discharge Date: 09/02/18
--- NOTE | 2018-09-02 12:44 | DS.PCM_ITS ---
Discharge Date and Diagnosis - Problem List Patient Problems: Active and Suspected Problems Suicide attempt by drug ingestion (Acute) Date of Admission: 09/01/18 Date of Discharge: 09/02/18 - Primary Discharge Diagnosis Active and Suspected Problems Suicide attempt by drug ingestion (Acute) - Secondary Discharge Diagnosis Chronic Problems HTN (hypertension) (Chronic) Hypothyroidism (Chronic) Diabetes mellitus (Chronic) Diabetic foot ulcer (Chronic) Hospital Course and Treatment Imaging Results: 09/02/18 12:36 Chest 1 View (Portable) [RAD] Urgent Diagnostic Data Brain CT 09/01/18 00:11 IMPRESSION: 1. Negative CT brain without contrast. No hemorrhage or acute disease. 2. Small retention cyst, right maxillary sinus. Individualized dose optimization techniques were used for this CT. at 0106 Reported and signed by: Nito Reardon MD Electronically Signed: Nito Reardon, at 1:03 EST Tel , Service support , Consultations 09/02/18 06:55 Consult: Mental Health/Crisis Routine Reason for consult?: Intentional Insulin Overdose. Date Notified:: 09/02/18 Time notified:: 06:56 Operations: None Procedures: None Summary of Care Provided: The patient is a 67 year old F with past medical history as listed below. She was admitted through the ED with a complaint of attempted suicide by overdosing on insulin. She injected herself with NovoLog insulin in the dark without looking at the dosage and subsequently sent a goodbye message to her daughter and her friend and also to her that she would be . Daughter informed authorities and she was brought to the ED. Per ED documentation, patient said that her had been cheating on her and this had prompted her to attempt suicide. She had had multiple previous attempts at suicide. She was started on dextrose infusion in the ED and required frequent D50 IV pushes on account of hypoglycemia. She was admitted to the ICU for closer monitoring and more frequent blood glucose checks. Patient stabilized and hypoglycemia resolved. She was reviewed by mental health crisis on 09/02/2018 and decision was made to transfer patient to [facility] where she was accepted. Patient was seen and examined prior to discharge. She had no complaints and fe lt well. However she was unwilling to go to a psychiatric facility because she was concerned about her 2 dogs as nobody would be there to look after them. Patient was counseled strongly that she needed psychiatric evaluation and she needed to get better so that she could take care of her dogs well. Counseled to find family or friends who take care of her dogs. She denied any fever or chills, cough or chest pain, shortness of breath, abdominal pain, palpitations, diarrhea vomiting. Review of systems otherwise negative. Labs and vitals reviewed. Medications reviewed and reconciled prior to discharge. [] Patient Problems: Active and Suspected Problems Suicide attempt by drug ingestion (Acute) Objective: Vital Signs Height 5 ft 4 in Weight: 234 lb 5.622 oz Weight in Pounds 234.4 lbs Pulse Ox 99 Temperature 97.1 F Pulse Rate 73 Respiratory Rate 15 Blood Pressure [BP] 131/65 Blood Pressure 129/63 Blood Pressure Position [BP] Semi-Fowlers Blood Pressure Position Semi-Fowlers - Physical Exam General: Alert, Oriented x3, Cooperative, No apparent distress HEENT: Atraumatic, PERRLA, EOMI, Normocephalic Oral: Moist Mucosa Neck: Supple, No JVD, Negative Carotid Bruits Lungs: Clear to auscultation, Normal air movement, No rhonchi, No wheeze, No rales Cardiovascular: Regular rate, Regular Rhythm, Normal S1, Normal S2, No murmurs Abdomen: Bowel Sounds Present, Soft, Non Tender, Non-Distended, No Hepato- splenomegaly Extremities: No clubbing, No cyanosis, No edema, Capillary Refill Less than 3 Seconds Skin: No rashes, No breakdown Musculoskeletal: No Tenderness to Palpation of Joints or Extremities Lymphatic: No Cervical, Supraclavicular, or Inguinal Adenopathy Neurological: Cranial nerves II-XII grossly intact, Neuro grossly intact, Motor Exam 5/5 strength throughout Psych/Mental Status: Flat Affect, Alert and oriented to time, place, person, mood and affect Vital Signs Temp Pulse Resp BP Pulse Ox 97.1 F L 75 15 129/63 H 99 09/02/18 09:00 09/02/18 09:00 09/02/18 09:00 09/02/18 09:00 09/02/18 09:00 Oxygen Delivery Method Room Air Weight: 234 lb 5.622 oz Body Mass Index (BMI) 40.1 Finger Stick Blood Glucose 270 Intake and Output for Last 24 Hours 08/31/18 09/01/18 09/02/18 23:59 23:59 23:59 Intake Total 1413 / 1413 175 / 175 Output Total 450 / 450 1200 / 1200 Balance 963 / 963 -1025 / -1025 Laboratory Tests Past 24 Hrs 09/01/18 09/02/18 09/02/18 15:30 04:15 04:15 WBC 6.4 RBC 4.75 Hgb 13.7 Hct 43.2 MCV 90.9 MCH 28.8 MCHC 31.7 L RDW 13.3 RDW Differential 44.1 H Plt Count 218 MPV 9.3 Immature Gran % (Auto) 0.200 Neut % (Auto) 61.0 Lymph % (Auto) 30.1 [place] % (Auto) 7.9 Eos % (Auto) 0.5 Baso % (Auto) 0.3 Absolute Neuts (auto) 3.9 Absolute Lymphs (auto) 1.93 Total Counted Not Reportable Sodium 137 Potassium 4.7 Chloride 103 Carbon Dioxide 26.0 Anion Gap 8 BUN 16 Creatinine 1.07 H Estim Creat Clear Calc 45.26 Est GFR (MDRD) Af Amer 66 Est GFR (MDRD) Non-Af 55 L BUN/Creatinine Ratio 15.0 Glucose 282 H Calcium 8.3 L Phosphorus 2.9 Magnesium 4.1 H Urine Opiates Screen NEGATIVE Urine Methadone Screen NEGATIVE Ur Barbiturates Screen NEGATIVE Ur Phencyclidine Scrn NEGATIVE Ur Amphetamines Screen NEGATIVE U Methamphetamin-MDMA NEGATIVE U Benzodiazepines Scrn NEGATIVE Urine Cocaine Screen NEGATIVE U Cannabinoids Screen NEGATIVE Ur Drug Screen Comment POC Glucose 09/02/18 09/02/18 09/01/18 10:01 06:43 21:55 POC Glucose 272 H 281 H 291 H 09/01/18 09/01/18 09/01/18 17:31 15:43 14:27 POC Glucose 270 H 250 H 255 H 09/01/18 09/01/18 13:35 12:27 POC Glucose 287 H 250 H Discharge Diet: Low fat/ Low Cholesterol Discharge Activity: Return to Normal Activity Weight Bearing Status: Weight bearing as tolerated Home Medications: Medications to take at Discharge Duloxetine Hcl [Cymbalta] 60 mg PO DAILY 09/27/17 Gabapentin [Neurontin] 400 mg PO 09/27/17 Hydrocodone/Acetaminophen [[place] 5-325 Tablet] 09/27/17 Insulin NPH/Reg 70/30 [Novolin 70/30] 100 09/27/17 Levothyroxine Sodium [Synthroid] 100 mcg PO 09/27/17 Lisinopril 20 mg PO 09/27/17 Lovastatin [Mevacor] 40 mg PO DAILY 09/27/17 Miconazole Nitrate [Miconazole 3] 200 mg VG 09/27/17 Naproxen Sodium [Naprelan] 1,000 mg PO DAILY 09/27/17 Potassium Chloride [Klor-Con 10] 10 meq PO 09/27/17 Sumatriptan [Imitrex] 6 mg SC .X1 PRN 09/27/17 Trazodone ER [Oleptro Er] 100 mg 09/27/17 Furosemide 60 mg PO DAILY 11/08/17 Insulin Glargine,Hum.rec.anlog [Kim Gottlieb] 40 unit SQ BID 11/22/17 Primary Care Physician: Olivia Green,Out of [Primary Care Provider] - Please follow up with your Primary Care Physician in: 1-2 weeks Disposition: Psych Hospital or Unit - [facility] Minutes spent on discharge:: 40 Patient Condition:: Stable Medical Necessity - Tobacco Use Smoking Status: Former smoker Tobacco Use: Cigarettes Meaningful Use Info Meaningful Use Diagnoses (Choose all that apply): None applicable Code Visit Inpatient E&M: 08111 [facility] Hosp
--- NOTE | 2018-09-02 12:45 | RAD_ITS ---
STUDY: X-RAY CHEST REASON FOR EXAM: Female, 67 years old. History of hypoglycemia. TECHNIQUE: Single AP portable view of the chest. COMPARISON: None. FINDINGS: EKG electrodes are seen. The lungs are clear and expanded. Scattered calcified granulomas. There is no demonstrated pleural abnormality. Normal size heart. Normal mediastinum and mariaelena. Normal visualized pulmonary arteries. There is atherosclerotic tortuosity of the aortic arch and descending thoracic aorta. There are diffuse degenerative changes of the visualized thoracic spine. There is degenerative osteoarthritis of the bilateral shoulders. There is no demonstrated abnormality of the visualized soft tissue structures of the upper abdomen. RAD/Chest 1 View (Portable) IMPRESSION: No acute abnormality is seen. Electronically Signed: Joe Hoffman MD at 13:37 EST Tel [phone], Service support ,
--- NOTE | 2018-09-02 12:47 | CHAPLAIN ---
Type of Pastoral Visit _x__ Initial Visit ___ Follow-up Visit ___ On-call Visit ___ General Patient Visit ___ Spiritual Assessment ___ Family Conference ___ Bereavement ___ Rapid Response ___ Code Blue ___ Other (describe below) Pastoral Care Referral From _x__ Patient ___ Family ___ Nurse ___ Physician ___ Carbon Accountant ___ Oyster Shucker ___ Other (describe below) Sacrament/Intervention _x__ Active listening ___ Anointing ___ Scientologist ___ Bereavement ___ Communion _x__ Sera exploration ___ _x__ Life review _x__ Prayer ___ Reconciliation ___ Sacrament of Sick _x__ Supportive presence ___ Wedding ___ Other (describe below) Pastoral Comments patient requested swatch checker visit; pt is being watched in suicidal protocol; pt is open about situation of cheating and life of poverty and dismal home of one dark room; discussion concerning hurts and loss of trust with how to handle such disappointments; pt says that she has prayed to God to fix her marriage; pt is not wanting to go to a psych unit and would prefer to go to daughters home in [place]; pt is concerned about her two dogs; pt refers to her past history of times of depression and this current situation of not handling the breakup of her marriage of nine years; pt says that she views suicide as a sin and needs forgiveness; pt goal is to get back to my real self and my joyful nature; prayer accepted
[2018-09-02 15:26] LABS: Bedside Glucose 293 mg/dL (70-110)
--- NOTE | 2018-09-02 17:00 | NURSING ---
Called Nury Hernandez [facility] re: med list. Accurate med list placed in the computer and MD made aware. Discharge instructions not updated prior to patient transfer. Nury Hernandez RN states ok to FAX med list obtained by this RN from patient's pharmacy, [facility], to [phone]. Med list faxed at this time.
--- NOTE | 2018-09-02 18:57 | NURSING ---
Noted that pt's IV was not removed prior to discharge from ICU. Called Nury Hernandez at [phone] and informed nurse that IV was still intact in RT forearm. States she will notify patient's primary RN.
== END 2018-09-02 16:20 ==
LOC: ED 09-01 01:07 → ICU 09-01 02:33
PROVIDERS: Internal Medicine Critical Care Medicine; Admitting Provider Hospitalist; Emergency Provider Emergency Medicine; Visit Provider Student in an Organized Health Care Education/Training Program
DX: F32.9 Major depressive disorder, single episode, unspecified (principal); T38.3X2A Poisoning by insulin and oral hypoglycemic [antidiabetic] drugs, intentional self-harm, initial encounter; E11.649 Type 2 diabetes mellitus with hypoglycemia without coma; Z79.899 Other long term (current) drug therapy; Z79.4 Long term (current) use of insulin; I10 Essential (primary) hypertension; E03.9 Hypothyroidism, unspecified; Z87.891 Personal history of nicotine dependence; E66.01 Morbid (severe) obesity due to excess calories; Z68.41 Body mass index [BMI] 40.0-44.9, adult; Z71.3 Dietary counseling and surveillance; I87.8 Other specified disorders of veins; E11.65 Type 2 diabetes mellitus with hyperglycemia
CPT/HCPCS: 70450; 71045; 80048; 80053; 80307; 80320; 80329; 82962; 83735; 84100; 85025; 93005; 94762; 96361; 96372; 96374; 96375; 99218; 99285; J7030; A4216; G0378; G0480

== ENCOUNTER 2019-02-15 00:57 | Inpatient (IN) | payer MEDICAID, SELFPAY ==
[2018-09-01 03:25] VITALS: BMI 40.1
[2019-02-15] VITALS (11 sets, daily range): BP systolic 105–161; BP diastolic 50–80; PULSE 70–100; RESP 16–18; TEMP 36.6–37.7; O2SAT 94–98; BMI 42.5; BMI 41.8
--- NOTE | 2019-02-15 01:08 | RAD_ITS ---
STUDY: X-RAY - RIGHT TIBIA AND FIBULA REASON FOR EXAM: Female, 68 years old. Right lower leg pain TECHNIQUE: 2 view(s) of the tibia and fibula were obtained. COMPARISON: None. FINDINGS: Normal visualized tibia. Normal visualized fibula. Joint are in normal alignment without degenerative change. The soft tissue structures are unremarkable. RAD/Tibia & Fibula 2 Views IMPRESSION: Normal x-ray examination of the tibia and fibula. Electronically Signed: Kike Saunders MD at 3:00 EDT Tel , Service support ,
--- NOTE | 2019-02-15 01:19 | ED.VISSUMM ---
- ER Visit Summary Date of Service: 02/15/19 Chief Complaint: Cellulitis History of Present Illness: The patient is a 68 F presenting with bilateral lower extremity cellulitis. Patient's came to check on her today. He lives in [place]. He comes at the beginning of the month to help her with her bills. He noticed bilateral lower extremity cellulitis. She has had this in the past. She has been seen by wound center in the past. She states that they had healed up and over the past couple of weeks it has worsened. She states she had blisters that have popped. She denies fever. She denies chest pain or shortness of breath. She is able to ambulate with a walker. She denies trauma. She has history of diabetes, arthritis, depression. Physical Examination: Vitals are stable. Patient is afebrile. Alert no acute distress. HEENT exam is unremarkable. Neck is supple. Lungs are clear and equal bilaterally. Heart is regular rate and rhythm. Abdomen is soft nontender nondistended. Extremities bilateral lower extremity erythema with seeping wounds. Normal distal pulses. Skin is warm and dry. No focal neurologic deficit. Remainder of exam is unremarkable. Emergency Department Course and Treatment: CBC unremarkable. Chemistries shows sodium 133, glucose 438, BUN 21, creatinine 1.12. Lactic acid is normal. Wound and blood cultures were sent. Tib-fib x-rays bilaterally show no acute process. Vancomycin and Zosyn were ordered. Discussed with the hospitalist for admission. Disposition: Admission Impression: Bilateral lower extremity cellulitis This note was generated with Rosalind dictation software. It may contain incorrect words, spelling, and punctuation that were not noted in review of the chart prior to signing ED Disposition - Plan for ED Patient: Referrals: [facility] ,Out of [Primary Care Provider] -
--- NOTE | 2019-02-15 01:31 | ED.RN ---
PT UNKEPT, NO SHOES WHEN SHE CAME IN, PT STATES SHE SLEEPS IN A WOODEN ROCKING CHAIR AND HAS A WOUND ON HER BOTTOM. THIS NURSE ADDED A SOCIAL WORK CONSULT, AND NOTIFIED APS.
--- NOTE | 2019-02-15 02:14 | ED.RN ---
Called and left a voicemail with adult protective services at to have them follow up with the hospital about a patient we have concerns for.
--- NOTE | 2019-02-15 02:30 | RAD_ITS ---
STUDY: X-RAY - LEFT TIBIA AND FIBULA REASON FOR EXAM: Female, 68 years old. Left lower leg pain. TECHNIQUE: 2 view(s) of the tibia and fibula were obtained. COMPARISON: None. FINDINGS: Normal visualized tibia. Normal visualized fibula. Joints are in normal alignment. Mild degenerative change in the medial and patellofemoral compartments of the knee. The soft tissue structures are unremarkable. RAD/Tibia & Fibula 2 Views IMPRESSION: Normal x-ray examination of the tibia and fibula. Electronically Signed: Kike Saunders MD at 3:03 EDT Tel , Service support ,
--- NOTE | 2019-02-15 02:33 | ED.RN ---
UNABLE TO COMPLETE MED LIST PT AND FAMILY ARE UNSURE OF WHAT THE PATIENT IS TAKES. PHARMACY NOT OPEN WILL HAVE TO CALL PHARMACY IN THE AM.
--- NOTE | 2019-02-15 02:41 | ED.RN ---
COULD NOT GET AN IV IN THE PT ATTEMPTED MULTIPLE TIMES BY [address] MENDOZA IS AWARE. DR IS OK WITH LAB TRYING FOR A DRAW. THIS NURSE CALLED LAB TO DRAW BLOOD.
[2019-02-15 03:09] LABS: Absolute Lymphocyte Count 1.77 X10^3/ul (0.83-4.51); Absolute Neutrophil Count 7.9 X10^3/uL (2.0-7.7); Basophil# 0.03 X10^3/uL; Basophil% 0.3 % (0-1); Eosinophil# 0.05 X10^3/uL; Eosinophils% 0.5 % (0-5); Hematocrit 35.9 % (37-47); Hemoglobin 12.1 g/dl (12.0-15.0); Lymphocyte # 1.77 X10^3/ul (4.0); Lymphocyte % 16.9 % (19-41); Mean Corp Hgb Conc 33.7 g/gl (32-36); Mean Corpuscular Hgb 29.3 pg (27.0-32.0); Mean Corpuscular Volume 86.9 fL (81-99); Mean Platelet Vol. 8.6 fl (6.2-12.0); Monocyte# 0.76 X10^3/uL; Monocyte% 7.3 % (0-10); Neutrophil # 7.86 X10^3/uL (2.7-7.7); Neutrophil % 74.9 % (47-70); POSITIVE COUNT NO; POSITIVE DIFFERENTIAL NO; POSITIVE MORPHOLOGY NO; Platelet Count 215 K/mm3 (150-450); RBC Distribution Width CV 12.5 % (11.6-14.6); RBC Distribution Width SD 39.8 fl (35.1-43.9); Red Blood Count 4.13 M/mm3 (4.2-5.4); White Blood Count 10.5 K/mm3 (4.4-11.0)
[2019-02-15 03:33] LABS: Anion Gap 8 (5-15); BUN 21 mg/dL (7-18); BUN/Creat Ratio 18.8 RATIO (10-20); Calcium,Total 8.7 mg/dL (8.5-10.1); Chloride 101 mmol/L (98-107); Creatinine, Serum 1.12 mg/dL (0.55-1.02); EST Glomerular Filtration Rate 52 mL/min (>60); Est Glom Filt Rate - Afr Amer 63 mL/min (>60); Estimated Creatinine Clearance 42.67 ml/min; Glucose 438 mg/dL (74-106); Lactic Acid 1.4 mmol/L (0.4-2.0); Potassium 4.7 mmol/L (3.5-5.1); Sodium Level 133 mmol/L (136-145)
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
[2019-02-15] MEDS: Menthol/Lanolin/Calamine/Znox 113 GM Tube 1 APPLIC TOPICAL ×2 (05:35→21:22)
[2019-02-15] MEDS: Furosemide 20 MG/2 ML VIAL IV ×3 (05:36→18:13)
[2019-02-15] MEDS: Insulin Lispro 100 UNIT/ML INSULN.PEN 8 UNIT SC (05:41)
[2019-02-15] MEDS: Cefazolin 1 GM/50 ML BAG IV (05:58)
[2019-02-15] MEDS: 0.9% NaCl IVPB Med Flush (250 mL) 15 ML IV (05:58)
--- NOTE | 2019-02-15 06:04 | NURSING ---
Upon arrival to the floor bed bath and skin care performed. Patients feet noted as having dried brown debri, cleaned with warm soapy water. Gab lower extremities present with open statis ulcers and hair dried in open wounds. This RN asked patient about her feet and she stated she has no shoes to wear. Cally-care performed and patient had dried caked nystatin powder in abd folds and groin, patients labia noted as being swollen and discolored, when patient was questioned she stated its because I have been sitting in a wooden rocking chair for 4 weeks. This statement further lead to more questions. Per patient her house had bed bugs 4 weeks ago and it was taken care of. She stated that her recliner that she normally sleeps in was removed from the house during the extermination of the bed bugs. Patient states she does not own a bed. During the admission process skin care, cally-care, hair care, oral care performed. At times patient noted as becoming tearful. Patient very grateful towards staff. Patient also mentioned during this interaction that she has a friend living with her, and her lives in [place]. Patient stated that her has mental health issues.
[2019-02-15] MEDS: Lisinopril 20 MG Tablet PO (08:41)
[2019-02-15] MEDS: Insulin Lispro 100 UNIT/ML INSULN.PEN SQ ×4 (09:05→21:50)
[2019-02-15 09:41] LABS: Bedside Glucose 364 mg/dL (70-110)
[2019-02-15 09:42] LABS: Bedside Glucose 402 mg/dL (70-110)
--- NOTE | 2019-02-15 10:10 | NURSING ---
MEDICAL RELEASE SENT TO DR POWELL'S OFFICE TO OBTAIN HOME MEDICATION LIST.
[2019-02-15] MEDS: 0.9% NaCl Peripheral Flush Adult/Peds IV ×2 (10:41→18:14)
[2019-02-15] MEDS: Enoxaparin 40 MG/0.4 ML Syringe SC (10:42)
[2019-02-15] MEDS: Glucerna Shake 120 ML LIQUID PO ×3 (10:42→21:46)
[2019-02-15] MEDS: Acetaminophen 500 MG Tablet 1000 MG PO ×2 (12:22→21:49)
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
[2019-02-15] MEDS: Nystatin Powder 15gm Bottle 1 APPLIC TOPICAL ×2 (14:00→21:46)
[2019-02-15 14:21] LABS: Bedside Glucose > 500 mg/dL (70-110)
[2019-02-15 17:00] LABS: Bedside Glucose 400 mg/dL (70-110)
--- NOTE | 2019-02-15 17:38 | PCM.HOSP.N ---
Hospitalist Note Patient was seen and examined today, her blood sugars have been elevated and I adjusted her insulin. Patient will need placement in [facility] facility, she is unable to care for self at home. I talked briefly to certified social workers in health care about the patient also.
--- NOTE | 2019-02-15 17:39 | CCHN_ITS ---
Hospitalist Note Patient was seen and examined today, her blood sugars have been elevated and I adjusted her insulin. Patient will need placement in [facility] facility, she is unable to care for self at home. I talked briefly to social services counselor about the patient also.
[2019-02-15] MEDS: Insulin Lispro 100 UNIT/ML INSULN.PEN 15 UNIT SC (18:13)
[2019-02-15 18:21] LABS: Bedside Glucose 349 mg/dL (70-110)
[2019-02-15 21:20] LABS: Bedside Glucose 257 mg/dL (70-110)
[2019-02-16 02:11] VITALS: BP 155/71; PULSE 75; RESP 16; TEMP 36.8; O2SAT 98
[2019-02-16] MEDS: Acetaminophen 500 MG Tablet 1000 MG PO ×3 (05:33→21:01)
[2019-02-16] MEDS: Nystatin Powder 15gm Bottle 1 APPLIC TOPICAL ×3 (05:33→21:00)
[2019-02-16 06:54] LABS: BUN 15 mg/dL (7-18); Creatinine, Serum 0.87 mg/dL (0.55-1.02); Estimated Creatinine Clearance 54.93 ml/min; Glucose 290 mg/dL (74-106)
[2019-02-16 06:55] LABS: Anion Gap 7 (5-15); BUN/Creat Ratio 17.2 RATIO (10-20); Calcium,Total 8.8 mg/dL (8.5-10.1); Chloride 101 mmol/L (98-107); EST Glomerular Filtration Rate 69 mL/min (>60); Est Glom Filt Rate - Afr Amer 84 mL/min (>60); Potassium 4.4 mmol/L (3.5-5.1); Sodium Level 135 mmol/L (136-145)
[2019-02-16 07:00] VITALS: O2SAT 95
[2019-02-16 07:46] LABS: Bedside Glucose 271 mg/dL (70-110)
[2019-02-16 07:47] VITALS: BP 126/77; PULSE 71; RESP 16; TEMP 36.6; O2SAT 96
[2019-02-16] MEDS: Insulin Lispro 100 UNIT/ML INSULN.PEN SQ ×4 (08:37→21:03)
[2019-02-16] MEDS: Insulin Lispro 100 UNIT/ML INSULN.PEN 15 UNIT SC ×3 (08:37→16:50)
[2019-02-16] MEDS: Menthol/Lanolin/Calamine/Znox 113 GM Tube 1 APPLIC TOPICAL ×2 (08:38→21:02)
[2019-02-16] MEDS: Enoxaparin 40 MG/0.4 ML Syringe SC (08:39)
[2019-02-16] MEDS: Lisinopril 20 MG Tablet PO (08:39)
[2019-02-16] MEDS: Furosemide 20 MG/2 ML VIAL IV (08:39)
[2019-02-16] MEDS: Glucerna Shake 120 ML LIQUID PO ×4 (08:44→21:02)
[2019-02-16] MEDS: 0.9% NaCl Peripheral Flush Adult/Peds IV (08:44)
[2019-02-16 11:24] VITALS: BP 115/57; PULSE 74; RESP 16; TEMP 36.8; O2SAT 95
[2019-02-16 11:36] LABS: Bedside Glucose 339 mg/dL (70-110)
--- NOTE | 2019-02-16 13:33 | PN_ITS ---
Patient Problems: Active and Suspected Problems Venous stasis dermatitis (Acute) Adult failure to thrive (Acute) Subjective: Pt unable to get out of bed or sit up at all even with assistance when I try to help her. She has severe shoulder pain worse on the left. She states this is due to severe osteoarthritis. She denies any recent trauma. She has never seen ortho before. She feels that she cannot raise her arm due to pain. She has no SOB. No cough. No abdominal pain, nausea, vomiting, diarrhea. No urinary issues. No fever or chills. She feels very weak. STEVE wraps are on and her LE edema has improved. She has chronic wounds BL feet and poor hygeine of the feet - she does not see podiatry. She does not want to see a local legal activity adjudicator stating that she is going to [facility] at [place] and will see doctors up there. - Physical Exam General: Alert, Oriented x3, Cooperative HEENT: Atraumatic, PERRLA, EOMI, Normocephalic Neck: Supple, No JVD, Negative Carotid Bruits Lungs: Clear to auscultation, Normal air movement Cardiovascular: Regular rate, No murmurs Abdomen: Bowel Sounds Present, Soft, Non Tender Extremities: Capillary Refill Less than 3 Seconds, Edema, - - steve wraps in place Skin: No rashes, No breakdown, - - LE wounds dressed. Musculoskeletal: - - Left shoulder ROM limited 2/2 severe pain with active and passive ROM Neurological: Cranial nerves II-XII grossly intact Psych/Mental Status: Normal Affect, Appropriate, Alert and oriented to time, place, person, mood and affect Vital Signs Temp Pulse Resp BP Pulse Ox 98.2 F 74 16 115/57 L 95 02/16/19 11:24 02/16/19 11:24 02/16/19 11:24 02/16/19 11:24 02/16/19 11:24 Oxygen Delivery Method Room Air Weight: 244 lb 15.995 oz Body Mass Index (BMI) 41.8 Finger Stick Blood Glucose 270 Intake and Output for Last 24 Hours 02/14/19 02/15/19 02/16/19 23:59 23:59 23:59 Intake Total 1130 / 1130 350 / 350 Output Total 2350 / 2350 1000 / 1000 Balance -1220 / -1220 -650 / -650 Microbiology Past 72 Hours 02/15/19 01:25 Gram Stain - Final Skin - Leg Wound Culture - Preliminary Mixed Gram Pos & Gram Neg Org Laboratory Tests Past 24 Hrs 02/16/19 05:25 Sodium 135 L Potassium 4.4 Chloride 101 Carbon Dioxide 27.0 Anion Gap 7 BUN 15 Creatinine 0.87 Estim Creat Clear Calc 54.93 Est GFR (MDRD) Af Amer 84 Est GFR (MDRD) Non-Af 69 BUN/Creatinine Ratio 17.2 Glucose 290 H Calcium 8.8 POC Glucose 02/16/19 02/16/19 02/15/19 11:22 07:39 21:11 POC Glucose 339 H 271 H 257 H 02/15/19 02/15/19 02/15/19 18:09 16:32 13:55 POC Glucose 349 H 400 H > 500 H* Medical Necessity - Tobacco Use Smoking Status: Former smoker Assessment/Plan All Active Problems Venous stasis dermatitis (Acute) Adult failure to thrive (Acute) 1. Debility, failure to care for self at home - PTOT, Placement, supportive care, pain management. 2. DMt2 with hyperglycemia - continue to titrate insulin to response. Improving. 3. LE edema - adjust home lasix dose. Continue steve wraps. She is improving. Part of this is dependent edema and venous insufficiency. I do not feel this is an acute CHF event. She had missed home lasix for several days. 4. Chronic diabetic wounds - consult wound care. Needs outpatient referral to podiatry 5. HTN - stable 6. Hypothyroidism - synthroid 7. Osteoarthritis BL shoulders - adjusting pain regimen, she needs referral to ortho as an outpatient. Check AM BMP, if stable can add NSAID DVT ppx: lovenox DC planning: SNF, going to [facility]. Will defer referrals to podiatry and ortho for now as she would prefer to find somebody locally in that region. This patient was seen by Hugh Ferguson PA-C under the supervision of Dr. Dyer
[2019-02-16] MEDS: Lidocaine 5% Patch 1 PATCH TOPICAL (13:49)
--- NOTE | 2019-02-16 14:06 | NURSING ---
PT KRYSTAL CALLED UPSET WANTING TO KNOW WHERE PT WILL BE DISCHARGED. NURSING TOLD KRYSTAL THAT DUE TO PT CONFIDENTIALITY NO INFORMATION MAY BE GIVEN. PT JUSTALORMaria E STATED SHE CAN NOT GO TO HER HOUSE AND SHE WOULD CALL POLICE AND APS IF SHE GETS TRANSPORTED TO THERE. INFORMED PT THAT 'S JUSTALORMaria E CALLED YELLING AT NURSING STAFF AND THAT PT NEEDED TO CALL HER AND TAKE CARE OF THIS PROBLEM. PT STATED SHE WOULD TALK TO OMARMaria E AND INFORM HER THAT SHE WILL NOT BE COMING THERE.
[2019-02-16 14:09] VITALS: BP 156/81; PULSE 89; RESP 16; TEMP 36.5; O2SAT 99
[2019-02-16 16:11] LABS: Bedside Glucose 278 mg/dL (70-110)
[2019-02-16 20:36] VITALS: BP 124/63; PULSE 86; RESP 18; TEMP 36.9; O2SAT 94
[2019-02-16 20:46] LABS: Bedside Glucose 351 mg/dL (70-110)
[2019-02-16] MEDS: DULoxetine Hcl 60 MG Capsule PO (21:01)
[2019-02-16] MEDS: traZODone 100 MG Tablet PO (21:01)
[2019-02-16] MEDS: Topiramate 50 MG Tablet PO (21:01)
[2019-02-17 01:54] VITALS: BP 105/54; PULSE 78; RESP 18; TEMP 37.3; O2SAT 97
[2019-02-17] MEDS: Acetaminophen 500 MG Tablet 1000 MG PO ×3 (05:31→22:12)
[2019-02-17] MEDS: Nystatin Powder 15gm Bottle 1 APPLIC TOPICAL ×3 (05:31→22:12)
[2019-02-17 06:10] LABS: Anion Gap 7 (5-15); BUN 16 mg/dL (7-18); BUN/Creat Ratio 18.3 RATIO (10-20); Calcium,Total 8.8 mg/dL (8.5-10.1); Chloride 101 mmol/L (98-107); Creatinine, Serum 0.87 mg/dL (0.55-1.02); EST Glomerular Filtration Rate 69 mL/min (>60); Est Glom Filt Rate - Afr Amer 84 mL/min (>60); Estimated Creatinine Clearance 54.93 ml/min; Glucose 281 mg/dL (74-106); Potassium 4.2 mmol/L (3.5-5.1); Sodium Level 135 mmol/L (136-145)
[2019-02-17 07:28] VITALS: O2SAT 95
[2019-02-17 08:00] VITALS: BP 106/53; PULSE 75; RESP 16; TEMP 36.9; O2SAT 95
[2019-02-17] MEDS: Insulin Lispro 100 UNIT/ML INSULN.PEN 15 UNIT SC ×2 (08:06→11:05)
[2019-02-17] MEDS: Insulin Lispro 100 UNIT/ML INSULN.PEN SQ ×4 (08:06→22:09)
[2019-02-17] MEDS: Topiramate 50 MG Tablet PO ×2 (08:11→22:13)
[2019-02-17] MEDS: DULoxetine Hcl 60 MG Capsule PO ×2 (08:11→22:12)
[2019-02-17] MEDS: Lisinopril 20 MG Tablet PO (08:11)
[2019-02-17] MEDS: Furosemide 40 MG Tablet PO (08:15)
[2019-02-17 08:35] LABS: Bedside Glucose 298 mg/dL (70-110)
--- NOTE | 2019-02-17 09:17 | NURSING ---
wound photo: right lower leg
--- NOTE | 2019-02-17 09:18 | NURSING ---
wound photo: left lower leg
--- NOTE | 2019-02-17 09:59 | CASEMGMT ---
Addendum entered by Faiza Cook 02/17/19 11:09: WILFRED received call from Francisco at [facility], stating they are able to accept pt and will submit for pre-cert. Francisco provided number ([phone]). Original Note: Addendum entered by Faiza Cook 02/17/19 10:55: WILFRED received call from Francisco at [facility]. Francisco states he will pass referral on and will give this worker a call back. WILFRED informed Francisco that pt is ready for discharge once pre-cert is obtained. Original Note: Social Work Note WILFRED attempted to call [facility] SNF multiple times, no answer. WILFRED faxed referral to [facility] ([phone]). WILFRED will continue to try to contact [facility] in regards to referral. Plan: [facility] pending acceptance and pre-cert Faiza Cook CHEF DE FROID, REFRIGERATION MANAGER
[2019-02-17] MEDS: Menthol/Lanolin/Calamine/Znox 113 GM Tube 1 APPLIC TOPICAL ×2 (10:52→22:11)
[2019-02-17] MEDS: Enoxaparin 40 MG/0.4 ML Syringe SC (10:52)
[2019-02-17] MEDS: Lidocaine 5% Patch 1 PATCH TOPICAL (10:53)
[2019-02-17] MEDS: Glucerna Shake 120 ML LIQUID PO ×3 (10:53→22:40)
[2019-02-17 11:16] LABS: Bedside Glucose 382 mg/dL (70-110)
--- NOTE | 2019-02-17 11:45 | PN_ITS ---
<Hugh Ferguson - Last Filed: 02/17/19 11:41> Patient Problems: Active and Suspected Problems Venous stasis dermatitis (Acute) Adult failure to thrive (Acute) Subjective: Pt feeling significantly better today. LE edema improved. No SOB. Ambulating with assistance to and from the bathroom, up in chair today. Shoulder pain improved, ROM improved as well. Still limited with pain on exertion. - Physical Exam General: Alert, Oriented x3, Cooperative HEENT: Atraumatic, PERRLA, EOMI, Normocephalic Neck: Supple, No JVD, Negative Carotid Bruits Lungs: Clear to auscultation, Normal air movement Cardiovascular: Regular rate, No murmurs Abdomen: Bowel Sounds Present, Soft, Non Tender Extremities: Capillary Refill Less than 3 Seconds, Edema - improving pitting LE edema 1-2+ BL Skin: No rashes, No breakdown Musculoskeletal: - - shoulder ROM limited 2/2 pain Neurological: Cranial nerves II-XII grossly intact Psych/Mental Status: Normal Affect, Appropriate, Alert and oriented to time, place, person, mood and affect Vital Signs Temp Pulse Resp BP Pulse Ox 98.5 F 75 16 106/53 L 95 02/17/19 08:00 02/17/19 08:00 02/17/19 08:00 02/17/19 08:00 02/17/19 08:00 Oxygen Delivery Method Room Air Weight: 244 lb 15.995 oz Body Mass Index (BMI) 41.8 Finger Stick Blood Glucose 270 Intake and Output for Last 24 Hours 02/15/19 02/16/19 02/17/19 23:59 23:59 23:59 Intake Total 1130 / 1130 800 / 800 557 / 557 Output Total 2350 / 2350 1500 / 1500 200 / 200 Balance -1220 / -1220 -700 / -700 357 / 357 Microbiology Past 72 Hours 02/15/19 01:25 Gram Stain - Final Skin - Leg Wound Culture - Preliminary GNR lactose transfer station attendant Gram negative lisandra GPC Poss Enterococcus sp Staphylococcus aureus 02/15/19 00:15 Blood Culture - Preliminary Blood Culture (Wb) - Left Forearm No growth in 48 hours. 02/15/19 03:00 Blood Culture - Preliminary Blood Culture (Wb) - Anticubital Right No growth in 48 hours. Laboratory Tests Past 24 Hrs 05/06/19 05:15 Sodium 135 L Potassium 4.2 Chloride 101 Carbon Dioxide 27.0 Anion Gap 7 BUN 16 Creatinine 0.87 Estim Creat Clear Calc 54.93 Est GFR (MDRD) Af Amer 84 Est GFR (MDRD) Non-Af 69 BUN/Creatinine Ratio 18.3 Glucose 281 H Calcium 8.8 POC Glucose 02/17/19 02/17/19 02/16/19 11:02 07:58 20:41 POC Glucose 382 H 298 H 351 H 02/16/19 16:06 POC Glucose 278 H Medical Necessity - Tobacco Use Smoking Status: Former smoker Assessment/Plan All Active Problems Venous stasis dermatitis (Acute) Adult failure to thrive (Acute) 1. Debility, failure to care for self at home - PTOT, Placement, supportive care, pain management. 2. DMt2 with hyperglycemia - poorly controlled, increase insulin again today 3. LE edema - Continue oral lasix. Continue kaushal wraps. She is improving. Part of this is dependent edema and venous insufficiency. I do not feel this is an acute CHF event. She had missed home lasix for several days. 4. Chronic diabetic wounds - consult wound care. Needs outpatient referral to podiatry 5. HTN - stable 6. Hypothyroidism - synthroid 7. Osteoarthritis BL shoulders - improved pain and ROM, continue current pain regimen. Renal function ok, add nsaid DVT ppx: lovenox DC planning: SNF, going to [place]. Will defer referrals to podiatry and ortho for now as she would prefer to find somebody locally in that region. This patient was seen by Hugh Ferguson PA-C under the supervision of Dr. Scott <Rolo Scott - Last Filed: 02/17/19 12:27> Subjective: Patient has Kaushal wrap bandage. Bilateral lower extremity edema have improved. Denies shortness of breath. Overall feels stronger and more energetic. - Physical Exam General: Alert, Oriented x3, Cooperative HEENT: Atraumatic, PERRLA, EOMI, Normocephalic Neck: Supple, No JVD, Negative Carotid Bruits Lungs: Clear to auscultation, No rhonchi, No wheeze, No rales, Diminished Cardiovascular: Regular rate, Regular Rhythm, Normal S1, Normal S2, No murmurs Abdomen: Bowel Sounds Present, Soft, Non Tender, Non-Distended Extremities: Capillary Refill Less than 3 Seconds, Edema Skin: No rashes, No breakdown Musculoskeletal: No Tenderness to Palpation of Joints or Extremities, Arthritic Changes, - Lymphatic: No Cervical, Supraclavicular, or Inguinal Adenopathy Neurological: Cranial nerves II-XII grossly intact, Deep Tendon Reflexes 2+/4 and Symmetrical, Neuro grossly intact Psych/Mental Status: Normal Affect, Appropriate Vital Signs Temp Pulse Resp BP Pulse Ox 98.5 F 75 16 106/53 L 95 02/17/19 08:00 02/17/19 08:00 02/17/19 08:00 02/17/19 08:00 02/17/19 08:00 Oxygen Delivery Method Room Air Weight: 244 lb 15.995 oz Body Mass Index (BMI) 41.8 Finger Stick Blood Glucose 270 Intake and Output for Last 24 Hours 02/15/19 02/16/19 02/17/19 23:59 23:59 23:59 Intake Total 1130 / 1130 800 / 800 557 / 557 Output Total 2350 / 2350 1500 / 1500 200 / 200 Balance -1220 / -1220 -700 / -700 357 / 357 Microbiology Past 72 Hours 02/15/19 01:25 Gram Stain - Final Skin - Leg Wound Culture - Preliminary GNR lactose transfer station attendant Gram negative lisandra GPC Poss Enterococcus sp Staphylococcus aureus 02/15/19 00:15 Blood Culture - Preliminary Blood Culture (Wb) - Left Forearm No growth in 48 hours. 02/15/19 03:00 Blood Culture - Preliminary Blood Culture (Wb) - Anticubital Right No growth in 48 hours. Laboratory Tests Past 24 Hrs 02/17/19 05:15 Sodium 135 L Potassium 4.2 Chloride 101 Carbon Dioxide 27.0 Anion Gap 7 BUN 16 Creatinine 0.87 Estim Creat Clear Calc 54.93 Est GFR (MDRD) Af Amer 84 Est GFR (MDRD) Non-Af 69 BUN/Creatinine Ratio 18.3 Glucose 281 H Calcium 8.8 POC Glucose 02/17/19 02/17/19 02/16/19 11:02 07:58 20:41 POC Glucose 382 H 298 H 351 H 02/16/19 16:06 POC Glucose 278 H Assessment/Plan This patient was seen in conjunction with Hugh BECKETT. I have independently interviewed and examined the patient and reviewed pertinent history, examination findings, laboratory and plan of management. I have reviewed the note and agree with the documented findings with the few additional points. In brief, patient is admitted for generalized weakness, not able to take care of herself. Patient bilateral lower extremity edema have improved. On Accu-Chek AC at bedtime with sliding scale insulin for diabetes mellitus type 2. Patient has dry feet and history of chronic diabetic ulcer. Denies history of osteomyelitis. I have discussed my assessment with Hugh BECKETT and orders have been reviewed. Code Visit Inpatient E&M: 81317 Subs Hosp L2
[2019-02-17 14:00] VITALS: BP 106/44; PULSE 83; RESP 16; TEMP 36.7; O2SAT 95
[2019-02-17] MEDS: BACITRACIN/POLYMYXIN B 15 GM Tube 1 APPLIC TOPICAL (14:43)
--- NOTE | 2019-02-17 16:20 | CASEMGMT ---
Social Work Note SW updated pt on acceptance to [facility] pending pre-cert. Pt states understanding. Plan: [facility] pending pre-cert Faiza Cook BOOM OPERATOR, DESPATCHING AND RECEIVING CLERK
[2019-02-17] MEDS: Insulin Lispro 100 UNIT/ML INSULN.PEN 20 UNIT SC (17:15)
[2019-02-17 17:20] LABS: Bedside Glucose 271 mg/dL (70-110)
[2019-02-17 22:00] VITALS: BP 102/52; PULSE 81; RESP 18; TEMP 36.9; O2SAT 98
[2019-02-17] MEDS: traZODone 100 MG Tablet PO (22:11)
[2019-02-17 22:15] VITALS: PULSE 81; RESP 18
[2019-02-17 23:56] LABS: Bedside Glucose 255 mg/dL (70-110)
[2019-02-18 03:47] VITALS: BP 115/55; PULSE 80; RESP 18; TEMP 36.6; O2SAT 93
[2019-02-18 03:50] VITALS: PULSE 80
[2019-02-18] MEDS: Ibuprofen 400 MG Tablet PO (03:50)
[2019-02-18] MEDS: Acetaminophen 500 MG Tablet 1000 MG PO ×2 (06:50→13:41)
[2019-02-18] MEDS: Nystatin Powder 15gm Bottle 1 APPLIC TOPICAL (06:52)
[2019-02-18] MEDS: Insulin Lispro 100 UNIT/ML INSULN.PEN SQ ×2 (06:55→11:31)
[2019-02-18 07:05] LABS: Bedside Glucose 242 mg/dL (70-110)
[2019-02-18] MEDS: Insulin Lispro 100 UNIT/ML INSULN.PEN 20 UNIT SC (09:04)
[2019-02-18] MEDS: Menthol/Lanolin/Calamine/Znox 113 GM Tube 1 APPLIC TOPICAL (09:07)
[2019-02-18] MEDS: DULoxetine Hcl 60 MG Capsule PO (09:08)
[2019-02-18] MEDS: Lidocaine 5% Patch 1 PATCH TOPICAL (09:09)
[2019-02-18] MEDS: Enoxaparin 40 MG/0.4 ML Syringe SC (09:09)
[2019-02-18] MEDS: Furosemide 40 MG Tablet PO (09:09)
[2019-02-18] MEDS: BACITRACIN/POLYMYXIN B 15 GM Tube 1 APPLIC TOPICAL (09:10)
[2019-02-18] MEDS: Lisinopril 20 MG Tablet PO (09:11)
[2019-02-18] MEDS: Topiramate 50 MG Tablet PO (09:11)
[2019-02-18 09:12] VITALS: BP 98/52; PULSE 77; RESP 16; TEMP 37.1; O2SAT 94
--- NOTE | 2019-02-18 10:35 | CASEMGMT ---
Addendum entered by Faiza Cook 02/18/19 11:07: WILFRED received call from Francisco at [facility] stating pre-cert has been obtained. SW informed Francisco that pt is medically ready for discharge, this worker will fax discharge paperwork and will let him know transportation time. Physician updated. Original Note: Social Work Note SW reviewed PT/OT notes. Pt refused to work with OT today. SW in to speak with pt. SW informed pt that she will need to work with PT/OT everyday at [facility] so pre-cert can be obtained. SW explained that pt is going to SNF for rehabilitation and if she refuses PT/OT, insurance likely won't approve for her to go. SW informed pt that she has to work with PT today as insurance will be asking for updates. Pt states understanding. Plan: [facility] pending pre-cert Faiza Cook OUTSIDE SALESPERSON, MANAGER APPLE
--- NOTE | 2019-02-18 10:48 | PN_ITS ---
<Hugh Ferguson - Last Filed: 02/18/19 10:47> Subjective: Pain continues to improve with the addition of ibuprofen. No new issues. waiting for precert. - Physical Exam General: Alert, Oriented x3, Cooperative HEENT: Atraumatic, PERRLA, EOMI, Normocephalic Neck: Supple, No JVD, Negative Carotid Bruits Lungs: Clear to auscultation, Normal air movement Cardiovascular: Regular rate, No murmurs Abdomen: Bowel Sounds Present, Soft, Non Tender Extremities: No edema, Capillary Refill Less than 3 Seconds Skin: No rashes, No breakdown Musculoskeletal: No Tenderness to Palpation of Joints or Extremities Neurological: Cranial nerves II-XII grossly intact Psych/Mental Status: Normal Affect, Appropriate, Alert and oriented to time, place, person, mood and affect Vital Signs Temp Pulse Resp BP Pulse Ox 98.8 F 77 16 98/52 L 94 02/18/19 09:12 02/18/19 09:12 02/18/19 09:12 02/18/19 09:12 02/18/19 09:12 Oxygen Delivery Method Room Air Weight: 244 lb 15.995 oz Body Mass Index (BMI) 41.8 Finger Stick Blood Glucose 270 Intake and Output for Last 24 Hours 02/16/19 02/17/19 02/18/19 23:59 23:59 23:59 Intake Total 800 / 800 557 / 557 200 / 200 Output Total 1500 / 1500 1200 / 1200 250 / 250 Balance -700 / -700 -643 / -643 -50 / -50 Microbiology Past 72 Hours 02/15/19 01:25 Gram Stain - Final Skin - Leg Wound Culture - Preliminary Klebsiella pneumoniae sp pneum Proteus mirabilis Enterococcus faecalis Staphylococcus aureus 02/15/19 00:15 Blood Culture - Preliminary Blood Culture (Wb) - Left Forearm No growth in 48 hours. 02/15/19 03:00 Blood Culture - Preliminary Blood Culture (Wb) - Anticubital Right No growth in 48 hours. POC Glucose 02/18/19 02/17/19 02/17/19 06:55 22:08 17:13 POC Glucose 242 H 255 H 271 H 02/17/19 11:02 POC Glucose 382 H Medical Necessity - Tobacco Use Smoking Status: Former smoker Assessment/Plan All Active Problems Adult failure to thrive (Acute) Hyperglycemia due to type 2 diabetes mellitus (Acute) 1. Debility, failure to care for self at home - PTOT, Placement, supportive care, pain management. 2. DMt2 with hyperglycemia - insulins adjusted again 3. LE edema - Continue oral lasix. Continue wally wraps. 4. Chronic diabetic wounds and venous stasis ulcer - consult wound care. Needs outpatient referral to podiatry 5. HTN - stable 6. Hypothyroidism - synthroid 7. Osteoarthritis BL shoulders - improved pain and ROM, continue current pain regimen. DVT ppx: lovenox DC planning: SNF, precert pending, going to [place]. Will defer referrals to podiatry and ortho for now as she would prefer to find somebody locally in that region. This patient was seen by Hugh Ferguson PA-C under the supervision of Dr. Scott <Rolo Scott - Last Filed: 02/18/19 15:51> - Physical Exam Vital Signs Temp Pulse Resp BP Pulse Ox 97.0 F L 82 18 108/56 L 94 02/18/19 13:47 02/18/19 13:47 02/18/19 13:47 02/18/19 13:47 02/18/19 13:47 Oxygen Delivery Method Room Air Weight: 244 lb 15.995 oz Body Mass Index (BMI) 41.8 Finger Stick Blood Glucose 270 Intake and Output for Last 24 Hours 02/16/19 02/17/19 02/18/19 23:59 23:59 23:59 Intake Total 800 / 800 557 / 557 650 / 650 Output Total 1500 / 1500 1200 / 1200 350 / 350 Balance -700 / -700 -643 / -643 300 / 300 Microbiology Past 72 Hours 02/15/19 01:25 Gram Stain - Final Skin - Leg Wound Culture - Preliminary Klebsiella pneumoniae sp pneum Proteus mirabilis Enterococcus faecalis Staphylococcus aureus 02/15/19 00:15 Blood Culture - Preliminary Blood Culture (Wb) - Left Forearm No growth in 48 hours. 02/15/19 03:00 Blood Culture - Preliminary Blood Culture (Wb) - Anticubital Right No growth in 48 hours. POC Glucose 02/18/19 02/18/19 02/17/19 11:23 06:55 22:08 POC Glucose 268 H 242 H 255 H 02/17/19 17:13 POC Glucose 271 H Assessment/Plan Please see discharge summary. There is today's physical exam findings and discharge summary together.
[2019-02-18 11:28] VITALS: BP 136/77; PULSE 83; RESP 16; TEMP 37; O2SAT 98
[2019-02-18] MEDS: Insulin Lispro 100 UNIT/ML INSULN.PEN 22 UNIT SC (11:33)
[2019-02-18 11:41] LABS: Bedside Glucose 268 mg/dL (70-110)
--- NOTE | 2019-02-18 11:42 | PCM.EXTCARCO ---
- Diet 02/15/19 05:06 Diet: Cardiac/Low Cholesterol Food consistency:: Regular Liquid Consistency:: Regular/Thin Diet Comments: 1800 ada diet - Routine Orders/Code Status Suppository Type: Dulcolax 10mg Suppository Frequency: Daily PRN Routine Lab Work: CBC - 1 week, BMP - 1 day - Wound(s) BLE Wound Type: stasis dermatits with a few small open areas Dressing Change: Adaptic Right buttocks Wound Type: Pressure Injury left gluteal fold Wound Type: Pressure Injury - Therapies Physical Therapy: Eval and Treat Occupational Therapy: Eval and Treat - Problem/Diagnosis (1) Hyperglycemia due to type 2 diabetes mellitus Status: Acute Current Visit: Yes (2) Adult failure to thrive Status: Acute Current Visit: Yes (3) Osteoarthritis Status: Chronic Current Visit: Yes (4) Venous stasis dermatitis Status: Chronic Current Visit: Yes (5) Diabetes mellitus Status: Chronic Current Visit: No (6) Diabetic foot ulcer Status: Chronic Current Visit: No (7) HTN (hypertension) Status: Chronic Current Visit: No (8) Hypothyroidism Status: Chronic Current Visit: No (9) Diabetic leg ulcer Status: Inactive Current Visit: No - Allergies/Procedures Done in Hospital Allergies/Adverse Reactions: Allergies ciprofloxacin [From Cipro] Allergy (Verified 02/15/19 01:02) Rash codeine Adverse Reaction (Verified 02/15/19 01:02) Rash Procedures: None - Type of Care/Length of Stay Estimated LOS: Convalescent Care Less Than 30 days Type of Care Needed: Skilled Rehab Potential: Fair Prognosis: Fair - Additional Orders/Day of Discharge Day of Discharge: 02/18/19 - Dietary and Speech Recommendations Dietitian Recommendations/Changes: Rec diet change to 1800 calorie controlled diet. Rec 1 packet Nakul BID for wound healing. Rec check HgbA1C. Continue Glucerna ONS 120 mL 4x/day for additional calories/protein if consumed. - Follow Up Care Primary Care Physician: Olivia Green,Out of [Primary Care Provider] - Please follow up with your Primary Care Physician in: 2 weeks Please Follow Up With: Orthopedics When: 2 weeks Please Follow Up With: Podiatry When: 2 weeks
--- NOTE | 2019-02-18 11:46 | PCM.DC.SUM ---
<Hugh Ferguson - Last Filed: 02/18/19 11:46> Discharge Date and Diagnosis Date of Admission: 02/15/19 Date of Discharge: 02/18/19 - Primary Discharge Diagnosis Active and Suspected Problems Adult failure to thrive (Acute) Hyperglycemia due to type 2 diabetes mellitus (Acute) Chronic venous stasis ulcers LE Diabetic wounds HTN Hypthyroidism Chronic LE edema 2/2 venous insufficiency Osteoarthritis BL shoulders - Secondary Discharge Diagnosis Chronic Problems Venous stasis dermatitis (Chronic) Osteoarthritis (Chronic) HTN (hypertension) (Chronic) Hypothyroidism (Chronic) Diabetes mellitus (Chronic) Diabetic foot ulcer (Chronic) Hospital Course and Treatment Imaging Results: RAD/Tibia & Fibula 2 Views IMPRESSION: Normal x-ray examination of the tibia and fibula. RAD/Tibia & Fibula 2 Views IMPRESSION: Normal x-ray examination of the tibia and fibula. 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 Operations: None Procedures: None Summary of Care Provided: Hospital course: The patient is a 68 year old F with past medical history of depression, diabetes type 2, hypothyroidism, hypertension, chronic diabetic wounds, chronic venous stasis ulcers bilateral lower extremities, who presented to the emergency room with complaints of bilateral lower extremity edema and redness. She had been doing poorly at home. She was found with her legs down, swollen, red, with fluid oozing out. She had x-rays of her lower extremities which were negative. She was significantly hyperglycemic. Her insulin doses were adjusted. She was given increased oral Lasix for lower extremity edema. She was provided with Kaushal wraps. She had significant improvement in her lower extremity edema with this. Wound care was consulted for lower extremity venous insufficiency related ulcers and diabetic wounds. Wounds were treated with bacitracin, calmoseptine, and dressings. The patient was unable to walk and was admitted for placement. She had severe weakness of her lower extremities, and severe pain in her bilateral shoulders. She has osteoarthritis in both shoulders but is never been evaluated for this. She was given pain control with Tylenol, BenGay, Lidoderm patches, and ibuprofen which did significantly improve her pain and range of motion. She had never seen orthopedics or podiatry in the past. Given her osteoarthritis and chronic lower extremity diabetic wounds she will need follow-up with Ortho and podiatry in the outpatient setting within the next 2 weeks. She will also need to follow-up with her PCP in 2 weeks. PT OT were provided and [facility] was recommended. [facility] in stable condition when accepted. She will need to continue wound care daily and KAUSHAL wraps to the LE. Monitor BMP. This patient was seen by Hugh Ferguson PA-C under the supervision of Doctor Tyler. [] - Physical Exam General: Alert, Oriented x3, Cooperative HEENT: Atraumatic, PERRLA, EOMI, Normocephalic Neck: Supple, No JVD, Negative Carotid Bruits Lungs: Clear to auscultation, Normal air movement Cardiovascular: Regular rate, No murmurs Abdomen: Bowel Sounds Present, Soft, Non Tender Extremities: Capillary Refill Less than 3 Seconds, Edema - BL LE Skin: Ulcer/ Wound Musculoskeletal: No Tenderness to Palpation of Joints or Extremities Neurological: Cranial nerves II-XII grossly intact Psych/Mental Status: Appropriate, Flat Affect, Alert and oriented to time, place, person, mood and affect Vital Signs Temp Pulse Resp BP Pulse Ox 98.6 F 83 16 136/77 H 98 02/18/19 11:28 02/18/19 11:28 02/18/19 11:28 02/18/19 11:28 02/18/19 11:28 Oxygen Delivery Method Room Air Weight: 244 lb 15.995 oz Body Mass Index (BMI) 41.8 Finger Stick Blood Glucose 270 Intake and Output for Last 24 Hours 02/16/19 02/17/19 02/18/19 23:59 23:59 23:59 Intake Total 800 / 800 557 / 557 650 / 650 Output Total 1500 / 1500 1200 / 1200 350 / 350 Balance -700 / -700 -643 / -643 300 / 300 Microbiology Past 72 Hours 02/15/19 01:25 Gram Stain - Final Skin - Leg Wound Culture - Preliminary Klebsiella pneumoniae sp pneum Proteus mirabilis Enterococcus faecalis Staphylococcus aureus 02/15/19 00:15 Blood Culture - Preliminary Blood Culture (Wb) - Left Forearm No growth in 48 hours. 02/15/19 03:00 Blood Culture - Preliminary Blood Culture (Wb) - Anticubital Right No growth in 48 hours. POC Glucose 02/18/19 02/18/19 02/17/19 11:23 06:55 22:08 POC Glucose 268 H 242 H 255 H 02/17/19 17:13 POC Glucose 271 H Discharge Diet: Low fat/ Low Cholesterol, 1800 Calorie Control Diet, 2000 mg Sodium Diet Discharge Activity: Return to Normal Activity Home Medications: Medications to take at Discharge Duloxetine HCl 60 mg PO BID 09/02/18 Levothyroxine [Synthroid] 112 mcg PO DAILY 09/02/18 Lovastatin [Mevacor] 40 mg PO QHS 09/02/18 traZODone [Desyrel] 100 mg PO QHS 09/02/18 Ergocalciferol [Vitamin D] 50,000 unit PO Q7D 02/15/19 Melatonin 5 mg PO QHS 02/15/19 Topiramate [Topamax] 50 mg PO BID 02/15/19 Acetaminophen [Tylenol] 1,000 mg PO Q8 tablet 02/18/19 Bacitracin/Polymyxin B Ointmen [Polysporin Ointment] 1 applic TOPICAL BID tube 02/18/19 Furosemide [Lasix] 40 mg PO DAILY tablet 02/18/19 Glucerna Shake 120 ml PO 4X/DAY liquid 02/18/19 Ibuprofen [Motrin] 400 mg PO Q6H PRN PRN tablet 02/18/19 Insulin Glargine [Lantus SoloStar Pen] 12 units SC BID pen 02/18/19 Insulin Lispro [Humalog KwikPen] 22 unit SC TIDCM insuln.pen 02/18/19 Lidocaine [Lidoderm Patch] 1 patch TOPICAL DAILY patch 02/18/19 Lisinopril [Zestril] 20 mg PO DAILY tablet 02/18/19 Menthol [Bengay Vanishing Scent] 1 applic TOPICAL 4X/DAY PRN PRN tube 02/18/19 Menthol/Lanolin/Calamine/Znox [Calmoseptine Ointment] 1 applic TOPICAL BID tube 02/18/19 Nystatin Powder [Mycostatin Powder] 1 applic TOPICAL TID bottle 02/18/19 Potassium Chloride [K-Dur] 20 meq PO DAILYCM tablet 02/18/19 Primary Care Physician: Olivia Doctor,Out of [Primary Care Provider] - Please follow up with your Primary Care Physician in: 2 weeks Please Follow Up With: Orthopedics When: 2 weeks Please Follow Up With: Podiatry When: 2 weeks Disposition: [facility] facility Minutes spent on discharge:: 35 Patient Condition:: Stable Medical Necessity - Tobacco Use Smoking Status: Former smoker Meaningful Use Info Meaningful Use Diagnoses (Choose all that apply): None applicable <Rolo Scott - Last Filed: 02/18/19 16:00> Discharge Date and Diagnosis - Secondary Discharge Diagnosis Chronic Problems Venous stasis dermatitis (Chronic) Osteoarthritis (Chronic) HTN (hypertension) (Chronic) Hypothyroidism (Chronic) Diabetes mellitus (Chronic) Diabetic foot ulcer (Chronic) Hospital Course and Treatment Consultations 02/15/19 05:06 Consult: 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 Summary of Care Provided: [] This patient was seen in conjunction with Hugh BECKETT. I have independently interviewed and examined the patient and reviewed pertinent history, examination findings, laboratory and plan of management. I have reviewed the note and agree with the documented findings with the few additional points. In brief, patient is admitted for generalized weakness, not able to take care of herself. Patient bilateral lower extremity edema have improved. On Accu-Chek AC at bedtime with sliding scale insulin for diabetes mellitus type 2. Blood sugars are about 250s. Patient has dry feet and history of chronic diabetic ulcer. Denies history of osteomyelitis. Preliminary wound culture from superficial skin ulcers of legs shows gram-negative lisandra lactose service restorer emergency, gram-negative lisandra, gram-positive cocci possible and staph aureus. It is unable to ascertain its clinical significance as it might be colonization or mild infection. Patient does not have systemic signs of infection including fever, leukocytosis or tachycardia. Started on bacitracin/polymyxin B skin ointment. Patient is on calmoseptine ointment Discharge medication reconciliation done. Discharge follow-up instructions completed. Discharge process discussed with the patient and all questions were answered to patient's satisfaction. Total time spent, exact 35 minutes on discharge meds reconciliation, examination, review of imaging and blood test and discussion with the patient on follow-up instructions. I have discussed my assessment with Hugh BECKETT and orders have been reviewed. Subjective: Patient denies shortness of breath or chest pain. Patient ambulates with assistance from bed to chair. Objective: General: Alert, Oriented x3, Cooperative HEENT: Atraumatic, PERRLA, EOMI, Normocephalic Neck: Supple, No JVD, Negative Carotid Bruits Lungs: Clear to auscultation, No rhonchi, No wheeze, No rales, air entry bilaterally has improved. Cardiovascular: Regular rate, Regular Rhythm, Normal S1, Normal S2, No murmurs Abdomen: Bowel Sounds Present, Soft, Non Tender, Non-Distended Extremities: Capillary Refill Less than 3 Seconds, Edema has much improved with Kaushal wrap bandage Skin: No rashes, No breakdown Musculoskeletal: No Tenderness to Palpation of Joints or Extremities, Arthritic Changes Lymphatic: No Cervical, Supraclavicular, or Inguinal Adenopathy Neurological: Cranial nerves II-XII grossly intact, Deep Tendon Reflexes 2+/4 and Symmetrical, Neuro grossly intact Psych/Mental Status: Normal Affect, Appropriate - Physical Exam Vital Signs Temp Pulse Resp BP Pulse Ox 97.0 F L 82 18 108/56 L 94 02/18/19 13:47 02/18/19 13:47 02/18/19 13:47 02/18/19 13:47 02/18/19 13:47 Oxygen Delivery Method Room Air Weight: 244 lb 15.995 oz Body Mass Index (BMI) 41.8 Finger Stick Blood Glucose 270 Intake and Output for Last 24 Hours 02/16/19 02/17/19 02/18/19 23:59 23:59 23:59 Intake Total 800 / 800 557 / 557 650 / 650 Output Total 1500 / 1500 1200 / 1200 350 / 350 Balance -700 / -700 -643 / -643 300 / 300 Microbiology Past 72 Hours 02/15/19 01:25 Gram Stain - Final Skin - Leg Wound Culture - Preliminary Klebsiella pneumoniae sp pneum Proteus mirabilis Enterococcus faecalis Staphylococcus aureus 02/15/19 00:15 Blood Culture - Preliminary Blood Culture (Wb) - Left Forearm No growth in 48 hours. 02/15/19 03:00 Blood Culture - Preliminary Blood Culture (Wb) - Anticubital Right No growth in 48 hours. POC Glucose 02/18/19 02/18/19 02/17/19 11:23 06:55 22:08 POC Glucose 268 H 242 H 255 H 02/17/19 17:13 POC Glucose 271 H Code Visit Inpatient E&M: 23779 Disch Hosp
--- NOTE | 2019-02-18 11:52 | DS.PCM_ITS ---
<Hugh Ferguson - Last Filed: 02/18/19 11:46> Discharge Date and Diagnosis Date of Admission: 02/15/19 Date of Discharge: 02/18/19 - Primary Discharge Diagnosis Active and Suspected Problems Adult failure to thrive (Acute) Hyperglycemia due to type 2 diabetes mellitus (Acute) Chronic venous stasis ulcers LE Diabetic wounds HTN Hypthyroidism Chronic LE edema 2/2 venous insufficiency Osteoarthritis BL shoulders - Secondary Discharge Diagnosis Chronic Problems Venous stasis dermatitis (Chronic) Osteoarthritis (Chronic) HTN (hypertension) (Chronic) Hypothyroidism (Chronic) Diabetes mellitus (Chronic) Diabetic foot ulcer (Chronic) Hospital Course and Treatment Imaging Results: RAD/Tibia & Fibula 2 Views IMPRESSION: Normal x-ray examination of the tibia and fibula. RAD/Tibia & Fibula 2 Views IMPRESSION: Normal x-ray examination of the tibia and fibula. Consultations 02/15/19 05:06 Consult: Onc/Wound/sephora product consultant Routine Comment: Reason for Consult:: venous stasis ulcer and decubitus ulcer of the coccyx. Operations: None Procedures: None Summary of Care Provided: Hospital course: The patient is a 68 year old F with past medical history of depression, diabetes type 2, hypothyroidism, hypertension, chronic diabetic wounds, chronic venous stasis ulcers bilateral lower extremities, who presented to the emergency room with complaints of bilateral lower extremity edema and redness. She had been doing poorly at home. She was found with her legs down, swollen, red, with fluid oozing out. She had x-rays of her lower extremities which were negative. She was significantly hyperglycemic. Her insulin doses were adjusted. She was given increased oral Lasix for lower extremity edema. She was provided with Kaushal wraps. She had significant improvement in her lower extremity edema with this. Wound care was consulted for lower extremity venous insufficiency related ulcers and diabetic wounds. Wounds were treated with bacitracin, calmoseptine, and dressings. The patient was unable to walk and was admitted for placement. She had severe weakness of her lower extremities, and severe pain in her bilateral shoulders. She has osteoarthritis in both shoulders but is never been evaluated for this. She was given pain control with Tylenol, BenGay, Lidoderm patches, and ibuprofen which did significantly improve her pain and range of motion. She had never seen orthopedics or podiatry in the past. Given her osteoarthritis and chronic lower extremity diabetic wounds she will need follow-up with Ortho and podiatry in the outpatient setting within the next 2 weeks. She will also need to follow-up with her PCP in 2 weeks. PT OT were provided and [facility] was recommended. She was discharged to [facility] in stable condition when accepted. She will need to continue wound care daily and KAUSHAL wraps to the LE. Monitor BMP. This patient was seen by Hugh Ferguson PA-C under the supervision of Doctor Tyler. [] - Physical Exam General: Alert, Oriented x3, Cooperative HEENT: Atraumatic, PERRLA, EOMI, Normocephalic Neck: Supple, No JVD, Negative Carotid Bruits Lungs: Clear to auscultation, Normal air movement Cardiovascular: Regular rate, No murmurs Abdomen: Bowel Sounds Present, Soft, Non Tender Extremities: Capillary Refill Less than 3 Seconds, Edema - BL LE Skin: Ulcer/ Wound Musculoskeletal: No Tenderness to Palpation of Joints or Extremities Neurological: Cranial nerves II-XII grossly intact Psych/Mental Status: Appropriate, Flat Affect, Alert and oriented to time, place, person, mood and affect Vital Signs Temp Pulse Resp BP Pulse Ox 98.6 F 83 16 136/77 H 98 02/18/19 11:28 02/18/19 11:28 02/18/19 11:28 02/18/19 11:28 02/18/19 11:28 Oxygen Delivery Method Room Air Weight: 244 lb 15.995 oz Body Mass Index (BMI) 41.8 Finger Stick Blood Glucose 270 Intake and Output for Last 24 Hours 02/16/19 02/17/19 02/18/19 23:59 23:59 23:59 Intake Total 800 / 800 557 / 557 650 / 650 Output Total 1500 / 1500 1200 / 1200 350 / 350 Balance -700 / -700 -643 / -643 300 / 300 Microbiology Past 72 Hours 02/15/19 01:25 Gram Stain - Final Skin - Leg Wound Culture - Preliminary Klebsiella pneumoniae sp pneum Proteus mirabilis Enterococcus faecalis Staphylococcus aureus 02/15/19 00:15 Blood Culture - Preliminary Blood Culture (Wb) - Left Forearm No growth in 48 hours. 02/15/19 03:00 Blood Culture - Preliminary Blood Culture (Wb) - Anticubital Right No growth in 48 hours. POC Glucose 02/18/19 02/18/19 02/17/19 11:23 06:55 22:08 POC Glucose 268 H 242 H 255 H 02/17/19 17:13 POC Glucose 271 H Discharge Diet: Low fat/ Low Cholesterol, 1800 Calorie Control Diet, 2000 mg Sodium Diet Discharge Activity: Return to Normal Activity Home Medications: Medications to take at Discharge Duloxetine HCl 60 mg PO BID 09/02/18 Levothyroxine [Synthroid] 112 mcg PO DAILY 09/02/18 Lovastatin [Mevacor] 40 mg PO QHS 09/02/18 traZODone [Desyrel] 100 mg PO QHS 09/02/18 Ergocalciferol [Vitamin D] 50,000 unit PO Q7D 02/15/19 Melatonin 5 mg PO QHS 02/15/19 Topiramate [Topamax] 50 mg PO BID 02/15/19 Acetaminophen [Tylenol] 1,000 mg PO Q8 tablet 02/18/19 Bacitracin/Polymyxin B Ointmen [Polysporin Ointment] 1 applic TOPICAL BID tube 02/18/19 Furosemide [Lasix] 40 mg PO DAILY tablet 02/18/19 Glucerna Shake 120 ml PO 4X/DAY liquid 02/18/19 Ibuprofen [Motrin] 400 mg PO Q6H PRN PRN tablet 02/18/19 Insulin Glargine [Lantus SoloStar Pen] 12 units SC BID pen 02/18/19 Insulin Lispro [Humalog KwikPen] 22 unit SC TIDCM insuln.pen 02/18/19 Lidocaine [Lidoderm Patch] 1 patch TOPICAL DAILY patch 02/18/19 Lisinopril [Zestril] 20 mg PO DAILY tablet 02/18/19 Menthol [Bengay Vanishing Scent] 1 applic TOPICAL 4X/DAY PRN PRN tube 02/18/19 Menthol/Lanolin/Calamine/Znox [Calmoseptine Ointment] 1 applic TOPICAL BID tube 02/18/19 Nystatin Powder [Mycostatin Powder] 1 applic TOPICAL TID bottle 02/18/19 Potassium Chloride [K-Dur] 20 meq PO DAILYCM tablet 02/18/19 Primary Care Physician: Olivia Doctor,Out of [Primary Care Provider] - Please follow up with your Primary Care Physician in: 2 weeks Please Follow Up With: Orthopedics When: 2 weeks Please Follow Up With: Podiatry When: 2 weeks Disposition: Intermediate facility Minutes spent on discharge:: 35 Patient Condition:: Stable Medical Necessity - Tobacco Use Smoking Status: Former smoker Meaningful Use Info Meaningful Use Diagnoses (Choose all that apply): None applicable <Rolo Scott - Last Filed: 02/18/19 16:00> Discharge Date and Diagnosis - Secondary Discharge Diagnosis Chronic Problems Venous stasis dermatitis (Chronic) Osteoarthritis (Chronic) HTN (hypertension) (Chronic) Hypothyroidism (Chronic) Diabetes mellitus (Chronic) Diabetic foot ulcer (Chronic) Hospital Course and Treatment Consultations 02/15/19 05:06 Consult: Onc/Wound/sephora product consultant Routine Comment: Reason for Consult:: venous stasis ulcer and decubitus ulcer of the coccyx. Summary of Care Provided: [] This patient was seen in conjunction with Hugh BECKETT. I have independently interviewed and examined the patient and reviewed pertinent history, examination findings, laboratory and plan of management. I have reviewed the note and agree with the documented findings with the few additional points. In brief, patient is admitted for generalized weakness, not able to take care of herself. Patient bilateral lower extremity edema have improved. On Accu-Chek AC at bedtime with sliding scale insulin for diabetes mellitus type 2. Blood sugars are about 250s. Patient has dry feet and history of chronic diabetic ulcer. Denies history of osteomyelitis. Preliminary wound culture from superficial skin ulcers of legs shows gram- negative lisandra lactose form presser, gram-negative lisandra, gram-positive cocci possible and staph aureus. It is unable to ascertain its clinical significance as it might be colonization or mild infection. Patient does not have systemic signs of infection including fever, leukocytosis or tachycardia. Started on bacitracin/polymyxin B skin ointment. Patient is on calmoseptine ointment Discharge medication reconciliation done. Discharge follow-up instructions completed. Discharge process discussed with the patient and all questions were answered to patient's satisfaction. Total time spent, exact 35 minutes on discharge meds reconciliation, examination, review of imaging and blood test and discussion with the patient on follow-up instructions. I have discussed my assessment with Hugh BECKETT and orders have been reviewed. Subjective: Patient denies shortness of breath or chest pain. Patient ambulates with assistance from bed to chair. Objective: General: Alert, Oriented x3, Cooperative HEENT: Atraumatic, PERRLA, EOMI, Normocephalic Neck: Supple, No JVD, Negative Carotid Bruits Lungs: Clear to auscultation, No rhonchi, No wheeze, No rales, air entry bilaterally has improved. Cardiovascular: Regular rate, Regular Rhythm, Normal S1, Normal S2, No murmurs Abdomen: Bowel Sounds Present, Soft, Non Tender, Non-Distended Extremities: Capillary Refill Less than 3 Seconds, Edema has much improved with Kaushal wrap bandage Skin: No rashes, No breakdown Musculoskeletal: No Tenderness to Palpation of Joints or Extremities, Arthritic Changes Lymphatic: No Cervical, Supraclavicular, or Inguinal Adenopathy Neurological: Cranial nerves II-XII grossly intact, Deep Tendon Reflexes 2+/4 and Symmetrical, Neuro grossly intact Psych/Mental Status: Normal Affect, Appropriate - Physical Exam Vital Signs Temp Pulse Resp BP Pulse Ox 97.0 F L 82 18 108/56 L 94 02/18/19 13:47 02/18/19 13:47 02/18/19 13:47 02/18/19 13:47 02/18/19 13:47 Oxygen Delivery Method Room Air Weight: 244 lb 15.995 oz Body Mass Index (BMI) 41.8 Finger Stick Blood Glucose 270 Intake and Output for Last 24 Hours 02/16/19 02/17/19 02/18/19 23:59 23:59 23:59 Intake Total 800 / 800 557 / 557 650 / 650 Output Total 1500 / 1500 1200 / 1200 350 / 350 Balance -700 / -700 -643 / -643 300 / 300 Microbiology Past 72 Hours 02/15/19 01:25 Gram Stain - Final Skin - Leg Wound Culture - Preliminary Klebsiella pneumoniae sp pneum Proteus mirabilis Enterococcus faecalis Staphylococcus aureus 02/15/19 00:15 Blood Culture - Preliminary Blood Culture (Wb) - Left Forearm No growth in 48 hours. 02/15/19 03:00 Blood Culture - Preliminary Blood Culture (Wb) - Anticubital Right No growth in 48 hours. POC Glucose 02/18/19 02/18/19 02/17/19 11:23 06:55 22:08 POC Glucose 268 H 242 H 255 H 02/17/19 17:13 POC Glucose 271 H Code Visit Inpatient E&M: 85899 Disch Hosp
--- NOTE | 2019-02-18 12:33 | CASEMGMT ---
Addendum entered by Faiza Cook 02/18/19 14:26: WILFRED placed a call to Lauren Mills at [facility], provided update that pt is going to [facility] in [place] for short term rehab. Original Note: Social Work Note WILFRED faxed completed discharge paperwork to Francisco at [facility] including transfer to extended care facility, signed medication list and any scripts. Original in SNF folder and copy on pt's chart. WILFRED completed [facility] in [facility]. Original in SNF folder and copy on pt's chart. WILFRED placed a call to [facility] for transportation, [facility] is unable to transport pt. [facility] is also unable to transport pt outside of [facility]. WILFRED placed a call to pt's insurance [employer], arranged transportation. Transportation is scheduled to get to [facility] anywhere from now until 3:15pm today. Transportation form on SNF folder and copy on pt's chart. [facility] [place]text membe's cell phone when they arrive to [facility] and pt will need to be wheeled down to main entrance where a drive will transport her. This has to be done within [address] leave[address] WILFRED updated pt of this, informed pt to make sure her cell phone is charged and has her cell phone available to look at. WILFRED updated RN and LAUNDRY PRESS OPERATOR of this as well. WLIFRED placed a call to Francisco in admissions at [facility] and updated him of transportation time. Plan: Pt to discharge to [facility] today skilled with [facility] transporting via wheelchair van between now and 3:15pm. Faiza Cook EMPLOYMENT ADVISOR, ELECTRIFIER OPERATOR
[2019-02-18] MEDS: Glucerna Shake 120 ML LIQUID PO (13:40)
[2019-02-18 13:47] VITALS: BP 108/56; PULSE 82; RESP 18; TEMP 36.1; O2SAT 94
--- NOTE | 2019-02-18 15:18 | NURSING ---
CALLED AND GAVE REPORT TO RN AT [facility]-
== END 2019-02-18 15:00 | disposition skilled nursing facility (03) | DRG 197 ==
LOC: ED 03:32 → MS3 04:30
PROVIDERS: Internal Medicine; Physician Assistant; Admitting Provider Hospitalist; Emergency Provider Emergency Medicine; Visit Provider Internal Medicine
DX: I87.2 Venous insufficiency (chronic) (peripheral) (principal); R62.7 Adult failure to thrive; E03.9 Hypothyroidism, unspecified; I10 Essential (primary) hypertension; Z68.41 Body mass index [BMI] 40.0-44.9, adult; E11.65 Type 2 diabetes mellitus with hyperglycemia; M19.012 Primary osteoarthritis, left shoulder; M19.011 Primary osteoarthritis, right shoulder; R53.81 Other malaise; L89.222 Pressure ulcer of left hip, stage 2; L89.212 Pressure ulcer of right hip, stage 2; Z79.4 Long term (current) use of insulin; Z87.891 Personal history of nicotine dependence; E11.621 Type 2 diabetes mellitus with foot ulcer; L97.509 Non-pressure chronic ulcer of other part of unspecified foot with unspecified severity
CPT/HCPCS: 36415; 73590; 80048; 82962; 83605; 85025; 87040; 87070; 87077; 87186; 87205; 97110; 97162; 97166; 97530; 97535; 97802; 99285; J7050; A4216; J1940

== ENCOUNTER 2019-10-11 15:18 | Inpatient (IN) | payer MEDICAID, SELFPAY ==
[2019-02-15 05:06] VITALS: BMI 41.8
[2019-10-11 15:19] VITALS: BP 91/67; PULSE 67; RESP 14; TEMP 36.4; O2SAT 98; BMI 46.5
--- NOTE | 2019-10-11 15:42 | CT_ITS ---
STUDY: CT BRAIN WITHOUT CONTRAST REASON FOR EXAM: Female, 68 years old. fall RADIATION DOSAGE (If Supplied By Facility): CTDIvol = ( 60.81 ) mGy, DLP = ( 998.67 ) mGycm TECHNIQUE: Transaxial CT imaging of the brain was performed without administration of intravenous contrast material. Individualized dose optimization techniques were used for this CT. COMPARISON: No relevant priors. FINDINGS: Normal soft tissue structures. Normal calvarium. Normal size ventricles and extra-axial spaces for the patient''s age. Minor periventricular white matter ischemic changes.. Normal basal ganglia and thalami. Normal brainstem. Normal cerebellum. There is no intracranial hemorrhage. There are no findings of an acute ischemic infarction. Normal visualized paranasal sinuses. CT/Brain/Head without Contrast IMPRESSION: Minor periventricular white matter ischemic change. No evidence for acute intracranial bleed Electronically Signed: Charles Minor MD at 19:01 EST , Service support ,
--- NOTE | 2019-10-11 15:42 | RAD_ITS ---
STUDY: X-RAY CHEST REASON FOR EXAM: Female, 68 years old. FALL, WEAKNESS TECHNIQUE: AP COMPARISON: 09/02/2018 FINDINGS: There are granulomata of the right lung. There is no demonstrated pleural abnormality. Normal size heart. There are calcified right hilar lymph nodes. Normal visualized pulmonary arteries. Normal visualized aortic arch and descending thoracic aorta. Normal visualized thoracic spine. There is degenerative osteoarthritis of the bilateral shoulders. There is no demonstrated abnormality of the visualized soft tissue structures of the upper abdomen. RAD/Chest 1 View (Portable) IMPRESSION: 1. Stable, nonacute portable x-ray examination of the chest. Electronically Signed: Dallas Vazquez MD (Brooks) at 16:06 EST , Service support ,
--- NOTE | 2019-10-11 15:43 | EKG12_ITS ---
Test Reason : DYSRHYTHMIA Blood Pressure : / mmHG Vent. Rate : 065 BPM Atrial Rate : 065 BPM P-R Int : 172 ms QRS Dur : 098 ms QT Int : 438 ms P-R-T Axes : 057 011 028 degrees QTc Int : 455 ms Sinus rhythm with Premature atrial complexes Otherwise normal ECG Confirmed by ANEUDY AVENDANO, LUIS ([id number]), editor producer JUANCHO LOJA ([id number]) on 10/14/2019 10:02:55 AM Referred By: LUIS A Confirmed By:LUIS AMADO MD
--- NOTE | 2019-10-11 15:44 | CT_ITS ---
STUDY: CT CERVICAL SPINE WITHOUT CONTRAST REASON FOR EXAM: Female, 68 years old. fall RADIATION DOSAGE (If Supplied By Facility): CTDIvol = ( 29.98 ) mGy, DLP = ( 593.94 ) mGycm TECHNIQUE: High resolution transaxial imaging was performed without contrast material. Sagittal and coronal images were reconstructed. Individualized dose optimization techniques were used for this CT. COMPARISON: None FINDINGS: Normal craniovertebral junction. Normal anterior atlantoaxial articulation. Normal odontoid process. Decreased cervical lordosis. Mild dextroscoliosis or torticollis secondary to muscle spasm Normal vertebral bodies and posterior osseous elements. C2-3: Normal endplates. Normal disc height and morphology. Normal central canal and intervertebral neuroforamina. C3-4: Normal endplates. Normal disc height and morphology. Normal central canal and intervertebral neuroforamina. C4-5: Narrowed disc space and endplate spurring. Mild narrowing of the central canal and impingement upon the cord. Moderate left neuroforaminal stenosis secondary to bony hypertrophy. C5-6: Narrowed disc space and endplate spurring. Mild narrowing of the central canal and impingement upon the cord. Severe bilateral neuroforaminal stenosis secondary to bony hypertrophy. C6-7: Narrowed disc space and endplate spurring. Mild narrowing of the central canal. Mild bilateral neuroforaminal stenosis secondary to bony hypertrophy. C7-T1: Normal endplates. Normal disc height and morphology. Normal central canal and intervertebral neuroforamina. Normal visualized soft tissue structures. CT/Spine Cervical without Contras IMPRESSION: No evidence for acute fracture or subluxation. Moderate spondylosis Electronically Signed: Charles Minor MD at 19:19 EST , Service support ,
[2019-10-11 16:34] LABS: Absolute Lymphocyte Count 1.47 X10^3/uL (0.83-4.51); Absolute Neutrophil Count 5.6 X10^3/uL (2.0-7.7); Basophil# 0.03 X10^3/uL; Basophil% 0.4 % (0-1); Eosinophils% 1.3 % (0-5); Hematocrit 39.8 % (37-47); Hemoglobin 13.2 g/dL (12.0-15.0); Lymphocyte # 1.47 X10^3/ul (4.0); Mean Corp Hgb Conc 33.2 g/dL (32-36); Mean Corpuscular Hgb 28.4 pg (27.0-32.0); Mean Corpuscular Volume 85.6 fL (81-99); Mean Platelet Vol. 9.4 fl (6.2-12.0); Monocyte# 0.53 X10^3/uL; Monocyte% 6.8 % (0-10); NRBC Flagged by Analyzer 0 % (0-5); Neutrophil # 5.55 X10^3/uL (2.7-7.7); Neutrophil % 71.6 % (47-70); Platelet Count 208 K/mm3 (150-450); RBC Distribution Width CV 13.2 % (11.6-14.6); RBC Distribution Width SD 40.9 fl (35.1-43.9); Red Blood Count 4.65 M/mm3 (4.2-5.4); White Blood Count 7.8 K/mm3 (4.4-11.0)
[2019-10-11] MEDS: Diphth,Pertuss(Acell),Tet Vac 0.5 ML Vial IM (16:41)
[2019-10-11] MEDS: BACITRACIN 15 GM Tube 1 APPLIC TOPICAL (16:41)
[2019-10-11 16:49] LABS: Partial Thromboplast Time 25.2 Seconds (24.1-36.2); Prothrombin Time (Protime)PT. 12.7 SECONDS (11.7-14.9)
[2019-10-11 17:10] LABS: ALB/GLOB Ratio 0.7 RATIO (0.9-2.4); AST(SGOT) 20 U/L (15-37); Alanine Aminotransfer ALT/SGPT 18 U/L (13-56); Albumin, Serum 3.1 g/dL (3.2-5.0); Alkaline Phosphatase 160 U/L (45-117); Anion Gap 9 (5-15); BUN 47 mg/dL (7-18); BUN/Creat Ratio 22.5 RATIO (10-20); Calcium,Total 8.2 mg/dL (8.5-10.1); Chloride 96 mmol/L (98-107); Creatinine, Serum 2.09 mg/dL (0.55-1.02); EST Glomerular Filtration Rate 25 mL/min (>60); Est Glom Filt Rate - Afr Amer 30 mL/min (>60); Estimated Creatinine Clearance 19.98 ml/min; Globulin 4.2 g/dL (2.2-4.2); Glucose 498 mg/dL (74-106); Potassium 4.9 mmol/L (3.5-5.1); Protein, Total 7.3 g/dL (6.4-8.2); Sodium Level 127 mmol/L (136-145)
--- NOTE | 2019-10-11 17:10 | NURSING ---
blood glucose 498. made aware.
[2019-10-11 17:12] LABS: Lactic Acid 2.5 mmol/L (0.4-1.9)
[2019-10-11] MEDS: 0.9% Normal Saline 1,000 ML 1000 ML IV (17:13)
[2019-10-11 18:15] VITALS: BP 111/66; PULSE 64; RESP 14; O2SAT 99
[2019-10-11 18:16] LABS: Bacteria 0 SEEN /hpf (None Seen); Mucous, Urine 0 SEEN /hpf (<or=2+); Red Blood Cells-Urine 0 SEEN /hpf (0-5); Squamous Epithelial Cells - UA 0 SEEN /hpf (5-10); White Blood Cells 0 SEEN /hpf (0-5)
[2019-10-11 18:30] LABS: Bedside Glucose 443 mg/dL (70-110)
[2019-10-11 18:30] LABS: Color, Urine Straw (Yellow); Glucose, Dipstick 1000 mg/dl (Normal); Ketone-Dipstick Negative (Negative); Leukocyte Esterase-Dipstick Negative /ul (Negative); Nitrite-Dipstick Negative (Negative); Occult Blood-Urine Negative /ul (Negative); Protein-Dipstick Negative (Negative); Urine Bilirubin Dipstick Negative (Negative); Urine Clarity Clear (Clear); Urine Urobilinogen Normal (Normal)
--- NOTE | 2019-10-11 19:24 | ED.VISSUMM ---
- ER Visit Summary Date of Service: 10/11/19 Chief Complaint: Fall History of Present Illness: The patient is a 68 F who lives alone. She fell today when she was trying to go to the restroom. She uses a wheelchair normally, but thought that she only had a walker short distance so she tried to ambulate. She fell. Denies loss of consciousness. Denies blood thinners. She does complain of headache as well as left leg pain and abrasions. No other injuries or complaints. Physical Examination: Blood pressure 91/67. Otherwise vitals unremarkable. Superficial forehead abrasion. Neck is nontender. Heart regular. Lungs clear. Abdomen soft and nontender. Abrasion to left great toe and a skin tear to her left warner. Cranial nerves grossly intact. Normal strength and sensation, symmetric. Test Results: EKG shows sinus rhythm at a rate of 65 with PACs. CBC normal. Chemistry panel shows a sodium of 127, chloride 96, glucose 498, BUN 47, creatinine 2.09. Coags unremarkable. Urinalysis unremarkable. Troponin normal. Lactate 2.5. Chest x-ray stable. CT brain and cervical spine unremarkable. Emergency Department Course and Treatment: Tetanus updated. Wound care to skin avulsion and abrasions. CT head and neck unremarkable. She is dehydrated. History of failure to thrive. She will need IV fluids. Blood pressure is improved. Based on her history, and because she lives alone, will call the hospitalist to admit for further care. Treatment Plan: As above Disposition: Admission Impression: 1. Fall 2. Dehydration 3. Acute kidney injury 4. Lactic acidosis This note was generated with [employer] dictation software. It may contain incorrect words, spelling, and punctuation that were not noted in review of the chart prior to signing ED Disposition - Plan for ED Patient: Referrals: [facility] ,Out of [Primary Care Provider] -
[2019-10-11] MEDS: 0.9% Normal Saline 1,000 ML 999 ML IV ×2 (19:45→21:12)
--- NOTE | 2019-10-11 19:55 | PCM.HP.STD ---
Problem List (1) Lactic acidosis Status: Acute (2) Acute kidney injury Status: Acute (3) Type 2 diabetes mellitus Status: Chronic (4) Venous stasis dermatitis Status: Chronic (5) Osteoarthritis Status: Chronic (6) Hyperglycemia due to type 2 diabetes mellitus Status: Acute (7) Open wound of right lower extremity Status: Chronic (8) Open wound of left lower extremity Status: Chronic (9) HTN (hypertension) Status: Chronic Qualifiers: (10) Hypothyroidism Status: Chronic History of Present Illness Date of Admission: 10/11/19 Chief Complaint: Fall. The patient is a 68 year old F patient with past medical history as mentioned above presented to the emergency room because of fall. Patient is poor informant. Patient lives alone at home and she uses wheelchair but she can walk only for short distance at home. Today, she stood up from her wheelchair, went to the bathroom and she had a mechanical fall, hit her head and her right side. She denied any prodromal symptoms before the fall such as dizziness, lightheadedness, palpitation, chest pain or shortness of breath. She had a history of type 2 diabetes mellitus which seemed to be uncontrolled, blood sugar today is 498 and her hemoglobin A1c was 12% on May,. Patient claimed that his blood sugar is under control and she takes her insulin as prescribed. She will history of hypothyroidism and she has been on levothyroxine replacement, TSH was normal at 2.98 on May,. She had a history of chronic bilateral leg diabetic ulcers as well as foot ulcers which are currently not acutely infected. In the emergency department, her blood pressure was borderline, it was 91/67, other vital signs are stable. Routine blood work was remarkable for sodium of 129, BUN of 47, creatinine is 2.09. Blood glucose is 498. Lactic acid was 2.5. LFT was unremarkable. EKG revealed normal sinus rhythm with PACs, no evidence of acute skin changes or cardiac arrhythmias. Troponin was negative. CT scan brain showed no acute infarct or hemorrhage. Chest x-ray showed no acute infiltrate or consolidation. CT scan cervical spine showed no acute fractures or dislocations. She is being admitted for uncontrolled type 2 diabetes mellitus with hyperglycemia, acute kidney injury, hypotension and lactic acidosis likely due to hypovolemia. Also, patient lives alone and apparently, she is not able to take care of herself and she will need placement to prison facility. Past Medical History Past Medical History (Chronic Problems): Chronic Problems Type 2 diabetes mellitus (Chronic) Venous stasis dermatitis (Chronic) Osteoarthritis (Chronic) Open wound of right lower extremity (Chronic) Open wound of left lower extremity (Chronic) Diabetic ulcer of right foot (Chronic) HTN (hypertension) (Chronic) Hypothyroidism (Chronic) Allergies ciprofloxacin [From Cipro] Allergy (Verified 10/11/19 15:23) Rash codeine Adverse Reaction (Verified 10/11/19 15:23) Rash Home Medications: Ambulatory Orders Medication Instructions Recorded Duloxetine HCl 60 mg PO BID 09/02/18 Levothyroxine [Synthroid] 112 mcg PO DAILY 09/02/18 Lovastatin [Mevacor] 40 mg PO QHS 09/02/18 traZODone [Desyrel] 100 mg PO QHS 09/02/18 Ergocalciferol [Vitamin D] 50,000 unit PO Q7D 02/15/19 Melatonin 5 mg PO QHS 02/15/19 Topiramate [Topamax] 50 mg PO BID 02/15/19 Acetaminophen [Tylenol] 1,000 mg PO Q8 tablet 02/18/19 Bacitracin/Polymyxin B Ointmen 1 applic TOPICAL BID tube 02/18/19 [Polysporin Ointment] Furosemide [Lasix] 40 mg PO DAILY tablet 02/18/19 Glucerna Shake 120 ml PO 4X/DAY liquid 02/18/19 Ibuprofen [Motrin] 400 mg PO Q6H PRN PRN tablet 02/18/19 Insulin Glargine [Lantus SoloStar 12 units SC BID pen 02/18/19 Pen] Insulin Lispro [Humalog KwikPen] 22 unit SC TIDCM insuln.pen 02/18/19 Lidocaine [Lidoderm Patch] 1 patch TOPICAL DAILY patch 02/18/19 Lisinopril [Zestril] 20 mg PO DAILY tablet 02/18/19 Menthol [Bengay Vanishing Scent] 1 applic TOPICAL 4X/DAY PRN PRN 02/18/19 tube Menthol/Lanolin/Calamine/Znox 1 applic TOPICAL BID tube 02/18/19 [Calmoseptine Ointment] Nystatin Powder [Mycostatin Powder] 1 applic TOPICAL TID bottle 02/18/19 Potassium Chloride [K-Dur] 20 meq PO DAILYCM tablet 02/18/19 Surgical History: - - Plastic surgery of the right forearm and right arm when patient was a child. 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 Review of Systems Constitutional: Reports: Weakness. Denies: Anorexia, Chills, Fever Eyes: Denies: Blurred vision, Double vision, Drainage, Redness HEENT: Denies: Difficulty Hearing, Ear Pain, Eye Pain, Nasal Congestion, Sore Throat Cardiovascular: Denies: Chest Pain, Chest Pressure, Chest Tightness, Heaviness, Light Headedness, Palpitations, Syncope Respiratory: Denies: Cough, Pleuritic Pain, Shortness of Breath, Sputum production, Wheezing Gastrointestinal: Denies: Abdominal Pain, Constipation, Diarrhea, Nausea, Vomiting Genitourinary: Denies: Dysuria, Frequency, Hematuria Musculoskeletal: Reports: Back Pain. Denies: Arm Pain, Foot Pain Skin: Denies: Dryness, Rash Neurological: Denies: Balance problems, Double vision, Change in Speech, Slurred speech, Confusion, Focal weakness, Headaches, Incoordination Psychiatric: Reports: Depression. Denies: Anxiety Endocrine: Denies: Change in Body Habitus, Polydipsia, Polyuria VTE Information - Inpt Only VTE Present on Admission: No VTE Mechan Device Prophylaxis: None VTE Pharm Prophylaxis ordered?: Yes - Physical Exam Vitals/I&O's: Vital Signs Temp Pulse Resp BP Pulse Ox 97.5 F L 64 14 111/66 99 10/11/19 15:19 10/11/19 18:15 10/11/19 18:15 10/11/19 18:15 10/11/19 18:15 Oxygen Delivery Method Room Air Weight: 246 lb 11.156 oz Body Mass Index (BMI) 46.5 Finger Stick Blood Glucose 443 Intake and Output for Last 24 Hours 10/09/19 10/10/19 10/11/19 23:59 23:59 23:59 Intake Total 999 / 999 Balance 999 / 999 General: Alert, Oriented x3, Cooperative, No apparent distress, - HEENT: PERRLA, EOMI, Normocephalic, - - forehead abrasion. Oral: No Gingival or Mucosal Lesions/ Ulcerations, Dry Mucosa Neck: Supple, No JVD, Negative Carotid Bruits, Trachea Midline, Thyroid Normal Size and Texture Lungs: Clear to auscultation, Normal air movement, No rhonchi, No wheeze, No rales, Diminished Cardiovascular: Regular rate, Regular Rhythm, Normal S1, Normal S2, PMI Normal Abdomen: Bowel Sounds Present, Soft, Non Tender, Non-Distended, No Hepato-splenomegaly, Obese Extremities: No clubbing, No cyanosis, Edema - Trace edema. Chronic bilateral leg ulcers, mild erythema. Skin: No rashes, Ulcer/ Wound Lymphatic: No Cervical, Supraclavicular, or Inguinal Adenopathy Neurological: Cranial nerves II-XII grossly intact, Motor Exam 5/5 strength throughout Psych/Mental Status: Appropriate, Flat Affect, Alert and oriented to time, place, person, mood and affect Laboratory Results 10/11/19 16:15: WBC 7.8, RBC 4.65, Hgb 13.2, Hct 39.8, MCV 85.6, MCH 28.4, MCHC 33.2, RDW Std Deviation 40.9, RDW Coeff of Nikita 13.2, Plt Count 208, MPV 9.4, Immature Gran % (Auto) 0.900, Neut % (Auto) 71.6 H, Lymph % (Auto) 19.0, [place] % (Auto) 6.8, Eos % (Auto) 1.3, Baso % (Auto) 0.4, Absolute Neuts (auto) 5.6, Absolute Lymphs (auto) 1.47, Nucleated RBC % 0 10/11/19 16:15: PT 12.7, INR 1.0, APTT 25.2 10/11/19 16:15: Sodium 127 L, Potassium 4.9, Chloride 96 L, Carbon Dioxide 22.0, Anion Gap 9, BUN 47 H, Creatinine 2.09 H, Estim Creat Clear Calc 19.98, Est GFR (MDRD) Af Amer 30 L, Est GFR (MDRD) Non-Af 25 L, BUN/Creatinine Ratio 22.5 H, Glucose 498 H*, Calcium 8.2 L, Total Bilirubin 0.30, AST 20, ALT 18, Alkaline Phosphatase 160 H, Troponin I < 0.015, Total Protein 7.3, Albumin 3.1 L, Globulin 4.2, Albumin/Globulin Ratio 0.7 L 10/11/19 16:15: Lactic Acid 2.5 H* 10/11/19 18:10: Urine Color Straw, Urine Clarity Clear, Urine pH 6.0, Ur Specific [place] 1.010, Urine Protein Negative, Urine Glucose (UA) 1000 H, Urine Ketones Negative, Urine Occult Blood Negative, Urine Nitrite Negative, Urine Bilirubin Negative, Urine Urobilinogen Normal, Ur Leukocyte Esterase Negative, Urine RBC 0 SEEN, Urine WBC 0 SEEN, Ur Squamous Epith Cells 0 SEEN, Urine Bacteria 0 SEEN, Urine Mucus 0 SEEN 10/11/19 18:24: POC Glucose 443 H Clinical Impression(s) from Imaging Studies Brain CT 10/11/19 15:42 IMPRESSION: Minor periventricular white matter ischemic change. No evidence for acute intracranial bleed Electronically Signed: Charles Minor MD at 19:01 EST , Service support , Chest X-Ray 10/11/19 15:42 IMPRESSION: 1. Stable, nonacute portable x-ray examination of the chest. Electronically Signed: Dallas Vazquez MD (Brooks) at 16:06 EST , Service support , Cervical Spine CT 10/11/19 15:44 IMPRESSION: No evidence for acute fracture or subluxation. Moderate spondylosis Electronically Signed: Charles Minor MD at 19:19 EST , Service support , Current Medications Sodium Chloride () 1,000 mls @ 999 mls/hr IV .Q1H1M ONE Stop: 10/11/19 20:33 Last Admin: 10/11/19 19:45 Dose: 999 mls/hr Documented by: Assessment/Plan All Active Problems Lactic acidosis (Acute) Acute kidney injury (Acute) Hyperglycemia due to type 2 diabetes mellitus (Acute) This is a 68 years old female patient presented to the emergency because of fall, found to have hypertension with acute kidney injury, hyperglycemia and lactic acidosis. #1 acute kidney injury: Prerenal due to dehydration secondary to significant hyperglycemia. No evidence of DKA. Baseline kidney function is normal. Patient is clinically dehydrated, hypotensive, blood pressure improved after IV fluid bolus. Plan: Admit to PCU, cardiac monitoring, 3 L of IV fluid bolus, maintenance fluid at 100 cc/h, avoid nephrotoxic drugs, input output chart, repeat CBC and BMP tomorrow morning, PT OT evaluation and treatment. #2 hyperglycemia: Blood sugar on admission was 498. Patient received 40 units of insulin IV in the ED. Patient claimed that his sugar is usually under control. Hemoglobin A1c was 12% on May,. Plan: IV fluids, Accu-Cheks every 4 hours, high medium sliding scale, continue home doses of Lantus and Humalog insulin, check hemoglobin A1c, nutrition consult. #3 lactic acidosis: This is probably due to severe dehydration, hypotension and hypovolemia. No evidence of infection. Chest x-ray showed no acute findings. Urinalysis showed no acute cystitis. Blood pressure improved after fluid bolus. Plan: IV fluids as above, repeat lactic acid in 3 hours, no indication for IV antibiotics. #4 hyponatremia: It is probably pseudohyponatremia secondary to hyperglycemia. Corrected sodium for glucose is 135. Expect sodium to normalize with correction of blood glucose. #5 mechanical fall/debility/functional decline: Patient apparently is not able to take care of herself. Patient does have chronic leg ulcers, cleaning issues. Lives alone and she using wheelchair at home. Plan: PT OT evaluation and treatment, patient will probably need placement to prison facility. #6 type 2 diabetes mellitus: Uncontrolled. Plan: Accu-Cheks every 4 hours, insulin sliding scale, continue Lantus and Humalog insulin, check hemoglobin C. #7 hypothyroidism: Continue with oxygen, will check TSH. #8 chronic bilateral leg ulcers/diabetic foot on the right side: Without evidence of acute infection. Plan: Dry sterile dressing, wound care nurse consult. #9 hypertension: At this time, blood pressure is borderline but improved. Plan to hold lisinopril and Lasix. #10 depression: Continue home medications when home medication is updated. #11 DVT prophylaxis: Subcu heparin. This note was generated with Dragon dictation software. It may contain incorrect words, spelling, and punctuation that were not noted in checking the note before signing. Code Visit Inpatient E&M: 46564 Init Hosp L3
[2019-10-11 20:10] VITALS: BP 108/67; PULSE 72; RESP 18; TEMP 36.4; O2SAT 100
[2019-10-11 20:13] VITALS: BMI 40.8; BMI 46.6
[2019-10-11 20:16] VITALS: PULSE 73
[2019-10-11 20:18] VITALS: O2SAT 97
[2019-10-11 20:31] LABS: Reflex Lactate? Y
[2019-10-11] MEDS: Insulin Lispro 100 UNIT/ML INSULN.PEN SC (20:43)
[2019-10-11 20:47] LABS: Thyroid Stim Hormone (TSH) 4.26 uIU/mL (0.358-3.74)
[2019-10-11 21:53] LABS: Lactic Acid 1.5 mmol/L (0.4-1.9)
[2019-10-11 21:53] LABS: Hemoglobin A1c 14.2 % (4.2-6.3)
[2019-10-11 22:16] LABS: Bedside Glucose 408 mg/dL (70-110)
[2019-10-11] MEDS: 0.9% Normal Saline 1,000 ML 100 ML IV (22:30)
[2019-10-11] MEDS: Heparin Injection (Vial) 5,000 UNIT/ML VIAL 5000 UNIT SC (22:59)
[2019-10-11] MEDS: Acetaminophen 325 MG Tablet 650 MG PO (22:59)
[2019-10-11] MEDS: Zolpidem Tartrate 5 MG Tablet PO (23:00)
[2019-10-12] VITALS (10 sets, daily range): BP systolic 97–130; BP diastolic 51–79; PULSE 69–80; RESP 18; TEMP 36.5–36.7; O2SAT 96–100
[2019-10-12] MEDS: Insulin Lispro 100 UNIT/ML INSULN.PEN SC ×6 (01:14→21:41)
[2019-10-12 01:26] LABS: Bedside Glucose 386 mg/dL (70-110)
[2019-10-12] MEDS: Heparin Injection (Vial) 5,000 UNIT/ML VIAL 5000 UNIT SC ×3 (05:56→21:30)
[2019-10-12 06:10] LABS: Bedside Glucose 277 mg/dL (70-110)
[2019-10-12 06:31] LABS: Anion Gap 5 (5-15); BUN 32 mg/dL (7-18); BUN/Creat Ratio 26.7 RATIO (10-20); Calcium,Total 7.4 mg/dL (8.5-10.1); Chloride 110 mmol/L (98-107); EST Glomerular Filtration Rate 48 mL/min (>60); Est Glom Filt Rate - Afr Amer 58 mL/min (>60); Estimated Creatinine Clearance 39.82 ml/min; Glucose 293 mg/dL (74-106); Potassium 5.2 mmol/L (3.5-5.1); Sodium Level 135 mmol/L (136-145)
[2019-10-12] MEDS: Acetaminophen 325 MG Tablet 650 MG PO ×2 (08:13→21:31)
[2019-10-12] MEDS: 0.9% Normal Saline 1,000 ML 100 ML IV (08:14)
[2019-10-12 10:26] LABS: Bedside Glucose 305 mg/dL (70-110)
--- NOTE | 2019-10-12 13:53 | PN_ITS ---
Reason for Visit: debility Subjective: No new complaints Vitals/I&O's: Vital Signs Temp Pulse Resp BP Pulse Ox 36.5 C L 73 18 108/62 99 10/12/19 10:11 10/12/19 10:11 10/12/19 10:11 10/12/19 10:11 10/12/19 10:11 Oxygen Delivery Method Room Air Weight: 108 kg Body Mass Index (BMI) 40.8 Finger Stick Blood Glucose 443 Orthostatic Vital Signs Start: 10/12/19 05:42 Freq: q24h Status: Active Protocol: Activity Type Activity Date Activity User E-Sign Co-Sign Detail Recorded Client Recorded Date Recorded By Document 10/12/19 05:42 MAB [id number] 10/12/19 05:56 MAB 10/12/19 05:42 Orthostatic Vitals Standing -Blood Pressure (90/60-120/80) 97/79 -Extremity Use Left Arm -Pulse Rate (60-100) 77 Sitting -Blood Pressure (90/60-120/80) 107/61 -Extremity Use Left Arm -Pulse Rate (60-100) 74 Lying -Blood Pressure (90/60-120/80) 104/51 L -Extremity Use Left Arm -Pulse Rate (60-100) 73 Intake and Output for Last 24 Hours 10/10/19 10/11/19 10/12/19 23:59 23:59 23:59 Intake Total 3240 / 3240 1571.67 / 1571.67 Output Total 2600 / 2600 Balance 3240 / 3240 -1028.33 / -1028.33 General: Alert, No apparent distress HEENT: - - abrasion on right forehead Oral: Moist Mucosa, No Gingival or Mucosal Lesions/ Ulcerations Neck: No Nodes, Trachea Midline Lungs: Clear to auscultation, Normal air movement, No rhonchi, No wheeze, No rales Cardiovascular: Regular rate, Regular Rhythm, Normal S1, Normal S2, No murmurs Abdomen: Bowel Sounds Present, Soft, Non Tender, Non-Distended, No Hepato- splenomegaly, Obese Extremities: No edema, No Calf Tenderness Skin: No rashes, No breakdown Psych/Mental Status: Appropriate, Flat Affect Laboratory Results 10/11/19 16:15: WBC 7.8, RBC 4.65, Hgb 13.2, Hct 39.8, MCV 85.6, MCH 28.4, MCHC 33.2, RDW Std Deviation 40.9, RDW Coeff of Nikita 13.2, Plt Count 208, MPV 9.4, Immature Gran % (Auto) 0.900, Neut % (Auto) 71.6 H, Lymph % (Auto) 19.0, [place] % (Auto) 6.8, Eos % (Auto) 1.3, Baso % (Auto) 0.4, Absolute Neuts (auto) 5.6, Absolute Lymphs (auto) 1.47, Nucleated RBC % 0 10/11/19 16:15: PT 12.7, INR 1.0, APTT 25.2 10/11/19 16:15: Sodium 127 L, Potassium 4.9, Chloride 96 L, Carbon Dioxide 22.0, Anion Gap 9, BUN 47 H, Creatinine 2.09 H, Estim Creat Clear Calc 19.98, Est GFR (MDRD) Af Amer 30 L, Est GFR (MDRD) Non-Af 25 L, BUN/Creatinine Ratio 22.5 H, Glucose 498 H*, Calcium 8.2 L, Total Bilirubin 0.30, AST 20, ALT 18, Alkaline Phosphatase 160 H, Troponin I < 0.015, Total Protein 7.3, Albumin 3.1 L, Globulin 4.2, Albumin/Globulin Ratio 0.7 L 10/11/19 16:15: Lactic Acid 2.5 H* 10/11/19 16:15: Hemoglobin A1c 14.2 H 10/11/19 16:15: TSH 4.26 H 10/11/19 18:10: Urine Color Straw, Urine Clarity Clear, Urine pH 6.0, Ur Specific [place] 1.010, Urine Protein Negative, Urine Glucose (UA) 1000 H, Urine Ketones Negative, Urine Occult Blood Negative, Urine Nitrite Negative, Urine Bilirubin Negative, Urine Urobilinogen Normal, Ur Leukocyte Esterase Negative, Urine RBC 0 SEEN, Urine WBC 0 SEEN, Ur Squamous Epith Cells 0 SEEN, Urine B acteria 0 SEEN, Urine Mucus 0 SEEN 10/11/19 18:24: POC Glucose 443 H 10/11/19 20:25: POC Glucose 408 H 10/11/19 21:05: Lactic Acid 1.5 10/12/19 01:12: POC Glucose 386 H 10/12/19 05:31: Sodium 135 L, Potassium 5.2 H, Chloride 110 H, Carbon Dioxide 20.0 L, Anion Gap 5, BUN 32 H, Creatinine 1.20 H, Estim Creat Clear Calc 39.82, Est GFR (MDRD) Af Amer 58 L, Est GFR (MDRD) Non-Af 48 L, BUN/Creatinine Ratio 26.7 H, Glucose 293 H, Calcium 7.4 L 10/12/19 05:55: POC Glucose 277 H 10/12/19 10:06: POC Glucose 305 H Current Medications Acetaminophen (Tylenol) 650 mg PO Q6H PRN PRN PRN Reason: Pain Score 1-10/Temp > 100.7 F Last Admin: 10/12/19 08:13 Dose: 650 mg Documented by: Glucagon () 1 mg IM .X1 PRN PRN Reason: Hypoglycemia Heparin Sodium (Porcine) (Heparin Na) 5,000 unit SC Q8 LUIS ANGEL Last Admin: 10/12/19 05:56 Dose: 5,000 unit Documented by: Sodium Chloride () 250 mls @ 15 mls/hr IV .[id number] PRN PRN Reason: Saline Flush Sodium Chloride () 250 mls @ 15 mls/hr IV .[id number] PRN PRN Reason: Additional IVPB Infusion Sodium Chloride () 1,000 mls @ 100 mls/hr IV .Q10H LUIS ANGEL Last Admin: 10/12/19 08:14 Dose: 100 mls/hr Documented by: Insulin Human Lispro (Humalog Kwikpen (Bkc)) 0 unit SC Q4 LUIS ANGEL; Protocol Last Admin: 10/12/19 10:16 Dose: 6 units Documented by: Ondansetron HCl (Zofran) 4 mg IV Q8H PRN PRN PRN Reason: NAUSEA/VOMITING Senna/Docusate Sodium (Senokot-S, Mel-Colace) 2 tablet PO BID PRN PRN PRN Reason: Constipation Sodium Chloride () 10 - 40 ml IV UD PRN PRN Reason: SALINE FLUSH Zolpidem Tartrate (Ambien (Generic)) 5 mg PO QHS PRN PRN PRN Reason: INSOMNIA Last Admin: 10/11/19 23:00 Dose: 5 mg Documented by: STROKE Vital Signs/Narrative: Vital Signs Temp Pulse Resp BP Pulse Ox 10/12/19 10:11 36.5 C L 73 18 108/62 99 Medical Necessity - Tobacco Use Smoking Status: Former smoker Assessment/Plan All Active Problems Lactic acidosis (Acute) Acute kidney injury (Acute) Hyperglycemia due to type 2 diabetes mellitus (Acute) 1. BALAJI * resolved * likely 2/2 prerenal azotemia * HLIV 2. DM2 * uncontrolled * A1c 14.2 * resume glargine at 30 BID schedule log 3. lactic acidosis * resolved * likely 2/2 dehydration 4. HTN: resume lisinopril 5. Debility: PT OT. possible SNF 6. VTE proph: LMWH Code Visit Inpatient E&M: 25784 Subs Hosp L2
[2019-10-12 14:01] LABS: Bedside Glucose 316 mg/dL (70-110)
[2019-10-12 16:15] LABS: Absolute Lymphocyte Count 2.02 X10^3/uL (0.83-4.51); Basophil# 0.03 X10^3/uL; Basophil% 0.5 % (0-1); Eosinophil# 0.13 X10^3/uL; Eosinophils% 2.3 % (0-5); Hematocrit 36.7 % (37-47); Hemoglobin 12.4 g/dL (12.0-15.0); Lymphocyte # 2.02 X10^3/ul (4.0); Lymphocyte % 35.5 % (19-41); Mean Corp Hgb Conc 33.8 g/dL (32-36); Mean Corpuscular Hgb 28.9 pg (27.0-32.0); Mean Corpuscular Volume 85.5 fL (81-99); Mean Platelet Vol. 9.3 fl (6.2-12.0); Monocyte# 0.46 X10^3/uL; Monocyte% 8.1 % (0-10); NRBC Flagged by Analyzer 0 % (0-5); Neutrophil # 3.01 X10^3/uL (2.7-7.7); Neutrophil % 52.9 % (47-70); Platelet Count 199 K/mm3 (150-450); RBC Distribution Width CV 13.2 % (11.6-14.6); Red Blood Count 4.29 M/mm3 (4.2-5.4); White Blood Count 5.7 K/mm3 (4.4-11.0)
[2019-10-12] MEDS: Insulin Lispro 100 UNIT/ML INSULN.PEN 10 UNIT SC (17:06)
[2019-10-12 17:11] LABS: Bedside Glucose 252 mg/dL (70-110)
[2019-10-12] MEDS: traZODone 100 MG Tablet PO (21:30)
[2019-10-12] MEDS: MELATONIN 10 MG TABLET 5 MG PO (21:31)
[2019-10-12] MEDS: Atorvastatin Calcium 10 MG Tablet PO (21:31)
[2019-10-12] MEDS: Gabapentin 400 MG Capsule PO (21:31)
[2019-10-12] MEDS: Topiramate 50 MG Tablet PO (21:31)
[2019-10-12 21:56] LABS: Bedside Glucose 234 mg/dL (70-110)
[2019-10-13] VITALS (12 sets, daily range): BP systolic 93–161; BP diastolic 50–77; PULSE 76–95; RESP 16–20; TEMP 36.8–37.4; O2SAT 90–95
[2019-10-13] MEDS: Insulin Lispro 100 UNIT/ML INSULN.PEN SC ×3 (02:54→22:06)
[2019-10-13] MEDS: 0.9% Saline Lock 10 ML Syringe IV ×2 (02:58→06:01)
[2019-10-13 03:31] LABS: Bedside Glucose 278 mg/dL (70-110)
[2019-10-13] MEDS: Heparin Injection (Vial) 5,000 UNIT/ML VIAL 5000 UNIT SC ×3 (06:02→21:13)
[2019-10-13] MEDS: Gabapentin 400 MG Capsule PO ×3 (06:02→21:12)
[2019-10-13 06:21] LABS: Bedside Glucose 235 mg/dL (70-110)
[2019-10-13 06:25] LABS: Anion Gap 6 (5-15); BUN 22 mg/dL (7-18); BUN/Creat Ratio 19.8 RATIO (10-20); Calcium,Total 7.9 mg/dL (8.5-10.1); Chloride 111 mmol/L (98-107); Creatinine, Serum 1.11 mg/dL (0.55-1.02); EST Glomerular Filtration Rate 52 mL/min (>60); Est Glom Filt Rate - Afr Amer 63 mL/min (>60); Estimated Creatinine Clearance 43.05 ml/min; Glucose 254 mg/dL (74-106); Potassium 5.9 mmol/L (3.5-5.1); Sodium Level 138 mmol/L (136-145)
[2019-10-13 07:45] LABS: Bedside Glucose 209 mg/dL (70-110)
[2019-10-13] MEDS: Insulin Lispro 100 UNIT/ML INSULN.PEN 10 UNIT SC ×2 (08:51→12:32)
[2019-10-13 09:09] LABS: Anion Gap 5 (5-15); BUN 20 mg/dL (7-18); BUN/Creat Ratio 18.9 RATIO (10-20); Calcium,Total 8.6 mg/dL (8.5-10.1); Chloride 112 mmol/L (98-107); Creatinine, Serum 1.06 mg/dL (0.55-1.02); EST Glomerular Filtration Rate 55 mL/min (>60); Est Glom Filt Rate - Afr Amer 67 mL/min (>60); Estimated Creatinine Clearance 45.08 ml/min; Glucose 227 mg/dL (74-106); Potassium 4.6 mmol/L (3.5-5.1); Sodium Level 141 mmol/L (136-145)
[2019-10-13] MEDS: Sodium Polystyrene Sulfonate 15 GM/60 ML UDC 30 GM PO (10:11)
--- NOTE | 2019-10-13 10:34 | CASEMGMT ---
Physician said patient will need nursing home facility. SW spoke with patient, introduced self and role at [facility]. Patient agreed she needs to go to a long term for rehab. SW gave her a list of local nursing homes that are in network with her insurance. SW asked her to pick 2 or 3 choices and SW will check back with her. Dorie COLEY
[2019-10-13] MEDS: Lisinopril 20 MG Tablet PO (10:47)
[2019-10-13] MEDS: Mirtazapine 30 MG Tablet PO (10:47)
[2019-10-13] MEDS: Topiramate 50 MG Tablet PO ×2 (10:48→22:05)
[2019-10-13] MEDS: Acetaminophen 325 MG Tablet 650 MG PO (10:53)
--- NOTE | 2019-10-13 11:53 | CASEMGMT ---
Physician came out of room and patient now wants to go home with home health. SW checked in with patient and she confirmed she wants to go home with home health and not to a halfway. WILFRED notified RN DIANNE. Dorie MIRAMONTES MSW
--- NOTE | 2019-10-13 11:55 | DCINST_ITS ---
You will use the following diet at home:: Calorie/Carbohydrate Controlled (specify 1200, 1400, etc) - 1800 calories/day Your food should be the consistency of: Regular Your liquids should be the consistency of: Regular/Thin Call your doctor if you observe: Shortness of breath, Swelling in the ankles Instructions: Diabetes: Keeping Feet Healthy, Diabetes: Sick-Day Plan, Eating Out When You Have Diabetes, How to Check Your Blood Sugar, Understanding Type 2 Diabetes, Using Injected Insulin Allergies/Adverse Reactions: Allergies ciprofloxacin [From Cipro] Allergy (Verified 10/11/19 15:23) Rash codeine Adverse Reaction (Verified 10/11/19 15:23) Rash Medications to take at Discharge Duloxetine HCl 60 mg PO BID 09/02/18 Levothyroxine [Synthroid] 112 mcg PO DAILY 09/02/18 Lovastatin [Mevacor] 40 mg PO QHS 09/02/18 traZODone [Desyrel] 100 mg PO QHS 09/02/18 Ergocalciferol [Vitamin D] 50,000 unit PO Q7D 02/15/19 Melatonin 5 mg PO QHS 02/15/19 Topiramate [Topamax] 50 mg PO BID 02/15/19 Acetaminophen [Tylenol] 1,000 mg PO Q8 tablet 02/18/19 Bacitracin/Polymyxin B Ointmen [Polysporin Ointment] 1 applic TOPICAL BID tube 02/18/19 Glucerna Shake 120 ml PO 4X/DAY liquid 02/18/19 Ibuprofen [Motrin] 400 mg PO Q6H PRN PRN tablet 02/18/19 Lidocaine [Lidoderm Patch] 1 patch TOPICAL DAILY patch 02/18/19 Menthol [Bengay Vanishing Scent] 1 applic TOPICAL 4X/DAY PRN PRN tube 02/18/19 Menthol/Lanolin/Calamine/Znox [Calmoseptine Ointment] 1 applic TOPICAL BID tube 02/18/19 Nystatin Powder [Mycostatin Powder] 1 applic TOPICAL TID bottle 02/18/19 Gabapentin [Neurontin] 400 mg PO TID 10/12/19 Lisinopril [Zestril] 20 mg PO DAILY 10/12/19 Mirtazapine 30 mg PO DAILY 10/12/19 Insulin Glargine [Lantus SoloStar Pen] 32 units SUBCUT BID pen 10/13/19 Insulin Lispro [Humalog KwikPen] 10 unit SUBCUT TIDCM #0 insuln.pen 10/13/19 Primary Care Physician: Olivia Doctor,Out of [NON-STAFF] - Please follow up with your Primary Care Physician in: [place] Irizar[place] 1-2 weeks Test Results: Test results from this visit will be discussed in further detail at your follow- up appointment, if applicable. Please Follow Up With: Daniel Rico MD - endocrinology When: 4-6 weeks Proposed Discharge Date: 10/13/19
--- NOTE | 2019-10-13 11:57 | PCM.DC.SUM ---
Discharge Date and Diagnosis Date of Admission: 10/11/19 Date of Discharge: 10/13/19 - Primary Discharge Diagnosis 1. BALAJI resolved likely 2/2 prerenal azotemia and diuretics continue to furosemide 2. DM2 uncontrolled A1c 14.2 glargine 32 BID, log 10 w meals follow up with endocrinology 3. lactic acidosis resolved likely 2/2 dehydration 4. HTN: resume lisinopril 5. Debility: PT OT. patient declining SNF, prefers [facility]. - Secondary Discharge Diagnosis Chronic Problems Type 2 diabetes mellitus (Chronic) Venous stasis dermatitis (Chronic) Osteoarthritis (Chronic) Open wound of right lower extremity (Chronic) Open wound of left lower extremity (Chronic) Diabetic ulcer of right foot (Chronic) HTN (hypertension) (Chronic) Hypothyroidism (Chronic) Hospital Course and Treatment Imaging Results: Clinical Impression(s) from Imaging Studies Brain CT 10/11/19 15:42 IMPRESSION: Minor periventricular white matter ischemic change. No evidence for acute intracranial bleed Electronically Signed: Charles Minor MD at 19:01 EST , Service support , Chest X-Ray 10/11/19 15:42 IMPRESSION: 1. Stable, nonacute portable x-ray examination of the chest. Electronically Signed: Dallas Vazquez MD (Brooks) at 16:06 EST , Service support , Cervical Spine CT 10/11/19 15:44 IMPRESSION: No evidence for acute fracture or subluxation. Moderate spondylosis Electronically Signed: Charles Minor MD at 19:19 EST , Service support , Consultations 10/11/19 20:03 Consult: Onc/Wound/manager intranet Routine Comment: Reason for Consult:: Chronic right leg and left leg ulcers Operations: None Procedures: None Summary of Care Provided: The patient is a 68 year old F presents with fall. Patient lives alone and uses a wheelchair and only walk short distance. Patient got up on day of admission went to the bathroom and then fell hitting her head. Patient was found to be profoundly hyperglycemic at 498. Patient reported her blood sugar being normal to the admitting provider, however, her A1c was 14. Recommend patient increasing her insulin regimen. Patient states that she has enough insulin at home would not need any prescriptions nor any new supplies. Patient was evaluated for her weakness and was recommended skilled therapy before returning home. Today, the patient prefers to go home with home health care. Expressed that she feels safe on returning home. Told her that she would be discharged today and that we would have home health care, to her house but they would not be able to be out there for several days most likely. Patient understands that and is with still wishing to go home. Patient did have a lactic acidosis but no signs of infectious etiology. May been related with dehydration. No further work-up was performed. [] - Physical Exam Vitals/I&O's: Vital Signs Temp Pulse Resp BP Pulse Ox 36.8 C 78 18 119/55 L 90 10/13/19 07:19 10/13/19 07:50 10/13/19 07:19 10/13/19 07:19 10/13/19 08:05 Oxygen Delivery Method Room Air Weight: 108 kg Body Mass Index (BMI) 40.8 Finger Stick Blood Glucose 443 Orthostatic Vital Signs Start: 10/12/19 05:42 Freq: q24h Status: Active Protocol: Activity Type Activity Date Activity User E-Sign Co-Sign Detail Recorded Client Recorded Date Recorded By Document 10/13/19 03:02 EV [id number] 10/13/19 03:09 EV 10/13/19 03:02 Orthostatic Vitals Standing -Blood Pressure (90/60-120/80) 93/54 L -Extremity Use Left Arm -Pulse Rate (60-100) 95 Sitting -Blood Pressure (90/60-120/80) 111/60 -Extremity Use Left Arm -Pulse Rate (60-100) 91 Lying -Blood Pressure (90/60-120/80) 113/50 L -Extremity Use Left Arm -Pulse Rate (60-100) 83 Intake and Output for Last 24 Hours 10/11/19 10/12/19 10/13/19 23:59 23:59 23:59 Intake Total 3240 / 3240 2563.34 / 2563.34 100 / 100 Output Total 3050 / 3250 1500 / 1500 Balance 3240 / 3240 -486.66 / -686.66 -1400 / -1400 General: Alert, Cooperative, No apparent distress HEENT: Atraumatic, Normocephalic Oral: Moist Mucosa, No Gingival or Mucosal Lesions/ Ulcerations Neck: No Nodes, Trachea Midline Lungs: Clear to auscultation, Normal air movement, No rhonchi, No wheeze Cardiovascular: Regular rate, Regular Rhythm, Normal S1, Normal S2 Abdomen: Bowel Sounds Present, Soft, Non Tender, Non-Distended, No Hepato-splenomegaly Extremities: No Calf Tenderness, Edema Laboratory Results 10/12/19 13:51: POC Glucose 316 H 10/12/19 16:00: WBC 5.7, RBC 4.29, Hgb 12.4, Hct 36.7 L, MCV 85.5, MCH 28.9, MCHC 33.8, RDW Std Deviation 41.0, RDW Coeff of Nikita 13.2, Plt Count 199, MPV 9.3, Immature Gran % (Auto) 0.700, Neut % (Auto) 52.9, Lymph % (Auto) 35.5, [place] % (Auto) 8.1, Eos % (Auto) 2.3, Baso % (Auto) 0.5, Absolute Neuts (auto) 3.0, Absolute Lymphs (auto) 2.02, Nucleated RBC % 0 10/12/19 17:05: POC Glucose 252 H 10/12/19 21:39: POC Glucose 234 H 10/13/19 02:53: POC Glucose 278 H 10/13/19 05:45: Sodium 138, Potassium 5.9 H, Chloride 111 H, Carbon Dioxide 21.0, Anion Gap 6, BUN 22 H, Creatinine 1.11 H, Estim Creat Clear Calc 43.05, Est GFR (MDRD) Af Amer 63, Est GFR (MDRD) Non-Af 52 L, BUN/Creatinine Ratio 19.8, Glucose 254 H, Calcium 7.9 L 10/13/19 06:07: POC Glucose 235 H 10/13/19 07:42: POC Glucose 209 H 10/13/19 08:25: Sodium 141, Potassium 4.6, Chloride 112 H, Carbon Dioxide 24.0, Anion Gap 5, BUN 20 H, Creatinine 1.06 H, Estim Creat Clear Calc 45.08, Est GFR (MDRD) Af Amer 67, Est GFR (MDRD) Non-Af 55 L, BUN/Creatinine Ratio 18.9, Glucose 227 H, Calcium 8.6 Current Medications Acetaminophen (Tylenol) 650 mg PO Q6H PRN PRN PRN Reason: Pain Score 1-10/Temp > 100.7 F Last Admin: 10/13/19 10:53 Dose: 650 mg Documented by: Atorvastatin Calcium (Lipitor) 10 mg PO QHS [facility] Last Admin: 10/12/19 21:31 Dose: 10 mg Documented by: Gabapentin (Neurontin) 400 mg PO TID [facility] Last Admin: 10/13/19 06:02 Dose: 400 mg Documented by: Glucagon () 1 mg IM .X1 PRN PRN Reason: Hypoglycemia Heparin Sodium (Porcine) (Heparin Na) 5,000 unit SC Q8 [facility] Last Admin: 10/13/19 06:02 Dose: 5,000 unit Documented by: Sodium Chloride () 250 mls @ 15 mls/hr IV .[id number] PRN PRN Reason: Saline Flush Sodium Chloride () 250 mls @ 15 mls/hr IV .[id number] PRN PRN Reason: Additional IVPB Infusion Insulin Glargine (Lantus (Bkc)) 30 units SC BID [facility] Last Admin: 10/13/19 10:47 Dose: 30 units Documented by: Insulin Human Lispro (Humalog Kwikpen (Bkc)) 10 unit SC TIDAC [facility] Last Admin: 10/13/19 08:51 Dose: 10 units Documented by: Insulin Human Lispro (Humalog Kwikpen (Bkc)) 0 unit SC ACHS [facility]; Protocol Lisinopril (Zestril) 20 mg PO DAILY [facility] Last Admin: 10/13/19 10:47 Dose: 20 mg Documented by: Melatonin (Melatonin) 5 mg PO QHS [facility] Last Admin: 10/12/19 21:31 Dose: 5 mg Documented by: Mirtazapine (Remeron) 30 mg PO DAILY [facility] Last Admin: 10/13/19 10:47 Dose: 30 mg Documented by: Ondansetron HCl (Zofran) 4 mg IV Q8H PRN PRN PRN Reason: NAUSEA/VOMITING Senna/Docusate Sodium (Senokot-S, Mel-Colace) 2 tablet PO BID PRN PRN PRN Reason: Constipation Sodium Chloride () 10 - 40 ml IV UD PRN PRN Reason: SALINE FLUSH Last Admin: 10/13/19 06:01 Dose: 10 ml Documented by: Topiramate (Topamax) 50 mg PO BID [facility] Last Admin: 10/13/19 10:48 Dose: 50 mg Documented by: Trazodone HCl (Desyrel) 100 mg PO QHS [facility] Last Admin: 10/12/19 21:30 Dose: 100 mg Documented by: Zolpidem Tartrate (Ambien (Generic)) 5 mg PO QHS PRN PRN PRN Reason: INSOMNIA Last Admin: 10/11/19 23:00 Dose: 5 mg Documented by: Discharge Diet: 1800 Calorie Control Diet, 2000 mg Sodium Diet Discharge Activity: Return to Normal Activity Call your doctor if you observe: Shortness of breath, Swelling in the ankles Home Medications: Medications to take at Discharge Duloxetine HCl 60 mg PO BID 09/02/18 Levothyroxine [Synthroid] 112 mcg PO DAILY 09/02/18 Lovastatin [Mevacor] 40 mg PO QHS 09/02/18 traZODone [Desyrel] 100 mg PO QHS 09/02/18 Ergocalciferol [Vitamin D] 50,000 unit PO Q7D 02/15/19 Melatonin 5 mg PO QHS 02/15/19 Topiramate [Topamax] 50 mg PO BID 02/15/19 Acetaminophen [Tylenol] 1,000 mg PO Q8 tablet 02/18/19 Bacitracin/Polymyxin B Ointmen [Polysporin Ointment] 1 applic TOPICAL BID tube 02/18/19 Glucerna Shake 120 ml PO 4X/DAY liquid 02/18/19 Ibuprofen [Motrin] 400 mg PO Q6H PRN PRN tablet 02/18/19 Lidocaine [Lidoderm Patch] 1 patch TOPICAL DAILY patch 02/18/19 Menthol [Bengay Vanishing Scent] 1 applic TOPICAL 4X/DAY PRN PRN tube 02/18/19 Menthol/Lanolin/Calamine/Znox [Calmoseptine Ointment] 1 applic TOPICAL BID tube 02/18/19 Nystatin Powder [Mycostatin Powder] 1 applic TOPICAL TID bottle 02/18/19 Gabapentin [Neurontin] 400 mg PO TID 10/12/19 Lisinopril [Zestril] 20 mg PO DAILY 10/12/19 Mirtazapine 30 mg PO DAILY 10/12/19 Insulin Glargine [Lantus SoloStar Pen] 32 units SUBCUT BID pen 10/13/19 Insulin Lispro [Humalog KwikPen] 10 unit SUBCUT TIDCM #0 insuln.pen 10/13/19 Primary Care Physician: [facility] Doctor,Out of [NON-STAFF] - Please follow up with your Primary Care Physician in: Wesly Irizarry 1-2 weeks Please Follow Up With: Daniel Rico MD - endocrinology When: 4-6 weeks Patient Instructions: How to Check Your Blood Sugar, Using Injected Insulin, Eating Out When You Have Diabetes, Diabetes: Keeping Feet Healthy, Diabetes: Sick-Day Plan, Understanding Type 2 Diabetes Disposition: Home with Home Health Minutes spent on discharge:: 32 Patient Condition:: Fair Medical Necessity - Tobacco Use Smoking Status: Former smoker Meaningful Use Info Meaningful Use Diagnoses (Choose all that apply): None applicable Code Visit Inpatient E&M: 41381 Disch Hosp
--- NOTE | 2019-10-13 13:55 | CASEMGMT ---
RN CM assessment: Face to Face with patient for initial transition planning/care coordination assessment. RN CM introduced self and role at [facility], pt voices understanding and consents to assessment at this time. Pt is lying in bed in no distress at this time. Pt is A/Ox4 at this time and answers all questions appropriately at this time. Care providers, pharmacy, and demographics verified/updated at this time. Presentation: Pt was walking to chair and legs gave out and pt fell. Pt with abrasion to forehead, left foot lac, left warner lac-pt denies dizziness prior to fall Admitting dx: BALAJI, Fall, Hyperglycemia, Lactic acidosis PCP: Wesly Irizarry Specialists: Pt states no current specialists. Preferred Pharmacy: [facility] pharmacy/[facility] Insurance: [facility] Prescription Benefit: [facility] Living Will/HPOA: Pt states does not have LW/HPOA and declines info at this time. LNOK: Yony Molina, (but pt does not live with , he lives in [place]) Living Arrangements: Pt states alone in 1 story apt and states friend, Martín, stays with her occasionally. Pt states she is homebound and does not have a car. Pt states that her friend, Paras, brings her groceries once a month. Pt states has been taking care of wounds from frequent falls at home. Pt's has erythema to bilat lower legs and large open area to left lower lateral leg(bag patcher at bedside dressing wound at this time) Transportation: Pt states rarely leaves home and does not have a car. Pt states uses [employer] provide a ride for physician appt's. DME/HHC: Pt states has a cane, walker, grab bars, and shower chair. Pt states no need for any further DME at this time. Pt states has had [facility] in the past and has been to [facility] in [place] in the past. Therapy is recommending SNF at this time and pt is made aware by this RN CM at this time. Pt is reluctant for SNF at this time but seems unsure about caring for self at home. Pt states has had multiple falls recently. Pt is worried about someone to care for her dogs and bunnies. This RN CM asked about friend, Martín, caring for animals and pt did not answer at this time. This RN CM advised pt that will give her some time to contemplate discharge plan, voices understanding. Pt does state some concerns with going home at time of discharge but then starts crying and states 'everytime I go somewhere for rehab, I feel like I am there forever.' Pt states is retired. Pt states does not smoke or drink ETOH. CM to follow for pt discharge decision and for any further discharge planning/needs. Advised pt to ask for CM if any further questions/concerns/needs arise, voices understanding. Pt Goal: TBD Plan: TBD SStobdulio RN CM
[2019-10-13 14:26] LABS: Bedside Glucose 329 mg/dL (70-110)
--- NOTE | 2019-10-13 14:59 | CASEMGMT ---
SW spoke with patient as therapy feels patient should really go to a facility for rehab. Patient is not happy and wants to go home. SW told her that we are concerned she will not be safe at home right now. Patient was tearful. SW provided emotional support. SW left the list in patient's room. She was fine with [facility] or [facility] as she wants to stay in [place]. SW called both facilities and faxed referral to both facilities. Dorie MIRAMONTES RETAIL DEPARTMENT RESET
--- NOTE | 2019-10-13 15:04 | CCHN_ITS ---
Hospitalist Note Case management went back and spoke with the patient. Patient now wishing to go to a long term facility. Therefore, discharge will be held until insurance okays patient go to a long term facility. Please refer to the discharge summary for further details for today and the current billing will reflect a follow-up note. Code Visit Inpatient E&M: 03300 Subs Hosp L2
--- NOTE | 2019-10-13 15:04 | PCM.HOSP.N ---
Hospitalist Note Case management went back and spoke with the patient. Patient now wishing to go to a [facility] facility. Therefore, discharge will be held until insurance okays patient go to a [facility] facility. Please refer to the discharge summary for further details for today and the current billing will reflect a follow-up note. Code Visit Inpatient E&M: 38446 Subs Hosp L2
--- NOTE | 2019-10-13 15:36 | NURSING ---
wound photo: left lower leg
--- NOTE | 2019-10-13 15:37 | NURSING ---
wound photo: left lower leg
[2019-10-13 17:11] LABS: Bedside Glucose 280 mg/dL (70-110)
[2019-10-13] MEDS: Atorvastatin Calcium 10 MG Tablet PO (21:12)
[2019-10-13 21:16] LABS: Bedside Glucose 289 mg/dL (70-110)
[2019-10-14] VITALS (8 sets, daily range): BP systolic 92–131; BP diastolic 55–78; PULSE 73–88; RESP 16–18; TEMP 36.7–37.2; O2SAT 94–98
[2019-10-14 01:11] LABS: Bedside Glucose 221 mg/dL (70-110)
[2019-10-14] MEDS: Heparin Injection (Vial) 5,000 UNIT/ML VIAL 5000 UNIT SC ×2 (05:32→14:51)
[2019-10-14] MEDS: Gabapentin 400 MG Capsule PO ×2 (05:32→14:51)
[2019-10-14] MEDS: 0.9% Saline Lock 10 ML Syringe IV (05:32)
[2019-10-14 05:51] LABS: Bedside Glucose 252 mg/dL (70-110)
[2019-10-14 08:19] LABS: Anion Gap 5 (5-15); BUN 14 mg/dL (7-18); BUN/Creat Ratio 13.7 RATIO (10-20); Calcium,Total 8.8 mg/dL (8.5-10.1); Chloride 109 mmol/L (98-107); Creatinine, Serum 1.02 mg/dL (0.55-1.02); EST Glomerular Filtration Rate 58 mL/min (>60); Est Glom Filt Rate - Afr Amer 70 mL/min (>60); Estimated Creatinine Clearance 46.85 ml/min; Glucose 258 mg/dL (74-106); Potassium 4.8 mmol/L (3.5-5.1); Sodium Level 140 mmol/L (136-145)
--- NOTE | 2019-10-14 10:16 | CASEMGMT ---
SW received calls from both facilities and they can both accept patient. She is still ok with either facility. [facility] was the first to accept and they started the pre-cert. Patient was tearful and said she has been stubborn with everyone and that is not her. WILFRED and RN assured her that there is no need to apologize and that we are often not ourselves when we are ill or not feeling well. WILFRED told her we will wait on insurance to approve before she can leave. WILFRED offered to call someone for patient and she asked SW to call her . SW called patient's and left him a voice mail. Plan: d/c to [facility] pending insurance approval. Dorie MIRAMONTES MSW
[2019-10-14] MEDS: Insulin Lispro 100 UNIT/ML INSULN.PEN 10 UNIT SC ×2 (10:27→12:03)
[2019-10-14] MEDS: Insulin Lispro 100 UNIT/ML INSULN.PEN SC ×3 (10:28→16:08)
[2019-10-14] MEDS: Topiramate 50 MG Tablet PO (10:31)
[2019-10-14] MEDS: Lisinopril 20 MG Tablet PO (10:34)
[2019-10-14] MEDS: Mirtazapine 30 MG Tablet PO (10:34)
[2019-10-14] MEDS: Acetaminophen 325 MG Tablet 650 MG PO (10:34)
[2019-10-14 12:10] LABS: Bedside Glucose 285 mg/dL (70-110)
--- NOTE | 2019-10-14 14:40 | PCM.PN.HOSP ---
Reason for Visit: Debility Subjective: Had a rough night. When asked why, she said it just was--did not elaborate. Vitals/I&O's: Vital Signs Temp Pulse Resp BP Pulse Ox 37.0 C 84 18 131/55 H 97 10/14/19 09:00 10/14/19 11:05 10/14/19 09:00 10/14/19 09:00 10/14/19 09:00 Oxygen Delivery Method Room Air Weight: 108 kg Body Mass Index (BMI) 40.8 Finger Stick Blood Glucose 443 Orthostatic Vital Signs Start: 10/12/19 05:42 Freq: q24h Status: Active Protocol: Activity Type Activity Date Activity User E-Sign Co-Sign Detail Recorded Client Recorded Date Recorded By Document 10/14/19 03:00 [facility] [id number] 10/14/19 03:07 [facility] 10/14/19 03:00 Orthostatic Vitals Sitting -Blood Pressure (90/60-120/80) 131/78 H -Extremity Use Left Arm -Pulse Rate (60-100) 73 Lying -Blood Pressure (90/60-120/80) 125/69 H -Extremity Use Left Arm -Pulse Rate (60-100) 75 Intake and Output for Last 24 Hours 10/12/19 10/13/19 10/14/19 23:59 23:59 23:59 Intake Total 2563.34 / 2563.34 100 / 100 350 / 350 Output Total 3050 / 3250 1800 / 1800 800 / 800 Balance -486.66 / -686.66 -1700 / -1700 -450 / -450 General: Alert, No apparent distress, - - up in chair HEENT: Atraumatic, Normocephalic Psych/Mental Status: Appropriate, Flat Affect Laboratory Results 10/13/19 17:03: POC Glucose 280 H 10/13/19 21:03: POC Glucose 289 H 10/14/19 01:05: POC Glucose 221 H 10/14/19 05:36: POC Glucose 252 H 10/14/19 07:40: Sodium 140, Potassium 4.8, Chloride 109 H, Carbon Dioxide 26.0, Anion Gap 5, BUN 14, Creatinine 1.02, Estim Creat Clear Calc 46.85, Est GFR (MDRD) Af Amer 70, Est GFR (MDRD) Non-Af 58 L, BUN/Creatinine Ratio 13.7, Glucose 258 H, Calcium 8.8 10/14/19 12:02: POC Glucose 285 H Current Medications Acetaminophen (Tylenol) 650 mg PO Q6H PRN PRN PRN Reason: Pain Score 1-10/Temp > 100.7 F Last Admin: 10/14/19 10:34 Dose: 650 mg Documented by: Atorvastatin Calcium (Lipitor) 10 mg PO QHS [facility] Last Admin: 10/13/19 21:12 Dose: 10 mg Documented by: Gabapentin (Neurontin) 400 mg PO TID [facility] Last Admin: 10/14/19 05:32 Dose: 400 mg Documented by: Glucagon () 1 mg IM .X1 PRN PRN Reason: Hypoglycemia Heparin Sodium (Porcine) (Heparin Na) 5,000 unit SC Q8 [facility] Last Admin: 10/14/19 05:32 Dose: 5,000 unit Documented by: Sodium Chloride () 250 mls @ 15 mls/hr IV .[id number] PRN PRN Reason: Saline Flush Sodium Chloride () 250 mls @ 15 mls/hr IV .[id number] PRN PRN Reason: Additional IVPB Infusion Insulin Glargine (Lantus (Bkc)) 30 units SC BID [facility] Last Admin: 10/14/19 10:29 Dose: 30 units Documented by: Insulin Human Lispro (Humalog Kwikpen (Bkc)) 10 unit SC TIDAC [facility] Last Admin: 10/14/19 12:03 Dose: 10 units Documented by: Insulin Human Lispro (Humalog Kwikpen (Bkc)) 0 unit SC ACHS [facility]; Protocol Last Admin: 10/14/19 12:04 Dose: 6 units Documented by: Lisinopril (Zestril) 20 mg PO DAILY [facility] Last Admin: 10/14/19 10:34 Dose: 20 mg Documented by: Melatonin (Melatonin) 5 mg PO QHS [facility] Last Admin: 10/13/19 22:08 Dose: Not Given Documented by: Mirtazapine (Remeron) 30 mg PO DAILY [facility] Last Admin: 10/14/19 10:34 Dose: 30 mg Documented by: Ondansetron HCl (Zofran) 4 mg IV Q8H PRN PRN PRN Reason: NAUSEA/VOMITING Senna/Docusate Sodium (Senokot-S, Mel-Colace) 2 tablet PO BID PRN PRN PRN Reason: Constipation Sodium Chloride () 10 - 40 ml IV UD PRN PRN Reason: SALINE FLUSH Last Admin: 10/14/19 05:32 Dose: 10 ml Documented by: Topiramate (Topamax) 50 mg PO BID [facility] Last Admin: 10/14/19 10:31 Dose: 50 mg Documented by: Trazodone HCl (Desyrel) 100 mg PO QHS [facility] Last Admin: 10/13/19 22:08 Dose: Not Given Documented by: Zolpidem Tartrate (Ambien (Generic)) 5 mg PO QHS PRN PRN PRN Reason: INSOMNIA Last Admin: 10/11/19 23:00 Dose: 5 mg Documented by: STROKE Vital Signs/Narrative: Vital Signs Pulse 10/14/19 11:05 84 Medical Necessity - Tobacco Use Smoking Status: Former smoker Assessment/Plan All Active Problems Lactic acidosis (Acute) Acute kidney injury (Acute) Hyperglycemia due to type 2 diabetes mellitus (Acute) 1. BALAJI resolved likely 2/2 prerenal azotemia HLIV 2. DM2 uncontrolled A1c 14.2 currently: glargine at 30 BID schedule log 10, will increase to 35 and 12 respectively 3. lactic acidosis resolved likely 2/2 dehydration 4. HTN: resume lisinopril 5. Debility: PT OT. to SNF 6. VTE proph: LMWH 7. Disposition: to SNF pending authorization. Code Visit Inpatient E&M: [id number] Subs Hosp L1
--- NOTE | 2019-10-14 15:40 | PCA ---
[facility] called to notify us that they received pre cert and it was okay to send the patient to them.
--- NOTE | 2019-10-14 15:44 | PCM.TXEXTCAR ---
- Diet 10/11/19 20:07 Diet: Calorie Controlled Food consistency:: Regular Liquid Consistency:: Regular/Thin How many daily calories?: 1800 calorie Diet: Cardiac/Low Cholesterol Food consistency:: Regular Liquid Consistency:: Regular/Thin - Routine Orders/Code Status Routine Lab Work: CBC - Mondays, BMP - Mondays - Wound(s) RLE Wound Type: old cellulitis scabs LLE Wound Type: Abrasion Dressing Change: AntiMicrobial (Aquacel AG, etc) L Knee Wound Type: Abrasion Forehead Wound Type: cut Left Great Toe Wound Type: stubbed toe Right Great Toe Wound Type: small healing wound form removal of nail Dressing Change: Dry Sterile Dressing posterior LLE Wound Type: scab - Therapies Physical Therapy: Eval and Treat Occupational Therapy: Eval and Treat - Allergies/Procedures Done in Hospital Allergies/Adverse Reactions: Allergies ciprofloxacin [From Cipro] Allergy (Verified 10/11/19 15:23) Rash codeine Adverse Reaction (Verified 10/11/19 15:23) Rash Procedures: None - Type of Care/Length of Stay Estimated LOS: Convalescent Care Less Than 30 days Type of Care Needed: Skilled Rehab Potential: Fair Prognosis: Good - Additional Orders/Day of Discharge Day of Discharge: 10/14/19 - Dietary and Speech Recommendations Dietitian Recommendations/Changes: Continue 1800 calorie controlled, cardiac diet. Would benefit from outpatient DM Clinic referral if interested in additional DM nutrition education upon discharge. - Follow Up Care Primary Care Physician: Olivia Doctor,Out of [NON-STAFF] - Please follow up with your Primary Care Physician in: Wesly Irizarry 1-2 weeks Please Follow Up With: Daniel Rico MD When: 4-6 weeks
--- NOTE | 2019-10-14 15:47 | DS.PCM_ITS ---
Discharge Date and Diagnosis Date of Admission: 10/11/19 Date of Discharge: 10/14/19 - Primary Discharge Diagnosis 1. BALAJI * resolved * likely 2/2 prerenal azotemia * HLIV 2. DM2 * uncontrolled * A1c 14.2 * currently: glargine at 30 BID schedule log 10, will increase to 35 and 12 respectively 3. lactic acidosis * resolved * likely 2/2 dehydration 4. HTN: resume lisinopril 5. Debility: PT OT. to SNF - Secondary Discharge Diagnosis Chronic Problems Type 2 diabetes mellitus (Chronic) Venous stasis dermatitis (Chronic) Osteoarthritis (Chronic) Open wound of right lower extremity (Chronic) Open wound of left lower extremity (Chronic) Diabetic ulcer of right foot (Chronic) HTN (hypertension) (Chronic) Hypothyroidism (Chronic) Hospital Course and Treatment Imaging Results: Clinical Impression(s) from Imaging Studies Brain CT 10/11/19 15:42 IMPRESSION: Minor periventricular white matter ischemic change. No evidence for acute intracranial bleed Electronically Signed: Charles Minor MD at 19:01 EST , Service support , Chest X-Ray 10/11/19 15:42 IMPRESSION: 1. Stable, nonacute portable x-ray examination of the chest. Electronically Signed: Dallas Vazquez MD (Brooks) at 16:06 EST , Service support , Cervical Spine CT 10/11/19 15:44 IMPRESSION: No evidence for acute fracture or subluxation. Moderate spondylosis Electronically Signed: Charles Minor MD at 19:19 EST , Service support , Consultations 10/11/19 20:03 Consult: Onc/Wound/general manager food Routine Comment: Reason for Consult:: Chronic right leg and left leg ulcers Operations: None Procedures: None Summary of Care Provided: The patient is a 68 year old F please for to the previous discharge summary for further details. Patient basically fell and had lactic acidosis and hyperglycemia. Patient was a further optimized and initial plan was for the patient to go home with home care but after talking with case management as well as therapy, patient change her mind and decided to go to a longterm facility so discharge was held. Patient had authorization today and will be discharged to longterm facility today in stable condition. [] - Physical Exam Vitals/I&O's: Vital Signs Temp Pulse Resp BP Pulse Ox 37.2 C 88 18 92/56 L 94 10/14/19 15:00 10/14/19 15:00 10/14/19 15:00 10/14/19 15:00 10/14/19 15:00 Oxygen Delivery Method Room Air Weight: 108 kg Body Mass Index (BMI) 40.8 Finger Stick Blood Glucose 443 Orthostatic Vital Signs Start: 10/12/19 05:42 Freq: q24h Status: Active Protocol: Activity Type Activity Date Activity User E-Sign Co-Sign Detail Recorded Client Recorded Date Recorded By Document 10/14/19 03:00 [facility] [id number] 10/14/19 03:07 [facility] 10/14/19 03:00 Orthostatic Vitals Sitting -Blood Pressure (90/60-120/80) 131/78 H -Extremity Use Left Arm -Pulse Rate (60-100) 73 Lying -Blood Pressure (90/60-120/80) 125/69 H -Extremity Use Left Arm -Pulse Rate (60-100) 75 Intake and Output for Last 24 Hours 10/12/19 10/13/19 10/14/19 23:59 23:59 23:59 Intake Total 2563.34 / 2563.34 100 / 100 350 / 350 Output Total 3050 / 3250 1800 / 1800 800 / 800 Balance -486.66 / -686.66 -1700 / -1700 -450 / -450 Laboratory Results 10/13/19 17:03: POC Glucose 280 H 10/13/19 21:03: POC Glucose 289 H 10/14/19 01:05: POC Glucose 221 H 10/14/19 05:36: POC Glucose 252 H 10/14/19 07:40: Sodium 140, Potassium 4.8, Chloride 109 H, Carbon Dioxide 26.0, Anion Gap 5, BUN 14, Creatinine 1.02, Estim Creat Clear Calc 46.85, Est GFR (MDRD) Af Amer 70, Est GFR (MDRD) Non-Af 58 L, BUN/Creatinine Ratio 13.7, Glucose 258 H, Calcium 8.8 10/14/19 12:02: POC Glucose 285 H Current Medications Acetaminophen (Tylenol) 650 mg PO Q6H PRN PRN PRN Reason: Pain Score 1-10/Temp > 100.7 F Last Admin: 10/14/19 10:34 Dose: 650 mg Documented by: Atorvastatin Calcium (Lipitor) 10 mg PO QHS [facility] Last Admin: 10/13/19 21:12 Dose: 10 mg Documented by: Gabapentin (Neurontin) 400 mg PO TID [facility] Last Admin: 10/14/19 14:51 Dose: 400 mg Documented by: Glucagon () 1 mg IM .X1 PRN PRN Reason: Hypoglycemia Heparin Sodium (Porcine) (Heparin Na) 5,000 unit SC Q8 [facility] Last Admin: 10/14/19 14:51 Dose: 5,000 unit Documented by: Sodium Chloride () 250 mls @ 15 mls/hr IV .[id number] PRN PRN Reason: Saline Flush Sodium Chloride () 250 mls @ 15 mls/hr IV .[id number] PRN PRN Reason: Additional IVPB Infusion Insulin Glargine (Lantus (Bkc)) 35 units SC BID [facility] Insulin Human Lispro (Humalog Kwikpen (Bkc)) 0 unit SC ACHS [facility]; Protocol Last Admin: 10/14/19 12:04 Dose: 6 units Documented by: Insulin Human Lispro (Humalog Kwikpen (Bkc)) 12 unit SC TIDAC [facility] Lisinopril (Zestril) 20 mg PO DAILY [facility] Last Admin: 10/14/19 10:34 Dose: 20 mg Documented by: Melatonin (Melatonin) 5 mg PO QHS [facility] Last Admin: 10/13/19 22:08 Dose: Not Given Documented by: Mirtazapine (Remeron) 30 mg PO DAILY [facility] Last Admin: 10/14/19 10:34 Dose: 30 mg Documented by: Ondansetron HCl (Zofran) 4 mg IV Q8H PRN PRN PRN Reason: NAUSEA/VOMITING Senna/Docusate Sodium (Senokot-S, Mel-Colace) 2 tablet PO BID PRN PRN PRN Reason: Constipation Sodium Chloride () 10 - 40 ml IV UD PRN PRN Reason: SALINE FLUSH Last Admin: 10/14/19 05:32 Dose: 10 ml Documented by: Topiramate (Topamax) 50 mg PO BID [facility] Last Admin: 10/14/19 10:31 Dose: 50 mg Documented by: Trazodone HCl (Desyrel) 100 mg PO QHS [facility] Last Admin: 10/13/19 22:08 Dose: Not Given Documented by: Zolpidem Tartrate (Ambien (Generic)) 5 mg PO QHS PRN PRN PRN Reason: INSOMNIA Last Admin: 10/11/19 23:00 Dose: 5 mg Documented by: Discharge Diet: 1800 Calorie Control Diet, 2000 mg Sodium Diet Discharge Activity: Return to Normal Activity Call your doctor if you observe: Shortness of breath, Swelling in the ankles Home Medications: Medications to take at Discharge Duloxetine HCl 60 mg PO BID 09/02/18 Levothyroxine [Synthroid] 112 mcg PO DAILY 09/02/18 Lovastatin [Mevacor] 40 mg PO QHS 09/02/18 traZODone [Desyrel] 100 mg PO QHS 09/02/18 Ergocalciferol [Vitamin D] 50,000 unit PO Q7D 02/15/19 Melatonin 5 mg PO QHS 02/15/19 Topiramate [Topamax] 50 mg PO BID 02/15/19 Acetaminophen [Tylenol] 1,000 mg PO Q8 tablet 02/18/19 Bacitracin/Polymyxin B Ointmen [Polysporin Ointment] 1 applic TOPICAL BID tube 02/18/19 Glucerna Shake 120 ml PO 4X/DAY liquid 02/18/19 Ibuprofen [Motrin] 400 mg PO Q6H PRN PRN tablet 02/18/19 Lidocaine [Lidoderm Patch] 1 patch TOPICAL DAILY patch 02/18/19 Menthol [Bengay Vanishing Scent] 1 applic TOPICAL 4X/DAY PRN PRN tube 02/18/19 Menthol/Lanolin/Calamine/Znox [Calmoseptine Ointment] 1 applic TOPICAL BID tube 02/18/19 Nystatin Powder [Mycostatin Powder] 1 applic TOPICAL TID bottle 02/18/19 Gabapentin [Neurontin] 400 mg PO TID 10/12/19 Lisinopril [Zestril] 20 mg PO DAILY 10/12/19 Mirtazapine 30 mg PO DAILY 10/12/19 Insulin Glargine [Lantus SoloStar Pen] 35 units SUBCUT BID pen 10/14/19 Insulin Lispro [Humalog KwikPen] 12 unit SUBCUT TIDAC insuln.pen 10/14/19 Insulin Lispro [Humalog KwikPen] See Protocol SUBCUT ACHS insuln.pen 10/14/19 Primary Care Physician: Olivia Doctor,Out of [NON-STAFF] - Please follow up with your Primary Care Physician in: [place] 1-2 weeks Please Follow Up With: Daniel Rico MD When: 4-6 weeks Patient Instructions: How to Check Your Blood Sugar, Using Injected Insulin, Eating Out When You Have Diabetes, Diabetes: Keeping Feet Healthy, Diabetes: Sick-Day Plan, Understanding Type 2 Diabetes Disposition: Home with Home Health Minutes spent on discharge:: 32 Patient Condition:: Stable Medical Necessity - Tobacco Use Smoking Status: Former smoker Meaningful Use Info Meaningful Use Diagnoses (Choose all that apply): None applicable Code Visit Inpatient E&M: 61557 Disch Hosp
[2019-10-14] MEDS: Insulin Lispro 100 UNIT/ML INSULN.PEN 12 UNIT SC (16:08)
[2019-10-14 16:20] LABS: Bedside Glucose 273 mg/dL (70-110)
[2019-10-14 17:40] LABS: Bedside Glucose 264 mg/dL (70-110)
== END 2019-10-14 19:43 | disposition skilled nursing facility (03) | DRG 469 ==
LOC: ED 16:21 → PCU 19:52
PROVIDERS: Admitting Provider Hospitalist; Emergency Provider Emergency Medicine
DX: N17.9 Acute kidney failure, unspecified (principal); E87.2 Acidosis; E11.65 Type 2 diabetes mellitus with hyperglycemia; E86.0 Dehydration; I10 Essential (primary) hypertension; I87.2 Venous insufficiency (chronic) (peripheral); E03.9 Hypothyroidism, unspecified; Z87.891 Personal history of nicotine dependence; Z23 Encounter for immunization; Z79.4 Long term (current) use of insulin; E87.1 Hypo-osmolality and hyponatremia; L97.929 Non-pressure chronic ulcer of unspecified part of left lower leg with unspecified severity; L97.919 Non-pressure chronic ulcer of unspecified part of right lower leg with unspecified severity; R53.81 Other malaise; S80.812A Abrasion, left lower leg, initial encounter; W19.XXXA Unspecified fall, initial encounter; Y92.039 Unspecified place in apartment as the place of occurrence of the external cause
CPT/HCPCS: 36415; 70450; 71045; 72125; 80048; 80053; 81001; 82962; 83036; 83605; 84443; 84484; 85025; 85610; 85730; 90715; 93005; 97116; 97162; 97165; 97530; 97535; 97802; 99251; 99285; J7030; P9612; 90686; A4216; G0463

== ENCOUNTER 2020-04-17 16:50 | Emergency (ER) | payer MEDICAID, SELFPAY ==
[2019-10-11 20:13] VITALS: BMI 40.8
[2020-04-17 16:56] VITALS: BP 130/97; PULSE 92; RESP 18; TEMP 36.9; O2SAT 98; BMI 38.5
[2020-04-17 17:02] VITALS: BP 109/76; PULSE 85; RESP 18; TEMP 36.9; O2SAT 98
--- NOTE | 2020-04-17 17:37 | ED.VIS.GEN ---
History of Present Illness Chief Complaint: Abd Pain Informant: Patient Narrative: Patient is a 69-year-old female who presents to the emergency department for abdominal pain. She currently rates this as a 5 out of 10. Has been present for the past 4 to 5 days. She denies ever experiencing this before in the past. She denies any previous abdominal surgeries. She denies any changes in bowel habits including any diarrhea, constipation or blood in stool. No urinary symptoms. No nausea or vomiting. She denies any fevers or chills. No chest pain. She does have right-sided back pain which is chronic for her. She currently is rating this as a 9 out of 10. She does not know any aggravating or relieving factors for either of her pain. She does not feel like they are related. She would not have came in for the back pain if it was not for the abdominal pain. This is her main concern. Has been taking NSAIDs for this which has not been giving her any relief. Past Medical History - Allergies and Home Meds Allergies/Adverse Reactions: Allergies ciprofloxacin [From Cipro] Allergy (Verified 10/11/19 15:23) Rash codeine Adverse Reaction (Verified 10/11/19 15:23) Rash Primary Care Physician: MALCOLM POWELL [Other] - As soon as possible Prior records reviewed: Yes Past Medical History: - - Hypertension, diabetes, hypothyroidism, depression Surgical History: - - Plastic surgery of the right forearm and right arm when patient was a child. Lives: Alone Smoking Status: Former smoker Drugs: None - Family History Maternal Family History: Reports: Cancer - Mother, Heart Disease - two brothers and mother, - Paternal Family History: Reports: - - His father in a home Kerosene explosion; which also caused patient's bilateral hand injury for which she had plastic surgery. Review of Systems All systems negative except as indicated General: Denies: Chills, Fever, Sweats Eyes: Denies: Visual changes - bilaterally, Diplopia ENT: Denies: Rhinorrhea, Sore throat Cardiovascular: Denies: Chest pain, Palpitations Respiratory: Denies: Dyspnea, Cough, Dyspnea on exertion Gastrointestinal: Reports: Abdominal pain. Denies: Nausea, Vomiting, Diarrhea, Melena, Hematochezia Genitourinary: Denies: Dysuria, Hematuria, Frequency Musculoskeletal: Reports: Back pain. Denies: Extremity Pain Skin: Denies: Rash, Wounds Neurological: Denies: Headache, Weakness, Numbness Psych: Reports: Suicidal thoughts - Patient states that she struggles with this for a long time. No current plan. She states that it is currently at a minimum. Physical Exam Vital Signs/Narrative: Vital Signs Temp Pulse Resp BP Pulse Ox 04/17/20 17:02 98.4 F 85 18 109/76 98 04/17/20 16:56 98.4 F 92 18 130/97 H 98 Inital Vital Signs reviewed: Yes General: Well nourished, Well developed, Unkempt, No Acute Distress Head: Normocephalic, Atraumatic Eyes: Perrl, EOMI ENT: Moist mucous membranes, No rhinorrhea Neck: Supple, Nontender Cardiovascular: Regular rate, Regular rhythm, No murmurs Respiratory: No distress, CTA bilaterally, Chest nontender Abdomen: Soft, Nondistended, Normal bowel sounds, Tender - Mostly in the right upper quadrant but has pain throughout. Negative Doe sign. No pain over McBurney's point. No rebound. Back: Nontender, Normal Inspection Extremities: Nontender, No edema Skin: Normal color, No rash Neurological: Alert, Oriented x3, Cranial nerves II-XII grossly intact, Normal Strength, Normal Sensation Psychological: Normal Mood. Negative for: Normal affect - Tearful affect Diagnostic/Tx/Re-eval - Medical Decision Making Patient presents to the emergency department for abdominal pain. She is also having back pain although this seems to be a chronic issue for her. Abdominal pain is her main concern. She does have tenderness on physical exam. He is afebrile upon arrival. Mildly tachycardic. Will obtain basic lab work and CT scan of the abdomen/pelvis. Will treat symptomatically with a dose of morphine. I went in to reevaluate the patient as lab work and CT scans are back. Her blood sugar is in the 400s. Otherwise no other significant abnormality noted on lab work. Her CT scan did not show any acute abnormality. Whenever I discussed this with her she started sobbing saying she is not able to take care of herself. EMS states that she is waiting outside and they were unable to evaluate her living condition. Patient is very distraught as she has 2 dogs at home. I asked last time she is insulin she states that she has not been checking blood glucose at all lately and has not been using medications. We will have crisis evaluate the patient. Blood glucose did come down with insulin management. She has been stable throughout ED stay. We will plan on disposition home. She does need to follow-up with her PCP. ED Disposition - Plan for ED Patient: Disposition: Home or Assisted Living Diagnosis: Abdominal pain, Hyperglycemia, Depression Instructions: Hyperglycemia (High Blood Sugar), Depression: Tips to Help Yourself, ED Abdominal Pain Unkn Cause Fem Referrals: MALCOLM POWELL [Other] - As soon as possible
[2020-04-17 18:22] LABS: Absolute Lymphocyte Count 1.53 X10^3/uL (0.83-4.51); Absolute Neutrophil Count 4.3 X10^3/uL (2.0-7.7); Basophil# 0.04 X10^3/uL; Basophil% 0.6 % (0-1); Eosinophil# 0.06 X10^3/uL; Eosinophils% 0.9 % (0-5); Hematocrit 41.1 % (37-47); Hemoglobin 13.9 g/dL (12.0-15.0); Lymphocyte # 1.53 X10^3/ul (4.0); Lymphocyte % 23.5 % (19-41); Mean Corp Hgb Conc 33.8 g/dL (32-36); Mean Corpuscular Hgb 29.6 pg (27.0-32.0); Mean Corpuscular Volume 87.4 fL (81-99); Mean Platelet Vol. 9.1 fl (6.2-12.0); Monocyte# 0.52 X10^3/uL; NRBC Flagged by Analyzer 0 % (0-5); Neutrophil # 4.33 X10^3/uL (2.7-7.7); Neutrophil % 66.5 % (47-70); Platelet Count 223 K/mm3 (150-450); RBC Distribution Width SD 41.1 fl (35.1-43.9); White Blood Count 6.5 K/mm3 (4.4-11.0)
[2020-04-17 18:36] LABS: ALB/GLOB Ratio 0.7 RATIO (0.9-2.4); AST(SGOT) 8 U/L (15-37); Alanine Aminotransfer ALT/SGPT 12 U/L (13-56); Alkaline Phosphatase 105 U/L (45-117); Anion Gap 8 (5-15); BUN 31 mg/dL (7-18); Calcium,Total 8.5 mg/dL (8.5-10.1); Chloride 103 mmol/L (98-107); Creatinine, Serum 1.29 mg/dL (0.55-1.02); EST Glomerular Filtration Rate 44 mL/min (>60); Est Glom Filt Rate - Afr Amer 53 mL/min (>60); Estimated Creatinine Clearance 36.54 ml/min; Globulin 4.3 g/dL (2.2-4.2); Glucose 417 mg/dL (74-106); Lipase 278 U/L (73-393); Potassium 4.5 mmol/L (3.5-5.1); Protein, Total 7.3 g/dL (6.4-8.2); Sodium Level 135 mmol/L (136-145)
[2020-04-17] MEDS: Morphine 4 MG/ML Syringe IV (18:38)
[2020-04-17 19:12] LABS: Lactic Acid 1.3 mmol/L (0.4-1.9)
[2020-04-17 19:34] VITALS: BP 128/76; PULSE 68; RESP 16; TEMP 36.6; O2SAT 98
[2020-04-17 19:35] LABS: Bacteria 0 SEEN /hpf (None Seen); Red Blood Cells-Urine 0 SEEN /hpf (0-5); White Blood Cells 0 SEEN /hpf (0-5)
[2020-04-17 19:38] LABS: Color, Urine Yellow (Yellow); Glucose, Dipstick 1000 mg/dl (Normal); Ketone-Dipstick 15 mg/dl (Negative); Leukocyte Esterase-Dipstick Negative /ul (Negative); Nitrite-Dipstick Negative (Negative); Occult Blood-Urine Negative /ul (Negative); Protein-Dipstick 30 mg/dl (Negative); Urine Bilirubin Dipstick Negative (Negative); Urine Clarity Sl. Cloudy (Clear); Urine Urobilinogen Normal (Normal)
[2020-04-17 19:56] LABS: Mucous, Urine RARE /hpf (<or=2+); Squamous Epithelial Cells - UA 0-5 SEEN /hpf (5-10)
[2020-04-17 20:19] VITALS: BP 116/66; PULSE 66; RESP 16; TEMP 36.6; O2SAT 97
--- NOTE | 2020-04-17 20:25 | CT_ITS ---
STUDY: CT ABDOMEN AND PELVIS WITH CONTRAST REASON FOR EXAM: Female, 69 years old. Mid abdominal pain for 2 days. RADIATION DOSAGE (If Supplied By Facility): CTDIvol = ( 12.73 ) mGy, DLP = ( 1195.53 ) mGycm TECHNIQUE: Transaxial images were obtained from the dome of the diaphragm to the symphysis pubis with oral contrast. Oral and amp; IV Gastrografin and amp; 100mL Isovue-370 was administered. Sagittal and coronal images were reconstructed. Individualized dose optimization techniques were used for this CT. COMPARISON: None. FINDINGS: The visualized lung bases are unremarkable. The visualized portions of the heart are within normal limits. Calcification or surgical clips are seen in the right lobe of the liver. The liver is mildly enlarged. There is mild diffuse fatty infiltration liver. The gallbladder is distended. There is no definite gallstones. Normal spleen. Normal pancreas. Normal bilateral adrenal glands. Normal right kidney. Normal left kidney. The stomach is distended. Normal small intestine. There is fecal retention. The sigmoid colon is not well-distended. There is no evidence of acute diverticulitis. The appendix is visualized and appears normal. There is diffuse atherosclerotic calcification of the abdominal aorta with elongation and tortuosity, but without a demonstrated aneurysm. Normal inferior vena cava. Normal retroperitoneum. Normal urinary bladder. The uterus is slightly prominent. There is a small calcification in the right adnexa. The uterus and ovaries are better evaluated by ultrasound. There is no free fluid in the pelvis. Normal abdominal wall. There are diffuse degenerative changes of the visualized lumbar spine. CT/Abdomen/Pelvis WITH Contrast IMPRESSION: 1. Mild hepatomegaly and mild fatty infiltration of the liver. 2. No demonstrated acute process. Electronically Signed: Jose Allen MD at 20:50 EDT Tel , Service support ,
[2020-04-17 21:18] VITALS: BP 121/80; PULSE 70; RESP 16; O2SAT 99
[2020-04-17] MEDS: 0.9% Normal Saline 1,000 ML 999 ML IV (21:19)
--- NOTE | 2020-04-17 21:58 | NURSING ---
CALLED CRISIS AT [id number]
[2020-04-17] MEDS: Insulin Lispro 100 UNIT/ML INSULN.PEN 8 UNIT SC (22:18)
[2020-04-17 22:25] LABS: Bedside Glucose 376 mg/dL (70-110)
[2020-04-17 23:11] VITALS: BP 133/70; PULSE 72; RESP 16; O2SAT 98
[2020-04-17 23:29] LABS: Alcohol, Blood (Medical)-Serum < 3.0 mg/dL
[2020-04-18 00:18] VITALS: BP 120/76; PULSE 70; RESP 16; TEMP 36.8; O2SAT 98
[2020-04-18 02:17] VITALS: RESP 16; O2SAT 99
[2020-04-18 04:04] VITALS: BP 130/69; PULSE 70; RESP 16; O2SAT 96
[2020-04-18 06:49] VITALS: RESP 16
[2020-04-18 09:55] VITALS: PULSE 99; RESP 22; O2SAT 97
== END 2020-04-18 09:56 | disposition home or self-care (01) ==
PROVIDERS: Emergency Provider Emergency Medicine
DX: R10.9 Unspecified abdominal pain (principal); E11.65 Type 2 diabetes mellitus with hyperglycemia; F32.9 Major depressive disorder, single episode, unspecified; E03.9 Hypothyroidism, unspecified; I10 Essential (primary) hypertension; Z82.49 Family history of ischemic heart disease and other diseases of the circulatory system; Z87.891 Personal history of nicotine dependence; Z88.1 Allergy status to other antibiotic agents; Z88.5 Allergy status to narcotic agent; M54.9 Dorsalgia, unspecified; G89.29 Other chronic pain
CPT/HCPCS: 36415; 74177; 80053; 80320; 81001; 82962; 83605; 83690; 85025; 87086; 96361; 96374; 99285; J7030; Q9967; A4216; G0480

== ENCOUNTER 2020-05-04 14:42 | Emergency (ER) | payer MEDICAID, SELFPAY ==
--- NOTE | 2020-05-04 14:46 | ED.DCSUM_ITS ---
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 She states she does not know when this started but she states she has been putting toilet paper on it and it has been draining. Does report that it is painful to the touch. She denies having a previous abscess in the past. He denies fever, nausea, vomiting. She has not been systemically ill. EMS stated that she had a house for bedbugs as well. Prior similar symptoms: No Past Medical History - Allergies and Home Meds Allergies/Adverse Reactions: Allergies ciprofloxacin [From Cipro] Allergy (Verified 05/04/20 15:00) Rash codeine Adverse Reaction (Verified 05/04/20 15:00) Rash Primary Care Physician: MALCOLM POWELL [Other] Prior records reviewed: Yes Surgical History: - - Plastic surgery of the right forearm and right arm when patient was a child. Smoking Status: Former smoker - Family History Maternal Family History: Reports: Cancer - Mother, Heart Disease - two brothers and mother, - Paternal Family History: Reports: - - His father in a home Kerosene explosion; which also caused patient's bilateral hand injury for which she had plastic surgery. Review of Systems General: Denies: Chills, Fever Eyes: Denies: Visual changes - bilaterally, Diplopia ENT: Denies: Rhinorrhea, Sore throat Cardiovascular: Denies: Chest pain, Palpitations Respiratory: Denies: Dyspnea, Cough, Dyspnea on exertion Genitourinary: Denies: Dysuria Musculoskeletal: Denies: Myalgias Skin: Reports: Abscess Neurological: Denies: Headache Hematologic: Denies: Easy bruising, Easy bleeding Physical Exam General: Unkempt, - Head: Normocephalic Eyes: Perrl ENT: Moist mucous membranes, No rhinorrhea Cardiovascular: Regular rate, Regular rhythm Respiratory: No distress Abdomen: Soft : - - Large draining abscess in the left inguinal fold above the vagina with mild surrounding redness. Is tender to palpation superiorly and inferiorly. Back: Nontender Skin: - - As stated above under Neurological: Alert, Oriented x3 Psychological: Normal affect Diagnostic/Tx/Re-eval Laboratory Data 05/04/20 05/04/20 15:45 15:45 WBC 9.0 RBC 4.76 Hgb 13.9 Hct 41.6 MCV 87.4 MCH 29.2 MCHC 33.4 RDW Std Deviation 40.5 RDW Coeff of Nikita 12.7 Plt Count 310 MPV 9.3 Immature Gran % (Auto) 1.100 H Neut % (Auto) 75.0 H Lymph % (Auto) 15.9 L [place] % (Auto) 6.4 Eos % (Auto) 0.8 Baso % (Auto) 0.8 Absolute Neuts (auto) 6.8 Absolute Lymphs (auto) 1.43 Nucleated RBC % 0 Sodium 132 L Potassium 4.5 Chloride 99 Carbon Dioxide 27.0 Anion Gap 6 BUN 21 H Creatinine 1.63 H Estim Creat Clear Calc 28.92 Est GFR (MDRD) Af Amer 40 L Est GFR (MDRD) Non-Af 33 L BUN/Creatinine Ratio 12.9 Glucose [address] abdomen pelvis with IV contrast:ET abdomen pelvis with IV contrast no acute or significant abnormality within the abdomen or pelvis. Probable inflammatory process/abscess near the left groin as described - Medical Decision Making She was seen and evaluated on arrival for abscess with some cellulitic change on the left inguinal fold/superior to the vagina. It is difficult to assess how deep this actually is on examination due to patient's body habitus. She does have some tenderness above and below. I did check basic lab work and she does not have a leukocytosis. Hemoglobin is stable. She does have acute kidney injury and was given some IV fluids. I do not believe she needs to be admitted for this. CT imaging shows that the abscess itself is very superficial. Prior to starting incision and drainage the patient use the restroom and this opened on its own. I did extend to the abscess as well as deloculated and irrigated. Please see procedure note. Patient will be started on Bactrim for home. She is given return precautions of her infection is not getting better. She acknowledged understanding. Procedures Procedure(s): Incision and drainage: Patient's abscess was already opened prior to starting incision and drainage. The wound was cleaned with chlorhexidine externally. Wound was anesthetized with 6 cc of lidocaine with epinephrine with good anesthesia achieved. Incision was then extended about a centimeter on either side and there was already an open hole of about 1.5 cm. Wound was deloculated and irrigated with 500 cc of sterile saline. Patient tolerated the procedure well. Dressing was placed by nursing staff. ED Disposition - Plan for ED Patient: Disposition: Home or Assisted Living Diagnosis: Abscess, Acute kidney injury Instructions: ED Abscess Incision And Drainage Prescriptions: Smz/Tmp Ds [Bactrim Ds] 1 tab PO BID #20 tab Prescription Printed Referrals: MALCOLM POWELL [Other]
[2020-05-04 14:47] VITALS: BP 108/56; PULSE 98; RESP 18; TEMP 36.6; O2SAT 98; BMI 38.1
--- NOTE | 2020-05-04 15:35 | CT_ITS ---
STUDY: CT ABDOMEN AND PELVIS WITH CONTRAST REASON FOR EXAM: Female, 69 years old. BLOODY VAGINAL MASS X 4 DAYS, HX HTN DM RADIATION DOSAGE (If Supplied By Facility): CTDIvol = ( 16.90 ) mGy, DLP = ( 1350.19 ) mGycm TECHNIQUE: Transaxial images were obtained from the dome of the diaphragm to the symphysis pubis without oral contrast. IV 100mL Isovue-300 was administered. Sagittal and coronal images were reconstructed. Individualized dose optimization techniques were used for this CT. COMPARISON: 04/17/2020. FINDINGS: The visualized lung bases are unremarkable. The visualized portions of the heart are within normal limits. There is decreased attenuation of the liver consistent with steatosis. There is hepatomegaly. There are calcified granulomas. Distended but otherwise normal gallbladder. There are multiple benign calcified granulomata of the spleen. Normal pancreas. Normal bilateral adrenal glands. Normal right kidney. Normal left kidney. Evaluation of the GI tract is limited by absence of oral contrast. Cannot exclude stomach wall thickening. No dilated loops of bowel or evidence for obstruction. Cannot exclude segmental thickening of the craig of the small or large bowel. Cannot exclude enteritis or colitis. Moderate diffuse fecal retention. Diverticulosis without definite diverticulitis. Appendix within normal limits. Normal visualized stomach. Normal small intestine. Normal colon. The appendix is visualized and appears normal. Normal abdominal aorta. Normal inferior vena cava. Normal retroperitoneum. Normal urinary bladder. Normal visualized uterus. There is what appears to be a small focal subcutaneous infiltrative process of the left side of the mons, approximately 2.2 cm size with subcutaneous gas and induration. This appears to represent a skin wound/abscess should be readily apparent on physical exam. It was not imaged on the prior study. Otherwise negative abdominal wall. There are diffuse degenerative changes of the visualized lumbar spine. CT/Abdomen/Pelvis W IV Cont ONLY IMPRESSION: No acute or significant abnormality within the abdomen or pelvis. Probable inflammatory process/abscess near the left groin as described. Electronically Signed: Harish Mary MD at 16:54 EDT , Service support ,
[2020-05-04 15:57] LABS: Absolute Lymphocyte Count 1.43 X10^3/uL (0.83-4.51); Absolute Neutrophil Count 6.8 X10^3/uL (2.0-7.7); Basophil# 0.07 X10^3/uL; Basophil% 0.8 % (0-1); Eosinophil# 0.07 X10^3/uL; Eosinophils% 0.8 % (0-5); Hematocrit 41.6 % (37-47); Hemoglobin 13.9 g/dL (12.0-15.0); Lymphocyte # 1.43 X10^3/ul (4.0); Lymphocyte % 15.9 % (19-41); Mean Corp Hgb Conc 33.4 g/dL (32-36); Mean Corpuscular Hgb 29.2 pg (27.0-32.0); Mean Corpuscular Volume 87.4 fL (81-99); Mean Platelet Vol. 9.3 fl (6.2-12.0); Monocyte# 0.58 X10^3/uL; Monocyte% 6.4 % (0-10); NRBC Flagged by Analyzer 0 % (0-5); Neutrophil # 6.76 X10^3/uL (2.7-7.7); Platelet Count 310 K/mm3 (150-450); RBC Distribution Width CV 12.7 % (11.6-14.6); RBC Distribution Width SD 40.5 fl (35.1-43.9); Red Blood Count 4.76 M/mm3 (4.2-5.4)
[2020-05-04 16:07] LABS: Anion Gap 6 (5-15); BUN 21 mg/dL (7-18); BUN/Creat Ratio 12.9 RATIO (10-20); Calcium,Total 8.8 mg/dL (8.5-10.1); Chloride 99 mmol/L (98-107); Creatinine, Serum 1.63 mg/dL (0.55-1.02); EST Glomerular Filtration Rate 33 mL/min (>60); Est Glom Filt Rate - Afr Amer 40 mL/min (>60); Estimated Creatinine Clearance 28.92 ml/min; Glucose 374 mg/dL (74-106); Potassium 4.5 mmol/L (3.5-5.1); Sodium Level 132 mmol/L (136-145)
[2020-05-04] MEDS: Smz/Tmp Ds Tablet 1 TABLET PO (18:28)
[2020-05-04 18:31] VITALS: BP 131/78; PULSE 90; RESP 16; TEMP 36.8; O2SAT 97
--- NOTE | 2020-05-04 18:33 | ED.RN ---
pt verbalizing between getting care/help at home. no ride home. no way to get rx.
[2020-05-04 23:14] VITALS: BP 129/78; PULSE 73; RESP 16; O2SAT 97
== END 2020-05-04 23:14 | disposition home or self-care (01) ==
PROVIDERS: Emergency Provider Student in an Organized Health Care Education/Training Program
DX: L02.211 Cutaneous abscess of abdominal wall (principal); N17.9 Acute kidney failure, unspecified; Z87.891 Personal history of nicotine dependence; Z86.14 Personal history of Methicillin resistant Staphylococcus aureus infection
CPT/HCPCS: 10060; 74177; 80048; 85025; 99285; J7040; Q9967; A4216

== ENCOUNTER 2020-05-14 13:36 | Inpatient (IN) | payer MEDICAID, SELFPAY ==
[2020-05-14] VITALS (13 sets, daily range): BP systolic 66–136; BP diastolic 37–87; PULSE 61–89; RESP 12–20; TEMP 36–36.6; O2SAT 96–99; BMI 37.7; BMI 37.5
--- NOTE | 2020-05-14 14:05 | EKG12_ITS ---
Test Reason : BACKPAIN Blood Pressure : / mmHG Vent. Rate : 071 BPM Atrial Rate : 071 BPM P-R Int : 144 ms QRS Dur : 082 ms QT Int : 414 ms P-R-T Axes : 087 012 033 degrees QTc Int : 449 ms Normal sinus rhythm Low voltage QRS Borderline ECG Confirmed by ANEUDY AVENDANO, LUIS ([id number]), industrial editor JUANCHO LOJA ([id number]) on 05/18/2020 9:28:26 AM Referred By: BAYLEE Confirmed By:LUIS AMADO MD
--- NOTE | 2020-05-14 14:06 | CT_ITS ---
STUDY: CTA CHEST REASON FOR EXAM: Female, 69 years old. DISSECTION, SEVERE BACK PAIN RADIATION DOSAGE (If Supplied By Facility): CTDIvol = ( 15.40 ) mGy, DLP = ( 1431.64 ) mGycm TECHNIQUE: The examination was performed with the intravenous administration of 100 CC ISOVUE 370. Post-processing of the angiographic images was performed, with multiplanar reformation and 3D reconstruction. Individualized dose optimization techniques were used for this CT. COMPARISON: None. FINDINGS: Normal enhancement of the main pulmonary artery and right and left pulmonary arteries. Normal enhancement of the bilateral peripheral pulmonary arteries. There is no demonstrated pulmonary embolism. Normal thoracic aorta and visualized great vessels. There is no demonstrated aortic dissection. Normal heart and pericardium. Normal mediastinum. Normal hilar regions. Normal visualized trachea and bronchi. The lungs are well expanded. There is a 7.2 mm calcified granuloma in the anterior aspect of the right middle lobe. Normal pleura. Normal chest wall structures. There are degenerative changes of thoracic spine. Calcified splenic granulomas. CT/CTA Chest W/WO Contrast IMPRESSION: No acute abnormality is seen. Degenerative changes of the thoracic spine with spondylosis. Electronically Signed: Joe Hoffman, at 14:56 EDT , Service support ,
--- NOTE | 2020-05-14 14:07 | CT_ITS ---
STUDY: CT ABDOMEN AND PELVIS WITH CONTRAST REASON FOR EXAM: Female, 69 years old. DISSECTION, SEVERE BACK PAIN RADIATION DOSAGE (If Supplied By Facility): CTDIvol = ( 15.40 ) mGy, DLP = ( 1432.64 ) mGycm TECHNIQUE: Transaxial images were obtained from the dome of the diaphragm to the symphysis pubis without oral contrast. 100 CC ISOVUE 370 was administered. Sagittal and coronal images were reconstructed. Individualized dose optimization techniques were used for this CT. COMPARISON: Comparison is made with prior study dated 04/04/2020. FINDINGS: The visualized lung bases are unremarkable. The visualized portions of the heart are within normal limits. Normal liver. There is distention of the gallbladder. Increased density is seen along the dependent portion of the gallbladder lumen suggestive of either sludge or small gallstones. Normal spleen. Normal pancreas. Normal bilateral adrenal glands. Normal right kidney. Normal left kidney. Normal visualized stomach. Normal small intestine. Normal colon. The appendix is visualized and appears normal. There is scattered atherosclerotic calcification of the abdominal aorta, without a demonstrated aneurysm. No evidence of aortic dissection. Normal inferior vena cava. Normal retroperitoneum. Normal urinary bladder. Enlarged fibroid uterus. Mild residual increased markings in the subcutaneous tissues overlying the left labia majora. Normal abdominal wall. There are diffuse degenerative changes of the visualized lumbar spine. There is loss of the normal lumbar lordosis. There is evidence of a posterior spondylosis at the L3-L4 level causing central canal stenosis worse on the left side. There is evidence of a spinal stenosis at the L4-L5 level. Facet joint osteoarthritis and hypertrophy. CT/CT ANGIO ABD&PEL W/O&W/DYE IMPRESSION: No evidence of abdominal aortic aneurysm or dissection. Distended gallbladder with possible sludge or tiny gallstones along the dependent portion of the gallbladder lumen. Findings suggestive of a spinal stenosis of the lumbar spine as described. Electronically Signed: Joe Hoffman, at 14:54 EDT , Service support ,
--- NOTE | 2020-05-14 14:11 | ED.VIS.GEN ---
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 Patient states in her mid thoracic region. The pain does not radiate. She states been present for day or 2 but cannot tell me exactly when it started. She cannot remember if it was sudden onset or how it came on. She has chronic paresthesias of her lower legs but attributes that to her neuropathy. She has any other symptom such as nausea, vomiting, chest pain, shortness of breath, fever, cough or urinary symptoms. No change in bowel habits. No black or bloody stools. Past Medical History - Allergies and Home Meds Allergies/Adverse Reactions: Allergies ciprofloxacin [From Cipro] Allergy (Verified 05/14/20 13:38) Rash codeine Adverse Reaction (Verified 05/14/20 13:38) Rash Past Medical History: - - Type 2 diabetes mellitus, neuropathy, hypertension, hypothyroid Surgical History: - - Plastic surgery of the right forearm and right arm when patient was a child. Smoking Status: Former smoker - Family History Maternal Family History: Reports: Cancer - Mother, Heart Disease - two brothers and mother, - Paternal Family History: Reports: - - His father in a home Kerosene explosion; which also caused patient's bilateral hand injury for which she had plastic surgery. Review of Systems General: Reports: Malaise. Denies: Chills, Fever, Sweats Eyes: Denies: Visual changes - bilaterally, Diplopia ENT: Denies: Rhinorrhea, Sore throat Cardiovascular: Denies: Chest pain, Palpitations Respiratory: Denies: Dyspnea, Cough, Dyspnea on exertion Gastrointestinal: Denies: Abdominal pain, Nausea, Vomiting, Diarrhea, Melena, Hematochezia Genitourinary: Denies: Dysuria, Hematuria, Frequency Musculoskeletal: Reports: Back pain. Denies: Extremity Pain Skin: Denies: Rash, Wounds Neurological: Denies: Headache, Weakness, Parasthesia, Numbness Physical Exam Vital Signs/Narrative: Vital Signs Temp Pulse Resp BP Pulse Ox 05/14/20 14:03 77 15 88/63 L 97 05/14/20 13:49 66/37 L 05/14/20 13:38 97 F L 84 20 H 97 Inital Vital Signs reviewed: Yes General: Well nourished, Well developed, Obese Head: Normocephalic, Atraumatic Eyes: Perrl, EOMI ENT: Moist mucous membranes, No rhinorrhea, TM's clear Neck: Supple, Nontender, No JVD Cardiovascular: Regular rate, Regular rhythm, No murmurs, - - 1+ bilateral radial pulses, 1+ left DP pulse, dopplerable right DP pulse Respiratory: No distress, CTA bilaterally, Chest nontender Abdomen: Soft, Nondistended, Normal bowel sounds, Tender - Diffuse. Negative for: Guarding, Rebound tenderness Back: Nontender, Normal Inspection, - - Patient indicates that her pain is in her mid thoracic region but it is not reproducible with palpation. Negative for: CVA tenderness, Spinal tenderness Extremities: Nontender, No edema Skin: Normal color, No rash Neurological: Alert, Cranial nerves II-XII grossly intact, Normal Strength, Normal Sensation, Confused Psychological: Normal affect, Depressed Diagnostic/Tx/Re-eval Clinical Impression(s) from Imaging Studies Chest CTA 05/14/20 14:06 IMPRESSION: No acute abnormality is seen. Degenerative changes of the thoracic spine with spondylosis. Electronically Signed: Joe Hoffman, at 14:56 EDT , Service support , Abdomen/Pelvis CTA 05/14/20 14:07 IMPRESSION: No evidence of abdominal aortic aneurysm or dissection. Distended gallbladder with possible sludge or tiny gallstones along the dependent portion of the gallbladder lumen. Findings suggestive of a spinal stenosis of the lumbar spine as described. Electronically Signed: Joe Hoffman, at 14:54 EDT , Service support , Laboratory Data 05/14/20 05/14/20 05/14/20 14:00 14:00 14:00 WBC 7.2 RBC 4.78 Hgb 13.9 Hct 43.6 MCV 91.2 MCH 29.1 MCHC 31.9 L RDW Std Deviation 43.0 RDW Coeff of Nikita 12.8 Plt Count 282 MPV 9.1 Immature Gran % (Auto) 0.800 Neut % (Auto) 65.9 Lymph % (Auto) 25.5 [place] % (Auto) 5.3 Eos % (Auto) 1.9 Baso % (Auto) 0.6 Absolute Neuts (auto) 4.8 Absolute Lymphs (auto) 1.84 Nucleated RBC % 0 Sodium 136 Potassium 5.3 H Chloride 105 Carbon Dioxide 25.0 Anion Gap 6 BUN 17 Creatinine 1.81 H Estim Creat Clear Calc 26.04 Est GFR (MDRD) Af Amer 36 L Est GFR (MDRD) Non-Af 30 L BUN/Creatinine Ratio 9.4 L Glucose 375 H Lactic Acid 3.1 H* Calcium 9.2 Total Bilirubin 0.30 Direct Bilirubin 0.13 AST 12 L ALT 14 Alkaline Phosphatase 103 Troponin I < 0.015 Total Protein 7.3 Albumin 3.1 L Globulin 4.2 Lipase 271 - Rhythm Strip Rhythm Strip: Sinus Rhythm Rate: 71 Ectopy: None - EKG Initial EKG Interpretation: Sinus Rhythm, - - Normal sinus rhythm at a rate of 71 Normal intervals Normal axis Normal ST segments Low voltage QRS - Medical Decision Making Clinical Impression(s) from Imaging Studies Chest CTA 05/14/20 14:06 IMPRESSION: No acute abnormality is seen. Degenerative changes of the thoracic spine with spondylosis. Electronically Signed: Joe Hoffman, at 14:56 EDT , Service support , Abdomen/Pelvis CTA 05/14/20 14:07 IMPRESSION: No evidence of abdominal aortic aneurysm or dissection. Distended gallbladder with possible sludge or tiny gallstones along the dependent portion of the gallbladder lumen. Findings suggestive of a spinal stenosis of the lumbar spine as described. Electronically Signed: Joe Hoffman, at 14:54 EDT , Service support , Laboratory Data 05/14/20 05/14/20 05/14/20 14:00 14:00 14:00 WBC 7.2 RBC 4.78 Hgb 13.9 Hct 43.6 MCV 91.2 MCH 29.1 MCHC 31.9 L RDW Std Deviation 43.0 RDW Coeff of Nikita 12.8 Plt Count 282 MPV 9.1 Immature Gran % (Auto) 0.800 Neut % (Auto) 65.9 Lymph % (Auto) 25.5 [place] % (Auto) 5.3 Eos % (Auto) 1.9 Baso % (Auto) 0.6 Absolute Neuts (auto) 4.8 Absolute Lymphs (auto) 1.84 Nucleated RBC % 0 Sodium 136 Potassium 5.3 H Chloride 105 Carbon Dioxide 25.0 Anion Gap 6 BUN 17 Creatinine 1.81 H Estim Creat Clear Calc 26.04 Est GFR (MDRD) Af Amer 36 L Est GFR (MDRD) Non-Af 30 L BUN/Creatinine Ratio 9.4 L Glucose 375 H Lactic Acid 3.1 H* Calcium 9.2 Total Bilirubin 0.30 Direct Bilirubin 0.13 AST 12 L ALT 14 Alkaline Phosphatase 103 Troponin I < 0.015 Total Protein 7.3 Albumin 3.1 L Globulin 4.2 Lipase 271 Patient is evaluated for midthoracic back pain. On arrival patient is hypotensive. Back pain is not reproducible. The story is atypical for dissection but patient also has asymmetric pulses of her lower extremities in the setting of hypotension so she sent over for an emergent CTA to rule out dissection. This is negative for dissection. Patient does have some mild sludge of her gallbladder but her liver enzymes are normal. She does not have associated tenderness in the right upper quadrant. I do not think an emergent right upper quadrant ultrasound is indicated at this time. She is given fentanyl as well as IV fluids in the emergency room. Patient's lab work is remarkable for a lactic acidosis and worsening of chronic kidney disease. Patient is a mildly elevated potassium does not have EKG changes consistent with hyperkalemia. Patient is given a total of 2 L of fluid. Urinalysis shows ketones but no obvious signs of infection. I suspect patient's lactic acidosis and hypotension is more from dehydration and volume depletion than infection or cardiogenic cause. She is not have any anemia or signs of bleeding. Patient is fluid responsive to the emergency room. She does require re-dose of morphine for pain control for her back. Patient be admitted for further evaluation of her hypotension and lactic acidosis. She is agreeable with plan. She stable for the general medical floor at time of disposition. ED Disposition - Plan for ED Patient: Disposition: Acute Care [facility] Diagnosis: Hypotension, Intractable back pain, Acute kidney injury, Hyperglycemia due to type 2 diabetes mellitus, Lactic acidosis
[2020-05-14 14:25] LABS: Absolute Lymphocyte Count 1.84 X10^3/uL (0.83-4.51); Absolute Neutrophil Count 4.8 X10^3/uL (2.0-7.7); Basophil# 0.04 X10^3/uL; Basophil% 0.6 % (0-1); Eosinophil# 0.14 X10^3/uL; Eosinophils% 1.9 % (0-5); Hematocrit 43.6 % (37-47); Hemoglobin 13.9 g/dL (12.0-15.0); Lymphocyte # 1.84 X10^3/ul (4.0); Lymphocyte % 25.5 % (19-41); Mean Corp Hgb Conc 31.9 g/dL (32-36); Mean Corpuscular Hgb 29.1 pg (27.0-32.0); Mean Corpuscular Volume 91.2 fL (81-99); Mean Platelet Vol. 9.1 fl (6.2-12.0); Monocyte# 0.38 X10^3/uL; Monocyte% 5.3 % (0-10); NRBC Flagged by Analyzer 0 % (0-5); Neutrophil # 4.76 X10^3/uL (2.7-7.7); Neutrophil % 65.9 % (47-70); Platelet Count 282 K/mm3 (150-450); RBC Distribution Width CV 12.8 % (11.6-14.6); Red Blood Count 4.78 M/mm3 (4.2-5.4); White Blood Count 7.2 K/mm3 (4.4-11.0)
[2020-05-14] MEDS: 0.9% Normal Saline 1,000 ML 1000 ML IV (14:26)
[2020-05-14] MEDS: fentaNYL 100 MCG/2 ML Ampul 50 MCG IV (14:26)
[2020-05-14 14:49] LABS: AST(SGOT) 12 U/L (15-37); Alanine Aminotransfer ALT/SGPT 14 U/L (13-56); Albumin, Serum 3.1 g/dL (3.2-5.0); Alkaline Phosphatase 103 U/L (45-117); Anion Gap 6 (5-15); BUN 17 mg/dL (7-18); BUN/Creat Ratio 9.4 RATIO (10-20); Bilirubin, Direct 0.13 mg/dL (0.00-0.30); Calcium,Total 9.2 mg/dL (8.5-10.1); Chloride 105 mmol/L (98-107); Creatinine, Serum 1.81 mg/dL (0.55-1.02); EST Glomerular Filtration Rate 30 mL/min (>60); Est Glom Filt Rate - Afr Amer 36 mL/min (>60); Estimated Creatinine Clearance 26.04 ml/min; Globulin 4.2 g/dL (2.2-4.2); Glucose 375 mg/dL (74-106); Lipase 271 U/L (73-393); Potassium 5.3 mmol/L (3.5-5.1); Protein, Total 7.3 g/dL (6.4-8.2); Sodium Level 136 mmol/L (136-145)
[2020-05-14 15:02] LABS: Lactic Acid 3.1 mmol/L (0.4-1.9)
[2020-05-14] MEDS: 0.9% Normal Saline 1,000 ML 999 ML IV (15:30)
[2020-05-14 15:47] LABS: Bacteria 0 SEEN /hpf (None Seen); Mucous, Urine 0 SEEN /hpf (<or=2+); White Blood Cells 0 SEEN /hpf (0-5)
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
[2020-05-14 15:52] LABS: Color, Urine Yellow (Yellow); Glucose, Dipstick 1000 mg/dl (Normal); Ketone-Dipstick 5 mg/dl (Negative); Leukocyte Esterase-Dipstick Negative /ul (Negative); Nitrite-Dipstick Negative (Negative); Occult Blood-Urine 10 /ul (Negative); Protein-Dipstick 15 mg/dl (Negative); Specific Gravity, Urine 1.005 (1.002-1.030); Urine Bilirubin Dipstick Negative (Negative); Urine Clarity Clear (Clear); Urine Urobilinogen Normal (Normal)
--- NOTE | 2020-05-14 15:52 | NURSING ---
MED SURG WHITE HYPOTENSION, BALAJI, LACTICI ACIDOSIS
[2020-05-14 16:07] LABS: Red Blood Cells-Urine 0-5 SEEN /hpf (0-5); Squamous Epithelial Cells - UA 0-5 SEEN /hpf (5-10)
[2020-05-14 16:08] LABS: Amorphous Sediment 1+ URATE; Yeast-Urine RARE /hpf (None Seen)
[2020-05-14] MEDS: Morphine 4 MG/ML Syringe IV (16:30)
[2020-05-14 17:15] LABS: Magnesium 1.5 mg/dL (1.6-2.6)
[2020-05-14 17:26] LABS: Hemoglobin A1c 12.7 % (3.8-5.6)
[2020-05-14 17:36] LABS: Bedside Glucose 287 mg/dL (70-110)
[2020-05-14] MEDS: 0.9% Normal Saline 1,000 ML 150 ML IV ×2 (17:53→23:43)
[2020-05-14] MEDS: tiZANidine HCl 2 MG Tablet PO (17:55)
[2020-05-14] MEDS: fentaNYL 25 MCG Patch TRANSDERM. (17:56)
[2020-05-14] MEDS: Insulin Lispro 100 UNIT/ML INSULN.PEN 12 UNIT SC (17:58)
[2020-05-14 18:20] LABS: Reflex Lactate? Y
[2020-05-14 18:23] LABS: Urine Sodium 94 mmol/L (Not Establ.)
[2020-05-14 19:35] LABS: Anion Gap 5 (5-15); BUN 16 mg/dL (7-18); BUN/Creat Ratio 10.8 RATIO (10-20); Calcium,Total 8.2 mg/dL (8.5-10.1); Chloride 106 mmol/L (98-107); Creatinine, Serum 1.48 mg/dL (0.55-1.02); EST Glomerular Filtration Rate 37 mL/min (>60); Est Glom Filt Rate - Afr Amer 45 mL/min (>60); Estimated Creatinine Clearance 31.85 ml/min; Glucose 280 mg/dL (74-106); Potassium 4.9 mmol/L (3.5-5.1); Sodium Level 136 mmol/L (136-145)
[2020-05-14 19:56] LABS: Lactic Acid 1.7 mmol/L (0.4-1.9)
[2020-05-14] MEDS: Nystatin Powder 15gm Bottle 1 APPLIC TOPICAL (23:08)
[2020-05-14] MEDS: Gabapentin 400 MG Capsule PO (23:10)
[2020-05-14] MEDS: Topiramate 50 MG Tablet PO (23:10)
[2020-05-14] MEDS: Atorvastatin Calcium 10 MG Tablet PO (23:10)
[2020-05-14] MEDS: MELATONIN 10 MG TABLET 5 MG PO (23:11)
[2020-05-14] MEDS: MethylPREDNISolone DosePak 4 MG BOX PO (23:13)
[2020-05-14] MEDS: DULoxetine Hcl 60 MG Capsule PO (23:14)
[2020-05-14] MEDS: traZODone 100 MG Tablet PO (23:15)
[2020-05-14] MEDS: Heparin Injection (Vial) 5,000 UNIT/ML VIAL 5000 UNIT SC (23:22)
[2020-05-14 23:40] LABS: Bedside Glucose 219 mg/dL (70-110)
[2020-05-15] VITALS (11 sets, daily range): BP systolic 89–156; BP diastolic 43–79; PULSE 57–83; RESP 16–18; TEMP 36.5–37; O2SAT 94–98
[2020-05-15] MEDS: Nystatin Powder 15gm Bottle 1 APPLIC TOPICAL ×3 (05:00→21:57)
[2020-05-15] MEDS: Gabapentin 400 MG Capsule PO ×3 (05:03→21:57)
[2020-05-15] MEDS: Levothyroxine 112 MCG Tablet PO (05:03)
[2020-05-15] MEDS: tiZANidine HCl 2 MG Tablet PO (05:07)
[2020-05-15] MEDS: Acetaminophen 325 MG Tablet 650 MG PO ×2 (05:07→20:40)
[2020-05-15] MEDS: 0.9% Normal Saline 1,000 ML 150 ML IV ×3 (06:36→20:32)
[2020-05-15 06:51] LABS: Absolute Lymphocyte Count 0.88 X10^3/uL (0.83-4.51); Absolute Neutrophil Count 4.2 X10^3/uL (2.0-7.7); Basophil# 0.01 X10^3/uL; Basophil% 0.2 % (0-1); Eosinophil# 0.01 X10^3/uL; Eosinophils% 0.2 % (0-5); Hematocrit 36.3 % (37-47); Hemoglobin 11.6 g/dL (12.0-15.0); Lymphocyte # 0.88 X10^3/ul (4.0); Mean Corpuscular Hgb 29.2 pg (27.0-32.0); Mean Corpuscular Volume 91.4 fL (81-99); Mean Platelet Vol. 9.1 fl (6.2-12.0); Monocyte% 1.9 % (0-10); NRBC Flagged by Analyzer 0 % (0-5); Neutrophil # 4.16 X10^3/uL (2.7-7.7); Neutrophil % 80.1 % (47-70); POSITIVE MORPHOLOGY YES; Platelet Count 221 K/mm3 (150-450); RBC Distribution Width CV 12.7 % (11.6-14.6); RBC Distribution Width SD 42.5 fl (35.1-43.9); Red Blood Count 3.97 M/mm3 (4.2-5.4); White Blood Count 5.2 K/mm3 (4.4-11.0)
[2020-05-15 06:58] LABS: Differential Indicated SCAN CRITERIA MET
[2020-05-15 07:05] LABS: ALB/GLOB Ratio 0.7 RATIO (0.9-2.4); AST(SGOT) 12 U/L (15-37); Alanine Aminotransfer ALT/SGPT 14 U/L (13-56); Albumin, Serum 2.5 g/dL (3.2-5.0); Alkaline Phosphatase 85 U/L (45-117); Anion Gap 2 (5-15); BUN 16 mg/dL (7-18); BUN/Creat Ratio 13.4 RATIO (10-20); Calcium,Total 7.6 mg/dL (8.5-10.1); Chloride 108 mmol/L (98-107); Creatinine, Serum 1.19 mg/dL (0.55-1.02); EST Glomerular Filtration Rate 48 mL/min (>60); Est Glom Filt Rate - Afr Amer 58 mL/min (>60); Estimated Creatinine Clearance 39.61 ml/min; Globulin 3.5 g/dL (2.2-4.2); Glucose 335 mg/dL (74-106); Potassium 5.6 mmol/L (3.5-5.1); Sodium Level 134 mmol/L (136-145)
[2020-05-15] MEDS: Glucerna Shake 120 ML LIQUID PO ×3 (08:49→17:05)
[2020-05-15] MEDS: Aspirin 81 MG TAB.CHEW PO (08:52)
[2020-05-15] MEDS: MethylPREDNISolone DosePak 4 MG BOX PO ×4 (08:52→21:58)
[2020-05-15] MEDS: Insulin Lispro 100 UNIT/ML INSULN.PEN 12 UNIT SC ×2 (08:54→12:53)
[2020-05-15] MEDS: Topiramate 50 MG Tablet PO ×2 (08:58→21:59)
[2020-05-15] MEDS: Lidocaine 5% Patch 2 PATCH TOPICAL (08:58)
[2020-05-15] MEDS: Mirtazapine 30 MG Tablet PO (08:58)
[2020-05-15] MEDS: DULoxetine Hcl 60 MG Capsule PO ×2 (08:58→21:57)
[2020-05-15] MEDS: Heparin Injection (Vial) 5,000 UNIT/ML VIAL 5000 UNIT SC ×2 (08:59→21:57)
--- NOTE | 2020-05-15 11:21 | CASEMGMT ---
TRIP DEAN assessment: Face to Face with patient for initial transition planning/care coordination assessment. TRIP DEAN introduced self and role at [facility], pt voices understanding and consents to assessment at this time. Pt is lying in bed in no distress at this time. Pt is A/Ox4 at this time and answers all questions appropriately at this time. Care providers, pharmacy, and demographics verified at this time. Presentation: Pt c/o middle back pain Admitting dx: Hypotension, BALAJI, lactic acidosis PCP: Juan C Specialists: Pt states no current specialists. Preferred Pharmacy: [facility]/Mail order Insurance: CRS Prescription Benefit: CRSC Living Will/HPOA: Pt states has LW but not a HPOA and declines to complete HPOA at this time. Pt is aware that LW is not on file at [facility] at this time. LNOK: Yony Molina, Living Arrangements: Pt states lives with friend, Martín, who helps to care for her at apartment in [place] . Pt's lives in [place]. Pt states that she has not been able to care for herself recently and is interested in going 'back to rehab.' Pt provided with in-network SNF list at this time. Transportation: Pt states does not have vehicle and does not really go anywhere. Pt can use [facility] for transportation, if needed. DME/HHC: Pt states has the following DME: W/C, walker, and grab bars. Pt states no need for any further DME at this time. Pt states has had HHC in the past and has been to SNF twice in the past. Pt states concerns with going home at time of discharge and pt feels that she will need rehab at d/c. Pt states has been on disability 'for a long time.' Pt states does not smoke cigarettes or drink ETOH. Pt states no further concerns/needs at this time. CM to follow for PT/OT evals and for any further discharge planning/needs. Advised pt to ask for CM if any further questions/concerns/needs arise, voices understanding. SW to f/u on Sunday for SNF preference. Pt Goal: SNF Plan: SNF, pending therapy evals and pt preference. [place] TRIP DEAN
[2020-05-15 12:26] LABS: Bedside Glucose 464 mg/dL (70-110)
[2020-05-15] MEDS: Insulin Lispro 100 UNIT/ML INSULN.PEN 15 UNIT SC (12:54)
--- NOTE | 2020-05-15 13:20 | PCM.PROGNOTE ---
Patient Problems: Active and Suspected Problems Intractable back pain (Acute) Hypotension (Acute) Lactic acidosis (Acute) Acute kidney injury (Acute) Hyperglycemia due to type 2 diabetes mellitus (Acute) Subjective: Patient was seen and examined today, she complains of mid back pain, she has no complaints of any chest pain or shortness of breath. It is apparent that the patient is not able to take care of her self at home, it is likely she was not taking any of her medications at home. Patient has been admitted to a custodial the last 2 full admissions to the hospital at the time of discharge. - Physical Exam Vitals/I&O's: Vital Signs Temp Pulse Resp BP Pulse Ox 98.1 F 71 16 89/43 L 95 05/15/20 10:45 05/15/20 10:45 05/15/20 10:45 05/15/20 10:45 05/15/20 10:45 Oxygen Delivery Method Room Air Weight: 99.337 kg Body Mass Index (BMI) 37.5 Finger Stick Blood Glucose 376 Intake and Output for Last 24 Hours 05/13/20 05/14/20 05/15/20 23:59 23:59 23:59 Intake Total 2875 / 3115 2437.5 / 2437.5 Output Total 300 / 450 500 / 500 Balance 2575 / 2665 1937.5 / 1937.5 General: Alert, Cooperative, No apparent distress, Well developed HEENT: Atraumatic, PERRLA, EOMI, Normocephalic Oral: Moist Mucosa Neck: Supple, No JVD, Trachea Midline, Thyroid Normal Size and Texture Lungs: Clear to auscultation, Normal air movement, No rhonchi, No wheeze, No rales Cardiovascular: Regular rate, Regular Rhythm, Normal S1, Normal S2, No murmurs, PMI Normal, No rub noted, No Gallop Abdomen: Bowel Sounds Present, Soft, Non Tender, Non-Distended, Obese Extremities: No clubbing, No cyanosis, Capillary Refill Less than 3 Seconds Skin: No rashes, No breakdown Neurological: Cranial nerves II-XII grossly intact, Neuro grossly intact Psych/Mental Status: Appropriate, Flat Affect Laboratory Results 05/14/20 14:00: WBC 7.2, RBC 4.78, Hgb 13.9, Hct 43.6, MCV 91.2, MCH 29.1, MCHC 31.9 L, RDW Std Deviation 43.0, RDW Coeff of Nikita 12.8, Plt Count 282, MPV 9.1, Immature Gran % (Auto) 0.800, Neut % (Auto) 65.9, Lymph % (Auto) 25.5, [place] % (Auto) 5.3, Eos % (Auto) 1.9, Baso % (Auto) 0.6, Absolute Neuts (auto) 4.8, Absolute Lymphs (auto) 1.84, Nucleated RBC % 0 05/14/20 14:00: Sodium 136, Potassium 5.3 H, Chloride 105, Carbon Dioxide 25.0, Anion Gap 6, BUN 17, Creatinine 1.81 H, Estim Creat Clear Calc 26.04, Est GFR (MDRD) Af Amer 36 L, Est GFR (MDRD) Non-Af 30 L, BUN/Creatinine Ratio 9.4 L, Glucose 375 H, Calcium 9.2, Total Bilirubin 0.30, Direct Bilirubin 0.13, AST 12 L, ALT 14, Alkaline Phosphatase 103, Troponin I < 0.015, Total Protein 7.3, Albumin 3.1 L, Globulin 4.2, Lipase 271 05/14/20 14:00: Lactic Acid 3.1 H* 05/14/20 14:00: Hemoglobin A1c 12.7 H 05/14/20 14:00: Magnesium 1.5 L 05/14/20 15:20: Urine Color Yellow, Urine Clarity Clear, Urine pH 6.0, Ur Specific [place] 1.005, Urine Protein 15 H, Urine Glucose (UA) 1000 H, Urine Ketones 5 H, Urine Occult Blood 10 H, Urine Nitrite Negative, Urine Bilirubin Negative, Urine Urobilinogen Normal, Ur Leukocyte Esterase Negative, Urine RBC 0-5 SEEN, Urine WBC 0 SEEN, Ur Squamous Epith Cells 0-5 SEEN, Amorphous Sediment 1+ URATE, Urine Bacteria 0 SEEN, Urine Mucus 0 SEEN, Urine Yeast RARE 05/14/20 17:29: POC Glucose 287 H 05/14/20 17:45: Urine Creatinine 60.30 05/14/20 17:45: Ur Random Sodium 94 05/14/20 19:15: Sodium 136, Potassium 4.9, Chloride 106, Carbon Dioxide 25.0, Anion Gap 5, BUN 16, Creatinine 1.48 H, Estim Creat Clear Calc 31.85, Est GFR (MDRD) Af Amer 45 L, Est GFR (MDRD) Non-Af 37 L, BUN/Creatinine Ratio 10.8, Glucose 280 H, Calcium 8.2 L 05/14/20 19:15: Lactic Acid 1.7 05/14/20 23:07: POC Glucose 219 H 05/15/20 06:35: WBC 5.2, RBC 3.97 L, Hgb 11.6 L, Hct 36.3 L, MCV 91.4, MCH 29.2, MCHC 32.0, RDW Std Deviation 42.5, RDW Coeff of Nikita 12.7, Plt Count 221, MPV 9.1, Immature Gran % (Auto) 0.600, Neut % (Auto) 80.1 H, Lymph % (Auto) 17.0 L, [place] % (Auto) 1.9, Eos % (Auto) 0.2, Baso % (Auto) 0.2, Absolute Neuts (auto) 4.2, Absolute Lymphs (auto) 0.88, Nucleated RBC % 0 05/15/20 06:35: Sodium 134 L, Potassium 5.6 H, Chloride 108 H, Carbon Dioxide 24.0, Anion Gap 2 L, BUN 16, Creatinine 1.19 H, Estim Creat Clear Calc 39.61, Est GFR (MDRD) Af Amer 58 L, Est GFR (MDRD) Non-Af 48 L, BUN/Creatinine Ratio 13.4, Glucose 335 H, Calcium 7.6 L, Total Bilirubin 0.20, AST 12 L, ALT 14, Alkaline Phosphatase 85, Total Protein 6.0 L, Albumin 2.5 L, Globulin 3.5, Albumin/Globulin Ratio 0.7 L 05/15/20 12:23: POC Glucose 464 H* 05/15/20 13:00: Glucose Pending Current Medications Acetaminophen (Tylenol) 650 mg PO Q6H PRN PRN PRN Reason: Pain Score 1-10/Temp > 100.7 F Last Admin: 05/15/20 05:07 Dose: 650 mg Documented by: Al Hydroxide/Mg Hydroxide (Mylanta Ii) 30 ml PO Q6H PRN PRN PRN Reason: Gastric Burning Albuterol Sulfate (Ventolin Aerosols) 2.5 mg INHALATION Q2H PRN PRN PRN Reason: Dyspnea, wheezing Aspirin (Aspirin, Baby) 81 mg PO DAILY@0800 [facility] Last Admin: 05/15/20 08:52 Dose: 81 mg Documented by: Atorvastatin Calcium (Lipitor) 10 mg PO QHS [facility] Last Admin: 05/14/20 23:10 Dose: 10 mg Documented by: Duloxetine HCl (Cymbalta) 60 mg PO BID [facility] Last Admin: 05/15/20 08:58 Dose: 60 mg Documented by: Fentanyl (Duragesic Patch) 25 mcg TRANSDERM. Q3D [facility] Last Admin: 05/14/20 17:56 Dose: 25 mcg Documented by: Gabapentin (Neurontin) 400 mg PO TID [facility] Last Admin: 05/15/20 05:03 Dose: 400 mg Documented by: Heparin Sodium (Porcine) (Heparin Na) 5,000 unit SC Q12 [facility] Last Admin: 05/15/20 08:59 Dose: 5,000 unit Documented by: Sodium Chloride () 1,000 mls @ 150 mls/hr IV .[id number] [facility] Last Admin: 05/15/20 12:59 Dose: 150 mls/hr Documented by: Sodium Chloride () 250 mls @ 15 mls/hr IV .[id number] PRN PRN Reason: Saline Flush Sodium Chloride () 250 mls @ 15 mls/hr IV .[id number] PRN PRN Reason: Additional IVPB Infusion Insulin Glargine (Lantus (Bkc)) 45 units SC 1100,2200 [facility] Insulin Human Lispro (Humalog Kwikpen (Bkc)) 20 unit SC TIDAC [facility] Iopamidol (Contrast Allergy Check) 0 ml IV X1 [facility] Last Admin: 05/15/20 05:42 Dose: Not Given Documented by: Levothyroxine Sodium (Synthroid) 112 mcg PO DAILY@0600 [facility] Last Admin: 05/15/20 05:03 Dose: 112 mcg Documented by: Lidocaine (Lidoderm Patch) 2 patch TOPICAL DAILY [facility]; Protocol Last Admin: 05/15/20 08:58 Dose: 2 patch Documented by: Magnesium Hydroxide (Milk Of Magnesia) 30 ml PO DAILY PRN PRN PRN Reason: Constipation Melatonin (Melatonin) 3 mg PO QHS PRN PRN PRN Reason: INSOMNIA Melatonin (Melatonin) 5 mg PO QHS [facility] Last Admin: 05/14/20 23:11 Dose: 5 mg Documented by: Methylprednisolone (Medrol Dosepak) 4 mg PO 0800,1200,1700 [facility]; Taper Stop: 05/19/20 08:59 Last Admin: 05/15/20 12:56 Dose: 4 mg Documented by: Mirtazapine (Remeron) 30 mg PO DAILY [facility] Last Admin: 05/15/20 08:58 Dose: 30 mg Documented by: Nutritional Formula (Nakul - [place] Flavor) 1 packet PO BIDCM [facility] Nutritional Formula (Lactose Free) (Glucerna Shake) 120 ml PO TIDCM [facility] Last Admin: 05/15/20 12:57 Dose: 120 ml Documented by: Nystatin (Mycostatin Powder) 1 applic TOPICAL TID [facility]; Protocol Last Admin: 05/15/20 05:00 Dose: 1 applicatio Documented by: Ondansetron HCl (Zofran) 4 mg IV Q8H PRN PRN PRN Reason: NAUSEA/VOMITING Psyllium Hydrophilic Mucilloid (Metamucil) 1 packet PO DAILY PRN PRN PRN Reason: Constipation Senna/Docusate Sodium (Senokot-S, Mel-Colace) 2 tablet PO BID PRN PRN PRN Reason: Constipation Sodium Chloride () 10 - 40 ml IV UD PRN PRN Reason: SALINE FLUSH Throat Lozenges (Cepacol Sore Throat Lozenge) 1 lozenge MUCOUS MEM Q2H PRN PRN PRN Reason: SORE THROAT Tizanidine HCl (Zanaflex) 2 mg PO Q8H PRN PRN PRN Reason: muscle strain, spasms Last Admin: 05/15/20 05:07 Dose: 2 mg Documented by: Topiramate (Topamax) 50 mg PO BID [facility] Last Admin: 05/15/20 08:58 Dose: 50 mg Documented by: Trazodone HCl (Desyrel) 100 mg PO QHS [facility] Last Admin: 05/14/20 23:15 Dose: 100 mg Documented by: Medical Necessity - Tobacco Use Smoking Status: Former smoker Tobacco Use: Non-smoker Assessment/Plan All Active Problems Intractable back pain (Acute) Hypotension (Acute) Lactic acidosis (Acute) Acute kidney injury (Acute) Hyperglycemia due to type 2 diabetes mellitus (Acute) #1 thoracic spine pain-probably secondary to degenerative disc disease of the thoracic spine, continue PT and OT, patient will need placement in a usp facility at least short-term. #2 hypotension-etiology unclear, continue fluid administration #3 type 2 [id number] to adjust basal and immediate release insulins. #4 generalized debility-probably secondary to deconditioning, patient will need placement in a usp facility #5 peripheral neuropathy secondary to type 2 diabetes #6 hyperlipidemia #7 acute kidney injury-continue to monitor BMP #8 essential hypertension-hold blood pressure medicines due to hypotension #9 Osteoarthritis #10 lactic acidosis-probably secondary to acute kidney injury #11 chronic depression #12 hyperkalemia-recheck labs tomorrow Inpatient E&M: 54591 Subs Hosp L2
[2020-05-15 13:22] LABS: Glucose 433 mg/dL (74-106)
[2020-05-15 14:11] LABS: Bedside Glucose 378 mg/dL (70-110)
[2020-05-15] MEDS: Insulin Lispro 100 UNIT/ML INSULN.PEN 20 UNIT SC (17:04)
[2020-05-15 17:15] LABS: Bedside Glucose 436 mg/dL (70-110)
[2020-05-15] MEDS: MELATONIN 10 MG TABLET 5 MG PO (21:56)
[2020-05-15] MEDS: traZODone 100 MG Tablet PO (21:57)
[2020-05-15] MEDS: Atorvastatin Calcium 10 MG Tablet PO (21:57)
[2020-05-16] VITALS (8 sets, daily range): BP systolic 110–144; BP diastolic 62–70; PULSE 59–73; RESP 18; TEMP 36.3–36.8; O2SAT 95–98
[2020-05-16 01:41] LABS: Bedside Glucose 405 mg/dL (70-110)
[2020-05-16] MEDS: 0.9% Normal Saline 1,000 ML 150 ML IV ×2 (03:14→08:49)
[2020-05-16] MEDS: Levothyroxine 112 MCG Tablet PO (05:20)
[2020-05-16] MEDS: Nystatin Powder 15gm Bottle 1 APPLIC TOPICAL ×3 (05:20→21:59)
[2020-05-16] MEDS: Gabapentin 400 MG Capsule PO ×3 (05:20→21:59)
[2020-05-16 08:46] LABS: Bedside Glucose 360 mg/dL (70-110)
[2020-05-16] MEDS: Aspirin 81 MG TAB.CHEW PO (08:48)
[2020-05-16] MEDS: MethylPREDNISolone DosePak 4 MG BOX PO (08:48)
[2020-05-16] MEDS: Lidocaine 5% Patch 2 PATCH TOPICAL (08:50)
[2020-05-16] MEDS: DULoxetine Hcl 60 MG Capsule PO ×2 (08:50→21:56)
[2020-05-16] MEDS: Heparin Injection (Vial) 5,000 UNIT/ML VIAL 5000 UNIT SC ×2 (08:50→22:00)
[2020-05-16] MEDS: Mirtazapine 30 MG Tablet PO (08:51)
[2020-05-16] MEDS: Topiramate 50 MG Tablet PO ×2 (08:52→21:59)
[2020-05-16] MEDS: Insulin Lispro 100 UNIT/ML INSULN.PEN 20 UNIT SC ×3 (08:53→16:57)
[2020-05-16 11:20] LABS: Bedside Glucose 362 mg/dL (70-110)
[2020-05-16 13:26] LABS: Anion Gap 6 (5-15); BUN 27 mg/dL (7-18); BUN/Creat Ratio 24.3 RATIO (10-20); Calcium,Total 7.8 mg/dL (8.5-10.1); Chloride 108 mmol/L (98-107); Creatinine, Serum 1.11 mg/dL (0.55-1.02); EST Glomerular Filtration Rate 52 mL/min (>60); Est Glom Filt Rate - Afr Amer 63 mL/min (>60); Estimated Creatinine Clearance 42.47 ml/min; Glucose 321 mg/dL (74-106); Potassium 5.1 mmol/L (3.5-5.1); Sodium Level 137 mmol/L (136-145)
--- NOTE | 2020-05-16 13:52 | PCM.PROGNOTE ---
Patient Problems: Active and Suspected Problems Intractable back pain (Acute) Hypotension (Acute) Lactic acidosis (Acute) Acute kidney injury (Acute) Hyperglycemia due to type 2 diabetes mellitus (Acute) Subjective: Patient was seen and examined today, she still appears somnolent at times, BMP was repeated today and it shows improved creatinine, I do not feel the patient needs IV fluids at this time. Patient's urine grew out small amounts of staph capitis which I do not feel is significant. - Physical Exam Vitals/I&O's: Vital Signs Temp Pulse Resp BP Pulse Ox 98.3 F 70 18 117/62 98 05/16/20 09:15 05/16/20 09:15 05/16/20 09:15 05/16/20 09:15 05/16/20 09:15 Oxygen Delivery Method Room Air Weight: 99.337 kg Body Mass Index (BMI) 37.5 Finger Stick Blood Glucose 376 Intake and Output for Last 24 Hours 05/14/20 05/15/20 05/16/20 23:59 23:59 23:59 Intake Total 2875 / 3115 4167.5 / 4167.5 1837.5 / 1837.5 Output Total 300 / 450 500 / 500 Balance 2575 / 2665 3667.5 / 3667.5 1837.5 / 1837.5 General: Alert, Cooperative, No apparent distress, Well developed HEENT: Atraumatic, PERRLA, EOMI, Normocephalic Oral: Moist Mucosa Neck: Supple, Trachea Midline, Thyroid Normal Size and Texture Lungs: Clear to auscultation, Normal air movement, No rhonchi, No wheeze Cardiovascular: Regular rate, Regular Rhythm, Normal S1, Normal S2, No murmurs, PMI Normal, No rub noted, No Gallop Abdomen: Bowel Sounds Present, Soft, Non Tender, Non-Distended Extremities: Capillary Refill Less than 3 Seconds, Edema - Generalized edema is noted over the lower legs, there is stasis dermatitis changes over both lower legs Skin: No rashes, Rash Present - Stasis dermatitis changes are noted over both lower legs Musculoskeletal: No Tenderness to Palpation of Joints or Extremities Neurological: Cranial nerves II-XII grossly intact, Neuro grossly intact, Sensory exam intact to light touch and pain Psych/Mental Status: Appropriate, Flat Affect Microbiology Past 72 Hours 05/14/20 15:35 Blood Culture (Wb) - Anticubital Right Blood Culture - Preliminary No growth in 48 hours. 05/14/20 14:00 Blood Culture (Wb) - Right Forearm Blood Culture - Preliminary No growth in 48 hours. 05/14/20 15:20 Urine Catheter - Catheter Urine Culture - Preliminary Staphylococcus capitis Laboratory Results 05/15/20 09:11: POC Glucose 378 H 05/15/20 17:02: POC Glucose 436 H 05/15/20 21:54: POC Glucose 405 H 05/16/20 08:42: POC Glucose 360 H 05/16/20 11:14: POC Glucose 362 H 05/16/20 12:55: Sodium 137, Potassium 5.1, Chloride 108 H, Carbon Dioxide 23.0, Anion Gap 6, BUN 27 H, Creatinine 1.11 H, Estim Creat Clear Calc 42.47, Est GFR (MDRD) Af Amer 63, Est GFR (MDRD) Non-Af 52 L, BUN/Creatinine Ratio 24.3 H, Glucose 321 H, Calcium 7.8 L Current Medications Acetaminophen (Tylenol) 650 mg PO Q6H PRN PRN PRN Reason: Pain Score 1-10/Temp > 100.7 F Last Admin: 05/15/20 20:40 Dose: 650 mg Documented by: Aspirin (Aspirin, Baby) 81 mg PO DAILY@0800 [facility] Last Admin: 05/16/20 08:48 Dose: 81 mg Documented by: Atorvastatin Calcium (Lipitor) 10 mg PO QHS [facility] Last Admin: 05/15/20 21:57 Dose: 10 mg Documented by: Duloxetine HCl (Cymbalta) 60 mg PO BID [facility] Last Admin: 05/16/20 08:50 Dose: 60 mg Documented by: Fentanyl (Duragesic Patch) 25 mcg TRANSDERM. Q3D [facility] Last Admin: 05/14/20 17:56 Dose: 25 mcg Documented by: Gabapentin (Neurontin) 400 mg PO TID [facility] Last Admin: 05/16/20 12:43 Dose: 400 mg Documented by: Heparin Sodium (Porcine) (Heparin Na) 5,000 unit SC Q12 [facility] Last Admin: 05/16/20 08:50 Dose: 5,000 unit Documented by: Sodium Chloride () 250 mls @ 15 mls/hr IV .[id number] PRN PRN Reason: Saline Flush Sodium Chloride () 250 mls @ 15 mls/hr IV .[id number] PRN PRN Reason: Additional IVPB Infusion Insulin Glargine (Lantus (Bk)) 45 units SC 1100,2200 [facility] Last Admin: 05/16/20 12:41 Dose: 45 u Documented by: Insulin Human Lispro (Humalog Kwikpen ([facility])) 20 unit SC TIDAC [facility] Last Admin: 05/16/20 12:38 Dose: 20 units Documented by: Levothyroxine Sodium (Synthroid) 112 mcg PO DAILY@0600 [facility] Last Admin: 05/16/20 05:20 Dose: 112 mcg Documented by: Lidocaine (Lidoderm Patch) 2 patch TOPICAL DAILY [facility]; Protocol Last Admin: 05/16/20 08:50 Dose: 2 patch Documented by: Melatonin (Melatonin) 5 mg PO QHS [facility] Last Admin: 05/15/20 21:56 Dose: 5 mg Documented by: Mirtazapine (Remeron) 30 mg PO DAILY [facility] Last Admin: 05/16/20 08:51 Dose: 30 mg Documented by: Nutritional Formula (Nakul - [place] Flavor) 1 packet PO BIDCM [facility] Last Admin: 05/16/20 08:48 Dose: 1 packet Documented by: Nutritional Formula (Lactose Free) (Glucerna Shake) 120 ml PO TIDCM [facility] Last Admin: 05/16/20 12:42 Dose: Not Given Documented by: Nystatin (Mycostatin Powder) 1 applic TOPICAL TID [facility]; Protocol Last Admin: 05/16/20 12:42 Dose: 1 applicatio Documented by: Ondansetron HCl (Zofran) 4 mg IV Q8H PRN PRN PRN Reason: NAUSEA/VOMITING Senna/Docusate Sodium (Senokot-S, Mel-Colace) 2 tablet PO BID PRN PRN PRN Reason: Constipation Sodium Chloride () 10 - 40 ml IV UD PRN PRN Reason: SALINE FLUSH Topiramate (Topamax) 50 mg PO BID [facility] Last Admin: 05/16/20 08:52 Dose: 50 mg Documented by: Trazodone HCl (Desyrel) 100 mg PO QHS [facility] Last Admin: 05/15/20 21:57 Dose: 100 mg Documented by: Medical Necessity - Tobacco Use Smoking Status: Former smoker Tobacco Use: Non-smoker Assessment/Plan All Active Problems Intractable back pain (Acute) Hypotension (Acute) Lactic acidosis (Acute) Acute kidney injury (Acute) Hyperglycemia due to type 2 diabetes mellitus (Acute) #1 thoracic spine pain-probably secondary to degenerative disc disease of the thoracic spine, continue PT and OT, patient will need placement in a senior care facility at least short-term. #2 hypotension-etiology unclear, it is resolved at this time, I do not feel the patient needs any further fluid administration #3 type 2 [id number] to adjust basal and immediate release insulins. #4 generalized debility-probably secondary to deconditioning, patient will need placement in a senior care facility #5 peripheral neuropathy secondary to type 2 diabetes #6 hyperlipidemia #7 acute kidney injury-resolved at this time-patient is probably close to her baseline #8 essential hypertension-hold blood pressure medicines due to hypotension #9 Osteoarthritis #10 lactic acidosis-probably secondary to acute kidney injury #11 chronic depression #12 hyperkalemia-resolved It is unknown whether the patient is even taking her medications at home, she has a male narrow fabrics weaver at home that helps care for her but I am not sure how much she actually does. [facility] after hospitalizations and it has been suspected that she is not receiving appropriate care at home. Inpatient E&M: 62347 Subs Hosp L2
[2020-05-16 16:26] LABS: Bedside Glucose 215 mg/dL (70-110)
[2020-05-16] MEDS: traZODone 100 MG Tablet PO (21:56)
[2020-05-16] MEDS: MELATONIN 10 MG TABLET 5 MG PO (21:56)
[2020-05-16] MEDS: Atorvastatin Calcium 10 MG Tablet PO (21:57)
[2020-05-17] VITALS (11 sets, daily range): BP systolic 100–126; BP diastolic 50–69; PULSE 64–79; RESP 16–18; TEMP 36.4–36.8; O2SAT 94–97
[2020-05-17 00:01] LABS: Bedside Glucose 216 mg/dL (70-110)
[2020-05-17] MEDS: Acetaminophen 325 MG Tablet 650 MG PO ×2 (03:14→15:41)
[2020-05-17] MEDS: Levothyroxine 112 MCG Tablet PO (06:39)
[2020-05-17] MEDS: Gabapentin 400 MG Capsule PO ×3 (06:39→22:44)
[2020-05-17] MEDS: Nystatin Powder 15gm Bottle 1 APPLIC TOPICAL ×3 (06:39→22:43)
[2020-05-17] MEDS: Heparin Injection (Vial) 5,000 UNIT/ML VIAL 5000 UNIT SC ×2 (08:24→22:42)
[2020-05-17] MEDS: Mirtazapine 30 MG Tablet PO (08:24)
[2020-05-17] MEDS: Lidocaine 5% Patch 2 PATCH TOPICAL (08:24)
[2020-05-17] MEDS: DULoxetine Hcl 60 MG Capsule PO ×2 (08:24→22:42)
[2020-05-17] MEDS: Aspirin 81 MG TAB.CHEW PO (08:24)
[2020-05-17] MEDS: Topiramate 50 MG Tablet PO ×2 (08:24→22:44)
[2020-05-17] MEDS: Insulin Lispro 100 UNIT/ML INSULN.PEN 20 UNIT SC ×3 (08:27→17:10)
--- NOTE | 2020-05-17 10:35 | CASEMGMT ---
Social Work Note SW received referral for SNF placement. Per notes, pt prefers [facility]. SW in to speak with pt. SW introduced self and role at [facility]. Pt is alert and orientated x3. Pt confirms she wishes to discharge to SNF and prefers [facility]. SW explained referral process and that pt will need pre-cert. Pt states understanding. SW updated physician and charge nurse that pt will need COVID test for SNF. SW placed a call to [facility] and spoke with Gladys at [facility] and provided referral. SW faxed referral. Plan: W pending acceptance and pre-cert Faiza Cook [employer], [employer]
--- NOTE | 2020-05-17 11:53 | PN_ITS ---
Patient Problems: Active and Suspected Problems Intractable back pain (Acute) Hypotension (Acute) Lactic acidosis (Acute) Acute kidney injury (Acute) Hyperglycemia due to type 2 diabetes mellitus (Acute) Reason for Visit: hypotension Subjective: Feels well. No new complaints. Vitals/I&O's: Vital Signs Temp Pulse Resp BP Pulse Ox 36.7 C 68 18 100/61 96 05/17/20 08:37 05/17/20 08:37 05/17/20 08:37 05/17/20 08:37 05/17/20 08:37 Oxygen Delivery Method Room Air Weight: 99.337 kg Body Mass Index (BMI) 37.5 Finger Stick Blood Glucose 376 Intake and Output for Last 24 Hours 05/15/20 05/16/20 05/17/20 23:59 23:59 23:59 Intake Total 4167.5 / 4167.5 3137.5 / 3287.5 250 / 250 Output Total 500 / 500 Balance 3667.5 / 3667.5 3137.5 / 3287.5 250 / 250 General: Alert, Cooperative, No apparent distress HEENT: Atraumatic, Normocephalic Oral: Moist Mucosa, No Gingival or Mucosal Lesions/ Ulcerations Neck: No Nodes, Thyroid Normal Size and Texture Lungs: Clear to auscultation, Normal air movement, No rhonchi, No wheeze, No rales Cardiovascular: Regular rate, Regular Rhythm, Normal S1, Normal S2 Abdomen: Bowel Sounds Present, Soft, Non Tender, Non-Distended Extremities: Edema Skin: No rashes, No breakdown Microbiology Past 72 Hours 05/14/20 15:20 Urine Catheter - Catheter Urine Culture - Preliminary Yeast 05/14/20 15:35 Blood Culture (Wb) - Anticubital Right Blood Culture - Preliminary No growth in 48 hours. 05/14/20 14:00 Blood Culture (Wb) - Right Forearm Blood Culture - Preliminary No growth in 48 hours. Laboratory Results 05/16/20 12:55: Sodium 137, Potassium 5.1, Chloride 108 H, Carbon Dioxide 23.0, Anion Gap 6, BUN 27 H, Creatinine 1.11 H, Estim Creat Clear Calc 42.47, Est GFR (MDRD) Af Amer 63, Est GFR (MDRD) Non-Af 52 L, BUN/Creatinine Ratio 24.3 H, Glucose 321 H, Calcium 7.8 L 05/16/20 16:18: POC Glucose 215 H 05/16/20 22:12: POC Glucose 216 H 05/17/20 11:20: COVID-19 (RENE) Pending Current Medications Acetaminophen (Tylenol) 650 mg PO Q6H PRN PRN PRN Reason: Pain Score 1-10/Temp > 100.7 F Last Admin: 05/17/20 03:14 Dose: 650 mg Documented by: Aspirin (Aspirin, Baby) 81 mg PO DAILY@0800 [facility] Last Admin: 05/17/20 08:24 Dose: 81 mg Documented by: Atorvastatin Calcium (Lipitor) 10 mg PO QHS [facility] Last Admin: 05/16/20 21:57 Dose: 10 mg Documented by: Duloxetine HCl (Cymbalta) 60 mg PO BID [facility] Last Admin: 05/17/20 08:24 Dose: 60 mg Documented by: Fentanyl (Duragesic Patch) 25 mcg TRANSDERM. Q3D [facility] Last Admin: 05/14/20 17:56 Dose: 25 mcg Documented by: Gabapentin (Neurontin) 400 mg PO TID [facility] Last Admin: 05/17/20 06:39 Dose: 400 mg Documented by: Heparin Sodium (Porcine) (Heparin Na) 5,000 unit SC Q12 [facility] Last Admin: 05/17/20 08:24 Dose: 5,000 unit Documented by: Sodium Chloride () 250 mls @ 15 mls/hr IV .[id number] PRN PRN Reason: Saline Flush Sodium Chloride () 250 mls @ 15 mls/hr IV .[id number] PRN PRN Reason: Additional IVPB Infusion Insulin Glargine (Lantus (Bkc)) 45 units SC 1100,2200 [facility] Last Admin: 05/16/20 22:14 Dose: 45 u Documented by: Insulin Human Lispro (Humalog Kwikpen (Bk)) 20 unit SC TIDAC [facility] Last Admin: 05/17/20 08:27 Dose: 20 units Documented by: Levothyroxine Sodium (Synthroid) 112 mcg PO DAILY@0600 [facility] Last Admin: 05/17/20 06:39 Dose: 112 mcg Documented by: Lidocaine (Lidoderm Patch) 2 patch TOPICAL DAILY [facility]; Protocol Last Admin: 05/17/20 08:24 Dose: 2 patch Documented by: Melatonin (Melatonin) 5 mg PO QHS [facility] Last Admin: 05/16/20 21:56 Dose: 5 mg Documented by: Mirtazapine (Remeron) 30 mg PO DAILY [facility] Last Admin: 05/17/20 08:24 Dose: 30 mg Documented by: Nutritional Formula (Nakul - [place] Flavor) 1 packet PO BIDCM [facility] Last Admin: 05/17/20 08:24 Dose: 1 packet Documented by: Nutritional Formula (Lactose Free) (Glucerna Shake) 120 ml PO TIDCM [facility] Last Admin: 05/17/20 08:25 Dose: Not Given Documented by: Nystatin (Mycostatin Powder) 1 applic TOPICAL TID [facility]; Protocol Last Admin: 05/17/20 06:39 Dose: 1 applicatio Documented by: Ondansetron HCl (Zofran) 4 mg IV Q8H PRN PRN PRN Reason: NAUSEA/VOMITING Senna/Docusate Sodium (Senokot-S, Mel-Colace) 2 tablet PO BID PRN PRN PRN Reason: Constipation Sodium Chloride () 10 - 40 ml IV UD PRN PRN Reason: SALINE FLUSH Topiramate (Topamax) 50 mg PO BID [facility] Last Admin: 05/17/20 08:24 Dose: 50 mg Documented by: Trazodone HCl (Desyrel) 100 mg PO QHS [facility] Last Admin: 05/16/20 21:56 Dose: 100 mg Documented by: STROKE Vital Signs/Narrative: Vital Signs Temp Pulse Resp BP Pulse Ox 05/17/20 08:37 36.7 C 68 18 100/61 96 Medical Necessity - Tobacco Use Smoking Status: Former smoker Tobacco Use: Non-smoker Assessment/Plan All Active Problems Intractable back pain (Acute) Hypotension (Acute) Lactic acidosis (Acute) Acute kidney injury (Acute) Hyperglycemia due to type 2 diabetes mellitus (Acute) 1. hypotension * resolved * furosemide and losartan held * IVF discontinued 2. BALAJI * resolved * creatinine 1.81 on admission now down to 1.11 * suspect prerenal 3. Debility: * awaiting on precertification for placement 4. chronic condition: stable, but complicate overall care * hyperlipidemia: atorvastatin * HTN: * osteoarthritis * depression * DM2: fair control on basal, and prandial insulin * hypothyroidism: levothyroxine * venous stasis dermatitis * chronic pain: on fentanyl, gabapentin, lidocaine patch 5. VTE prophylaxis: SQ heparin Inpatient E&M: 18819 Subs Hosp L2
[2020-05-17 11:55] LABS: Bedside Glucose 140 mg/dL (70-110)
[2020-05-17 12:20] LABS: Bedside Glucose 134 mg/dL (70-110)
--- NOTE | 2020-05-17 13:56 | CASEMGMT ---
Addendum entered by Faiza Cook 05/17/20 14:47: WILFRED received call from Hanny at [facility] stating they are able to accept pt and will submit for pre-cert. COVID results are available, faxed to Vikki. WILFRED updated pt that [facility] is able to accept. Plan: [facility] pending pre-cert Original Note: Social Work Note WILFRED placed a call to Gladys at [facility] regarding referral. Gladys states that they have no superintendent terminal beds available. WILFRED explained that pt plans on going to SNF for short term rehabilitation and then returning home, not coming for superintendent terminal care. Gladys states they are trying to find jail beds for pt currently on SNF side, so they have no beds available at this time and not able to accept pt. WILFRED in to speak with pt. WILFRED updated pt that [facility] is not able to accept pt due to not having any beds. WILFRED reviewed SNF list with pt. Pt agreeable to [facility]. WILFRED placed a call to [facility] and provided referral to Ignacio. Ignacio states she will review referral. COVID test is still pending. WILFRED faxed referral to [facility]. Plan: [facility] pending acceptance and pre-cert Faiza Cook HEAT TREATER APPRENTICE, NUCLEAR POWERPLANT MECHANIC
[2020-05-17 16:21] LABS: Bedside Glucose 115 mg/dL (70-110)
[2020-05-17] MEDS: fentaNYL 25 MCG Patch TRANSDERM. (17:13)
--- NOTE | 2020-05-17 17:17 | NURSING ---
fentanyl patch removed from posterior shoulder and new placed on right chest. Wasted with Linda DOMINIQUE.
[2020-05-17] MEDS: traZODone 100 MG Tablet PO (22:42)
[2020-05-17] MEDS: MELATONIN 10 MG TABLET 5 MG PO (22:43)
[2020-05-17] MEDS: Atorvastatin Calcium 10 MG Tablet PO (22:43)
[2020-05-17 23:06] LABS: Bedside Glucose 95 mg/dL (70-110)
[2020-05-18] VITALS (11 sets, daily range): BP systolic 76–100; BP diastolic 45–55; PULSE 67–82; RESP 16–18; TEMP 36.3–37; O2SAT 98–99
[2020-05-18] MEDS: Nystatin Powder 15gm Bottle 1 APPLIC TOPICAL ×3 (05:52→21:54)
[2020-05-18] MEDS: Gabapentin 400 MG Capsule PO ×3 (05:53→21:55)
[2020-05-18] MEDS: Levothyroxine 112 MCG Tablet PO (05:53)
[2020-05-18] MEDS: Acetaminophen 325 MG Tablet 650 MG PO (05:56)
[2020-05-18] MEDS: Aspirin 81 MG TAB.CHEW PO (07:54)
[2020-05-18 07:55] LABS: Bedside Glucose 78 mg/dL (70-110)
[2020-05-18] MEDS: Glucerna Shake 120 ML LIQUID PO ×3 (07:55→16:57)
[2020-05-18] MEDS: Mirtazapine 30 MG Tablet PO (10:48)
[2020-05-18] MEDS: Topiramate 50 MG Tablet PO ×2 (10:48→21:55)
[2020-05-18] MEDS: Heparin Injection (Vial) 5,000 UNIT/ML VIAL 5000 UNIT SC ×2 (10:48→21:54)
[2020-05-18] MEDS: DULoxetine Hcl 60 MG Capsule PO ×2 (10:49→21:54)
[2020-05-18] MEDS: Lidocaine 5% Patch 2 PATCH TOPICAL (10:49)
--- NOTE | 2020-05-18 11:05 | PCM.TXEXTCAR ---
- Diet 05/14/20 16:50 Diet: Calorie Controlled Food consistency:: Regular Liquid Consistency:: Regular/Thin How many daily calories?: 1800 calorie - Routine Orders/Code Status Routine Lab Work: Sunday Code Status: Full Code - Wound(s) left buttock Wound Type: Pressure Injury left groin Wound Type: Surgical Incision katie warner Wound Type: Abrasion - Therapies Physical Therapy: Eval and Treat Occupational Therapy: Eval and Treat - Allergies/Procedures Done in Hospital Allergies/Adverse Reactions: Allergies ciprofloxacin [From Cipro] Allergy (Verified 05/14/20 13:38) Rash codeine Adverse Reaction (Verified 05/14/20 13:38) Rash - Type of Care/Length of Stay Estimated LOS: Convalescent Care Less Than 30 days Type of Care Needed: Skilled Rehab Potential: Fair Prognosis: Fair - Additional Orders/Day of Discharge Day of Discharge: 05/18/20 - Dietary and Speech Recommendations Dietitian Recommendations/Changes: Will order Nakul bid to help w/ wound healing - Follow Up Care Primary Care Physician: Olivia Green,Out of [NON-STAFF] - Please Follow Up With: Juan C Jarrell When: 2 weeks
[2020-05-18 12:31] LABS: Bedside Glucose 175 mg/dL (70-110)
[2020-05-18] MEDS: Insulin Lispro 100 UNIT/ML INSULN.PEN 20 UNIT SC ×2 (12:42→16:57)
--- NOTE | 2020-05-18 13:32 | PN_ITS ---
Patient Problems: Active and Suspected Problems Intractable back pain (Acute) Hypotension (Acute) Lactic acidosis (Acute) Acute kidney injury (Acute) Hyperglycemia due to type 2 diabetes mellitus (Acute) Reason for Visit: hypotension Subjective: No new complaints. Vitals/I&O's: Vital Signs Temp Pulse Resp BP Pulse Ox 36.8 C 71 16 97/55 L 98 05/18/20 08:32 05/18/20 08:32 05/18/20 08:32 05/18/20 08:32 05/18/20 08:32 Oxygen Delivery Method Room Air Weight: 99.337 kg Body Mass Index (BMI) 37.5 Finger Stick Blood Glucose 376 Intake and Output for Last 24 Hours 05/16/20 05/17/20 05/18/20 23:59 23:59 23:59 Intake Total 3137.5 / 3287.5 1240 / 1240 50 / 50 Balance 3137.5 / 3287.5 1240 / 1240 50 / 50 General: Alert, No apparent distress HEENT: Atraumatic, Normocephalic Oral: Moist Mucosa, No Gingival or Mucosal Lesions/ Ulcerations Neck: No Nodes, Thyroid Normal Size and Texture Lungs: Clear to auscultation, Normal air movement, No rhonchi, No wheeze, No rales Cardiovascular: Regular rate, Regular Rhythm, Normal S1, Normal S2, No murmurs Abdomen: Bowel Sounds Present, Soft, Non Tender, Non-Distended, No Hepato- splenomegaly Extremities: No Calf Tenderness, Edema Microbiology Past 72 Hours 05/14/20 15:20 Urine Catheter - Catheter Urine Culture - Final Yeast, not Geetha albicans 05/14/20 15:35 Blood Culture (Wb) - Anticubital Right Blood Culture - Pre liminary No growth in 48 hours. 05/14/20 14:00 Blood Culture (Wb) - Right Forearm Blood Culture - Preliminary No growth in 48 hours. Laboratory Results 05/17/20 11:20: COVID-19 (RENE) Not Detected 05/17/20 16:15: POC Glucose 115 H 05/17/20 22:30: POC Glucose 95 05/18/20 07:52: POC Glucose 78 05/18/20 12:27: POC Glucose 175 H Current Medications Acetaminophen (Tylenol) 650 mg PO Q6H PRN PRN PRN Reason: Pain Score 1-10/Temp > 100.7 F Last Admin: 05/18/20 05:56 Dose: 650 mg Documented by: Aspirin (Aspirin, Baby) 81 mg PO DAILY@0800 [facility] Last Admin: 05/18/20 07:54 Dose: 81 mg Documented by: Atorvastatin Calcium (Lipitor) 10 mg PO QHS [facility] Last Admin: 05/17/20 22:43 Dose: 10 mg Documented by: Duloxetine HCl (Cymbalta) 60 mg PO BID [facility] Last Admin: 05/18/20 10:49 Dose: 60 mg Documented by: Fentanyl (Duragesic Patch) 25 mcg TRANSDERM. Q3D [facility] Last Admin: 05/17/20 17:13 Dose: 25 mcg Documented by: Gabapentin (Neurontin) 400 mg PO TID [facility] Last Admin: 05/18/20 05:53 Dose: 400 mg Documented by: Heparin Sodium (Porcine) (Heparin Na) 5,000 unit SC Q12 [facility] Last Admin: 05/18/20 10:48 Dose: 5,000 unit Documented by: Sodium Chloride () 250 mls @ 15 mls/hr IV .[id number] PRN PRN Reason: Saline Flush Sodium Chloride () 250 mls @ 15 mls/hr IV .[id number] PRN PRN Reason: Additional IVPB Infusion Insulin Glargine (Lantus (Bkc)) 45 units SC 1100,2200 [facility] Last Admin: 05/18/20 12:43 Dose: 45 u Documented by: Insulin Human Lispro (Humalog Kwikpen (Bkc)) 20 unit SC TIDAC [facility] Last Admin: 05/18/20 12:42 Dose: 20 units Documented by: Levothyroxine Sodium (Synthroid) 112 mcg PO DAILY@0600 [facility] Last Admin: 05/18/20 05:53 Dose: 112 mcg Documented by: Lidocaine (Lidoderm Patch) 2 patch TOPICAL DAILY [facility]; Protocol Last Admin: 05/18/20 10:49 Dose: 2 patch Documented by: Melatonin (Melatonin) 5 mg PO QHS [facility] Last Admin: 05/17/20 22:43 Dose: 5 mg Documented by: Mirtazapine (Remeron) 30 mg PO DAILY [facility] Last Admin: 05/18/20 10:48 Dose: 30 mg Documented by: Nutritional Formula (Nakul - [place] Flavor) 1 packet PO BIDCM [facility] Last Admin: 05/18/20 10:48 Dose: 1 packet Documented by: Nutritional Formula (Lactose Free) (Glucerna Shake) 120 ml PO TIDCM [facility] Last Admin: 05/18/20 07:55 Dose: 120 ml Documented by: Nystatin (Mycostatin Powder) 1 applic TOPICAL TID [facility]; Protocol Last Admin: 05/18/20 05:52 Dose: 1 applicatio Documented by: Ondansetron HCl (Zofran) 4 mg IV Q8H PRN PRN PRN Reason: NAUSEA/VOMITING Senna/Docusate Sodium (Senokot-S, Mel-Colace) 2 tablet PO BID PRN PRN PRN Reason: Constipation Sodium Chloride () 10 - 40 ml IV UD PRN PRN Reason: SALINE FLUSH Topiramate (Topamax) 50 mg PO BID [facility] Last Admin: 05/18/20 10:48 Dose: 50 mg Documented by: Trazodone HCl (Desyrel) 100 mg PO QHS [facility] Last Admin: 05/17/20 22:42 Dose: 100 mg Documented by: Medical Necessity - Tobacco Use Smoking Status: Former smoker Tobacco Use: Non-smoker Assessment/Plan All Active Problems Intractable back pain (Acute) Hypotension (Acute) Lactic acidosis (Acute) Acute kidney injury (Acute) Hyperglycemia due to type 2 diabetes mellitus (Acute) 1. hypotension * resolved * furosemide and losartan held * IVF discontinued 2. BALAJI * resolved * creatinine 1.81 on admission now down to 1.11 * suspect prerenal 3. Debility: * awaiting on precertification for placement 4. chronic condition: stable, but complicate overall care * hyperlipidemia: atorvastatin * HTN: * osteoarthritis * depression * DM2: fair control on basal, and prandial insulin * hypothyroidism: levothyroxine * venous stasis dermatitis * chronic pain: on fentanyl, gabapentin, lidocaine patch 5. VTE prophylaxis: SQ heparin Inpatient E&M: 34024 [facility] Hosp L2
--- NOTE | 2020-05-18 13:32 | PCM.PN.HOSP ---
Patient Problems: Active and Suspected Problems Intractable back pain (Acute) Hypotension (Acute) Lactic acidosis (Acute) Acute kidney injury (Acute) Hyperglycemia due to type 2 diabetes mellitus (Acute) Reason for Visit: hypotension Subjective: No new complaints. Vitals/I&O's: Vital Signs Temp Pulse Resp BP Pulse Ox 36.8 C 71 16 97/55 L 98 05/18/20 08:32 05/18/20 08:32 05/18/20 08:32 05/18/20 08:32 05/18/20 08:32 Oxygen Delivery Method Room Air Weight: 99.337 kg Body Mass Index (BMI) 37.5 Finger Stick Blood Glucose 376 Intake and Output for Last 24 Hours 05/16/20 05/17/20 05/18/20 23:59 23:59 23:59 Intake Total 3137.5 / 3287.5 1240 / 1240 50 / 50 Balance 3137.5 / 3287.5 1240 / 1240 50 / 50 General: Alert, No apparent distress HEENT: Atraumatic, Normocephalic Oral: Moist Mucosa, No Gingival or Mucosal Lesions/ Ulcerations Neck: No Nodes, Thyroid Normal Size and Texture Lungs: Clear to auscultation, Normal air movement, No rhonchi, No wheeze, No rales Cardiovascular: Regular rate, Regular Rhythm, Normal S1, Normal S2, No murmurs Abdomen: Bowel Sounds Present, Soft, Non Tender, Non-Distended, No Hepato-splenomegaly Extremities: No Calf Tenderness, Edema Microbiology Past 72 Hours 05/14/20 15:20 Urine Catheter - Catheter Urine Culture - Final Yeast, not Geetha albicans 05/14/20 15:35 Blood Culture (Wb) - Anticubital Right Blood Culture - Preliminary No growth in 48 hours. 05/14/20 14:00 Blood Culture (Wb) - Right Forearm Blood Culture - Preliminary No growth in 48 hours. Laboratory Results 05/17/20 11:20: COVID-19 (RENE) Not Detected 05/17/20 16:15: POC Glucose 115 H 05/17/20 22:30: POC Glucose 95 05/18/20 07:52: POC Glucose 78 05/18/20 12:27: POC Glucose 175 H Current Medications Acetaminophen (Tylenol) 650 mg PO Q6H PRN PRN PRN Reason: Pain Score 1-10/Temp > 100.7 F Last Admin: 05/18/20 05:56 Dose: 650 mg Documented by: Aspirin (Aspirin, Baby) 81 mg PO DAILY@0800 [facility] Last Admin: 05/18/20 07:54 Dose: 81 mg Documented by: Atorvastatin Calcium (Lipitor) 10 mg PO QHS [facility] Last Admin: 05/17/20 22:43 Dose: 10 mg Documented by: Duloxetine HCl (Cymbalta) 60 mg PO BID [facility] Last Admin: 05/18/20 10:49 Dose: 60 mg Documented by: Fentanyl (Duragesic Patch) 25 mcg TRANSDERM. Q3D [facility] Last Admin: 05/17/20 17:13 Dose: 25 mcg Documented by: Gabapentin (Neurontin) 400 mg PO TID [facility] Last Admin: 05/18/20 05:53 Dose: 400 mg Documented by: Heparin Sodium (Porcine) (Heparin Na) 5,000 unit SC Q12 [facility] Last Admin: 05/18/20 10:48 Dose: 5,000 unit Documented by: Sodium Chloride () 250 mls @ 15 mls/hr IV .[id number] PRN PRN Reason: Saline Flush Sodium Chloride () 250 mls @ 15 mls/hr IV .[id number] PRN PRN Reason: Additional IVPB Infusion Insulin Glargine (Lantus (Bkc)) 45 units SC 1100,2200 [facility] Last Admin: 05/18/20 12:43 Dose: 45 u Documented by: Insulin Human Lispro (Humalog Kwikpen (Bkc)) 20 unit SC TIDAC [facility] Last Admin: 05/18/20 12:42 Dose: 20 units Documented by: Levothyroxine Sodium (Synthroid) 112 mcg PO DAILY@0600 [facility] Last Admin: 05/18/20 05:53 Dose: 112 mcg Documented by: Lidocaine (Lidoderm Patch) 2 patch TOPICAL DAILY [facility]; Protocol Last Admin: 05/18/20 10:49 Dose: 2 patch Documented by: Melatonin (Melatonin) 5 mg PO QHS [facility] Last Admin: 05/17/20 22:43 Dose: 5 mg Documented by: Mirtazapine (Remeron) 30 mg PO DAILY [facility] Last Admin: 05/18/20 10:48 Dose: 30 mg Documented by: Nutritional Formula (Nakul - [place] Flavor) 1 packet PO BIDCM [facility] Last Admin: 05/18/20 10:48 Dose: 1 packet Documented by: Nutritional Formula (Lactose Free) (Glucerna Shake) 120 ml PO TIDCM [facility] Last Admin: 05/18/20 07:55 Dose: 120 ml Documented by: Nystatin (Mycostatin Powder) 1 applic TOPICAL TID [facility]; Protocol Last Admin: 05/18/20 05:52 Dose: 1 applicatio Documented by: Ondansetron HCl (Zofran) 4 mg IV Q8H PRN PRN PRN Reason: NAUSEA/VOMITING Senna/Docusate Sodium (Senokot-S, Mel-Colace) 2 tablet PO BID PRN PRN PRN Reason: Constipation Sodium Chloride () 10 - 40 ml IV UD PRN PRN Reason: SALINE FLUSH Topiramate (Topamax) 50 mg PO BID [facility] Last Admin: 05/18/20 10:48 Dose: 50 mg Documented by: Trazodone HCl (Desyrel) 100 mg PO QHS [facility] Last Admin: 05/17/20 22:42 Dose: 100 mg Documented by: Medical Necessity - Tobacco Use Smoking Status: Former smoker Tobacco Use: Non-smoker Assessment/Plan All Active Problems Intractable back pain (Acute) Hypotension (Acute) Lactic acidosis (Acute) Acute kidney injury (Acute) Hyperglycemia due to type 2 diabetes mellitus (Acute) 1. hypotension resolved furosemide and losartan held IVF discontinued 2. BALAJI resolved creatinine 1.81 on admission now down to 1.11 suspect prerenal 3. Debility: awaiting on precertification for placement 4. chronic condition: stable, but complicate overall care hyperlipidemia: atorvastatin HTN: osteoarthritis depression DM2: fair control on basal, and prandial insulin hypothyroidism: levothyroxine venous stasis dermatitis chronic pain: on fentanyl, gabapentin, lidocaine patch 5. VTE prophylaxis: SQ heparin Inpatient E&M: 65314 [facility]s Hosp L2
--- NOTE | 2020-05-18 14:11 | CASEMGMT ---
Addendum entered by Faiza Cook 05/18/20 16:41: SW updated pt that pre-cert has been obtained and pt will likely discharge tomorrow to [facility]. Pt states understanding. Addendum entered by Faiza Cook 05/18/20 16:17: SW received call from Hanny at [facility] stating pre-cert has been obtained and pt is able to discharge to [facility] today. SW updated physician. Physician states pt is not medically cleared for discharge today. WILFRED placed a call back to Hanny and updated her that pt will not be discharged today. Hanny states pt's pre-cert is still good for tomorrow. Plan: [facility] skilled, likely tomorrow Addendum entered by Faiza Cook 05/18/20 15:30: WILFRED placed another call to Hanny at [facility] asking about pre-cert. SW waiting for call back. Original Note: Social Work Note WILFRED placed a call to Hanny at [facility], left message regarding pre-cert. WILFRED waiting for call back. Plan: [facility] pending pre-cert Faiza Cook PAIN MANAGEMENT SPECIALIST, HOUSE OFFICER
[2020-05-18 16:46] LABS: Bedside Glucose 174 mg/dL (70-110)
[2020-05-18] MEDS: traZODone 100 MG Tablet PO (21:54)
[2020-05-18] MEDS: MELATONIN 10 MG TABLET 5 MG PO (21:55)
[2020-05-18] MEDS: Atorvastatin Calcium 10 MG Tablet PO (21:55)
[2020-05-18 22:20] LABS: Bedside Glucose 126 mg/dL (70-110)
[2020-05-19 02:49] VITALS: BP 103/59; PULSE 64; RESP 18; TEMP 36.6; O2SAT 97
[2020-05-19 04:00] VITALS: PULSE 74
[2020-05-19] MEDS: Levothyroxine 112 MCG Tablet PO (05:54)
[2020-05-19] MEDS: Gabapentin 400 MG Capsule PO (05:54)
[2020-05-19] MEDS: Nystatin Powder 15gm Bottle 1 APPLIC TOPICAL (05:55)
[2020-05-19 08:16] VITALS: BP 111/58; PULSE 67; RESP 18; TEMP 36.7; O2SAT 98
[2020-05-19 08:35] LABS: Bedside Glucose 176 mg/dL (70-110)
[2020-05-19 08:59] VITALS: PULSE 59
[2020-05-19] MEDS: Aspirin 81 MG TAB.CHEW PO (09:29)
[2020-05-19] MEDS: Mirtazapine 30 MG Tablet PO (09:29)
[2020-05-19] MEDS: Heparin Injection (Vial) 5,000 UNIT/ML VIAL 5000 UNIT SC (09:29)
[2020-05-19] MEDS: Topiramate 50 MG Tablet PO (09:29)
[2020-05-19] MEDS: Insulin Lispro 100 UNIT/ML INSULN.PEN 20 UNIT SC (09:30)
[2020-05-19] MEDS: Lidocaine 5% Patch 2 PATCH TOPICAL (09:30)
[2020-05-19] MEDS: DULoxetine Hcl 60 MG Capsule PO (09:40)
[2020-05-19] MEDS: Glucerna Shake 120 ML LIQUID PO (09:40)
--- NOTE | 2020-05-19 09:44 | PCM.DC.SUM ---
Discharge Date and Diagnosis - Problem List Patient Problems: Active and Suspected Problems Hypotension (Acute) Lactic acidosis (Acute) Acute kidney injury (Acute) Hyperglycemia due to type 2 diabetes mellitus (Acute) Date of Admission: 05/14/20 Date of Discharge: 05/19/20 - Primary Discharge Diagnosis Acute Problems: Active Problems Intractable back pain (Acute) Hypotension (Acute) Lactic acidosis (Acute) Acute kidney injury (Acute) Hyperglycemia due to type 2 diabetes mellitus (Acute) - Secondary Discharge Diagnosis Chronic Problems: Chronic Problems HLD (hyperlipidemia) (Chronic) Obesity (Chronic) Former tobacco use (Chronic) Type 2 diabetes mellitus (Chronic) Venous stasis dermatitis (Chronic) Osteoarthritis (Chronic) Open wound of right lower extremity (Chronic) Open wound of left lower extremity (Chronic) Diabetic ulcer of right foot (Chronic) HTN (hypertension) (Chronic) Hypothyroidism (Chronic) Hospital Course and Treatment Imaging Results: Clinical Impression(s) from Imaging Studies Chest CTA 05/14/20 14:06 IMPRESSION: No acute abnormality is seen. Degenerative changes of the thoracic spine with spondylosis. Electronically Signed: Joe Hoffman, at 14:56 EDT , Service support , Abdomen/Pelvis CTA 05/14/20 14:07 IMPRESSION: No evidence of abdominal aortic aneurysm or dissection. Distended gallbladder with possible sludge or tiny gallstones along the dependent portion of the gallbladder lumen. Findings suggestive of a spinal stenosis of the lumbar spine as described. Electronically Signed: Joe Hoffman, at 14:54 EDT , Service support , Operations: None Procedures: None Summary of Care Provided: The patient is a 69 year old F thoracic back pain as well as hypertension. Patient was complaining of 10 out of 10 thoracic back pain it was nearly constant. Images CTA of the chest that showed no acute process. Did show degenerative changes within the thoracic spine with spondylosis. Back pain subsequently improved. Patient presented with hypotension with blood pressure 66/37. Her furosemide and losartan were held and patient did receive IV fluids which were subsequent discontinued. Yesterday, patient had blood pressure that went down again with a blood pressure 76/45. She was asymptomatic. Subsequent blood pressures have remained stable. For the patient's hypertension patient will continue to hold off on her furosemide and losartan. Also had acute kidney injury when she presented to and her creatinine is 1.81 and then subsequently down to 1.11. Stage II improved with IV fluids suggesting a prerenal etiology. Patient was very debilitated and required assistance. Seen by therapy recommends group home facility. Being discharged to [facility] in stable condition. Discharge was held on the fourth given transient low blood pressure that she had had. Since her blood pressure has remained stable since then, she can be safely discharged to [facility]. [] Patient Problems: Active and Suspected Problems Hypotension (Acute) Lactic acidosis (Acute) Acute kidney injury (Acute) Hyperglycemia due to type 2 diabetes mellitus (Acute) - Physical Exam Vitals/I&O's: Vital Signs Temp Pulse Resp BP Pulse Ox 36.7 C 67 18 111/58 L 98 05/19/20 08:16 05/19/20 08:16 05/19/20 08:16 05/19/20 08:16 05/19/20 08:16 Oxygen Delivery Method Room Air Weight: 99.337 kg Body Mass Index (BMI) 37.5 Finger Stick Blood Glucose 376 Intake and Output for Last 24 Hours 05/17/20 05/18/20 05/19/20 23:59 23:59 23:59 Intake Total 1240 / 1240 1000 / 1290 290 / 290 Balance 1240 / 1240 1000 / 1290 290 / 290 General: Alert, No apparent distress HEENT: Atraumatic, Normocephalic Oral: Moist Mucosa, No Gingival or Mucosal Lesions/ Ulcerations Neck: No Nodes, Thyroid Normal Size and Texture Lungs: Clear to auscultation, Normal air movement, No rhonchi, No wheeze, No rales Cardiovascular: Regular rate, Regular Rhythm, Normal S1, Normal S2, No murmurs Abdomen: Bowel Sounds Present, Soft, Non Tender, Non-Distended, No Hepato-splenomegaly Extremities: No Calf Tenderness, Edema Microbiology Past 72 Hours 05/14/20 15:20 Urine Catheter - Catheter Urine Culture - Final Yeast, not Geetha albicans 05/14/20 15:35 Blood Culture (Wb) - Anticubital Right Blood Culture - Preliminary No growth in 48 hours. 05/14/20 14:00 Blood Culture (Wb) - Right Forearm Blood Culture - Preliminary No growth in 48 hours. Laboratory Results 05/18/20 12:27: POC Glucose 175 H 05/18/20 16:40: POC Glucose 174 H 05/18/20 21:52: POC Glucose 126 H 05/19/20 08:20: POC Glucose 176 H Current Medications Acetaminophen (Tylenol) 650 mg PO Q6H PRN PRN PRN Reason: Pain Score 1-10/Temp > 100.7 F Last Admin: 05/18/20 05:56 Dose: 650 mg Documented by: Aspirin (Aspirin, Baby) 81 mg PO DAILY@0800 [facility] Last Admin: 05/19/20 09:29 Dose: 81 mg Documented by: Atorvastatin Calcium (Lipitor) 10 mg PO QHS [facility] Last Admin: 05/18/20 21:55 Dose: 10 mg Documented by: Duloxetine HCl (Cymbalta) 60 mg PO BID [facility] Last Admin: 05/19/20 09:40 Dose: 60 mg Documented by: Fentanyl (Duragesic Patch) 25 mcg TRANSDERM. Q3D [facility] Last Admin: 05/17/20 17:13 Dose: 25 mcg Documented by: Gabapentin (Neurontin) 400 mg PO TID [facility] Last Admin: 05/19/20 05:54 Dose: 400 mg Documented by: Heparin Sodium (Porcine) (Heparin Na) 5,000 unit SC Q12 [facility] Last Admin: 05/19/20 09:29 Dose: 5,000 unit Documented by: Sodium Chloride () 250 mls @ 15 mls/hr IV .[id number] PRN PRN Reason: Saline Flush Sodium Chloride () 250 mls @ 15 mls/hr IV .[id number] PRN PRN Reason: Additional IVPB Infusion Insulin Glargine (Lantus (Bk)) 45 units SC 1100,2200 [facility] Last Admin: 05/18/20 22:21 Dose: 45 u Documented by: Insulin Human Lispro (Humalog Kwikpen (Bk)) 20 unit SC TIDAC [facility] Last Admin: 05/19/20 09:30 Dose: 20 units Documented by: Levothyroxine Sodium (Synthroid) 112 mcg PO DAILY@0600 [facility] Last Admin: 05/19/20 05:54 Dose: 112 mcg Documented by: Lidocaine (Lidoderm Patch) 2 patch TOPICAL DAILY [facility]; Protocol Last Admin: 05/19/20 09:30 Dose: 2 patch Documented by: Melatonin (Melatonin) 5 mg PO QHS [facility] Last Admin: 05/18/20 21:55 Dose: 5 mg Documented by: Mirtazapine (Remeron) 30 mg PO DAILY [facility] Last Admin: 05/19/20 09:29 Dose: 30 mg Documented by: Nutritional Formula (Nakul - [place] Flavor) 1 packet PO BIDCM [facility] Last Admin: 05/19/20 09:30 Dose: 1 packet Documented by: Nutritional Formula (Lactose Free) (Glucerna Shake) 120 ml PO TIDCM [facility] Last Admin: 05/19/20 09:40 Dose: 120 ml Documented by: Nystatin (Mycostatin Powder) 1 applic TOPICAL TID [facility]; Protocol Last Admin: 05/19/20 05:55 Dose: 1 applicatio Documented by: Ondansetron HCl (Zofran) 4 mg IV Q8H PRN PRN PRN Reason: NAUSEA/VOMITING Senna/Docusate Sodium (Senokot-S, Mel-Colace) 2 tablet PO BID PRN PRN PRN Reason: Constipation Sodium Chloride () 10 - 40 ml IV UD PRN PRN Reason: SALINE FLUSH Topiramate (Topamax) 50 mg PO BID [facility] Last Admin: 05/19/20 09:29 Dose: 50 mg Documented by: Trazodone HCl (Desyrel) 100 mg PO QHS [facility] Last Admin: 05/18/20 21:54 Dose: 100 mg Documented by: Discharge Diet: 1800 Calorie Control Diet Discharge Activity: Return to Normal Activity Home Medications: Medications to take at Discharge Duloxetine HCl 60 mg PO BID 09/02/18 Levothyroxine [Synthroid] 112 mcg PO DAILY 09/02/18 Lovastatin [Mevacor] 40 mg PO QHS 09/02/18 traZODone [Desyrel] 100 mg PO QHS 09/02/18 Melatonin 5 mg PO QHS 02/15/19 Topiramate [Topamax] 50 mg PO BID 02/15/19 Ibuprofen [Motrin] 400 mg PO Q6H PRN PRN tablet 02/18/19 Gabapentin [Neurontin] 400 mg PO TID 10/12/19 Mirtazapine 30 mg PO DAILY 10/12/19 Miconazole Nitrate [Zeasorb AF] 1 applic TP BID PRN PRN 07/31/20 Insulin Glargine [Lantus SoloStar Pen] 45 units SUBCUT 1100,2200 pen 05/18/20 Insulin Lispro [Humalog KwikPen] 20 unit SUBCUT TIDAC insuln.pen 05/18/20 Primary Care Physician: Olivia Green,Out of [NON-STAFF] - Please Follow Up With: Juan C Jarrell When: 2 weeks Disposition: [facility] facility Minutes spent on discharge:: 32 Patient Condition:: Fair Medical Necessity - Tobacco Use Smoking Status: Former smoker Tobacco Use: Non-smoker Meaningful Use Info Meaningful Use Diagnoses (Choose all that apply): None applicable Inpatient E&M: 90373 Disch Hosp
--- NOTE | 2020-05-19 11:00 | CASEMGMT ---
Social Work Note RN updated this worker that pt's wants pt to go to SNF in [place] as pt's lives in [place]. Per physician, pt is medically ready for discharge today. SW in to speak with pt. Pt states well my wants me to go to a SNF in [place]. SW explained that pt is medically ready for discharge today and process for a new SNF would need to be completely restarted and medically pt is ready for discharge today so pt should be discharged today. SW explained that it would be unlikely that this worker could get new SNF and new pre-cert today. SW explained that once pt goes to [place] and if she still wants to transfer to a different SNF, [facility] can assist with transfer to a new SNF in [place]. Pt states understanding, agreeable to being discharged to [facility] today. WILFRED faxed completed discharge paperwork to [facility] including transfer to extended care facility, signed medication list and any scripts. Original in SNF folder and copy on pt's chart. WILFRED placed [facility] to [facility] and arranged transportation via wheelchair van for 11:30am. Transportation form completed and placed on SNF folder and copy on pt's chart. RN and pt updated on transportation time. WILFRED placed a call to Hanny at [facility] and updated her on pt's discharge and transportation time. Hanny states she will call [facility] and let staff know about discharge and transportation time. Plan: [facility] today [facility] via [facility] van at 11:30am Faiza Cook MSW, FORK TRUCK OPERATOR
--- NOTE | 2020-05-19 11:20 | CASEMGMT ---
Social Work Note SW back in to speak with pt. Pt confirms that her is aware that pt will be discharged to [facility] today. Faiza Cook ICE CREAM VENDOR, LEAD JANITOR
--- NOTE | 2020-05-19 11:58 | NURSING ---
report called to yee- note left in pt packed for admitting RN that fentanyl patch is to be d/c'ed and was wasted here at [facility] prior to transport. Also notified that pt mepilex to buttock remains due to pt requesting same for transport. (placed due to previous wound to area) Bilateral lower legs dressed with adaptic over open areas and kerlix placed over top to protect skin for transport.
== END 2020-05-19 11:49 | disposition skilled nursing facility (03) | DRG 347 ==
LOC: ED 14:50 → MS3 16:14
PROVIDERS: Internal Medicine; Admitting Provider Family Medicine; Emergency Provider Emergency Medicine
DX: M51.34 Other intervertebral disc degeneration, thoracic region (principal); E11.65 Type 2 diabetes mellitus with hyperglycemia; N17.9 Acute kidney failure, unspecified; I95.9 Hypotension, unspecified; E78.5 Hyperlipidemia, unspecified; E03.9 Hypothyroidism, unspecified; E66.09 Other obesity due to excess calories; F32.9 Major depressive disorder, single episode, unspecified; E87.5 Hyperkalemia; I87.2 Venous insufficiency (chronic) (peripheral); G89.29 Other chronic pain; E11.40 Type 2 diabetes mellitus with diabetic neuropathy, unspecified; E11.22 Type 2 diabetes mellitus with diabetic chronic kidney disease; E11.69 Type 2 diabetes mellitus with other specified complication; I12.9 Hypertensive chronic kidney disease with stage 1 through stage 4 chronic kidney disease, or unspecified chronic kidney disease; N18.9 Chronic kidney disease, unspecified; L97.519 Non-pressure chronic ulcer of other part of right foot with unspecified severity; M19.90 Unspecified osteoarthritis, unspecified site; Z87.891 Personal history of nicotine dependence; Z68.37 Body mass index [BMI] 37.0-37.9, adult; Z79.4 Long term (current) use of insulin; Z88.5 Allergy status to narcotic agent; Z79.890 Hormone replacement therapy; Z79.891 Long term (current) use of opiate analgesic; Z82.49 Family history of ischemic heart disease and other diseases of the circulatory system
CPT/HCPCS: 36415; 71275; 74174; 80048; 80053; 80076; 81001; 82570; 82947; 82962; 83036; 83605; 83690; 83735; 84300; 84484; 85025; 87040; 87077; 87086; 87088; 87635; 93005; 94799; 97110; 97116; 97161; 97166; 97530; 97535; 97802; 99251; 99285; J7030; J7040; P9612; Q9967; A4216; G0463; U0003